=== PATIENT | male | born 1960 | race Hispanic/Latino ===

== ENCOUNTER 2017-10-14 18:48 | Inpatient (IN) | payer BC ==
[2017-10-14] MEDS ORDERED: NACL 0.9% 1000 ML 1,000 ML ONE (19:18)
[2017-10-14] MEDS ORDERED: NACL 0.9% 500 ML 500 ML IV ONE (19:32)
[2017-10-14 20:17] LABS: Basophils % (Auto) 0.4 % (0.0-1.8); Eosinophils # (Auto) 0.3 K/mm3 (0.0-0.4); Eosinophils % (Auto) 3.9 % (0.0-4.3); Hematocrit 23.8 % (35.5-45.6); Hemoglobin 8.1 gm/dl (11.8-15.2); Lymphocytes # (Auto) 1.9 K/mm3 (1.2-5.4); Lymphocytes % (Auto) 27.2 % (13.4-35.0); Mean Corpuscular HGB Conc 34 % (32-34); Mean Corpuscular Hemoglobin 31 pg (28-32); Mean Corpuscular Volume 90 fl (84-94); Monocytes # (Auto) 0.7 K/mm3 (0.0-0.8); Monocytes % (Auto) 9.4 % (0.0-7.3); Platelet Count 437 K/mm3 (140-440); Red Blood Count 2.63 M/mm3 (3.65-5.03); Red Cell Distribution Width 15.8 % (13.2-15.2)
[2017-10-14 20:31] LABS: INR 1.09 (0.87-1.13)
[2017-10-14 20:35] LABS: Alanine Aminotransferase 9 units/L (7-56); Albumin 2.6 g/dL (3.9-5); BUN/Creatinine Ratio 10; Blood Urea Nitrogen 43 mg/dL (9-20); Calcium 7.2 mg/dL (8.4-10.2); Hemolysis Index 6
[2017-10-14 20:42] LABS: Amorphous Crystals,Urine Few; Bacteria,Urine 2+ /HPF (Negative); Bilirubin,Urine NEG (Negative); Blood,Urine SM (Negative); Color,Urine Yellow (Yellow); Mucus,Urine FEW /HPF; Nitrite,Urine NEG (Negative); Protein,Urine <15 mg/dL mg/dL (Negative); Urobilinogen,Urine < 2.0 mg/dL (<2.0)
[2017-10-14 20:58] LABS: Chol/HDL Ratio 4.65 %
[2017-10-14] MEDS ORDERED: BABY ASPIRIN PO ONE (21:20)
--- NOTE | 2017-10-14 21:53 | Emergency Department Report ---
<Herminio GARRETT - Last Filed: 10/14/17 21:56> ED General Adult HPI - General Chief complaint: Weakness Stated complaint: HYPOTENSION Time Seen by Provider: 10/14/17 19:27 Source: patient, family, EMS Mode of arrival: Stretcher Limitations: Physical Limitation - History of Present Illness Initial comments: Patient has been experiencing hypotension for one day. He did not take his blood pressure medications today because of his low blood pressure. He and his were concerned that his pressure may be related to one of the three surgeries that he had last month. He denies that rest or exertion makes his symptoms better or worse and has not tried to take anything to improve his symptoms. Treatments Prior to Arrival: none - Related Data Home Medications Medication Instructions Recorded Confirmed Last Taken ALPRAZolam [Xanax TAB] 0.25 mg PO PRN PRN 08/31/17 09/02/17 08/30/17 Aspirin [Aspirin TAB] 325 mg PO QDAY 08/31/17 08/31/17 09/02/17 06:30 AtorvaSTATin [Lipitor] 40 mg PO QHS 08/31/17 09/02/17 09/01/17 Cilostazol [Pletal] 50 mg PO BID 08/31/17 08/31/17 09/02/17 06:30 Gabapentin [Neurontin] 100 mg PO DAILY 08/31/17 08/31/17 09/02/17 06:30 Gabapentin [Neurontin] 300 mg PO DAILY 08/31/17 09/02/17 09/01/17 Lisinopril [Zestril] 20 mg PO DAILY 08/31/17 09/02/17 09/01/17 Metformin HCl [Glucophage] 500 mg PO BID 08/31/17 09/02/17 08/31/17 Metoprolol Tartrate 25 mg PO DAILY 08/31/17 09/02/17 09/01/17 20:00 Multivit-Min/Folic/Vit K/Lycop 1 each PO DAILY 08/31/17 08/31/17 09/02/17 06:30 [Eql One Daily Mens 50 Plus Adv] Previous Rx's Medication Instructions Recorded Last Taken Type HYDROcodone/APAP 10-325 [[place] 1 each PO Q6HR PRN #60 tablet 09/25/17 Unknown Rx 10/325] Allergies Allergy/AdvReac Type Severity Reaction Status Date / Time No Known Allergies Allergy Unverified 10/14/17 19:17 ED Review of Systems ROS: Stated complaint: HYPOTENSION Other details as noted in HPI Comment: All other systems reviewed and negative Constitutional: denies: chills, fever Eyes: denies: eye pain, eye discharge, vision change ENT: denies: ear pain, throat pain Respiratory: denies: cough, shortness of breath, wheezing Cardiovascular: edema. denies: chest pain, palpitations Endocrine: no symptoms reported Gastrointestinal: denies: abdominal pain, nausea, diarrhea Genitourinary: denies: urgency, dysuria Musculoskeletal: denies: back pain, joint swelling, arthralgia Skin: denies: rash, lesions Neurological: denies: headache, weakness, paresthesias Psychiatric: denies: anxiety, depression Hematological/Lymphatic: denies: easy bleeding, easy bruising ED Past Medical Hx - Past Medical History Hx Hypertension: Yes (recent hypotension, EF 50-55%) Hx Congestive Heart Failure: No Hx Diabetes: Yes (x 2 yrs) Hx Renal Disease: Yes ([facility]) Hx Arthritis: Yes (feet, legs) Hx Asthma: No Hx COPD: No - Social History Smoking Status: Former Smoker Substance Use Type: None - Medications Home Medications: Home Medications Medication Instructions Recorded Confirmed Last Taken Type ALPRAZolam [Xanax TAB] 0.25 mg PO PRN PRN 08/31/17 09/02/17 08/30/17 History Aspirin [Aspirin TAB] 325 mg PO QDAY 08/31/17 08/31/17 09/02/17 06:30 History AtorvaSTATin [Lipitor] 40 mg PO QHS 08/31/17 09/02/17 09/01/17 History Cilostazol [Pletal] 50 mg PO BID 08/31/17 08/31/17 09/02/17 06:30 History Gabapentin [Neurontin] 100 mg PO DAILY 08/31/17 08/31/17 09/02/17 06:30 History Gabapentin [Neurontin] 300 mg PO DAILY 08/31/17 09/02/17 09/01/17 History Lisinopril [Zestril] 20 mg PO DAILY 08/31/17 09/02/17 09/01/17 History Metformin HCl [Glucophage] 500 mg PO BID 08/31/17 09/02/17 08/31/17 History Metoprolol Tartrate 25 mg PO DAILY 08/31/17 09/02/17 09/01/17 20:00 History Multivit-Min/Folic/Vit K/Lycop 1 each PO DAILY 08/31/17 08/31/17 09/02/17 06:30 History [Eql One Daily Mens 50 Plus Adv] HYDROcodone/APAP 10-325 [[place] 1 each PO Q6HR PRN #60 tablet 09/25/17 Unknown Rx 10/325] ED Physical Exam - General Limitations: Physical Limitation General appearance: alert, in no apparent distress, obese - Head Head exam: Present: atraumatic, normocephalic - Eye Eye exam: Present: normal appearance - ENT ENT exam: Present: mucous membranes moist - Neck Neck exam: Present: normal inspection - Respiratory Respiratory exam: Present: normal lung sounds bilaterally. Absent: respiratory distress - Cardiovascular Cardiovascular Exam: Present: regular rate, normal rhythm. Absent: systolic murmur, diastolic murmur, rubs, gallop - GI/Abdominal GI/Abdominal exam: Present: soft, normal bowel sounds - Rectal Rectal exam: Present: deferred - Extremities Exam Extremities exam: Present: normal inspection, full ROM, pedal edema, joint swelling - Back Exam Back exam: Present: normal inspection - Neurological Exam Neurological exam: Present: alert, oriented X3, CN II-XII intact, reflexes normal - Psychiatric Psychiatric exam: Present: normal affect, normal mood - Skin Skin exam: Present: warm, dry, intact, normal color. Absent: rash ED Course Vital Signs 10/14/17 10/14/17 10/14/17 18:53 19:00 19:13 Temperature 99.4 F Pulse Rate 102 H Respiratory 18 Rate Blood Pressure 71/40 72/38 71/36 O2 Sat by Pulse 97 Oximetry 10/14/17 10/14/17 10/14/17 19:22 19:30 19:45 Temperature Pulse Rate 99 H 95 H 93 H Respiratory 17 11 L 13 Rate Blood Pressure 72/38 84/39 74/41 O2 Sat by Pulse 92 95 93 Oximetry 10/14/17 10/14/17 10/14/17 20:00 20:05 20:06 Temperature Pulse Rate 88 93 H Respiratory 11 L 20 Rate Blood Pressure 74/41 O2 Sat by Pulse 92 94 Oximetry 10/14/17 10/14/1710/14/17 20:15 20:30 20:45 Temperature Pulse Rate 91 H 90 89 Respiratory 13 12 12 Rate Blood Pressure 79/45 85/48 81/42 O2 Sat by Pulse 95 93 95 Oximetry 10/14/17 10/14/17 10/14/17 21:00 21:16 21:30 Temperature Pulse Rate 92 H 94 H 89 Respiratory 11 L 12 12 Rate Blood Pressure 70/38 78/36 68/39 O2 Sat by Pulse 94 94 89 Oximetry 10/14/17 10/14/17 10/14/17 21:46 22:00 22:32 Temperature Pulse Rate 93 H 97 H Respiratory 14 14 Rate Blood Pressure 70/40 82/46 98/41 O2 Sat by Pulse 93 92 94 Oximetry 10/14/17 10/14/17 10/14/17 22:45 23:00 23:15 Temperature Pulse Rate 95 H 93 H 92 H Respiratory 12 12 16 Rate Blood Pressure 84/41 83/47 79/43 O2 Sat by Pulse 92 92 93 Oximetry 10/14/17 10/14/17 23:30 23:46 Temperature Pulse Rate 87 85 Respiratory 11 L 11 L Rate Blood Pressure 80/38 108/53 O2 Sat by Pulse 92 92 Oximetry ED Medical Decision Making - Lab Data Result diagrams: 10/14/17 19:47 10/14/17 19:47 Critical care attestation.: If time is entered above; I have spent that time in minutes in the direct care of this critically ill patient, excluding procedure time. ED Disposition Condition: Stable <SEROTOFFPAKO - Last Filed: 10/15/17 01:26> - Central Line Placement Left IJ Consent Obtained: verbal consent, written consent, emergent situation Time Out Performed: Yes Patient Placed on Monitor/Pulse Ox: Yes MD Prep: mask, gown, gloves Central Line Prep: Povidone-Iodine 1%, Chlorhexidine scrub Local Anesthesia Used: Lidocaine 2%, with Epi Amount of Anesthesia Used (mls): 10 Ultrasound Used for Placement: Yes Central Line Lumen Inserted: single, triple Bloods Obtained for Lab: Yes Central Line Position: good blood return, all ports aspirated, flus, sutured in place with 2-0 Dressing Applied: Tegaderm Post Procedure X-Ray: tip of catheter in good p Patient Tolerated Procedure: well Complications: none ED Medical Decision Making - Lab Data Result diagrams: 10/14/17 19:47 10/14/17 19:47
[2017-10-14] MEDS: LEVOPHED DRIP 4 MG/NS 250 ML 4 MG/250 ML BAG IV SCH (22:03)
--- NOTE | 2017-10-14 23:01 | Cat Scan Report ---
FINAL REPORT EXAM: CT ABDOMEN PELVIS WO CON HISTORY: Hypotension/post op TECHNIQUE: CT abdomen and pelvis without contrast PRIORS: None. FINDINGS: Streaky atelectasis seen in both lower lobes No focal abnormality identified within the liver parenchyma. The spleen demonstrates normal size and attenuation. No pancreatic abnormalities seen. Kidneys demonstrate no evidence of hydronephrosis or nephrolithiasis. No ureteral calculus identified. The adrenal glands are unremarkable. There are aortoiliac vascular stents present. Patency cannot be assessed due to lack intravenous contrast No pathologically enlarged lymph nodes are identified. There is midline abdominal surgical wound. The air are air collections present within the subcutaneous soft tissues along the course of the wound along with streaky increased density in the adjacent subcutaneous soft tissues along the course of the rectus muscles no definitive intra-abdominal extension or abscess observed. There is some radiodense material seen along the course of the previous incision at the rectus sheath possibly operative the mesh or packing material. No evidence of small bowel dilatation. no pericolonic inflammatory changes are observed. Left inguinal region there is a 2.7 centimeter low-density focus probable seroma this was present previously and is unchanged. Urinary bladder is unremarkable. Compression fracture of L4 is unchanged IMPRESSION: There is residual subcutaneous air and increased density on the course of the surgical wound which could reflect infection. No focal drainable abscess collection identified. Abdominal aortic aneurysm with aortoiliac vascular stents unchanged on noncontrast exam Otherwise no acute change identified
[2017-10-14] MEDS ORDERED: NACL 0.9% 1000 ML 1,000 ML IV SCH (23:45)
[2017-10-14] MEDS ORDERED: ZOSYN/NS 3.375GM/50ML 3.375 GM/50 ML BAG IV ONE (23:52)
--- NOTE | 2017-10-15 00:28 | History and Physical Report ---
History of Present Illness Date of examination: 10/14/17 Date of admission: 10/14/17 Chief complaint: Hypotension History of present illness: Patient is a 57-year-old gentleman with past medical history as mentioned below recently status post aneurysm repair with aorto-iliac bypass and also with acute kidney injury during his last admission but with a creatinine of 0.9 at discharge. He was discharged to subacute rehabilitation on 09/25/2017 and then discharged to home day before yesterday. He was brought in by his because of low blood pressure. The states that he has not been feeling good since he got home and today his blood pressure was very low so she was concerned and so she brought him to the emergency room. No reports of fevers chills no headache nausea vomiting continue numbness or weakness except for generalized fatigue and weakness. The patient still has some drainage from his abdominal incision through the small. He was seen by general surgery on Thursday but then he had the anibal and stitches removed. He denies any diarrhea or constipation and no significant abdominal pain. Past History Past Medical History: arthritis, diabetes, hypertension, renal failure Past Surgical History: Other (Aortobifemoral bypass 09/02/17, Closure of fascial dehiscence 09/07/17) Social history: no significant social history Family history: no significant family history Medications and Allergies Allergies Allergy/AdvReac Type Severity Reaction Status Date / Time No Known Allergies Allergy Unverified 10/14/17 19:17 Home Medications Medication Instructions Recorded Confirmed Last Taken Type ALPRAZolam [Xanax TAB] 0.25 mg PO PRN PRN 08/31/17 09/02/17 08/30/17 History Aspirin [Aspirin TAB] 325 mg PO QDAY 08/31/17 08/31/17 09/02/17 06:30 History AtorvaSTATin [Lipitor] 40 mg PO QHS 08/31/17 09/02/17 09/01/17 History Cilostazol [Pletal] 50 mg PO BID 08/31/17 08/31/17 09/02/17 06:30 History Gabapentin [Neurontin] 100 mg PO DAILY 08/31/17 08/31/17 09/02/17 06:30 History Gabapentin [Neurontin] 300 mg PO DAILY 08/31/17 09/02/17 09/01/17 History Lisinopril [Zestril] 20 mg PO DAILY 08/31/17 09/02/17 09/01/17 History Metformin HCl [Glucophage] 500 mg PO BID 08/31/17 09/02/17 08/31/17 History Metoprolol Tartrate 25 mg PO DAILY 08/31/17 09/02/17 09/01/17 20:00 History Multivit-Min/Folic/Vit K/Lycop 1 each PO DAILY 08/31/17 08/31/17 09/02/17 06:30 History [Eql One Daily Mens 50 Plus Adv] HYDROcodone/APAP 10-325 [[place] 1 each PO Q6HR PRN #60 tablet 09/25/17 Unknown Rx 10325] Active Meds: Active Medications Norepinephrine (Levophed Drip 4 Mg/Ns 250 Ml) 4 mg in 250 mls @ 7.5 mls/hr IV TITR DRU; 2 MCG/MIN PRN Reason: Protocol Last Titration: 10/14/17 23:36 Dose: 4 mcg/min, 15 mls/hr Sodium Chloride (Nacl 0.9% 1000 Ml) 1,000 mls @ 150 mls/hr IV DIRECT DRU Piperacillin Sod/Tazobactam Sod (Zosyn/Ns 3.375gm/50ml) 3.375 gm in 50 mls @ 100 mls/hr IV ONCE.ED ONE Stop: 10/16/17 00:21 Review of Systems All systems: negative (as mentioned in HPI) Exam - Physical Exam Narrative exam: General: the patient is awake alert oriented to time place and person. no evidence of acute distress HEENT: Head is atraumatic normocephalic,. Pupils equal round reactive to light and accommodation, extraocular movements intact. Oral mucosa moist. Oropharynx clear. No pharyngeal erythema or tonsillar exudate. Neck: Supple no JVD no thyromegaly or lymphadenopathy. Heart: Regular rate and rhythm no murmurs or gallops. S1 and S2 normal. PMI not displaced. Lungs: Clear to auscultation bilaterally. No rales rhonchi wheezing. Nonlabored breathing. Normal chest wall expansion. Abdomen: Soft, nondistended, and mildly tender to palpation over all quadrants. Abdominal binder in place. Normoactive bowel sounds. No hepatosplenomegaly. No abdominal masses or bruit appreciated. Anterior abdominal wall incision with minimal erythema and the areas of one day since small 2-3 mm circular openings with purulent drainage Extremities: No cyanosis/clubbing/ edema. Musculoskeletal: Normal range of movement all joints. No obvious deformity or tenderness to palpation. Normal muscle tone. Back: Normal alignment. No step-off. No midline or paraspinal tenderness. No CVA tenderness. Neurological: Grossly intact and nonfocal. No cerebellar signs. Cranial nerves II-12 grossly intact. Strength 5 out of 5 all 4 extremities. Sensations grossly intact. Skin: Warm and dry no rashes or bruises except, anterior abdominal wall incision changes as mentioned above Psychiatric: Normal mood. Appropriate affect and good insight and judgment. Vascular system: No lymphadenopathy. Distal pulses 2+ bilaterally. - Constitutional Vitals: Temp Pulse Resp BP Pulse Ox 99.4 F 85 11 L 108/53 92 10/14/17 19:13 10/14/17 23:46 10/14/17 23:46 10/14/17 23:46 10/14/17 23:46 Results - Labs CBC & Chem 7: 10/14/17 19:47 10/14/17 19:47 Labs: Laboratory Last Values WBC 7.0 K/mm3 (4.5-11.0) 10/14/17 19:47 RBC 2.63 M/mm3 (3.65-5.03) L 10/14/17 19:47 Hgb 8.1 gm/dl (11.8-15.2) L 10/14/17 19:47 Hct 23.8 % (35.5-45.6) L 10/14/17 19:47 MCV 90 fl (84-94) 10/14/17 19:47 MCH 31 pg (28-32) 10/14/17 19:47 MCHC 34 % (32-34) 10/14/17 19:47 RDW 15.8 % (13.2-15.2) H 10/14/17 19:47 Plt Count 437 K/mm3 (140-440) 10/14/17 19:47 Lymph % (Auto) 27.2 % (13.4-35.0) 10/14/17 19:47 [place] % (Auto) 9.4 % (0.0-7.3) H 10/14/17 19:47 Eos % (Auto) 3.9 % (0.0-4.3) 10/14/17 19:47 Baso % (Auto) 0.4 % (0.0-1.8) 10/14/17 19:47 Lymph # 1.9 K/mm3 (1.2-5.4) 10/14/17 19:47 [place] # 0.7 K/mm3 (0.0-0.8) 10/14/17 19:47 Eos # 0.3 K/mm3 (0.0-0.4) 10/14/17 19:47 Baso # 0.0 K/mm3 (0.0-0.1) 10/14/17 19:47 Seg Neutrophils % 59.1 % (40.0-70.0) 10/14/17 19:47 Seg Neutrophils # 4.2 K/mm3 (1.8-7.7) 10/14/17 19:47 PT 14.7 Sec. (12.2-14.9) 10/14/17 19:47 INR 1.09 (0.87-1.13) 10/14/17 19:47 D-Dimer 3277.01 ng/mlDDU (0-234) H 10/14/17 19:47 Sodium 127 mmol/L (137-145) L 10/14/17 19:47 Potassium 4.0 mmol/L (3.6-5.0) 10/14/17 19:47 Chloride 88.6 mmol/L (98-107) L 10/14/17 19:47 Carbon Dioxide 21 mmol/L (22-30) L 10/14/17 19:47 Anion Gap 21 mmol/L 10/14/17 19:47 BUN 43 mg/dL (9-20) H 10/14/17 19:47 Creatinine 4.2 mg/dL (0.8-1.5) H 10/14/17 19:47 Estimated GFR 15 ml/min 10/14/17 19:47 BUN/Creatinine Ratio 10 % 10/14/17 19:47 Glucose 106 mg/dL (75-100) H 10/14/17 19:47 POC Glucose 116 (70-105) H 10/14/17 20:19 Calcium 7.2 mg/dL (8.4-10.2) L 10/14/17 19:47 Total Bilirubin < 0.20 mg/dL (0.1-1.2) 10/14/17 19:47 AST 12 units/L (5-40) 10/14/17 19:47 ALT 9 units/L (7-56) 10/14/17 19:47 Alkaline Phosphatase 135 units/L (35-129) H 10/14/17 19:47 Total Creatine Kinase 83 units/L (55-170) 10/14/17 19:47 Troponin T 0.108 ng/mL (0.00-0.029) H* 10/14/17 19:47 Total Protein 6.4 g/dL (6.3-8.2) 10/14/17 19:47 Albumin 2.6 g/dL (3.9-5) L 10/14/17 19:47 Albumin/Globulin Ratio 0.7 % 10/14/17 19:47 Triglycerides 186 mg/dL (2-149) H 10/14/17 19:47 Cholesterol 121 mg/dL (50-199) 10/14/17 19:47 LDL Cholesterol Direct 58 mg/dL (50-130) 10/14/17 19:47 HDL Cholesterol 26 mg/dL (40-59) L 10/14/17 19:47 Cholesterol/HDL Ratio 4.65 % 10/14/17 19:47 Urine Color Yellow (Yellow) 10/14/17 20:30 Urine Turbidity Slightly-cloudy (Clear) 10/14/17 20:30 Urine pH 5.0 (5.0-7.0) 10/14/17 20:30 Ur Specific [place] 1.014 (1.003-1.030) 10/14/17 20:30 Urine Protein <15 mg/dl mg/dL (Negative) 10/14/17 20:30 Urine Glucose (UA) Neg mg/dL (Negative) 10/14/17 20:30 Urine Ketones Neg mg/dL (Negative) 10/14/17 20:30 Urine Blood Sm (Negative) 10/14/17 20:30 Urine Nitrite Neg (Negative) 10/14/17 20:30 Urine Bilirubin Neg (Negative) 10/14/17 20:30 Urine Urobilinogen < 2.0 mg/dL (<2.0) 10/14/17 20:30 Ur Leukocyte Esterase Tr (Negative) 10/14/17 20:30 Urine WBC (Auto) 7.0 /HPF (0.0-6.0) H 10/14/17 20:30 Urine RBC (Auto) 5.0 /HPF (0.0-6.0) 10/14/17 20:30 U Epithel Cells (Auto) < 1.0 /HPF (0-13.0) 10/14/17 20:30 Urine Bacteria (Auto) 2+ /HPF (Negative) 10/14/17 20:30 Amorphous Crystals Few 10/14/17 20:30 Urine Mucus Few /HPF 10/14/17 20:30 - Imaging and Cardiology Imaging and Cardiology: CT abdomen and pelvis without contrast showing residual subcutaneous air and increased density on the course of the surgical wound which could reflect infection. No focal drainable abscess collection identified. Abdominal aortic aneurysm with aortoiliac vascular stents unchanged noncontrast exam Assessment and Plan Assessment and plan: Assessment and plan - * Hypotension - possibly sepsis versus hypovolemia related * Acute kidney injury - likely multifactorial related to sepsis versus hypovolemia versus ATN. * Diabetes mellitus type 2 * Acute posterior lacuner infract - Patient was seen by neurology during his last admission on 09/25/2007 date. As per the recent MRI of the brain scan and there was strong evidence only of minimal cortical infarct in the occipital lobes which probably was determined to be acute coronary infarct. Patient was determined to have visible areas of ischemic CVA suspecting single episode of emboli. * AAA Status post aortobifemoral bypass surgery on 09/02/17 * Sepsis likely from abdominal wound dehiscence and abdominal wound infection * Shock likely septic versus Hypovolemic Shock, aggressive IV fluid rehydration and pressors if needed or indicated to maintain a map greater than 65. We will admit to ICU monitor vital signs closely * IDDM (insulin dependent diabetes mellitus) * HTN (hypertension) * PAD (peripheral artery disease) * HLD (hyperlipidemia) * Hyponatremia. * Abdominal wound dehiscence with evisceration - s/p abdominal wound closure . Had emergency surgery 09/09/17 : exploratory lap, mesh placement complex wound closure and retention sutures. The retention sutures removed this Thursday. * Anemia - likely postop. Patient status post blood transfusion during his last admission. H&H slightly lower than his discharge hemoglobin and hematocrit. We will monitor H&H closely and transfuse if needed or indicated for hemoglobin less than or equal to 7. Plan: - We'll admit to ICU - Aggressive IV fluid rehydration and monitor serum sodium and vital signs closely - Vascular surgery and Gen. surgery and nephrology consulted for further evaluation and management. We'll follow the recommendations - Patient has been pancultured and started him on empiric antibiotics vancomycin and Zosyn, follow culture results modify antibiotic treatment based on culture and sensitivity data - cont statin, no asp/plavix due to recent h/o blood transfusion - s/p OR on 09/07/17 for abdominal wall wound dehiscence and repair - s/p emergency surgery 09/09/17 for evisceration - continue strict Is and Os, - continue VTE/GI prophylaxis - Cont SSI coverage Total critical care time spent 55 minutes Advance Directives: Yes VTE prophylaxis?: Chemical, Mechanical Plan of care discussed with patient/family: Yes
[2017-10-15] MEDS ORDERED: XYLOCAINE 2%/ EPI 1:200,000 INFILTRATI ONE (00:46)
[2017-10-15] MEDS ORDERED: DULCOLAX PR PRN (00:48)
[2017-10-15] MEDS ORDERED: NACL 0.9% 250ML 250 ML IV ONE (00:48)
[2017-10-15] MEDS ORDERED: MILK OF MAGNESIA PO PRN (00:48)
[2017-10-15] MEDS ORDERED: VANCOMYCIN VIAL IV ONE (00:48)
[2017-10-15] MEDS ORDERED: TYLENOL PO PRN (00:48)
[2017-10-15] MEDS ORDERED: ZOFRAN IV PRN (00:48)
[2017-10-15] MEDS ORDERED: D50W (25GM) Syringe IV PRN (00:48)
[2017-10-15] MEDS ORDERED: AMBIEN PO PRN (00:48)
[2017-10-15] MEDS ORDERED: MORPHINE IV PRN (00:48)
[2017-10-15] MEDS ORDERED: VANCOMYCIN PHARMACY TO DOSE IV SCH (01:00)
[2017-10-15] MEDS ORDERED: XANAX PO PRN (01:09)
[2017-10-15] MEDS ORDERED: VANCOMYCIN 2,000 MG in NACL 0.9% 500 ML 500 ML IV ONE (01:30)
--- NOTE | 2017-10-15 01:49 | XRay Report ---
FINAL REPORT PROCEDURE: XR CHEST 1V AP TECHNIQUE: Chest radiograph anteroposterior view. CPT 16011 HISTORY: CENTRAL LINE PLACEMENT COMPARISON: No prior studies are available for comparison. FINDINGS: Heart: Normal. Mediastinum/Vessels: Normal. Lungs/Pleural space: There is bilateral perihilar pulmonary edema. There is suboptimal inspiration. There are no effusions or pneumothoraces.. Bony thorax: No acute osseous abnormality. Life support devices: There is a left-sided central venous catheter. The tip is in the left internal jugular vein.. IMPRESSION: The heart size is normal.. There is bilateral perihilar pulmonary edema. There is suboptimal inspiration. There are no effusions or pneumothoraces.. There is a left-sided central venous catheter. The tip is in the left internal jugular vein..
[2017-10-15] MEDS: LEVOPHED DRIP 4 MG/NS 250 ML 4 MG/250 ML BAG IV SCH ×2 (02:04→22:45)
[2017-10-15 03:31] LABS: Basophils % (Auto) 0.4 % (0.0-1.8); Eosinophils # (Auto) 0.3 K/mm3 (0.0-0.4); Eosinophils % (Auto) 3.9 % (0.0-4.3); Hematocrit 25.8 % (35.5-45.6); Hemoglobin 8.6 gm/dl (11.8-15.2); Lymphocytes % (Auto) 28.7 % (13.4-35.0); Mean Corpuscular HGB Conc 33 % (32-34); Mean Corpuscular Hemoglobin 30 pg (28-32); Mean Corpuscular Volume 89 fl (84-94); Monocytes # (Auto) 0.6 K/mm3 (0.0-0.8); Monocytes % (Auto) 9.3 % (0.0-7.3); Platelet Count 483 K/mm3 (140-440)
[2017-10-15 03:50] LABS: Albumin 2.7 g/dL (3.9-5); Calcium 7.9 mg/dL (8.4-10.2)
[2017-10-15] MEDS: DUONEB *Not for PRN Use IH SCH ×5 (04:31→21:28)
[2017-10-15] MEDS ORDERED: ZOSYN/NS 4.5GM/100ML 4.5 GM/100 ML VIAL IV SCH (06:00)
[2017-10-15] MEDS ORDERED: ZOSYN/NS 2.25 GM/50ML 2.25 GM/50 ML BAG IV SCH (08:00)
[2017-10-15] MEDS: NOVOLOG SUB-Q SCH ×4 (09:21→23:08)
--- NOTE | 2017-10-15 09:50 | Consultation ---
History of Present Illness - Reason for Consult Consult date: 10/15/17 - History of Present Illness Mr. Belcher is a 57yo gentleman s/p recent aorta bifemoral bypass that was complicated by dehiscence and repair with mesh who presented to the ED with hypotension. reported that she routinely checks patient's blood pressure. Yesterday, she reports that his BP was low which was confirmed by home health nurse. She was advised to give patient fluids. reports that BP improved only briefly and then declined again which prompted ED visit. There is no reported history of fever, chills, nausea, vomiting and diarrhea. At present, patient has no complaints. Labs at admission notable for SCr 4.2mg/dL prompting nephrology consultation. Past History Past Medical History: arthritis, diabetes, hypertension, renal failure Past Surgical History: Other (Aortobifemoral bypass 09/02/17, Closure of fascial dehiscence 09/07/17) Social history: no significant social history Family history: no significant family history Medications and Allergies Allergies Allergy/AdvReac Type Severity Reaction Status Date / Time No Known Allergies Allergy Unverified 10/14/17 19:17 Home Medications Medication Instructions Recorded Confirmed Last Taken Type ALPRAZolam [Xanax TAB] 0.25 mg PO PRN PRN 08/31/17 10/15/17 08/30/17 History Aspirin [Aspirin TAB] 325 mg PO DAILY 08/31/17 10/15/17 10/14/17 History AtorvaSTATin [Lipitor] 40 mg PO DAILY 08/31/17 10/15/17 10/14/17 History Cilostazol [Pletal] 50 mg PO BID 08/31/17 10/15/17 10/14/17 History Gabapentin [Neurontin] 100 mg PO DAILY 08/31/17 10/15/17 10/14/17 History Gabapentin [Neurontin] 300 mg PO DAILY 08/31/17 10/15/17 10/14/17 History Metformin HCl [Glucophage] 500 mg PO BID 08/31/17 10/15/17 10/14/17 History Multivit-Min/Folic/Vit K/Lycop 1 each PO DAILY 08/31/17 10/15/17 10/14/17 History [Eql One Daily Mens 50 Plus Adv] HYDROcodone/APAP 10-325 [[place] 1 each PO Q6HR PRN #60 tablet 09/25/17 10/15/17 10/14/17 Rx 10/325] Active Meds: Active Medications Acetaminophen (Tylenol) 650 mg PO Q4H PRN PRN Reason: Pain MILD(1-3)/Fever >100.5/ROBLES Albuterol/Ipratropium (Duoneb *Not For Prn Use*) 1 ampul IH Q6HRT COUNT INCLUDES THE [facility] Last Admin: 10/15/17 04:31 Dose: 1 ampul Alprazolam (Xanax) 0.25 mg PO DAILY PRN PRN Reason: Anxiety Atorvastatin Calcium (Lipitor) 40 mg PO QHS DRU Bisacodyl (Dulcolax) 10 mg [place] QDAY PRN PRN Reason: Constipation unrelieved by MOM Dextrose (D50w (25gm) Syringe) 50 ml IV PRN PRN PRN Reason: Hypoglycemia Docusate Sodium (Colace) 100 mg PO BID COUNT INCLUDES THE [facility] Gabapentin (Neurontin) 300 mg PO DAILY COUNT INCLUDES THE [facility] Norepinephrine (Levophed Drip 4 Mg/Ns 250 Ml) 4 mg in 250 mls @ 7.5 mls/hr IV TITR DRU; 2 MCG/MIN PRN Reason: Protocol Last Titration: 10/15/17 08:30 Dose: 8 mcg/min, 30 mls/hr Sodium Chloride (Nacl 0.9% 1000 Ml) 1,000 mls @ 150 mls/hr IV DIRECT DRU Piperacillin Sod/Tazobactam Sod (Zosyn/Ns 4.5gm/100ml) 4.5 gm in 100 mls @ 200 mls/hr IV Q8H COUNT INCLUDES THE [facility] Insulin Aspart (Novolog) 0 units SUB-Q ACHS DRU PRN Reason: Protocol Last Admin: 10/15/17 09:21 Dose: 3 units Magnesium Hydroxide (Milk Of Magnesia) 30 ml PO Q4H PRN PRN Reason: Constipation Morphine Sulfate (Morphine) 2 mg IV Q4H PRN PRN Reason: Pain, Moderate (4-6) Multivitamins/Minerals (Theragran-M Tab) 1 each PO QDAY DRU Ondansetron HCl (Zofran) 4 mg IV Q8H PRN PRN Reason: N/V unrelieved by Reglan Oxycodone/Acetaminophen (Percocet 5/325) 1 tab PO Q6H PRN PRN Reason: Pain, Moderate (4-6) Pantoprazole Sodium (Protonix) 40 mg PO QDAY DRU Senna (Senokot) 8.6 mg PO Q12HR DRU Vancomycin HCl (Vancomycin Pharmacy To Dose) 1 each IV PKCONSULT DRU PRN Reason: Protocol Zolpidem Tartrate (Ambien) 5 mg PO QHS PRN PRN Reason: Insomnia Review of Systems All systems: negative Exam - Vital Signs Vital signs: Vital Signs BP 71/40 10/14/17 18:53 - General Appearance General appearance: well-developed, well-nourished EENT: ATNC Respiratory: Clear to Ascultation Heart: regular, S1S2 Gastrointestinal: Present: normoactive bowel sounds Integumentary: no rash, warm and dry Neurologic: no focal deficit Musculoskeletal: Present: other (no edema) Psychiatric: cooperative Results - Lab Results 10/16/17 04:01 10/16/17 04:01 Most recent lab results Calcium 7.9 mg/dL (8.4-10.2) L 10/15/17 03:12 Assessment and Plan Impression: * Acute kidney injury secondary to prerenal azotemia due to hypotension vs ATN * Hypotension secondary to ?sepsis * s/p Aorta bifemoral bypass that was complicated by dehiscence and repair with mesh * Hyponatremia - improved Plan: * No acute indication for renal replacement therapy as renal function is improving * Continue IVF for hydration * Pressors prn MAP>65 - currently on Levophed * Abx per ID * Avoid potential nephrotoxins * Dose medications for renal function
[2017-10-15] MEDS ORDERED: VIT K PO SCH (10:00)
[2017-10-15] MEDS ORDERED: LYCOP PO SCH (10:00)
[2017-10-15] MEDS ORDERED: MULTIVIT MIN PO SCH (10:00)
[2017-10-15] MEDS ORDERED: FOLIC PO SCH (10:00)
[2017-10-15] MEDS: ZOSYN/NS 4.5GM/100ML 4.5 GM/100 ML VIAL IV SCH ×2 (10:36→18:15)
--- NOTE | 2017-10-15 11:12 | Consultation ---
History of Present Illness Consult date: 10/15/17 Requesting physician: MICHAEL VELASQUEZ History of present illness: 57 years old male with history of DM, HTN, CKD and status post aneurysm repair with aorto-iliac bypass, well known to me, recently discharged ( after undergoing Aortobifemoral bypass 09/02/17, complicated with wound dehiscence / eviceration s/p Closure of fascial dehiscence with a mesh 09/07/17) to subacute rehabilitation on 09/25/2017 and then discharged to home on 10/12. He had acute kidney injury during his last admission but with a creatinine of 0.9 at discharge. He was discharged to subacute rehabilitation on 09/25/2017 and then discharged to home day before yesterday. He was brought in by his because of low blood pressure. The states that he has not been feeling good since he got home and today his blood pressure was very low so she was concerned and so she brought him to the emergency room. No reports of fevers chills no headache nausea vomiting continue numbness or weakness except for generalized fatigue and weakness. The patient still has some drainage from his abdominal incision through the small. The patient still has some drainage from his abdominal incision. He was seen by general surgery Dr Perales on Thursday but then he had the anibal and stitches removed and serous fluid was reported draining. he was given bactrim DS which he has been taking. He denies any diarrhea or constipation and no significant abdominal pain. He denies any diarrhea or constipation and no significant abdominal pain. He has been coughing yellowish sputum last week. In the emergency room, initial temperature was 99.4, heart rate 102, respiration 18, blood pressure 71/36. Initial white count 7. Hemoglobin 8.1. Platelets 437. Creatinine 4.2. Lactic acid 0.7. Urinalysis is negative. I have been consulted for septic shock. Patient was seen and examined. Vitals, labs, medications, chart were reviewed, in ED, with his at the bedside. He is hypotensive requiring fluids and vasopressor suppport. Past History Past Medical History: arthritis, diabetes, hypertension, renal failure Past Surgical History: Other (Aortobifemoral bypass 09/02/17, Closure of fascial dehiscence 09/07/17) Social history: no significant social history Family history: no significant family history Medications and Allergies Allergies Allergy/AdvReac Type Severity Reaction Status Date / Time No Known Allergies Allergy Unverified 10/14/17 19:17 Home Medications Medication Instructions Recorded Confirmed Last Taken Type ALPRAZolam [Xanax TAB] 0.25 mg PO PRN PRN 08/31/17 10/15/17 08/30/17 History Aspirin [Aspirin TAB] 325 mg PO DAILY 08/31/17 10/15/17 10/14/17 History AtorvaSTATin [Lipitor] 40 mg PO DAILY 08/31/17 10/15/17 10/14/17 History Cilostazol [Pletal] 50 mg PO BID 08/31/17 10/15/17 10/14/17 History Gabapentin [Neurontin] 100 mg PO DAILY 08/31/17 10/15/17 10/14/17 History Gabapentin [Neurontin] 300 mg PO DAILY 08/31/17 10/15/17 10/14/17 History Metformin HCl [Glucophage] 500 mg PO BID 08/31/17 10/15/17 10/14/17 History Multivit-Min/Folic/Vit K/Lycop 1 each PO DAILY 08/31/17 10/15/17 10/14/17 History [Eql One Daily Mens 50 Plus Adv] HYDROcodone/APAP 10-325 [[place] 1 each PO Q6HR PRN #60 tablet 09/25/17 10/15/17 10/14/17 Rx 10/325] Active Meds: Active Medications Acetaminophen (Tylenol) 650 mg PO Q4H PRN PRN Reason: Pain MILD(1-3)/Fever >100.5/ROBLES Albuterol/Ipratropium (Duoneb *Not For Prn Use*) 1 ampul IH Q6HRT [facility] Last Admin: 10/15/17 10:31 Dose: 1 ampul Alprazolam (Xanax) 0.25 mg PO DAILY PRN PRN Reason: Anxiety Atorvastatin Calcium (Lipitor) 40 mg PO QHS DRU Bisacodyl (Dulcolax) 10 mg [place] QDAY PRN PRN Reason: Constipation unrelieved by MOM Dextrose (D50w (25gm) Syringe) 50 ml IV PRN PRN PRN Reason: Hypoglycemia Docusate Sodium (Colace) 100 mg PO BID DRU Gabapentin (Neurontin) 300 mg PO DAILY DRU Norepinephrine (Levophed Drip 4 Mg/Ns 250 Ml) 4 mg in 250 mls @ 7.5 mls/hr IV TITR DRU; 2 MCG/MIN PRN Reason: Protocol Last Titration: 10/15/17 08:30 Dose: 8 mcg/min, 30 mls/hr Sodium Chloride (Nacl 0.9% 1000 Ml) 1,000 mls @ 150 mls/hr IV DIRECT DRU Piperacillin Sod/Tazobactam Sod (Zosyn/Ns 4.5gm/100ml) 4.5 gm in 100 mls @ 200 mls/hr IV Q8H [facility] Last Admin: 10/15/17 10:36 Dose: 200 mls/hr Insulin Aspart (Novolog) 0 units SUB-Q ACHS DRU PRN Reason: Protocol Last Admin: 10/15/17 09:21 Dose: 3 units Magnesium Hydroxide (Milk Of Magnesia) 30 ml PO Q4H PRN PRN Reason: Constipation Morphine Sulfate (Morphine) 2 mg IV Q4H PRN PRN Reason: Pain, Moderate (4-6) Multivitamins/Minerals (Theragran-M Tab) 1 each PO QDAY [facility] Ondansetron HCl (Zofran) 4 mg IV Q8H PRN PRN Reason: N/V unrelieved by Reglan Oxycodone/Acetaminophen (Percocet 5/325) 1 tab PO Q6H PRN PRN Reason: Pain, Moderate (4-6) Pantoprazole Sodium (Protonix) 40 mg PO QDAY [facility] Senna (Senokot) 8.6 mg PO Q12HR [facility] Vancomycin HCl (Vancomycin Pharmacy To Dose) 1 each IV PKCONSULT [facility] PRN Reason: Protocol Zolpidem Tartrate (Ambien) 5 mg PO QHS PRN PRN Reason: Insomnia Physical Examination Vital signs: Vital Signs BP 71/40 10/14/17 18:53 Results - Laboratory Findings CBC and BMP: 10/22/17 06:05 10/23/17 04:45 PT/INR, D-dimer PT 14.7 Sec. (12.2-14.9) 10/14/17 19:47 INR 1.09 (0.87-1.13) 10/14/17 19:47 D-Dimer 3277.01 ng/mlDDU (0-234) H 10/14/17 19:47 Abnormal lab findings: Abnormal Labs 10/14/17 10/14/17 10/14/17 19:47 19:47 19:47 RBC 2.63 L Hgb 8.1 L Hct 23.8 L RDW 15.8 H Plt Count [place] % (Auto) 9.4 H D-Dimer Sodium 127 L Chloride 88.6 L Carbon Dioxide 21 L BUN 43 H Creatinine 4.2 H Glucose 106 H POC Glucose Calcium 7.2 L Alkaline Phosphatase 135 H Troponin T 0.108 H* Albumin 2.6 L Triglycerides 186 H HDL Cholesterol 26 L Urine WBC (Auto) 10/14/17 10/14/17 10/14/17 19:47 20:19 20:30 RBC Hgb Hct RDW Plt Count [place] % (Auto) D-Dimer 3277.01 H Sodium Chloride Carbon Dioxide BUN Creatinine Glucose POC Glucose 116 H Calcium Alkaline Phosphatase Troponin T Albumin Triglycerides HDL Cholesterol Urine WBC (Auto) 7.0 H 10/15/17 10/15/17 10/15/17 03:12 03:12 08:42 RBC 2.90 L Hgb 8.6 L Hct 25.8 L RDW 16.0 H Plt Count 483 H [place] % (Auto) 9.3 H D-Dimer Sodium 133 L Chloride 94.5 L Carbon Dioxide 21 L BUN 41 H Creatinine 3.3 H Glucose 112 H POC Glucose 152 H Calcium 7.9 L Alkaline Phosphatase 140 H Troponin T Albumin 2.7 L Triglycerides HDL Cholesterol Urine WBC (Auto) Assessment and Plan Sepsis IVVD RUPERT VTE (DVT) PVD (Status post aortobifemoral bypass surgery on 09/02/17) Diabetes type II controlled with insulin Hyperlipidemia Anemia Abdominal Wound Infection -admit ICU -follow up cultures - continue volume resuscitation with isotonic fluids - wean off levophed for MAP > 65mmHg - supplemental oxygen to keep sats > 90% - mobility protocol for pressure ulcer prophylaxis - azotemia per nephrology otherwise - continue anti-infectives and de-escalate per ID recs - continue IV heparin for DVT Monitor hemodynamic closely - flu & pneumovax per protocol.. ED Critical Care Note - Critical Care Note Total Time (mins): 65 Critical care time in (mins) excluding proc time.: 65 Critical care attestation.: If time is entered above; I have spent that time in minutes in the direct care of this critically ill patient, excluding procedure time.
[2017-10-15] MEDS: PROTONIX PO SCH (11:30)
[2017-10-15] MEDS: NEURONTIN PO SCH (11:30)
[2017-10-15] MEDS: COLACE PO SCH ×2 (11:30→23:09)
[2017-10-15] MEDS: SENOKOT PO SCH ×2 (13:03→22:46)
[2017-10-15] MEDS: THERAGRAN-M Tab PO SCH (13:21)
--- NOTE | 2017-10-15 14:39 | Progress Note ---
History Interval history: No new issues overnight. Hospitalist Physical - Constitutional Vitals: Temp Pulse Resp BP Pulse Ox 98.5 F 118 H 18 105/55 94 10/15/17 07:10 10/15/17 07:10 10/15/17 07:10 10/15/17 07:10 10/15/17 07:10 General appearance: Present: no acute distress, well-nourished - EENT Eyes: Present: PERRL, EOM intact ENT: hearing intact, clear oral mucosa, dentition normal - Neck Neck: Present: supple, normal ROM - Respiratory Respiratory effort: normal Respiratory: bilateral: CTA - Cardiovascular Rhythm: regular Heart Sounds: Present: S1 & S2. Absent: gallop, rub - Extremities Extremities: no ischemia, No edema, Full ROM - Abdominal General gastrointestinal: soft, non-tender, non-distended, normal bowel sounds - Integumentary Integumentary: Present: clear, warm, dry - Neurologic Neurologic: CNII-XII intact, moves all extremities Results - Labs CBC & Chem 7: 10/15/17 03:12 10/15/17 03:12 Labs: Laboratory Last Values WBC 6.8 K/mm3 (4.5-11.0) 10/15/17 03:12 RBC 2.90 M/mm3 (3.65-5.03) L 10/15/17 03:12 Hgb 8.6 gm/dl (11.8-15.2) L 10/15/17 03:12 Hct 25.8 % (35.5-45.6) L 10/15/17 03:12 MCV 89 fl (84-94) 10/15/17 03:12 MCH 30 pg (28-32) 10/15/17 03:12 MCHC 33 % (32-34) 10/15/17 03:12 RDW 16.0 % (13.2-15.2) H 10/15/17 03:12 Plt Count 483 K/mm3 (140-440) H 10/15/17 03:12 Lymph % (Auto) 28.7 % (13.4-35.0) 10/15/17 03:12 [place] % (Auto) 9.3 % (0.0-7.3) H 10/15/17 03:12 Eos % (Auto) 3.9 % (0.0-4.3) 10/15/17 03:12 Baso % (Auto) 0.4 % (0.0-1.8) 10/15/17 03:12 Lymph # 2.0 K/mm3 (1.2-5.4) 10/15/17 03:12 [place] # 0.6 K/mm3 (0.0-0.8) 10/15/17 03:12 Eos # 0.3 K/mm3 (0.0-0.4) 10/15/17 03:12 Baso # 0.0 K/mm3 (0.0-0.1) 10/15/17 03:12 Seg Neutrophils % 57.7 % (40.0-70.0) 10/15/17 03:12 Seg Neutrophils # 3.9 K/mm3 (1.8-7.7) 10/15/17 03:12 PT 14.7 Sec. (12.2-14.9) 10/14/17 19:47 INR 1.09 (0.87-1.13) 10/14/17 19:47 D-Dimer 3277.01 ng/mlDDU (0-234) H 10/14/17 19:47 Sodium 133 mmol/L (137-145) L 10/15/17 03:12 Potassium 3.6 mmol/L (3.6-5.0) 10/15/17 03:12 Chloride 94.5 mmol/L (98-107) L 10/15/17 03:12 Carbon Dioxide 21 mmol/L (22-30) L 10/15/17 03:12 Anion Gap 21 mmol/L 10/15/17 03:12 BUN 41 mg/dL (9-20) H 10/15/17 03:12 Creatinine 3.3 mg/dL (0.8-1.5) H 10/15/17 03:12 Estimated GFR 19 ml/min 10/15/17 03:12 BUN/Creatinine Ratio 12 % 10/15/17 03:12 Glucose 112 mg/dL (75-100) H 10/15/17 03:12 POC Glucose 182 (70-105) H 10/15/17 13:16 Lactic Acid 0.70 mmol/L (0.7-2.0) 10/15/17 03:12 Calcium 7.9 mg/dL (8.4-10.2) L 10/15/17 03:12 Total Bilirubin 0.20 mg/dL (0.1-1.2) 10/15/17 03:12 AST 14 units/L (5-40) 10/15/17 03:12 ALT 11 units/L (7-56) 10/15/17 03:12 Alkaline Phosphatase 140 units/L (35-129) H 10/15/17 03:12 Total Creatine Kinase 83 units/L (55-170) 10/14/17 19:47 Troponin T 0.108 ng/mL (0.00-0.029) H* 10/14/17 19:47 Total Protein 7.2 g/dL (6.3-8.2) 10/15/17 03:12 Albumin 2.7 g/dL (3.9-5) L 10/15/17 03:12 Albumin/Globulin Ratio 0.6 % 10/15/17 03:12 Triglycerides 186 mg/dL (2-149) H 10/14/17 19:47 Cholesterol 121 mg/dL (50-199) 10/14/17 19:47 LDL Cholesterol Direct 58 mg/dL (50-130) 10/14/17 19:47 HDL Cholesterol 26 mg/dL (40-59) L 10/14/17 19:47 Cholesterol/HDL Ratio 4.65 % 10/14/17 19:47 Urine Color Yellow (Yellow) 10/14/17 20:30 Urine Turbidity Slightly-cloudy (Clear) 10/14/17 20:30 Urine pH 5.0 (5.0-7.0) 10/14/17 20:30 Ur Specific [place] 1.014 (1.003-1.030) 10/14/17 20:30 Urine Protein <15 mg/dl mg/dL (Negative) 10/14/17 20:30 Urine Glucose (UA) Neg mg/dL (Negative) 10/14/17 20:30 Urine Ketones Neg mg/dL (Negative) 10/14/17 20:30 Urine Blood Sm (Negative) 10/14/17 20:30 Urine Nitrite Neg (Negative) 10/14/17 20:30 Urine Bilirubin Neg (Negative) 10/14/17 20:30 Urine Urobilinogen < 2.0 mg/dL (<2.0) 10/14/17 20:30 Ur Leukocyte Esterase Tr (Negative) 10/14/17 20:30 Urine WBC (Auto) 7.0 /HPF (0.0-6.0) H 10/14/17 20:30 Urine RBC (Auto) 5.0 /HPF (0.0-6.0) 10/14/17 20:30 U Epithel Cells (Auto) < 1.0 /HPF (0-13.0) 10/14/17 20:30 Urine Bacteria (Auto) 2+ /HPF (Negative) 10/14/17 20:30 Amorphous Crystals Few 10/14/17 20:30 Urine Mucus Few /HPF 10/14/17 20:30 Blood Type A POSITIVE 10/15/17 03:13 Antibody Screen Negative 10/15/17 03:13
--- NOTE | 2017-10-15 14:40 | Event Note ---
Date: 10/15/17 This is a follow-up from an admission earlier this morning. Patient remains on pressors w/ Levophed. We will continue the plan as outlined in H&P. ID and cardiology consultations initiated.
--- NOTE | 2017-10-15 15:36 | Consultation ---
History of Present Illness - Reason for Consult Consult date: 10/15/17 sepsis Requesting physician: CARY ZHANG - History of Present Illness 57 years old male with history of DM, HTN, CKD and status post aneurysm repair with aorto-iliac bypass, well known to me, recently discharged ( after undergoing Aortobifemoral bypass 09/02/17, complicated with wound dehiscence / eviceration s/p Closure of fascial dehiscence with a mesh 09/07/17) to subacute rehabilitation on 09/25/2017 and then discharged to home on 10/12. Patient was readmitted on 10/14 due to low blood pressure. The states that he has not been feeling good since he got home and t his blood pressure was very low. No reports of fevers chills no headache nausea vomiting continue numbness or weakness except for generalized fatigue and weakness. The patient still has some drainage from his abdominal incision. He was seen by general surgery Dr Perales on Thursday but then he had the anibal and stitches removed and serous fluid was reported draining. he was given bactrim DS which he has been taking. He denies any diarrhea or constipation and no significant abdominal pain. Of note, he ahs been coughing yellowish sputum last week. In the emergency room, initial temperature was 99.4, heart rate 102, respiration 18, blood pressure 71/36. Initial white count 7. Hemoglobin 8.1. Platelets 437. Creatinine 4.2. Lactic acid 0.7. Urinalysis is negative. 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 1 of 4 09/13 neg 09/21 neg 10/14 ngtd Urine cultures: 09/04 ngtd Respiratory cultures: 09/02 neg 09/08 normal resp josias Wound cultures: Current Antimicrobials: zosyn 10/15 vanco 10/15 Previous Antimicrobials: vanco 09/04 zosyn 09/04 dapto 09/13 fluconazole 09/07 cefepime 09/13 flagyl 09/13 Past History Past Medical History: arthritis, diabetes, hypertension, renal failure Past Surgical History: Other (Aortobifemoral bypass 09/02/17, Closure of fascial dehiscence 09/07/17) Social history: no significant social history Family history: no significant family history Medications and Allergies Allergies Allergy/AdvReac Type Severity Reaction Status Date / Time No Known Allergies Allergy Unverified 10/14/17 19:17 Home Medications Medication Instructions Recorded Confirmed Last Taken Type ALPRAZolam [Xanax TAB] 0.25 mg PO PRN PRN 08/31/17 09/02/17 08/30/17 History Aspirin [Aspirin TAB] 325 mg PO QDAY 08/31/17 08/31/17 09/02/17 06:30 History AtorvaSTATin [Lipitor] 40 mg PO QHS 08/31/17 09/02/17 09/01/17 History Cilostazol [Pletal] 50 mg PO BID 08/31/17 08/31/17 09/02/17 06:30 History Gabapentin [Neurontin] 100 mg PO DAILY 08/31/17 08/31/17 09/02/17 06:30 History Gabapentin [Neurontin] 300 mg PO DAILY 08/31/17 09/02/17 09/01/17 History Lisinopril [Zestril] 20 mg PO DAILY 08/31/17 09/02/17 09/01/17 History Metformin HCl [Glucophage] 500 mg PO BID 08/31/17 09/02/17 08/31/17 History Metoprolol Tartrate 25 mg PO DAILY 08/31/17 09/02/17 09/01/17 20:00 History Multivit-Min/Folic/Vit K/Lycop 1 each PO DAILY 08/31/17 08/31/17 09/02/17 06:30 History [Eql One Daily Mens 50 Plus Adv] HYDROcodone/APAP 10-325 [[place] 1 each PO Q6HR PRN #60 tablet 09/25/17 Unknown Rx 10/325] Active Meds: Active Medications Acetaminophen (Tylenol) 650 mg PO Q4H PRN PRN Reason: Pain MILD(1-3)/Fever >100.5/ROBLES Albuterol/Ipratropium (Duoneb *Not For Prn Use*) 1 ampul IH Q6HRT [facility] Last Admin: 10/15/17 15:16 Dose: 1 ampul Alprazolam (Xanax) 0.25 mg PO DAILY PRN PRN Reason: Anxiety Atorvastatin Calcium (Lipitor) 40 mg PO QHS DRU Bisacodyl (Dulcolax) 10 mg [place] QDAY PRN PRN Reason: Constipation unrelieved by MOM Dextrose (D50w (25gm) Syringe) 50 ml IV PRN PRN PRN Reason: Hypoglycemia Docusate Sodium (Colace) 100 mg PO BID [facility] Last Admin: 10/15/17 11:30 Dose: 100 mg Enoxaparin Sodium (Lovenox) 30 mg SUB-Q QDAY [facility] Gabapentin (Neurontin) 300 mg PO DAILY [facility] Last Admin: 10/15/17 11:30 Dose: 300 mg Norepinephrine (Levophed Drip 4 Mg/Ns 250 Ml) 4 mg in 250 mls @ 7.5 mls/hr IV TITR DRU; 2 MCG/MIN PRN Reason: Protocol Last Titration: 10/15/17 11:15 Dose: 3.2 mcg/min, 12 mls/hr Sodium Chloride (Nacl 0.9% 1000 Ml) 1,000 mls @ 150 mls/hr IV DIRECT DRU Piperacillin Sod/Tazobactam Sod (Zosyn/Ns 4.5gm/100ml) 4.5 gm in 100 mls @ 200 mls/hr IV Q8H [facility] Last Admin: 10/15/17 10:36 Dose: 200 mls/hr Insulin Aspart (Novolog) 0 units SUB-Q ACHS [facility] PRN Reason: Protocol Last Admin: 10/15/17 13:53 Dose: 3 units Magnesium Hydroxide (Milk Of Magnesia) 30 ml PO Q4H PRN PRN Reason: Constipation Morphine Sulfate (Morphine) 2 mg IV Q4H PRN PRN Reason: Pain, Moderate (4-6) Multivitamins/Minerals (Theragran-M Tab) 1 each PO QDAY [facility] Last Admin: 10/15/17 13:21 Dose: 1 each Ondansetron HCl (Zofran) 4 mg IV Q8H PRN PRN Reason: N/V unrelieved by Reglan Oxycodone/Acetaminophen (Percocet 5/325) 1 tab PO Q6H PRN PRN Reason: Pain, Moderate (4-6) Pantoprazole Sodium (Protonix) 40 mg PO QDAY [facility] Last Admin: 10/15/17 11:30 Dose: 40 mg Senna (Senokot) 8.6 mg PO Q12HR [facility] Last Admin: 10/15/17 13:03 Dose: 8.6 mg Vancomycin HCl (Vancomycin Pharmacy To Dose) 1 each IV PKCONSULT DRU PRN Reason: Protocol Zolpidem Tartrate (Ambien) 5 mg PO QHS PRN PRN Reason: Insomnia Review of Systems All systems: negative (as per HPI rest neg) Physical Examination - Physical Exam Narrative exam: General appearance: Alert in NAD, conversant Eyes: anicteric sclerae, moist conjunctivae; no lid-lag; PERRLA HENT: Atraumatic; oropharynx clear Neck: Trachea midline; supple, no thyromegaly or lymphadenopathy Lungs: scattered rhonchi CV: RRR, no murmurs Abdomen: Soft, umbilical wound with mild erythema and serous drainage Extremities: + peripheral edema, no extremity lymphadenopathy Skin: Normal temperature, turgor and texture; no rash, ulcers or subcutaneous nodules Psych: Appropriate affect, alert and oriented to person, place and time. Neuro: alert and oriented x 3. Moving all extermities Lines: No CVL / PICC - Constitutional Vitals: Vital Signs Temp Pulse Resp BP Pulse Ox 98.5 F 118 H 18 105/55 94 10/15/17 07:10 10/15/17 07:10 10/15/17 07:10 10/15/17 07:10 10/15/17 07:10 Temperature -Last 24 Hours Temperature 98.5 F Temperature 98.0 F Temperature 99.4 F Results - Labs CBC & Chem 7: 10/15/17 03:12 10/15/17 03:12 Labs: Abnormal lab results 10/14/17 10/14/17 10/14/17 Range/Units 19:47 19:47 19:47 RBC 2.63 L (3.65-5.03) M/mm3 Hgb 8.1 L (11.8-15.2) gm/dl Hct 23.8 L (35.5-45.6) % RDW 15.8 H (13.2-15.2) % Plt Count (140-440) K/mm3 [place] % (Auto) 9.4 H (0.0-7.3) % D-Dimer (0-234) ng/mlDDU Sodium 127 L (137-145) mmol/L Chloride 88.6 L (98-107) mmol/L Carbon Dioxide 21 L (22-30) mmol/L BUN 43 H (9-20) mg/dL Creatinine 4.2 H (0.8-1.5) mg/dL Glucose 106 H (75-100) mg/dL POC Glucose (70-105) Calcium 7.2 L (8.4-10.2) mg/dL Alkaline Phosphatase 135 H (35-129) units/L Troponin T 0.108 H* (0.00-0.029) ng/mL Albumin 2.6 L (3.9-5) g/dL Triglycerides 186 H (2-149) mg/dL HDL Cholesterol 26 L (40-59) mg/dL Urine WBC (Auto) (0.0-6.0) /HPF 10/14/17 10/14/17 10/14/17 Range/Units 19:47 20:19 20:30 RBC (3.65-5.03) M/mm3 Hgb (11.8-15.2) gm/dl Hct (35.5-45.6) % RDW (13.2-15.2) % Plt Count (140-440) K/mm3 [place] % (Auto) (0.0-7.3) % D-Dimer 3277.01 H (0-234) ng/mlDDU Sodium (137-145) mmol/L Chloride (98-107) mmol/L Carbon Dioxide (22-30) mmol/L BUN (9-20) mg/dL Creatinine (0.8-1.5) mg/dL Glucose (75-100) mg/dL POC Glucose 116 H (70-105) Calcium (8.4-10.2) mg/dL Alkaline Phosphatase (35-129) units/L Troponin T (0.00-0.029) ng/mL Albumin (3.9-5) g/dL Triglycerides (2-149) mg/dL HDL Cholesterol (40-59) mg/dL Urine WBC (Auto) 7.0 H (0.0-6.0) /HPF 10/15/17 10/15/17 10/15/17 Range/Units 03:12 03:12 08:42 RBC 2.90 L (3.65-5.03) M/mm3 Hgb 8.6 L (11.8-15.2) gm/dl Hct 25.8 L (35.5-45.6) % RDW 16.0 H (13.2-15.2) % Plt Count 483 H (140-440) K/mm3 [place] % (Auto) 9.3 H (0.0-7.3) % D-Dimer (0-234) ng/mlDDU Sodium 133 L (137-145) mmol/L Chloride 94.5 L (98-107) mmol/L Carbon Dioxide 21 L (22-30) mmol/L BUN 41 H (9-20) mg/dL Creatinine 3.3 H (0.8-1.5) mg/dL Glucose 112 H (75-100) mg/dL POC Glucose 152 H (70-105) Calcium 7.9 L (8.4-10.2) mg/dL Alkaline Phosphatase 140 H (35-129) units/L Troponin T (0.00-0.029) ng/mL Albumin 2.7 L (3.9-5) g/dL Triglycerides (2-149) mg/dL HDL Cholesterol (40-59) mg/dL Urine WBC (Auto) (0.0-6.0) /HPF 12//17 Range/Units 13:16 RBC (3.65-5.03) M/mm3 Hgb (11.8-15.2) gm/dl Hct (35.5-45.6) % RDW (13.2-15.2) % Plt Count (140-440) K/mm3 [place] % (Auto) (0.0-7.3) % D-Dimer (0-234) ng/mlDDU Sodium (137-145) mmol/L Chloride (98-107) mmol/L Carbon Dioxide (22-30) mmol/L BUN (9-20) mg/dL Creatinine (0.8-1.5) mg/dL Glucose (75-100) mg/dL POC Glucose 182 H (70-105) Calcium (8.4-10.2) mg/dL Alkaline Phosphatase (35-129) units/L Troponin T (0.00-0.029) ng/mL Albumin (3.9-5) g/dL Triglycerides (2-149) mg/dL HDL Cholesterol (40-59) mg/dL Urine WBC (Auto) (0.0-6.0) /HPF Assessment and Plan Assessment: 1) SIRS: Present on admission, manifested by tachycardia, hypotension. Etiology unclear ? superficial wound infection ? pneumonia 2) Superficial surgical wound infection in a previous repair evisceration with a mesh in place -CT showed subcutaneous air and increased density at surgical wound, No abscess seen 3) History of Severe peripheral vascular disease with bilateral leg claudication / AAA -S/P AAA repair, he was found to have a 6 cm infra renal abdominal aortic aneurysm tension into a right 3-4 cm common iliac artery aneurysm, left common and external iliac arteries chronic successfully repaired using aorto bifurcated femoral graft on 09/02/17. -repeat CT showed bibasilar infiltrates? and aortic iliac stent with stranding - S/P OR washout and closure of wound 09/08 - S/P OR wound closure 09/10 Plan: -obtain surg wound cultures -continue zosyn and vanco for now -check CRP -patient developed diarrhea on zosyn -follow-up blood cultures I will be off until Oct 21, but available over the phone, please call me for questions. Thank you Dr Zhang for your consultation, will follow up with you. Dorcas Bland MD Infectious Diseases Specialist [facility], [facility] ([facility]) M [phone] O [phone]
[2017-10-15] MEDS ORDERED: LOVENOX SUB-Q SCH (16:00)
--- NOTE | 2017-10-15 16:05 | Consultation ---
History of Present Illness Consult date: 10/15/17 Requesting physician: MARIA VICTORIA GRAJEDA Consult reason: elevated troponin History of present illness: The pt is a 57-year-old male with a past medical history significant for HTN, HLP, DM, CKD, morbid obesity, PVD status post open aortobifemoral bypass , complicated with post-operative respiratory failure requiring mechanical ventilation and wound dehiscence / evisceration s/p closure of fascial dehiscence 09/07/17. Pt was discharged from [facility] to subacute rehabilitation on 09/25/2017 and then discharged to home on 10/12. He is followed in our office by Dr. Henry. He was brought in by his because of low blood pressure. Pt denies any chest pain, palpitations, n/v, diaphoresis, dizziness or syncope. He was reportedly seen by general surgery on Thursday where he had abdominal anibal and stitches removed and umbilical area seroma was drained. Following arrival to ED, BP 71/41, HR 92, T 99.4, H/H 8.1/23.8, NA 127, K+ 4.0, BUN/CR 43/4.2, troponin 0.108, DDimer 3277. Abdomen/pelvis CT showed residual subcutaneous air an dincreased density on the course of the surgical wound which could reflect infection, no focal drainable abscess collection identified. CXR with bilateral perihilar pulmonary edema. Echo done 09/02/2017 showed EF 50-55%, impaired relaxation, technically limited d/t poor acoustic windows and pt's inability to lay in left lateral decub position. Lexiscan MPI stress test done 08/26/2017 showed small area of ischemia in the apical myocardial wall, EF 64%. Past History Past Medical History: arthritis, diabetes, hypertension, renal failure, other ( PVD) Past Surgical History: Other (Aortobifemoral bypass 09/02/17, Closure of fascial dehiscence 09/07/17) Social history: no significant social history, lives with family Family history: no significant family history Medications and Allergies Allergies Allergy/AdvReac Type Severity Reaction Status Date / Time No Known Allergies Allergy Unverified 10/14/17 19:17 Home Medications Medication Instructions Recorded Confirmed Last Taken Type ALPRAZolam [Xanax TAB] 0.25 mg PO PRN PRN 08/31/17 09/02/17 08/30/17 History Aspirin [Aspirin TAB] 325 mg PO QDAY 08/31/17 08/31/17 09/02/17 06:30 History AtorvaSTATin [Lipitor] 40 mg PO QHS 08/31/17 09/02/17 09/01/17 History Cilostazol [Pletal] 50 mg PO BID 08/31/17 08/31/17 09/02/17 06:30 History Gabapentin [Neurontin] 100 mg PO DAILY 08/31/17 08/31/17 09/02/17 06:30 History Gabapentin [Neurontin] 300 mg PO DAILY 08/31/17 09/02/17 09/01/17 History Lisinopril [Zestril] 20 mg PO DAILY 08/31/17 09/02/17 09/01/17 History Metformin HCl [Glucophage] 500 mg PO BID 08/31/17 09/02/17 08/31/17 History Metoprolol Tartrate 25 mg PO DAILY 08/31/17 09/02/17 09/01/17 20:00 History Multivit-Min/Folic/Vit K/Lycop 1 each PO DAILY 08/31/17 08/31/17 09/02/17 06:30 History [Eql One Daily Mens 50 Plus Adv] HYDROcodone/APAP 10-325 [[place] 1 each PO Q6HR PRN #60 tablet 09/25/17 Unknown Rx 10/325] Active Meds: Active Medications Acetaminophen (Tylenol) 650 mg PO Q4H PRN PRN Reason: Pain MILD(1-3)/Fever >100.5/ROBLES Albuterol/Ipratropium (Duoneb *Not For Prn Use*) 1 ampul IH Q6HRT [facility] Last Admin: 10/15/17 15:16 Dose: 1 ampul Alprazolam (Xanax) 0.25 mg PO DAILY PRN PRN Reason: Anxiety Atorvastatin Calcium (Lipitor) 40 mg PO QHS [facility] Bisacodyl (Dulcolax) 10 mg [place] QDAY PRN PRN Reason: Constipation unrelieved by MOM Dextrose (D50w (25gm) Syringe) 50 ml IV PRN PRN PRN Reason: Hypoglycemia Docusate Sodium (Colace) 100 mg PO BID [facility] Last Admin: 10/15/17 11:30 Dose: 100 mg Enoxaparin Sodium (Lovenox) 30 mg SUB-Q QDAY [facility] Gabapentin (Neurontin) 300 mg PO DAILY [facility] Last Admin: 10/15/17 11:30 Dose: 300 mg Norepinephrine (Levophed Drip 4 Mg/Ns 250 Ml) 4 mg in 250 mls @ 7.5 mls/hr IV TITR DRU; 2 MCG/MIN PRN Reason: Protocol Last Titration: 10/15/17 11:15 Dose: 3.2 mcg/min, 12 mls/hr Sodium Chloride (Nacl 0.9% 1000 Ml) 1,000 mls @ 150 mls/hr IV DIRECT DRU Piperacillin Sod/Tazobactam Sod (Zosyn/Ns 4.5gm/100ml) 4.5 gm in 100 mls @ 200 mls/hr IV Q8H [facility] Last Admin: 10/15/17 10:36 Dose: 200 mls/hr Insulin Aspart (Novolog) 0 units SUB-Q ACHS [facility] PRN Reason: Protocol Last Admin: 10/15/17 13:53 Dose: 3 units Magnesium Hydroxide (Milk Of Magnesia) 30 ml PO Q4H PRN PRN Reason: Constipation Morphine Sulfate (Morphine) 2 mg IV Q4H PRN PRN Reason: Pain, Moderate (4-6) Multivitamins/Minerals (Theragran-M Tab) 1 each PO QDAY [facility] Last Admin: 10/15/17 13:21 Dose: 1 each Ondansetron HCl (Zofran) 4 mg IV Q8H PRN PRN Reason: N/V unrelieved by Reglan Oxycodone/Acetaminophen (Percocet 5/325) 1 tab PO Q6H PRN PRN Reason: Pain, Moderate (4-6) Pantoprazole Sodium (Protonix) 40 mg PO QDAY [facility] Last Admin: 10/15/17 11:30 Dose: 40 mg Senna (Senokot) 8.6 mg PO Q12HR [facility] Last Admin: 10/15/17 13:03 Dose: 8.6 mg Vancomycin HCl (Vancomycin Pharmacy To Dose) 1 each IV PKCONSULT [facility] PRN Reason: Protocol Zolpidem Tartrate (Ambien) 5 mg PO QHS PRN PRN Reason: Insomnia Review of Systems Constitutional: weight loss, no weight gain, no fever, no chills, no sweats Ears, nose, mouth and throat: no ear pain, no nose pain, no sinus pressure, no sinus pain Cardiovascular: no chest pain, no orthopnea, no palpitations, no rapid/ irregular heart beat, no edema, no syncope, no lightheadedness, no shortness of breath Respiratory: no cough, no shortness of breath, no dyspnea on exertion, no congestion, no wheezing, no pain on inspiration Gastrointestinal: no abdominal pain, no nausea, no vomiting, no diarrhea, no constipation, no change in bowel habits Genitourinary Male: no dysuria, no hematuria, no flank pain, no discharge, no urinary frequency, no urinary hesitancy Musculoskeletal: no neck stiffness, no neck pain Integumentary: wounds (abdominal surgical wounds), no rash, no redness, no sores Neurological: no head injury Psychiatric: no anxiety Endocrine: no cold intolerance, no heat intolerance Hematologic/Lymphatic: no easy bruising, no easy bleeding Allergic/Immunologic: no urticaria Physical Examination Vital Signs BP 71/40 10/14/17 18:53 General appearance: other (lethargic) HEENT: Positive: PERRL Neck: Positive: neck supple Cardiac: Positive: Reg Rate and Rhythm, S1/S2, Systolic Murmur Lungs: Positive: Decreased Breath Sounds Neuro: Positive: Cranial Nerve 2-12 Intact Abdomen: Positive: Soft, Other (surgical sites) Skin: Negative: Rash Musculoskeletal: No Pain, Normal Range of Motion Extremities: Absent: edema Results 10/15/17 03:12 10/15/17 03:12 Cardiac Enzymes 10/14/17 10/15/17 Range/Units 19:47 03:12 AST 12 14 (5-40) units/L Coagulation 10/14/17 Range/Units 19:47 PT 14.7 (12.2-14.9) Sec. INR 1.09 (0.87-1.13) Lipids 10/14/17 Range/Units 19:47 Triglycerides 186 H (2-149) mg/dL Cholesterol 121 (50-199) mg/dL HDL Cholesterol 26 L (40-59) mg/dL Cholesterol/HDL Ratio 4.65 % CBC 10/14/17 10/15/17 Range/Units 19:47 03:12 WBC 7.0 6.8 (4.5-11.0) K/mm3 RBC 2.63 L 2.90 L (3.65-5.03) M/mm3 Hgb 8.1 L 8.6 L (11.8-15.2) gm/dl Hct 23.8 L 25.8 L (35.5-45.6) % Plt Count 437 483 H (140-440) K/mm3 Lymph # 1.9 2.0 (1.2-5.4) K/mm3 Daniels # 0.7 0.6 (0.0-0.8) K/mm3 Eos # 0.3 0.3 (0.0-0.4) K/mm3 Baso # 0.0 0.0 (0.0-0.1) K/mm3 Comprehensive Metabolic Panel 10/14/17 10/15/17 Range/Units 19:47 03:12 Sodium 127 L 133 L (137-145) mmol/L Potassium 4.0 3.6 (3.6-5.0) mmol/L Chloride 88.6 L 94.5 L (98-107) mmol/L Carbon Dioxide 21 L 21 L (22-30) mmol/L BUN 43 H 41 H (9-20) mg/dL Creatinine 4.2 H 3.3 H (0.8-1.5) mg/dL Glucose 106 H 112 H (75-100) mg/dL Calcium 7.2 L 7.9 L (8.4-10.2) mg/dL AST 12 14 (5-40) units/L ALT 9 11 (7-56) units/L Alkaline Phosphatase 135 H 140 H (35-129) units/L Total Protein 6.4 7.2 (6.3-8.2) g/dL Albumin 2.6 L 2.7 L (3.9-5) g/dL - Imaging and Cardiology Echo: report reviewed (09/02/2017 showed EF 50-55%, impaired relaxation, technically limited d/t poor acoustic windows and pt's inability to lay in left lateral decub position. ) EKG: report reviewed, image reviewed EKG interpretations - Telemetry EKG Rhythm: Sinus Rhythm - EKG Sinus rhythms and dysrhythmias: sinus rhythm Assessment and Plan Assessment: Hypotension / ? septic shock - requiring vasopressors Elevated troponin - ECG with NAF; pt denies chest pain; currently nonspecific in setting of ARF Acute renal failure PVD status post open aortobifemoral bypass 09/02/17, complicated with wound dehiscence / evisceration s/p closure of fascial dehiscence 09/07/17 Elevated DDimer DM HLP Anemia Hyponatremia Morbid obesity Plan: Cont to trend Ana Maria. Cont supportive management. Wean pressors as tolerated. Cont ASA and statin. Recommend further evaluation of elevated DDimer with VQ scan and B/L LE duplex to r/o VTE. Assessment and plan reviewed with pt and pt's family at bedside. The pt has been seen in conjunction with Dr. Borges who agrees with the assessment and plan of care.
--- NOTE | 2017-10-15 16:26 | Consultation ---
History of Present Illness - Reason for Consult Consult date: 10/15/17 hypotension Requesting physician: Herminio GARRETT - History of Present Illness 57-year-old gentleman came in with hypotension to systolic of 70. She had a prolonged hospitalization after aorta bifemoral bypass that was complicated by dehiscence and repair with mesh. He went to rehabilitation center and was discharge on October 12. He was recently seen by general surgeon and anibal and drain were removed. He is umbilical area seroma was drained in the office by general surgeon. Past History Past Medical History: arthritis, diabetes, hypertension, renal failure Past Surgical History: Other (Aortobifemoral bypass 09/02/17, Closure of fascial dehiscence 09/07/17) Social history: no significant social history Family history: no significant family history Medications and Allergies Allergies Allergy/AdvReac Type Severity Reaction Status Date / Time No Known Allergies Allergy Unverified 10/14/17 19:17 Home Medications Medication Instructions Recorded Confirmed Last Taken Type ALPRAZolam [Xanax TAB] 0.25 mg PO PRN PRN 08/31/17 09/02/17 08/30/17 History Aspirin [Aspirin TAB] 325 mg PO QDAY 08/31/17 08/31/17 09/02/17 06:30 History AtorvaSTATin [Lipitor] 40 mg PO QHS 08/31/17 09/02/17 09/01/17 History Cilostazol [Pletal] 50 mg PO BID 08/31/17 08/31/17 09/02/17 06:30 History Gabapentin [Neurontin] 100 mg PO DAILY 08/31/17 08/31/17 09/02/17 06:30 History Gabapentin [Neurontin] 300 mg PO DAILY 08/31/17 09/02/17 09/01/17 History Lisinopril [Zestril] 20 mg PO DAILY 08/31/17 09/02/17 09/01/17 History Metformin HCl [Glucophage] 500 mg PO BID 08/31/17 09/02/17 08/31/17 History Metoprolol Tartrate 25 mg PO DAILY 08/31/17 09/02/17 09/01/17 20:00 History Multivit-Min/Folic/Vit K/Lycop 1 each PO DAILY 08/31/17 08/31/17 09/02/17 06:30 History [Eql One Daily Mens 50 Plus Adv] HYDROcodone/APAP 10-325 [[place] 1 each PO Q6HR PRN #60 tablet 09/25/17 Unknown Rx 10] Active Meds: Active Medications Acetaminophen (Tylenol) 650 mg PO Q4H PRN PRN Reason: Pain MILD(1-3)/Fever >100.5/ROBLES Albuterol/Ipratropium (Duoneb *Not For Prn Use*) 1 ampul IH Q6HRT [facility] Last Admin: 10/15/17 15:16 Dose: 1 ampul Alprazolam (Xanax) 0.25 mg PO DAILY PRN PRN Reason: Anxiety Atorvastatin Calcium (Lipitor) 40 mg PO QHS DRU Bisacodyl (Dulcolax) 10 mg CO QDAY PRN PRN Reason: Constipation unrelieved by MOM Dextrose (D50w (25gm) Syringe) 50 ml IV PRN PRN PRN Reason: Hypoglycemia Docusate Sodium (Colace) 100 mg PO BID [facility] Last Admin: 10/15/17 11:30 Dose: 100 mg Enoxaparin Sodium (Lovenox) 30 mg SUB-Q QDAY DRU Gabapentin (Neurontin) 300 mg PO DAILY [facility] Last Admin: 10/15/17 11:30 Dose: 300 mg Norepinephrine (Levophed Drip 4 Mg/Ns 250 Ml) 4 mg in 250 mls @ 7.5 mls/hr IV TITR DRU; 2 MCG/MIN PRN Reason: Protocol Last Titration: 10/15/17 11:15 Dose: 3.2 mcg/min, 12 mls/hr Sodium Chloride (Nacl 0.9% 1000 Ml) 1,000 mls @ 150 mls/hr IV DIRECT DRU Piperacillin Sod/Tazobactam Sod (Zosyn/Ns 4.5gm/100ml) 4.5 gm in 100 mls @ 200 mls/hr IV Q8H [facility] Last Admin: 10/15/17 10:36 Dose: 200 mls/hr Insulin Aspart (Novolog) 0 units SUB-Q ACHS DRU PRN Reason: Protocol Last Admin: 10/15/17 13:53 Dose: 3 units Magnesium Hydroxide (Milk Of Magnesia) 30 ml PO Q4H PRN PRN Reason: Constipation Morphine Sulfate (Morphine) 2 mg IV Q4H PRN PRN Reason: Pain, Moderate (4-6) Multivitamins/Minerals (Theragran-M Tab) 1 each PO QDAY [facility] Last Admin: 10/15/17 13:21 Dose: 1 each Ondansetron HCl (Zofran) 4 mg IV Q8H PRN PRN Reason: N/V unrelieved by Reglan Oxycodone/Acetaminophen (Percocet 5/325) 1 tab PO Q6H PRN PRN Reason: Pain, Moderate (4-6) Pantoprazole Sodium (Protonix) 40 mg PO QDAY [facility] Last Admin: 10/15/17 11:30 Dose: 40 mg Senna (Senokot) 8.6 mg PO Q12HR [facility] Last Admin: 10/15/17 13:03 Dose: 8.6 mg Vancomycin HCl (Vancomycin Pharmacy To Dose) 1 each IV PKCONSULT [facility] PRN Reason: Protocol Zolpidem Tartrate (Ambien) 5 mg PO QHS PRN PRN Reason: Insomnia Exam - Constitutional Vitals: Temp Pulse Resp BP Pulse Ox 98.5 F 118 H 18 105/55 94 10/15/17 11:11 10/15/17 07:10 10/15/17 07:10 10/15/17 07:10 10/15/17 07:10 General appearance: Present: no acute distress - Respiratory Respiratory: bilateral: CTA - Cardiovascular Heart Sounds: Present: S1 & S2 Results - Labs CBC & Chem 7: 10/15/17 03:12 10/15/17 03:12 Labs: Abnormal lab results 10/14/17 10/14/17 10/14/17 Range/Units 19:47 19:47 19:47 RBC 2.63 L (3.65-5.03) M/mm3 Hgb 8.1 L (11.8-15.2) gm/dl Hct 23.8 L (35.5-45.6) % RDW 15.8 H (13.2-15.2) % Plt Count (140-440) K/mm3 [place] % (Auto) 9.4 H (0.0-7.3) % D-Dimer (0-234) ng/mlDDU Sodium 127 L (137-145) mmol/L Chloride 88.6 L (98-107) mmol/L Carbon Dioxide 21 L (22-30) mmol/L BUN 43 H (9-20) mg/dL Creatinine 4.2 H (0.8-1.5) mg/dL Glucose 106 H (75-100) mg/dL POC Glucose (70-105) Calcium 7.2 L (8.4-10.2) mg/dL Alkaline Phosphatase 135 H (35-129) units/L Troponin T 0.108 H* (0.00-0.029) ng/mL Albumin 2.6 L (3.9-5) g/dL Triglycerides 186 H (2-149) mg/dL HDL Cholesterol 26 L (40-59) mg/dL Urine WBC (Auto) (0.0-6.0) /HPF 10/14/17 10/14/17 10/14/17 Range/Units 19:47 20:19 20:30 RBC (3.65-5.03) M/mm3 Hgb (11.8-15.2) gm/dl Hct (35.5-45.6) % RDW (13.2-15.2) % Plt Count (140-440) K/mm3 [place] % (Auto) (0.0-7.3) % D-Dimer 3277.01 H (0-234) ng/mlDDU Sodium (137-145) mmol/L Chloride (98-107) mmol/L Carbon Dioxide (22-30) mmol/L BUN (9-20) mg/dL Creatinine (0.8-1.5) mg/dL Glucose (75-100) mg/dL POC Glucose 116 H (70-105) Calcium (8.4-10.2) mg/dL Alkaline Phosphatase (35-129) units/L Troponin T (0.00-0.029) ng/mL Albumin (3.9-5) g/dL Triglycerides (2-149) mg/dL HDL Cholesterol (40-59) mg/dL Urine WBC (Auto) 7.0 H (0.0-6.0) /HPF 10/15/17 10/15/17 10/15/17 Range/Units 03:12 03:12 08:42 RBC 2.90 L (3.65-5.03) M/mm3 Hgb 8.6 L (11.8-15.2) gm/dl Hct 25.8 L (35.5-45.6) % RDW 16.0 H (13.2-15.2) % Plt Count 483 H (140-440) K/mm3 [place] % (Auto) 9.3 H (0.0-7.3) % D-Dimer (0-234) ng/mlDDU Sodium 133 L (137-145) mmol/L Chloride 94.5 L (98-107) mmol/L Carbon Dioxide 21 L (22-30) mmol/L BUN 41 H (9-20) mg/dL Creatinine 3.3 H (0.8-1.5) mg/dL Glucose 112 H (75-100) mg/dL POC Glucose 152 H (70-105) Calcium 7.9 L (8.4-10.2) mg/dL Alkaline Phosphatase 140 H (35-129) units/L Troponin T (0.00-0.029) ng/mL Albumin 2.7 L (3.9-5) g/dL Triglycerides (2-149) mg/dL HDL Cholesterol (40-59) mg/dL Urine WBC (Auto) (0.0-6.0) /HPF 10/15/17 Range/Units 13:16 RBC (3.65-5.03) M/mm3 Hgb (11.8-15.2) gm/dl Hct (35.5-45.6) % RDW (13.2-15.2) % Plt Count (140-440) K/mm3 [place] % (Auto) (0.0-7.3) % D-Dimer (0-234) ng/mlDDU Sodium (137-145) mmol/L Chloride (98-107) mmol/L Carbon Dioxide (22-30) mmol/L BUN (9-20) mg/dL Creatinine (0.8-1.5) mg/dL Glucose (75-100) mg/dL POC Glucose 182 H (70-105) Calcium (8.4-10.2) mg/dL Alkaline Phosphatase (35-129) units/L Troponin T (0.00-0.029) ng/mL Albumin (3.9-5) g/dL Triglycerides (2-149) mg/dL HDL Cholesterol (40-59) mg/dL Urine WBC (Auto) (0.0-6.0) /HPF Assessment and Plan Status post aortobifemoral bypass on 09/02/2017 CT scan was done of abdomen and pelvis without contrast that did not reveal any intra-abdominal collections, expected postsurgical changes, air which is due to packing in the umbilicus area. Patient has no vascular surgical changes that require intervention. Hypertension workup and management as per ICU team, he should probably need fluid resuscitation. ID consult, wound care consult, Gen. surgery consult.
--- NOTE | 2017-10-15 16:50 | Consultation ---
History of Present Illness Consult date: 10/15/17 Chief complaint: Hypotension - History of present illness History of present illness: The patient is a 57-year-old male who has a history of multiple recent abdominal operations. This includes an open aortobifemoral bypass by Dr. Vasquez on 09/02/2017. The patient had a protracted hospital course which included ventilator-dependent respiratory failure, persistent fevers, poor nutritional status. The patient was taken back to the operating room by vascular surgery on 09/07/2017 for dehiscence of his abdominal wound and then subsequently on for evisceration of abdominal wound. On the last operation, the patient had an exploratory laparotomy, separation of components, repair of incisional hernia with mesh, and placement of retention sutures. The patient was discharged to rehabilitation at that time. The patient was seen in the office by me on Thursday10/09/2017 at which time the remaining midline anibal were removed as well as his DORETHA drain. A small opening of his midline incision at the umbilicus was noted, and a seroma drained. There was no evidence of infection. He also did have superficial wound secondary to his retention sutures which received wound care. The patient presents to the emergency room secondary to hypotension. According to his who is at the bedside, his blood pressure was checked yesterday and his systolic blood pressure was in the 60s. The patient had no complaints. He denies fever, chills, chest pain, shortness of breath, nausea, vomiting, abdominal pain. He has not had any lightheadedness or dizziness. He's been tolerating a regular diet without difficulty. No constipation or diarrhea. Although he is still unable to ambulate secondary to his bilateral foot drop, he has been out of bed to wheelchair daily. Over the last 24 hours however the patient has had trouble urinating. She states that his wound has been receiving wound care by the home health nurse. There has been little serous drainage from the opening at the umbilicus. No purulent drainage from the wound. Past History Past Medical History: arthritis, diabetes, hypertension, renal failure, other ( PVD) Past Surgical History: Other (Aortobifemoral bypass 09/02/17, Closure of fascial dehiscence 09/07/17, 09/10/17 - exlap, seperation of components, repair incisional hernia with mesh, placement retention sutures) Social history: no significant social history, lives with family Family history: no significant family history Medications and Allergies Allergies Allergy/AdvReac Type Severity Reaction Status Date / Time No Known Allergies Allergy Unverified 10/14/17 19:17 Home Medications Medication Instructions Recorded Confirmed Last Taken Type ALPRAZolam [Xanax TAB] 0.25 mg PO PRN PRN 08/31/17 09/02/17 08/30/17 History Aspirin [Aspirin TAB] 325 mg PO QDAY 08/31/17 08/31/17 09/02/17 06:30 History AtorvaSTATin [Lipitor] 40 mg PO QHS 08/31/17 09/02/17 09/01/17 History Cilostazol [Pletal] 50 mg PO BID 08/31/17 08/31/17 09/02/17 06:30 History Gabapentin [Neurontin] 100 mg PO DAILY 08/31/17 08/31/17 09/02/17 06:30 History Gabapentin [Neurontin] 300 mg PO DAILY 08/31/17 09/02/17 09/01/17 History Lisinopril [Zestril] 20 mg PO DAILY 08/31/17 09/02/17 09/01/17 History Metformin HCl [Glucophage] 500 mg PO BID 08/31/17 09/02/17 08/31/17 History Metoprolol Tartrate 25 mg PO DAILY 08/31/17 09/02/17 09/01/17 20:00 History Multivit-Min/Folic/Vit K/Lycop 1 each PO DAILY 08/31/17 08/31/17 09/02/17 06:30 History [Eql One Daily Mens 50 Plus Adv] HYDROcodone/APAP 10-325 [[place] 1 each PO Q6HR PRN #60 tablet 09/25/17 Unknown Rx 10/325] Active Meds: Active Medications Acetaminophen (Tylenol) 650 mg PO Q4H PRN PRN Reason: Pain MILD(1-3)/Fever >100.5/ROBLES Albuterol/Ipratropium (Duoneb *Not For Prn Use*) 1 ampul IH Q6HRT DRU Last Admin: 10/15/17 15:16 Dose: 1 ampul Alprazolam (Xanax) 0.25 mg PO DAILY PRN PRN Reason: Anxiety Aspirin (Aspirin) 325 mg PO QDAY [facility] Atorvastatin Calcium (Lipitor) 40 mg PO QHS DRU Bisacodyl (Dulcolax) 10 mg OR QDAY PRN PRN Reason: Constipation unrelieved by MOM Dextrose (D50w (25gm) Syringe) 50 ml IV PRN PRN PRN Reason: Hypoglycemia Docusate Sodium (Colace) 100 mg PO BID [facility] Last Admin: 10/15/17 11:30 Dose: 100 mg Enoxaparin Sodium (Lovenox) 30 mg SUB-Q QDAY [facility] Gabapentin (Neurontin) 300 mg PO DAILY [facility] Last Admin: 10/15/17 11:30 Dose: 300 mg Norepinephrine (Levophed Drip 4 Mg/Ns 250 Ml) 4 mg in 250 mls @ 7.5 mls/hr IV TITR DRU; 2 MCG/MIN PRN Reason: Protocol Last Titration: 10/15/17 11:15 Dose: 3.2 mcg/min, 12 mls/hr Sodium Chloride (Nacl 0.9% 1000 Ml) 1,000 mls @ 150 mls/hr IV DIRECT DRU Piperacillin Sod/Tazobactam Sod (Zosyn/Ns 4.5gm/100ml) 4.5 gm in 100 mls @ 200 mls/hr IV Q8H [facility] Last Admin: 10/15/17 10:36 Dose: 200 mls/hr Insulin Aspart (Novolog) 0 units SUB-Q ACHS [facility] PRN Reason: Protocol Last Admin: 10/15/17 13:53 Dose: 3 units Magnesium Hydroxide (Milk Of Magnesia) 30 ml PO Q4H PRN PRN Reason: Constipation Morphine Sulfate (Morphine) 2 mg IV Q4H PRN PRN Reason: Pain, Moderate (4-6) Multivitamins/Minerals (Theragran-M Tab) 1 each PO QDAY [facility] Last Admin: 10/15/17 13:21 Dose: 1 each Ondansetron HCl (Zofran) 4 mg IV Q8H PRN PRN Reason: N/V unrelieved by Reglan Oxycodone/Acetaminophen (Percocet 5/325) 1 tab PO Q6H PRN PRN Reason: Pain, Moderate (4-6) Pantoprazole Sodium (Protonix) 40 mg PO QDAY [facility] Last Admin: 10/15/17 11:30 Dose: 40 mg Senna (Senokot) 8.6 mg PO Q12HR [facility] Last Admin: 10/15/17 13:03 Dose: 8.6 mg Vancomycin HCl (Vancomycin Pharmacy To Dose) 1 each IV PKCONSULT DRU PRN Reason: Protocol Zolpidem Tartrate (Ambien) 5 mg PO QHS PRN PRN Reason: Insomnia Review of Systems All systems: negative (see HPI) Exam Vital Signs BP 71/40 10/14/17 18:53 Narrative exam: General: Patient is awake, alert, oriented 3. He is in no apparent distress ENT: EOMI. There is a left sided TLC in place CV: S1, S2 present. No murmurs, rubs, gallops. Tachycardic Respiratory: Clear to auscultation bilaterally. No wheezes, rales, rhonchi Abdomen: Soft, nontender, nondistended. There is a midline incision with a 2 cm opening at the umbilicus. There is minimal serous drainage from the site. There is no surrounding erythema or cellulitis. There is an eschar and some slough of the skin at the umbilicus. There are superficial wounds related to previous retention sutures which are clean, dry, healing well. There is a small less than 1 cm wound at the previous left-sided drain site which is clean and dry, healing well. The right sided groin incision has healed well. The left-sided groin incision has a small opening which is dry, with some slough at the wound base. Extremities: No clubbing, cyanosis, edema. Extremities are warm. Bilateral foot drop. Results - Labs 10/15/17 03:12 10/15/17 03:12 Abnormal lab results 10/14/17 10/14/17 10/14/17 Range/Units 19:47 19:47 19:47 RBC 2.63 L (3.65-5.03) M/mm3 Hgb 8.1 L (11.8-15.2) gm/dl Hct 23.8 L (35.5-45.6) % RDW 15.8 H (13.2-15.2) % Plt Count (140-440) K/mm3 [place] % (Auto) 9.4 H (0.0-7.3) % D-Dimer (0-234) ng/mlDDU Sodium 127 L (137-145) mmol/L Chloride 88.6 L (98-107) mmol/L Carbon Dioxide 21 L (22-30) mmol/L BUN 43 H (9-20) mg/dL Creatinine 4.2 H (0.8-1.5) mg/dL Glucose 106 H (75-100) mg/dL POC Glucose (70-105) Calcium 7.2 L (8.4-10.2) mg/dL Alkaline Phosphatase 135 H (35-129) units/L Troponin T 0.108 H* (0.00-0.029) ng/mL Albumin 2.6 L (3.9-5) g/dL Triglycerides 186 H (2-149) mg/dL HDL Cholesterol 26 L (40-59) mg/dL Urine WBC (Auto) (0.0-6.0) /HPF 10/14/17 10/14/17 10/14/17 Range/Units 19:47 20:19 20:30 RBC (3.65-5.03) M/mm3 Hgb (11.8-15.2) gm/dl Hct (35.5-45.6) % RDW (13.2-15.2) % Plt Count (140-440) K/mm3 [place] % (Auto) (0.0-7.3) % D-Dimer 3277.01 H (0-234) ng/mlDDU Sodium (137-145) mmol/L Chloride (98-107) mmol/L Carbon Dioxide (22-30) mmol/L BUN (9-20) mg/dL Creatinine (0.8-1.5) mg/dL Glucose (75-100) mg/dL POC Glucose 116 H (70-105) Calcium (8.4-10.2) mg/dL Alkaline Phosphatase (35-129) units/L Troponin T (0.00-0.029) ng/mL Albumin (3.9-5) g/dL Triglycerides (2-149) mg/dL HDL Cholesterol (40-59) mg/dL Urine WBC (Auto) 7.0 H (0.0-6.0) /HPF 10/15/17 10/15/17 10/15/17 Range/Units 03:12 03:12 08:42 RBC 2.90 L (3.65-5.03) M/mm3 Hgb 8.6 L (11.8-15.2) gm/dl Hct 25.8 L (35.5-45.6) % RDW 16.0 H (13.2-15.2) % Plt Count 483 H (140-440) K/mm3 [place] % (Auto) 9.3 H (0.0-7.3) % D-Dimer (0-234) ng/mlDDU Sodium 133 L (137-145) mmol/L Chloride 94.5 L (98-107) mmol/L Carbon Dioxide 21 L (22-30) mmol/L BUN 41 H (9-20) mg/dL Creatinine 3.3 H (0.8-1.5) mg/dL Glucose 112 H (75-100) mg/dL POC Glucose 152 H (70-105) Calcium 7.9 L (8.4-10.2) mg/dL Alkaline Phosphatase 140 H (35-129) units/L Troponin T (0.00-0.029) ng/mL Albumin 2.7 L (3.9-5) g/dL Triglycerides (2-149) mg/dL HDL Cholesterol (40-59) mg/dL Urine WBC (Auto) (0.0-6.0) /HPF 10/15/ Range/Units 13:16 RBC (3.65-5.03) M/mm3 Hgb (11.8-15.2) gm/dl Hct (35.5-45.6) % RDW (13.2-15.2) % Plt Count (140-440) K/mm3 [place] % (Auto) (0.0-7.3) % D-Dimer (0-234) ng/mlDDU Sodium (137-145) mmol/L Chloride (98-107) mmol/L Carbon Dioxide (22-30) mmol/L BUN (9-20) mg/dL Creatinine (0.8-1.5) mg/dL Glucose (75-100) mg/dL POC Glucose 182 H (70-105) Calcium (8.4-10.2) mg/dL Alkaline Phosphatase (35-129) units/L Troponin T (0.00-0.029) ng/mL Albumin (3.9-5) g/dL Triglycerides (2-149) mg/dL HDL Cholesterol (40-59) mg/dL Urine WBC (Auto) (0.0-6.0) /HPF Diabetes panel 10/14/17 10/14/17 10/15/17 Range/Units 19:47 19:47 03:12 Sodium 127 L 133 L (137-145) mmol/L Potassium 4.0 3.6 (3.6-5.0) mmol/L Chloride 88.6 L 94.5 L (98-107) mmol/L Carbon Dioxide 21 L 21 L (22-30) mmol/L BUN 43 H 41 H (9-20) mg/dL Creatinine 4.2 H 3.3 H (0.8-1.5) mg/dL Glucose 106 H 112 H (75-100) mg/dL Calcium 7.2 L 7.9 L (8.4-10.2) mg/dL AST 12 14 (5-40) units/L ALT 9 11 (7-56) units/L Alkaline Phosphatase 135 H 140 H (35-129) units/L Total Protein 6.4 7.2 (6.3-8.2) g/dL Albumin 2.6 L 2.7 L (3.9-5) g/dL Triglycerides 186 H (2-149) mg/dL HDL Cholesterol 26 L (40-59) mg/dL Calcium panel 10/14/17 10/15/17 Range/Units 19:47 03:12 Calcium 7.2 L 7.9 L (8.4-10.2) mg/dL Albumin 2.6 L 2.7 L (3.9-5) g/dL Pituitary panel 10/14/17 10/15/17 Range/Units 19:47 03:12 Sodium 127 L 133 L (137-145) mmol/L Potassium 4.0 3.6 (3.6-5.0) mmol/L Chloride 88.6 L 94.5 L (98-107) mmol/L Carbon Dioxide 21 L 21 L (22-30) mmol/L BUN 43 H 41 H (9-20) mg/dL Creatinine 4.2 H 3.3 H (0.8-1.5) mg/dL Glucose 106 H 112 H (75-100) mg/dL Calcium 7.2 L 7.9 L (8.4-10.2) mg/dL Adrenal panel 10/14/17 10/15/17 Range/Units 19:47 03:12 Sodium 127 L 133 L (137-145) mmol/L Potassium 4.0 3.6 (3.6-5.0) mmol/L Chloride 88.6 L 94.5 L (98-107) mmol/L Carbon Dioxide 21 L 21 L (22-30) mmol/L BUN 43 H 41 H (9-20) mg/dL Creatinine 4.2 H 3.3 H (0.8-1.5) mg/dL Glucose 106 H 112 H (75-100) mg/dL Calcium 7.2 L 7.9 L (8.4-10.2) mg/dL Total Bilirubin < 0.20 0.20 (0.1-1.2) mg/dL AST 12 14 (5-40) units/L ALT 9 11 (7-56) units/L Alkaline Phosphatase 135 H 140 H (35-129) units/L Total Protein 6.4 7.2 (6.3-8.2) g/dL Albumin 2.6 L 2.7 L (3.9-5) g/dL - Imaging CT scan - abdomen: report reviewed, image reviewed CT scan - pelvis: report reviewed, image reviewed Assessment and Plan 57-year-old male with 1. Abdominal wound, related to prior abdominal surgery 2. Hypotension, etiology unknown. 3. Acute kidney injury 4. Urinary retention 5. Elevated d-dimer 6. Elevated troponin Plan: 1. neuro: status is improved, pt AAOx3. continue gabapentin 2. CV: hypotension, tachycardia. On pressors - levophed @12mcg. Monitor BP, wean pressors. Will give 1L NS bolus now. Cards c/s pending. Seen by vascular surgery. 3. Resp: on 2L NC, wean O2. elevated D dimer - ?PE. recommend w/u with VQ scan as pt cannot have CTA secondary to RUPERT. Also obtain B/L LE duplex to r/o VTE since the patient has been immobile. Pulm/Crit care c/s pending 4. Abd: continue abdominal binder, wound care consult. On diet per 1'. If pressor requirements increase, would keep patient NPO. continue IVF - NS@125cc/ hr. 5. Endo: blood glucose monitoring, ISS 6. ID: WBC normal without shift, afebrile. ?SIRS, unknown source. On broad spectrum abx per ID. Bl cx, urine cx pending. I DO NOT feel that the abdominal wound is a source of infection. 7. Musculoskeletal: Lovenox for DVT ppx. IF VTE shown on VQ scan or LE duplex, ok to start systemic heparin from general surgery standpoint 8. nephro: monitor [employer]ice. nephro c/s pending 9. FEN: check lytes daily, continue diet as long as pressor requirements don't increase. I have discussed the plan with the patient and his family at bedside. I have discussed the plan with Dr. Zhang. Thank you for this consultation.
[2017-10-15] MEDS ORDERED: NACL 0.9% 1000 ML 1,000 ML IV ONE ×2 (17:07→17:33)
[2017-10-15 17:54] LABS: Creatine Kinase MB 3.2 ng/mL (0.0-4.0)
[2017-10-15] MEDS: LOVENOX SUB-Q SCH (18:14)
--- NOTE | 2017-10-15 21:06 | Nuclear Medicine Report ---
FINAL REPORT PROCEDURE: NM LUNG SCAN PERF/VENT TECHNIQUE: 5.0 mCi Tc-99m MAA was injected IV for pulmonary perfusion imaging in multiple projections. 15 MCi [id number] was inhaled for pulmonary ventilation imaging in multiple projections. Injection site: RIGHT antecubital fossa. CPT 30192 REGULATORY GUIDELINES: The patient was released based upon guidelines established in [place] State Regulations for Protection Against Radiation, Chapter 1003-57-34-35, Release of Individuals Containing Radioactive Drugs or Implants. HISTORY: elevated D-dimer COMPARISON: CHEST X-RAY 10/15/2017 FINDINGS: Perfusion: No defects . Ventilation: No defects . IMPRESSION: Normal Examination
[2017-10-15] MEDS: LACTINEX PO SCH (22:46)
[2017-10-16] MEDS ORDERED: VANCOMYCIN 1,500 MG in NACL 0.9% 500 ML 500 ML IV SCH (02:00)
[2017-10-16] MEDS: ZOSYN/NS 4.5GM/100ML 4.5 GM/100 ML VIAL IV SCH ×2 (02:16→10:21)
[2017-10-16] MEDS: DUONEB *Not for PRN Use IH SCH ×4 (02:23→20:34)
[2017-10-16 04:30] LABS: Basophils % (Auto) 0.4 % (0.0-1.8); Eosinophils # (Auto) 0.3 K/mm3 (0.0-0.4); Eosinophils % (Auto) 3.7 % (0.0-4.3); Hematocrit 26.2 % (35.5-45.6); Hemoglobin 8.9 gm/dl (11.8-15.2); Lymphocytes # (Auto) 1.5 K/mm3 (1.2-5.4); Lymphocytes % (Auto) 21.8 % (13.4-35.0); Mean Corpuscular HGB Conc 34 % (32-34); Mean Corpuscular Hemoglobin 30 pg (28-32); Mean Corpuscular Volume 90 fl (84-94); Monocytes # (Auto) 0.7 K/mm3 (0.0-0.8); Monocytes % (Auto) 10.4 % (0.0-7.3); Platelet Count 524 K/mm3 (140-440); Red Blood Count 2.93 M/mm3 (3.65-5.03); Red Cell Distribution Width 16.1 % (13.2-15.2)
[2017-10-16 04:56] LABS: Albumin 2.7 g/dL (3.9-5); Calcium 8.2 mg/dL (8.4-10.2); Magnesium 1.7 mg/dL (1.7-2.3)
--- NOTE | 2017-10-16 09:11 | Progress Note ---
Assessment and Plan Impression: * Acute kidney injury secondary to prerenal azotemia due to hypotension vs ATN * Hypotension secondary to ?sepsis * s/p Aorta bifemoral bypass that was complicated by dehiscence and repair with mesh * Hyponatremia - improved Plan: * RUPERT resolving (SCr 0.9mg/dL on 09/25) - renal function near baseline * Continue IVF for hydration * Pressors prn MAP>65 - currently on Levophed * Abx per ID * Avoid potential nephrotoxins * Dose medications for renal function Subjective Date of service: 10/16/17 Interval history: Patient has no complaints today. Objective - Vital Signs Vital signs: Vital Signs - 12hr 10/15/17 10/15/17 10/15/17 21:15 21:16 21:30 Pulse Rate 93 H 95 H Pulse Rate [ 94 H Anterior Bilateral Throughout] Respiratory 16 17 Rate Respiratory 18 Rate [Anterior Bilateral Throughout] Blood Pressure 129/110 136/70 O2 Sat by Pulse 100 Oximetry 10/15/17 10/15/17 10/15/17 21:46 22:00 22:16 Pulse Rate 96 H 102 H 103 H Pulse Rate [ Anterior Bilateral Throughout] Respiratory 16 17 15 Rate Respiratory Rate [Anterior Bilateral Throughout] Blood Pressure 136/70 121/66 121/66 O2 Sat by Pulse 91 Oximetry 10/15/17 10/15/17 10/15/17 22:30 22:46 23:00 Pulse Rate 103 H 103 H 99 H Pulse Rate [ Anterior Bilateral Throughout] Respiratory 15 15 15 Rate Respiratory Rate [Anterior Bilateral Throughout] Blood Pressure 121/66 121/66 125/67 O2 Sat by Pulse Oximetry 10/15/17 10/15/17 10/15/17 23:16 23:30 23:46 Pulse Rate 100 H 100 H 98 H Pulse Rate [ Anterior Bilateral Throughout] Respiratory 15 15 14 Rate Respiratory Rate [Anterior Bilateral Throughout] Blood Pressure 125/67 121/66 121/66 O2 Sat by Pulse Oximetry 10/16/17 10/16/17 10/16/17 00:00 00:16 00:30 Pulse Rate 96 H 94 H 92 H Pulse Rate [ Anterior Bilateral Throughout] Respiratory 14 15 14 Rate Respiratory Rate [Anterior Bilateral Throughout] Blood Pressure 128/74 128/74 128/74 O2 Sat by Pulse Oximetry 10/16/17 10/16/17 10/16/17 00:46 01:00 01:15 Pulse Rate 90 91 H 96 H Pulse Rate [ Anterior Bilateral Throughout] Respiratory 15 16 17 Rate Respiratory Rate [Anterior Bilateral Throughout] Blood Pressure 128/74 128/74 134/80 O2 Sat by Pulse Oximetry 10/16/17 10/16/17 10/16/17 01:30 01:46 02:00 Pulse Rate 88 86 84 Pulse Rate [ Anterior Bilateral Throughout] Respiratory 14 15 11 L Rate Respiratory Rate [Anterior Bilateral Throughout] Blood Pressure 129/69 138/68 138/68 O2 Sat by Pulse Oximetry 10/16/17 10/16/17 10/16/17 02:16 02:30 02:46 Pulse Rate 79 96 H 98 H Pulse Rate [ 82 Anterior Bilateral Throughout] Respiratory 13 16 14 Rate Respiratory 22 Rate [Anterior Bilateral Throughout] Blood Pressure 144/70 138/71 135/64 O2 Sat by Pulse Oximetry 10/16/17 10/16/17 10/16/17 03:00 03:16 03:30 Pulse Rate 105 H 97 H 96 H Pulse Rate [ Anterior Bilateral Throughout] Respiratory 18 15 16 Rate Respiratory Rate [Anterior Bilateral Throughout] Blood Pressure 152/73 152/73 123/67 O2 Sat by Pulse Oximetry 10/16/17 10/16/17 10/16/17 03:46 04:00 04:16 Pulse Rate 98 H 97 H 96 H Pulse Rate [ Anterior Bilateral Throughout] Respiratory 16 14 15 Rate Respiratory Rate [Anterior Bilateral Throughout] Blood Pressure 135/64 129/66 129/66 O2 Sat by Pulse Oximetry 10/16/17 10/16/17 10/16/17 04:30 04:46 05:00 Pulse Rate 81 93 H 89 Pulse Rate [ Anterior Bilateral Throughout] Respiratory 12 13 10 L Rate Respiratory Rate [Anterior Bilateral Throughout] Blood Pressure 135/72 141/67 142/78 O2 Sat by Pulse Oximetry 10/16/17 10/16/17 10/16/17 05:16 05:30 05:46 Pulse Rate 97 H 88 88 Pulse Rate [ Anterior Bilateral Throughout] Respiratory 16 12 15 Rate Respiratory Rate [Anterior Bilateral Throughout] Blood Pressure 142/78 145/77 157/73 O2 Sat by Pulse Oximetry 10/16/17 10/16/17 10/16/17 06:00 06:16 06:30 Pulse Rate 92 H 89 89 Pulse Rate [ Anterior Bilateral Throughout] Respiratory 16 17 16 Rate Respiratory Rate [Anterior Bilateral Throughout] Blood Pressure 150/81 150/81 157/73 O2 Sat by Pulse Oximetry 10/16/17 10/16/17 06:46 07:30 Pulse Rate 88 Pulse Rate [ Anterior Bilateral Throughout] Respiratory 18 18 Rate Respiratory Rate [Anterior Bilateral Throughout] Blood Pressure 155/83 O2 Sat by Pulse 95 Oximetry - General Appearance General appearance: well-developed, well-nourished EENT: ATNC, PERRL, mucous membranes moist Respiratory: Present: Clear to Ascultation Cardiology: regular, S1S2 Gastrointestinal: normoactive bowel sounds Integumentary: no rash Neurologic: no focal deficit Musculoskeletal: other (no edema) Psychiatric: cooperative - Lab 10/16/17 16:29 10/16/17 04:01 Most recent lab results Calcium 8.2 mg/dL (8.4-10.2) L 10/16/17 04:01 Phosphorus 2.50 mg/dL (2.5-4.5) 10/16/17 04:01 Magnesium 1.70 mg/dL (1.7-2.3) 10/16/17 04:01
[2017-10-16] MEDS ORDERED: K-DUR PO ONE (09:40)
[2017-10-16] MEDS: NOVOLOG SUB-Q SCH ×3 (09:43→17:11)
[2017-10-16] MEDS: LEVOPHED DRIP 4 MG/NS 250 ML 4 MG/250 ML BAG IV SCH (10:21)
--- NOTE | 2017-10-16 11:58 | Progress Note ---
Assessment and Plan Assessment: Hypotension / ? septic shock - requiring vasopressors Elevated troponin - ECG with NAF; pt denies chest pain; currently nonspecific in setting of ARF Acute renal failure - renal indices improving PVD status post open aortobifemoral bypass 09/02/17, complicated with wound dehiscence / evisceration s/p closure of fascial dehiscence 09/07/17 Elevated DDimer - V/Q with low probability for PE, BLE duplex pending. DM HLP Anemia Hyponatremia Morbid obesity Plan: Cont supportive management. Wean pressors as tolerated. Cont ASA and statin. Assessment and plan reviewed with pt and pt's family at bedside. The pt has been seen in conjunction with Dr. Borges who agrees with the assessment and plan of care. Subjective Date of service: 10/16/17 Principal diagnosis: hypotension Interval history: Pt resting comfortably in bed, more alert today. remains on levophed gtt. no current cardiac complaints. Objective Last Vital Signs Temp 98.2 F 10/15/17 16:09 Pulse 89 10/16/17 10:30 Resp 14 10/16/17 10:30 BP 153/76 10/16/17 10:30 Pulse Ox 97 10/16/17 10:30 - Physical Examination General: No Apparent Distress HEENT: Positive: PERRL Neck: Positive: neck supple Cardiac: Positive: Reg Rate and Rhythm, S1/S2 Lungs: Positive: Decreased Breath Sounds Neuro: Positive: Cranial Nerve 2-12 Intact Abdomen: Positive: Soft, Other (surgical sites) Skin: Negative: Rash Musculoskeletal: No Pain, Normal Range of Motion Extremities: Absent: edema - Labs and Meds Cardiac Enzymes 10/15/17 10/16/17 Range/Units 16:57 04:01 AST 13 (5-40) units/L CK-MB (CK-2) 3.2 3.0 (0.0-4.0) ng/mL CBC 10/16/17 Range/Units 04:01 WBC 7.0 (4.5-11.0) K/mm3 RBC 2.93 L (3.65-5.03) M/mm3 Hgb 8.9 L (11.8-15.2) gm/dl Hct 26.2 L (35.5-45.6) % Plt Count 524 H (140-440) K/mm3 Lymph # 1.5 (1.2-5.4) K/mm3 [place] # 0.7 (0.0-0.8) K/mm3 Eos # 0.3 (0.0-0.4) K/mm3 Baso # 0.0 (0.0-0.1) K/mm3 Comprehensive Metabolic Panel 10/16/17 Range/Units 04:01 Sodium 140 D (137-145) mmol/L Potassium 3.5 L (3.6-5.0) mmol/L Chloride 100.2 (98-107) mmol/L Carbon Dioxide 23 (22-30) mmol/L BUN 20 (9-20) mg/dL Creatinine 1.3 D (0.8-1.5) mg/dL Glucose 159 H (75-100) mg/dL Calcium 8.2 L (8.4-10.2) mg/dL AST 13 (5-40) units/L ALT 8 (7-56) units/L Alkaline Phosphatase 124 (35-129) units/L Total Protein 7.6 (6.3-8.2) g/dL Albumin 2.7 L (3.9-5) g/dL - Imaging and Cardiology EKG: report reviewed, image reviewed Echo: report reviewed (09/02/2017 showed EF 50-55%, impaired relaxation, technically limited d/t poor acoustic windows and pt's inability to lay in left lateral decub position. ) - EKG Sinus rhythms and dysrhythmias: sinus rhythm
[2017-10-16] MEDS: ASPIRIN PO SCH (12:20)
[2017-10-16] MEDS: PROTONIX PO SCH (12:20)
[2017-10-16] MEDS: LACTINEX PO SCH (12:20)
[2017-10-16] MEDS: THERAGRAN-M Tab PO SCH (12:20)
[2017-10-16] MEDS: NEURONTIN PO SCH (12:20)
[2017-10-16] MEDS: VANCOMYCIN/NS 1 GM/250 ML 1 GM/250 ML BAG IV SCH (12:21)
[2017-10-16] MEDS: COLACE PO SCH (12:24)
[2017-10-16] MEDS: LOVENOX SUB-Q SCH (12:24)
[2017-10-16] MEDS: SENOKOT PO SCH (12:24)
--- NOTE | 2017-10-16 12:27 | Progress Note ---
Assessment and Plan 57-year-old male with 1. Abdominal wound, related to prior abdominal surgery 2. Hypotension, etiology unknown. Hypovolemia vs sepsis 3. Acute kidney injury 4. Elevated d-dimer 5. Elevated troponin 6. B/L LE DVT 7. protein calorie malnutrition, hypoalbunimemia Plan: 1. neuro: pt AAOx3. continue gabapentin 2. CV: hypotension, tachycardia -improved. OFF pressors. Monitor BP. B/L LE DVT on venous duplex - defer to vascular surgery regarding anticoagulation. 3. Resp: OFF O2. VQ scan negative for PE 4. Abd: continue abdominal binder, wound care consult. On carb controlled diet, c/w IVF. add supplements TID. 5. Endo: blood glucose monitoring, ISS 6. ID: WBC normal without shift, afebrile. ?SIRS, unknown source. On broad spectrum abx per ID. Bl cx, urine cx pending. I DO NOT feel that the abdominal wound is a source of infection. superficial wound cx - staph aureus 7. Musculoskeletal: Lovenox for DVT ppx. 8. nephro: INSPECTOR PROCESS improved. nephro on board 9. : coughlin catheter - recommend dc when pt is able to be OOB 10. FEN: check lytes daily, replace K, Core Winder consult Thank you for this consultation. Subjective Date of service: 10/16/17 Narrative: Pt seen and examined. No overnight events. Levophed discontinued this hour. Pt is tolerating a reg diet, no n/v, f/c, cp, sob, abd pain. Objective Vital Signs - 12hr 10/16/17 10/16/17 10/16/17 00:30 00:46 01:00 Pulse Rate 92 H 90 91 H Pulse Rate [ Anterior Bilateral Throughout] Respiratory 14 15 16 Rate Respiratory Rate [Anterior Bilateral Throughout] Blood Pressure 128/74 128/74 128/74 O2 Sat by Pulse Oximetry 10/16/17 10/16/17 10/16/17 01:15 01:30 01:46 Pulse Rate 96 H 88 86 Pulse Rate [ Anterior Bilateral Throughout] Respiratory 17 14 15 Rate Respiratory Rate [Anterior Bilateral Throughout] Blood Pressure 134/80 129/69 138/68 O2 Sat by Pulse Oximetry 10/16/17 10/16/17 10/16/17 02:00 02:16 02:30 Pulse Rate 84 79 96 H Pulse Rate [ 82 Anterior Bilateral Throughout] Respiratory 11 L 13 16 Rate Respiratory 22 Rate [Anterior Bilateral Throughout] Blood Pressure 138/68 144/70 138/71 O2 Sat by Pulse Oximetry 10/16/17 10/16/17 10/16/17 02:46 03:00 03:16 Pulse Rate 98 H 105 H 97 H Pulse Rate [ Anterior Bilateral Throughout] Respiratory 14 18 15 Rate Respiratory Rate [Anterior Bilateral Throughout] Blood Pressure 135/64 152/73 152/73 O2 Sat by Pulse Oximetry 10/16/17 10/16/17 10/16/17 03:30 03:46 04:00 Pulse Rate 96 H 98 H 97 H Pulse Rate [ Anterior Bilateral Throughout] Respiratory 16 16 14 Rate Respiratory Rate [Anterior Bilateral Throughout] Blood Pressure 123/67 135/64 129/66 O2 Sat by Pulse Oximetry 10/16/17 10/16/17 10/16/17 04:16 04:30 04:46 Pulse Rate 96 H 81 93 H Pulse Rate [ Anterior Bilateral Throughout] Respiratory 15 12 13 Rate Respiratory Rate [Anterior Bilateral Throughout] Blood Pressure 129/66 135/72 141/67 O2 Sat by Pulse Oximetry 10/16/17 10/16/17 10/16/17 05:00 05:16 05:30 Pulse Rate 89 97 H 88 Pulse Rate [ Anterior Bilateral Throughout] Respiratory 10 L 16 12 Rate Respiratory Rate [Anterior Bilateral Throughout] Blood Pressure 142/78 142/78 145/77 O2 Sat by Pulse Oximetry 10/16/17 10/16/17 10/16/17 05:46 06:00 06:16 Pulse Rate 88 92 H 89 Pulse Rate [ Anterior Bilateral Throughout] Respiratory 15 16 17 Rate Respiratory Rate [Anterior Bilateral Throughout] Blood Pressure 157/73 150/81 150/81 O2 Sat by Pulse Oximetry 10/16/17 10/16/17 10/16/17 06:30 06:46 07:00 Pulse Rate 89 88 85 Pulse Rate [ Anterior Bilateral Throughout] Respiratory 16 18 17 Rate Respiratory Rate [Anterior Bilateral Throughout] Blood Pressure 157/73 155/83 144/81 O2 Sat by Pulse Oximetry 10/16/17 10/16/17 10/16/17 07:16 07:30 07:46 Pulse Rate 87 84 84 Pulse Rate [ Anterior Bilateral Throughout] Respiratory 16 14 15 Rate Respiratory Rate [Anterior Bilateral Throughout] Blood Pressure 144/81 150/79 148/76 O2 Sat by Pulse 95 Oximetry 10/16/17 10/16/17 10/16/17 08:00 08:16 08:30 Pulse Rate 82 82 84 Pulse Rate [ Anterior Bilateral Throughout] Respiratory 14 14 16 Rate Respiratory Rate [Anterior Bilateral Throughout] Blood Pressure 151/81 151/81 149/82 O2 Sat by Pulse Oximetry 10/16/17 10/16/17 10/16/17 08:46 09:00 09:16 Pulse Rate 85 78 88 Pulse Rate [ Anterior Bilateral Throughout] Respiratory 14 14 13 Rate Respiratory Rate [Anterior Bilateral Throughout] Blood Pressure 153/80 159/74 159/74 O2 Sat by Pulse Oximetry 10/16/17 10/16/17 10/16/17 09:30 09:45 10:00 Pulse Rate 94 H 92 H 80 Pulse Rate [ Anterior Bilateral Throughout] Respiratory 10 L 16 15 Rate Respiratory Rate [Anterior Bilateral Throughout] Blood Pressure 154/85 153/87 153/73 O2 Sat by Pulse 95 96 Oximetry 10/16/17 10/16/17 10:15 10:30 Pulse Rate 91 H 89 Pulse Rate [ Anterior Bilateral Throughout] Respiratory 15 14 Rate Respiratory Rate [Anterior Bilateral Throughout] Blood Pressure 153/76 153/76 O2 Sat by Pulse 97 97 Oximetry - General physical appearance Narrative Exam: Gen: AAOx3. NAD CV: S1, S2+ Resp: No audible wheezes Abd: soft, ND, NT. All dressings and packing removed. small opening in midline incision near the umbilicus with superficial slough and eschar at wound base, this was debrided sharply with scissors until pink healthy tissue encountered. NO drainage from wound. The left groin wound and wound at prior DORETHA site L abdomen are healing well, no drainage. Wound at prior retention suture sites are healing well. One piece of dermagran applied to umbilical wound and one piece applied to lower right abdominal wound. One piece of mesalt placed on prior DORETHA drain site. Ext: no c/c/e : coughlin catheter with clear yellow urine - Labs 10/16/17 04:01 10/16/17 04:01 Diabetes panel 10/16/17 Range/Units 04:01 Sodium 140 D (137-145) mmol/L Potassium 3.5 L (3.6-5.0) mmol/L Chloride 100.2 (98-107) mmol/L Carbon Dioxide 23 (22-30) mmol/L BUN 20 (9-20) mg/dL Creatinine 1.3 D (0.8-1.5) mg/dL Glucose 159 H (75-100) mg/dL Calcium 8.2 L (8.4-10.2) mg/dL AST 13 (5-40) units/L ALT 8 (7-56) units/L Alkaline Phosphatase 124 (35-129) units/L Total Protein 7.6 (6.3-8.2) g/dL Albumin 2.7 L (3.9-5) g/dL Calcium panel 10/16/17 Range/Units 04:01 Calcium 8.2 L (8.4-10.2) mg/dL Phosphorus 2.50 (2.5-4.5) mg/dL Albumin 2.7 L (3.9-5) g/dL Pituitary panel 10/16/17 Range/Units 04:01 Sodium 140 D (137-145) mmol/L Potassium 3.5 L (3.6-5.0) mmol/L Chloride 100.2 (98-107) mmol/L Carbon Dioxide 23 (22-30) mmol/L BUN 20 (9-20) mg/dL Creatinine 1.3 D (0.8-1.5) mg/dL Glucose 159 H (75-100) mg/dL Calcium 8.2 L (8.4-10.2) mg/dL Adrenal panel 10/16/17 Range/Units 04:01 Sodium 140 D (137-145) mmol/L Potassium 3.5 L (3.6-5.0) mmol/L Chloride 100.2 (98-107) mmol/L Carbon Dioxide 23 (22-30) mmol/L BUN 20 (9-20) mg/dL Creatinine 1.3 D (0.8-1.5) mg/dL Glucose 159 H (75-100) mg/dL Calcium 8.2 L (8.4-10.2) mg/dL Total Bilirubin 0.30 (0.1-1.2) mg/dL AST 13 (5-40) units/L ALT 8 (7-56) units/L Alkaline Phosphatase 124 (35-129) units/L Total Protein 7.6 (6.3-8.2) g/dL Albumin 2.7 L (3.9-5) g/dL
--- NOTE | 2017-10-16 12:53 | Progress Note ---
Assessment and Plan Sepsis Syndrome IVVD RUPERT VTE (DVT) PVD (Status post aortobifemoral bypass surgery on 09/02/17) Diabetes type II controlled with insulin Hyperlipidemia Anemia Abdominal Wound Infection - continue volume resuscitation with isotonic fluids - wean off levophed for MAP > 65mmHg - supplemental oxygen to keep sats > 90% - mobility protocol for pressure ulcer prophylaxis - azotemia per nephrology otherwise - continue anti-infectives and de-escalate per ID recs - continue GI & prophylaxis - continue IV heparin for DVT - transition to coumadin if Ok with surgery - flu & pneumovax per protocol...transfer out of ICU later if remains off levophed ....re-evaluate in am & prn ...37' Subjective Date of service: 10/16/17 Principal diagnosis: Sepsis Syndrome with hypotension; RUPERT; IVVD; Diabetes II Interval history: Patient is seen today for: Sepsis Syndrome with hypotension; RUPERT; IVVD; Diabetes II; NSTEMI Seen and examined at bedside; 24 hour events reviewed; nursing and respiratory care staff consulted; resting in bed; feels better; remains on Levophed drip but about to titrate to off; denies N/V/F/C; no chest pains or increased SOB Objective Vital Signs - 12hr 10/16/17 10/16/17 10/16/17 01:00 01:15 01:30 Pulse Rate 91 H 96 H 88 Pulse Rate [ Anterior Bilateral Throughout] Respiratory 16 17 14 Rate Respiratory Rate [Anterior Bilateral Throughout] Blood Pressure 128/74 134/80 129/69 O2 Sat by Pulse Oximetry 10/16/17 10/16/17 10/16/17 01:46 02:00 02:16 Pulse Rate 86 84 79 Pulse Rate [ Anterior Bilateral Throughout] Respiratory 15 11 L 13 Rate Respiratory Rate [Anterior Bilateral Throughout] Blood Pressure 138/68 138/68 144/70 O2 Sat by Pulse Oximetry 10/16/17 10/16/17 10/16/17 02:30 02:46 03:00 Pulse Rate 96 H 98 H 105 H Pulse Rate [ 82 Anterior Bilateral Throughout] Respiratory 16 14 18 Rate Respiratory 22 Rate [Anterior Bilateral Throughout] Blood Pressure 138/71 135/64 152/73 O2 Sat by Pulse Oximetry 10/16/17 10/16/17 10/16/17 03:16 03:30 03:46 Pulse Rate 97 H 96 H 98 H Pulse Rate [ Anterior Bilateral Throughout] Respiratory 15 16 16 Rate Respiratory Rate [Anterior Bilateral Throughout] Blood Pressure 152/73 123/67 135/64 O2 Sat by Pulse Oximetry 10/16/17 10/16/17 10/16/17 04:00 04:16 04:30 Pulse Rate 97 H 96 H 81 Pulse Rate [ Anterior Bilateral Throughout] Respiratory 14 15 12 Rate Respiratory Rate [Anterior Bilateral Throughout] Blood Pressure 129/66 129/66 135/72 O2 Sat by Pulse Oximetry 10/16/17 10/16/17 10/16/17 04:46 05:00 05:16 Pulse Rate 93 H 89 97 H Pulse Rate [ Anterior Bilateral Throughout] Respiratory 13 10 L 16 Rate Respiratory Rate [Anterior Bilateral Throughout] Blood Pressure 141/67 142/78 142/78 O2 Sat by Pulse Oximetry 10/16/17 10/16/17 10/16/17 05:30 05:46 06:00 Pulse Rate 88 88 92 H Pulse Rate [ Anterior Bilateral Throughout] Respiratory 12 15 16 Rate Respiratory Rate [Anterior Bilateral Throughout] Blood Pressure 145/77 157/73 150/81 O2 Sat by Pulse Oximetry 10/16/17 10/16/17 10/16/17 06:16 06:30 06:46 Pulse Rate 89 89 88 Pulse Rate [ Anterior Bilateral Throughout] Respiratory 17 16 18 Rate Respiratory Rate [Anterior Bilateral Throughout] Blood Pressure 150/81 157/73 155/83 O2 Sat by Pulse Oximetry 10/16/17 10/16/17 10/16/17 07:00 07:16 07:30 Pulse Rate 85 87 84 Pulse Rate [ Anterior Bilateral Throughout] Respiratory 17 16 14 Rate Respiratory Rate [Anterior Bilateral Throughout] Blood Pressure 144/81 144/81 150/79 O2 Sat by Pulse 95 Oximetry 10/16/17 10/16/17 10/16/17 07:46 08:00 08:16 Pulse Rate 84 82 82 Pulse Rate [ Anterior Bilateral Throughout] Respiratory 15 14 14 Rate Respiratory Rate [Anterior Bilateral Throughout] Blood Pressure 148/76 151/81 151/81 O2 Sat by Pulse Oximetry 10/16/17 10/16/17 10/16/17 08:30 08:46 09:00 Pulse Rate 84 85 78 Pulse Rate [ Anterior Bilateral Throughout] Respiratory 16 14 14 Rate Respiratory Rate [Anterior Bilateral Throughout] Blood Pressure 149/82 153/80 159/74 O2 Sat by Pulse Oximetry 10/16/17 10/16/17 10/16/17 09:16 09:30 09:45 Pulse Rate 88 94 H 92 H Pulse Rate [ Anterior Bilateral Throughout] Respiratory 13 10 L 16 Rate Respiratory Rate [Anterior Bilateral Throughout] Blood Pressure 159/74 154/85 153/87 O2 Sat by Pulse 95 Oximetry 10/16/17 10/16/17 10/16/17 10:00 10:15 10:30 Pulse Rate 80 91 H 89 Pulse Rate [ Anterior Bilateral Throughout] Respiratory 15 15 14 Rate Respiratory Rate [Anterior Bilateral Throughout] Blood Pressure 153/73 153/76 153/76 O2 Sat by Pulse 96 97 97 Oximetry 10/16/17 10/16/17 10/16/17 11:53 12:00 12:10 Pulse Rate 84 92 H 93 H Pulse Rate [ Anterior Bilateral Throughout] Respiratory 20 12 15 Rate Respiratory Rate [Anterior Bilateral Throughout] Blood Pressure 140/80 O2 Sat by Pulse 97 95 96 Oximetry 10/16/17 10/16/17 10/16/17 12:20 12:30 12:40 Pulse Rate 92 H 99 H 95 H Pulse Rate [ Anterior Bilateral Throughout] Respiratory 16 17 12 Rate Respiratory Rate [Anterior Bilateral Throughout] Blood Pressure 147/83 147/83 149/86 O2 Sat by Pulse 97 98 96 Oximetry Constitutional: no acute distress, alert Eyes: non-icteric ENT: oropharynx moist Neck: supple, no lymphadenopathy, no JVD, other (No thyromegaly) Effort: mildly labored Ascultation: Bilateral: rhonchi (bases) Percussion: Bilateral: not dull Cardiovascular: regular rate and rhythm, other (No rubs/murmurs) Gastrointestinal: normoactive bowel sounds, soft, non-tender, non-distended, other (No HSM) Integumentary: normal Extremities: no cyanosis, no edema, pink and warm, no ischemia or petechiae, other (weak pedal pulses) Neurologic: normal mental status, non-focal exam, pupils equal and round, motor strength normal and Psychiatric: mood appropriate, affect normal CBC and BMP: 10/16/17 16:29 10/16/17 04:01 ABG, PT/INR, D-dimer: PT/INR, D-dimer PT 14.7 Sec. (12.2-14.9) 10/14/17 19:47 INR 1.09 (0.87-1.13) 10/14/17 19:47 D-Dimer 3277.01 ng/mlDDU (0-234) H 10/14/17 19:47 Abnormal lab findings: Abnormal Labs 10/14/17 10/14/17 10/14/17 19:47 19:47 19:47 RBC 2.63 L Hgb 8.1 L Hct 23.8 L RDW 15.8 H Plt Count [place] % (Auto) 9.4 H D-Dimer Sodium 127 L Potassium Chloride 88.6 L Carbon Dioxide 21 L BUN 43 H Creatinine 4.2 H Glucose 106 H POC Glucose Calcium 7.2 L Alkaline Phosphatase 135 H CK-MB (CK-2) Rel Index Troponin T 0.108 H* C-Reactive Protein Albumin 2.6 L Triglycerides 186 H HDL Cholesterol 26 L Urine WBC (Auto) 10/14/17 10/14/17 10/14/17 19:47 20:19 20:30 RBC Hgb Hct RDW Plt Count [place] % (Auto) D-Dimer 3277.01 H Sodium Potassium Chloride Carbon Dioxide BUN Creatinine Glucose POC Glucose 116 H Calcium Alkaline Phosphatase CK-MB (CK-2) Rel Index Troponin T C-Reactive Protein Albumin Triglycerides HDL Cholesterol Urine WBC (Auto) 7.0 H 10/15/17 10/15/17 10/15/17 03:12 03:12 08:42 RBC 2.90 L Hgb 8.6 L Hct 25.8 L RDW 16.0 H Plt Count 483 H [place] % (Auto) 9.3 H D-Dimer Sodium 133 L Potassium Chloride 94.5 L Carbon Dioxide 21 L BUN 41 H Creatinine 3.3 H Glucose 112 H POC Glucose 152 H Calcium 7.9 L Alkaline Phosphatase 140 H CK-MB (CK-2) Rel Index Troponin T C-Reactive Protein Albumin 2.7 L Triglycerides HDL Cholesterol Urine WBC (Auto) 10/15/17 10/15/17 10/15/17 13:16 16:57 16:57 RBC Hgb Hct RDW Plt Count [place] % (Auto) D-Dimer Sodium Potassium Chloride Carbon Dioxide BUN Creatinine Glucose POC Glucose 182 H Calcium Alkaline Phosphatase CK-MB (CK-2) Rel Index Troponin T 0.067 H D C-Reactive Protein 11.10 H Albumin Triglycerides HDL Cholesterol Urine WBC (Auto) 10/15/17 10/15/17 10/16/17 17:41 23:00 04:01 RBC 2.93 L Hgb 8.9 L Hct 26.2 L RDW 16.1 H Plt Count 524 H [place] % (Auto) 10.4 H D-Dimer Sodium Potassium Chloride Carbon Dioxide BUN Creatinine Glucose POC Glucose 159 H 136 H Calcium Alkaline Phosphatase CK-MB (CK-2) Rel Index Troponin T C-Reactive Protein Albumin Triglycerides HDL Cholesterol Urine WBC (Auto) 10/16/17 10/16/17 10/16/17 04:01 09:16 12:40 RBC Hgb Hct RDW Plt Count [place] % (Auto) D-Dimer Sodium Potassium 3.5 L Chloride Carbon Dioxide BUN Creatinine Glucose 159 H POC Glucose 165 H 142 H Calcium 8.2 L Alkaline Phosphatase CK-MB (CK-2) Rel Index 4.4 H Troponin T 0.083 H D C-Reactive Protein Albumin 2.7 L Triglycerides HDL Cholesterol Urine WBC (Auto) Chest x-ray: image reviewed (hpoventilation; left IJ CVL; basilar atelectasis) Allied health notes reviewed: nursing
[2017-10-16] MEDS ORDERED: NACL 0.9% 500 ML 500 ML ONE (13:39)
--- NOTE | 2017-10-16 13:49 | Progress Note ---
Assessment and Plan Assessment and plan: Hypovolemic shock. SIRS. Etiology appears to be secondary to volume depletion. No keiko evidence of sepsis. ID following. Follow-up culture results. Wean pressors to maintain MAP greater than 65. VQ scan negative for PE. Acute kidney injury secondary to prerenal azotemia due to hypotension vs ATN. Creatinine is much improved back to baseline. PVD status post open aortobifemoral bypass 09/02/17, complicated with wound dehiscence / evisceration s/p closure of fascial dehiscence 09/07/17 with mesh Elevated DDimer - V/Q with low probability for PE, BLE duplex pending. Diabetes mellitus type 2. Continue Accu-Cheks and sliding scale insulin. Hyperlipidemia. Anemia. Elevated troponin. Etiology likely secondary to renal insufficiency. Cardiology following. History Interval history: Patient much improved. Hospitalist Physical - Constitutional Vitals: Temp Pulse Resp BP Pulse Ox 98.2 F 95 H 12 149/86 96 10/15/17 16:09 10/16/17 12:40 10/16/17 12:40 10/16/17 12:40 10/16/17 12:40 General appearance: Present: other (lethargic) - EENT Eyes: Present: PERRL, EOM intact ENT: hearing intact, clear oral mucosa, dentition normal - Neck Neck: Present: supple, normal ROM - Respiratory Respiratory effort: normal Respiratory: bilateral: CTA - Cardiovascular Rhythm: regular Heart Sounds: Present: S1 & S2. Absent: gallop, rub - Extremities Extremities: no ischemia, No edema, Full ROM - Abdominal General gastrointestinal: soft, non-tender, non-distended, normal bowel sounds - Integumentary Integumentary: Present: clear, warm, dry - Neurologic Neurologic: CNII-XII intact, moves all extremities Results - Labs CBC & Chem 7: 10/16/17 04:01 10/16/17 04:01 Labs: Laboratory Last Values WBC 7.0 K/mm3 (4.5-11.0) 10/16/17 04:01 RBC 2.93 M/mm3 (3.65-5.03) L 10/16/17 04:01 Hgb 8.9 gm/dl (11.8-15.2) L 10/16/17 04:01 Hct 26.2 % (35.5-45.6) L 10/16/17 04:01 MCV 90 fl (84-94) 10/16/17 04:01 MCH 30 pg (28-32) 10/16/17 04:01 MCHC 34 % (32-34) 10/16/17 04:01 RDW 16.1 % (13.2-15.2) H 10/16/17 04:01 Plt Count 524 K/mm3 (140-440) H 10/16/17 04:01 Lymph % (Auto) 21.8 % (13.4-35.0) 10/16/17 04:01 [place] % (Auto) 10.4 % (0.0-7.3) H 10/16/17 04:01 Eos % (Auto) 3.7 % (0.0-4.3) 10/16/17 04:01 Baso % (Auto) 0.4 % (0.0-1.8) 10/16/17 04:01 Lymph # 1.5 K/mm3 (1.2-5.4) 10/16/17 04:01 [place] # 0.7 K/mm3 (0.0-0.8) 10/16/17 04:01 Eos # 0.3 K/mm3 (0.0-0.4) 10/16/17 04:01 Baso # 0.0 K/mm3 (0.0-0.1) 10/16/17 04:01 Seg Neutrophils % 63.7 % (40.0-70.0) 10/16/17 04:01 Seg Neutrophils # 4.4 K/mm3 (1.8-7.7) 10/16/17 04:01 PT 14.7 Sec. (12.2-14.9) 10/14/17 19:47 INR 1.09 (0.87-1.13) 10/14/17 19:47 D-Dimer 3277.01 ng/mlDDU (0-234) H 10/14/17 19:47 Sodium 140 mmol/L (137-145) D 10/16/17 04:01 Potassium 3.5 mmol/L (3.6-5.0) L 10/16/17 04:01 Chloride 100.2 mmol/L (98-107) 10/16/17 04:01 Carbon Dioxide 23 mmol/L (22-30) 10/16/17 04:01 Anion Gap 20 mmol/L 10/16/17 04:01 BUN 20 mg/dL (9-20) 10/16/17 04:01 Creatinine 1.3 mg/dL (0.8-1.5) D 10/16/17 04:01 Estimated GFR 57 ml/min 10/16/17 04:01 BUN/Creatinine Ratio 15 % 10/16/17 04:01 Glucose 159 mg/dL (75-100) H 10/16/17 04:01 POC Glucose 142 (70-105) H 10/16/17 12:40 Lactic Acid 0.70 mmol/L (0.7-2.0) 10/15/17 03:12 Calcium 8.2 mg/dL (8.4-10.2) L 10/16/17 04:01 Phosphorus 2.50 mg/dL (2.5-4.5) 10/16/17 04:01 Magnesium 1.70 mg/dL (1.7-2.3) 10/16/17 04:01 Total Bilirubin 0.30 mg/dL (0.1-1.2) 10/16/17 04:01 AST 13 units/L (5-40) 10/16/17 04:01 ALT 8 units/L (7-56) 10/16/17 04:01 Alkaline Phosphatase 124 units/L (35-129) 10/16/17 04:01 Total Creatine Kinase 68 units/L (55-170) 10/16/17 04:01 CK-MB (CK-2) 3.0 ng/mL (0.0-4.0) 10/16/17 04:01 CK-MB (CK-2) Rel Index 4.4 (0-4) H 10/16/17 04:01 Troponin T 0.083 ng/mL (0.00-0.029) H D 10/16/17 04:01 C-Reactive Protein 11.10 mg/dL (0.00-1.30) H 10/15/17 16:57 Total Protein 7.6 g/dL (6.3-8.2) 10/16/17 04:01 Albumin 2.7 g/dL (3.9-5) L 10/16/17 04:01 Albumin/Globulin Ratio 0.6 % 10/16/17 04:01 Triglycerides 186 mg/dL (2-149) H 10/14/17 19:47 Cholesterol 121 mg/dL (50-199) 10/14/17 19:47 LDL Cholesterol Direct 58 mg/dL (50-130) 10/14/17 19:47 HDL Cholesterol 26 mg/dL (40-59) L 10/14/17 19:47 Cholesterol/HDL Ratio 4.65 % 10/14/17 19:47 Urine Color Yellow (Yellow) 10/14/17 20:30 Urine Turbidity Slightly-cloudy (Clear) 10/14/17 20:30 Urine pH 5.0 (5.0-7.0) 10/14/17 20:30 Ur Specific [place] 1.014 (1.003-1.030) 10/14/17 20:30 Urine Protein <15 mg/dl mg/dL (Negative) 10/14/17 20:30 Urine Glucose (UA) Neg mg/dL (Negative) 10/14/17 20:30 Urine Ketones Neg mg/dL (Negative) 10/14/17 20:30 Urine Blood Sm (Negative) 10/14/17 20:30 Urine Nitrite Neg (Negative) 10/14/17 20:30 Urine Bilirubin Neg (Negative) 10/14/17 20:30 Urine Urobilinogen < 2.0 mg/dL (<2.0) 10/14/17 20:30 Ur Leukocyte Esterase Tr (Negative) 10/14/17 20:30 Urine WBC (Auto) 7.0 /HPF (0.0-6.0) H 10/14/17 20:30 Urine RBC (Auto) 5.0 /HPF (0.0-6.0) 10/14/17 20:30 U Epithel Cells (Auto) < 1.0 /HPF (0-13.0) 10/14/17 20:30 Urine Bacteria (Auto) 2+ /HPF (Negative) 10/14/17 20:30 Amorphous Crystals Few 10/14/17 20:30 Urine Mucus Few /HPF 10/14/17 20:30 Blood Type A POSITIVE 10/15/17 03:13 Antibody Screen Negative 10/15/17 03:13
[2017-10-16] MEDS: NACL 0.9% 1000 ML 1,000 ML IV SCH (14:06)
[2017-10-16] MEDS: HEPARIN/ 0.45% NACL-25,000 UNIT/500 ML 25,000 UNIT/500 ML BAG IV SCH (15:52)
--- NOTE | 2017-10-16 16:37 | Progress Note ---
Assessment and Plan The patients hemodynamics have improved significantly with iv fluids, have encouraged him to increase po intake. Weaned off of pressors, no evidence of sepsis. Superficial wound infection, continue local wound care. The aortobifemoral graft and mesh are not infected. He has bilateral peroneal DVTs and given his relative immobility he will be started on iv anticoagulation and converted to Eliquis prior to discharge. The patient is clinically ok for transfer to the floor. Subjective Date of service: 10/16/17 Principal diagnosis: hypotension Interval history: Patient appears significantly improved today. Patient has been weaned off pressors. No new complaints today. Objective - Constitutional Vitals: Vital Signs - 12hr 10/16/17 10/16/17 10/16/17 04:46 05:00 05:16 Temperature Pulse Rate 93 H 89 97 H Respiratory 13 10 L 16 Rate Blood Pressure 141/67 142/78 142/78 O2 Sat by Pulse Oximetry 10/16/17 10/16/17 10/16/17 05:30 05:46 06:00 Temperature Pulse Rate 88 88 92 H Respiratory 12 15 16 Rate Blood Pressure 145/77 157/73 150/81 O2 Sat by Pulse Oximetry 10/16/17 10/16/17 10/16/17 06:16 06:30 06:46 Temperature Pulse Rate 89 89 88 Respiratory 17 16 18 Rate Blood Pressure 150/81 157/73 155/83 O2 Sat by Pulse Oximetry 10/16/17 10/16/17 10/16/17 07:00 07:16 07:30 Temperature Pulse Rate 85 87 84 Respiratory 17 16 14 Rate Blood Pressure 144/81 144/81 150/79 O2 Sat by Pulse 95 Oximetry 10/16/17 10/16/17 10/16/17 07:46 08:00 08:16 Temperature Pulse Rate 84 82 82 Respiratory 15 14 14 Rate Blood Pressure 148/76 151/81 151/81 O2 Sat by Pulse Oximetry 10/16/17 10/16/17 10/16/17 08:30 08:46 09:00 Temperature Pulse Rate 84 85 78 Respiratory 16 14 14 Rate Blood Pressure 149/82 153/80 159/74 O2 Sat by Pulse Oximetry 10/16/17 10/16/17 10/16/17 09:16 09:30 09:45 Temperature Pulse Rate 88 94 H 92 H Respiratory 13 10 L 16 Rate Blood Pressure 159/74 154/85 153/87 O2 Sat by Pulse 95 Oximetry 10/16/17 10/16/17 10/16/17 10:00 10:15 10:30 Temperature Pulse Rate 80 91 H 89 Respiratory 15 15 14 Rate Blood Pressure 153/73 153/76 153/76 O2 Sat by Pulse 96 97 97 Oximetry 10/16/17 10/16/17 10/16/17 10:45 11:53 12:00 Temperature 98.4 F 98.1 F Pulse Rate 84 92 H Respiratory 20 12 Rate Blood Pressure O2 Sat by Pulse 97 95 Oximetry 10/16/17 10/16/17 10/16/17 12:10 12:20 12:30 Temperature Pulse Rate 93 H 92 H 99 H Respiratory 15 16 17 Rate Blood Pressure 140/80 147/83 147/83 O2 Sat by Pulse 96 97 98 Oximetry 10/16/17 10/16/17 10/16/17 12:40 12:50 13:00 Temperature Pulse Rate 95 H 98 H 99 H Respiratory 12 13 14 Rate Blood Pressure 149/86 125/71 125/80 O2 Sat by Pulse 96 95 95 Oximetry 10/16/17 10/16/17 10/16/17 13:10 13:20 13:30 Temperature Pulse Rate 97 H 99 H 97 H Respiratory 13 12 13 Rate Blood Pressure 127/75 112/70 101/65 O2 Sat by Pulse 95 95 97 Oximetry 10/16/17 10/16/17 10/16/17 13:40 13:50 14:00 Temperature Pulse Rate 98 H 92 H 94 H Respiratory 11 L 13 12 Rate Blood Pressure 101/65 98/43 111/76 O2 Sat by Pulse 95 98 88 Oximetry 10/16/17 10/16/17 10/16/17 14:10 14:20 14:30 Temperature Pulse Rate 91 H 97 H 98 H Respiratory 13 15 16 Rate Blood Pressure 111/76 122/63 117/67 O2 Sat by Pulse 98 97 95 Oximetry 10/16/17 10/16/17 10/16/17 14:40 14:50 15:00 Temperature Pulse Rate 97 H 98 H 93 H Respiratory 15 14 13 Rate Blood Pressure 117/67 109/64 103/67 O2 Sat by Pulse 96 95 92 Oximetry 10/16/17 10/16/17 10/16/17 15:10 15:20 15:30 Temperature Pulse Rate 91 H 93 H 91 H Respiratory 12 12 14 Rate Blood Pressure 103/67 113/65 123/66 O2 Sat by Pulse 92 96 94 Oximetry 10/16/17 10/16/17 10/16/17 15:40 15:50 16:00 Temperature Pulse Rate 87 89 96 H Respiratory 12 14 15 Rate Blood Pressure 123/66 132/68 132/68 O2 Sat by Pulse 96 94 95 Oximetry General appearance: Present: no acute distress - Neck Neck: supple - Respiratory Respiratory effort: normal Respiratory: bilateral: CTA - Breasts Breasts: deferred - Cardiovascular Rhythm: regular Extremities: no ischemia, normal temperature, normal color Extremity abnormal: edema (bilateral lower extremities), other (bilateral foot drop) - Gastrointestinal General gastrointestinal: Present: soft, non-tender, non-distended, other ( serous drainage from umbilical wound) Rectal Exam: deferred - Genitourinary Male genitourinary: deferred - Labs CBC & Chem 7: 10/16/17 04:01 10/16/17 04:01 Labs: Abnormal lab results 10/15/17 10/15/17 10/15/17 Range/Units 16:57 16:57 17:41 RBC (3.65-5.03) M/mm3 Hgb (11.8-15.2) gm/dl Hct (35.5-45.6) % RDW (13.2-15.2) % Plt Count (140-440) K/mm3 [place] % (Auto) (0.0-7.3) % Potassium (3.6-5.0) mmol/L Glucose (75-100) mg/dL POC Glucose 159 H (70-105) Calcium (8.4-10.2) mg/dL CK-MB (CK-2) Rel Index (0-4) Troponin T 0.067 H D (0.00-0.029) ng/mL C-Reactive Protein 11.10 H (0.00-1.30) mg/dL Albumin (3.9-5) g/dL 10/15/17 10/16/17 10/16/17 Range/Units 23:00 04:01 04:01 RBC 2.93 L (3.65-5.03) M/mm3 Hgb 8.9 L (11.8-15.2) gm/dl Hct 26.2 L (35.5-45.6) % RDW 16.1 H (13.2-15.2) % Plt Count 524 H (140-440) K/mm3 [place] % (Auto) 10.4 H (0.0-7.3) % Potassium 3.5 L (3.6-5.0) mmol/L Glucose 159 H (75-100) mg/dL POC Glucose 136 H (70-105) Calcium 8.2 L (8.4-10.2) mg/dL CK-MB (CK-2) Rel Index 4.4 H (0-4) Troponin T 0.083 H D (0.00-0.029) ng/mL C-Reactive Protein (0.00-1.30) mg/dL Albumin 2.7 L (3.9-5) g/dL 10/16/17 10/16/17 10/16/17 Range/Units 09:16 12:40 16:05 RBC (3.65-5.03) M/mm3 Hgb (11.8-15.2) gm/dl Hct (35.5-45.6) % RDW (13.2-15.2) % Plt Count (140-440) K/mm3 [place] % (Auto) (0.0-7.3) % Potassium (3.6-5.0) mmol/L Glucose (75-100) mg/dL POC Glucose 165 H 142 H 164 H (70-105) Calcium (8.4-10.2) mg/dL CK-MB (CK-2) Rel Index (0-4) Troponin T (0.00-0.029) ng/mL C-Reactive Protein (0.00-1.30) mg/dL Albumin (3.9-5) g/dL
[2017-10-16 16:58] LABS: Hematocrit 26.2 % (35.5-45.6); Hemoglobin 8.9 gm/dl (11.8-15.2)
[2017-10-16 17:00] LABS: INR 1.11 (0.87-1.13)
[2017-10-16 17:01] LABS: Partial Thromboplastin Time 35.9 Sec. (24.2-36.6)
[2017-10-17] MEDS: NACL 0.9% 1000 ML 1,000 ML IV SCH ×2 (00:13→11:51)
[2017-10-17] MEDS ORDERED: HEPARIN 10,000 UNITS/10 ML IV ONE (00:45)
[2017-10-17] MEDS: ZOSYN/NS 4.5GM/100ML 4.5 GM/100 ML VIAL IV SCH ×5 (01:21→16:45)
[2017-10-17] MEDS: LACTINEX PO SCH ×2 (01:22→11:13)
[2017-10-17] MEDS: COLACE PO SCH ×2 (01:23→11:13)
[2017-10-17] MEDS: NOVOLOG SUB-Q SCH ×4 (01:23→16:30)
[2017-10-17] MEDS: SENOKOT PO SCH ×2 (01:48→11:14)
[2017-10-17] MEDS: VANCOMYCIN/NS 1 GM/250 ML 1 GM/250 ML BAG IV SCH ×2 (03:06→14:59)
[2017-10-17] MEDS: DUONEB *Not for PRN Use IH SCH ×2 (08:07→14:01)
[2017-10-17] MEDS ORDERED: VANCOMYCIN/NS 1 GM/250 ML 1 GM/250 ML BAG IV SCH (10:00)
[2017-10-17] MEDS: HEPARIN/ 0.45% NACL-25,000 UNIT/500 ML 25,000 UNIT/500 ML BAG IV SCH ×2 (10:02→11:49)
--- NOTE | 2017-10-17 10:57 | Progress Note ---
Assessment and Plan Status post aortobifemoral bypass on 09/02/2017 CT scan was done of abdomen and pelvis without contrast that did not reveal any intra-abdominal collections, expected postsurgical changes, air which is due to packing in the umbilicus area. Patient has no signs of infection. He responded well to IV fluid resuscitation and now downgraded to the floor. His duplex was positive for peroneal veins DVTs bilaterally. We started on a heparin drip and we will transition to PO anticoagulation upon discharge. Gen. surgery input appreciated. Abdominal wound management with packing and left groin wound as per general surgery and wound care. Patient will need physical therapy. Discussed with family and encouraged to continue monitoring. All fluid intake and if urine output drops to increase water intake. Subjective Date of service: 10/17/17 Principal diagnosis: hypotension Interval history: Patient responded well to IV fluids. He was downgraded from ICU. Looking better, doing well. His mental status is great. She is not ambulating. Objective - Exam Narrative Exam: Abdominal wound with packing. Left groin wound has no discharge, looks clean. Patient is in no distress. Blood pressure normal. Creatinine normalized with IV fluids. - Constitutional Vitals: Vital Signs - 12hr 10/17/17 10/17/17 08:07 08:46 Temperature 98.4 F Pulse Rate 75 Respiratory 18 Rate Blood Pressure 127/78 [Left] O2 Sat by Pulse 96 95 Oximetry - Labs CBC & Chem 7: 10/16/17 16:29 10/16/17 04:01 Labs: Abnormal lab results 10/16/17 10/16/17 10/16/17 Range/Units 12:40 16:05 16:29 Hgb 8.9 L (11.8-15.2) gm/dl Hct 26.2 L (35.5-45.6) % Plt Count 493 H (140-440) K/mm3 Heparin Anti-Xa Level (0.3-0.7) U.I./ml POC Glucose 142 H 164 H (70-105) 10/16/17 10/16/17 10/17/17 Range/Units 22:31 22:37 07:26 Hgb (11.8-15.2) gm/dl Hct (35.5-45.6) % Plt Count (140-440) K/mm3 Heparin Anti-Xa Level < 0.10 L 0.14 L (0.3-0.7) U.I./ml POC Glucose 188 H (70-105)
--- NOTE | 2017-10-17 11:07 | Progress Note ---
Assessment and Plan Assessment and plan: Hypovolemic shock. Resolved. SIRS. Etiology appears to be secondary to volume depletion. No keiko evidence of sepsis. ID following. Follow-up culture results. Blood cultures thus far negative. VQ scan negative for PE. Acute kidney injury secondary to prerenal azotemia due to hypotension vs ATN. Creatinine is much improved back to baseline. PVD status post open aortobifemoral bypass 09/02/17, complicated with wound dehiscence / evisceration s/p closure of fascial dehiscence 09/07/17 with mesh ? Paraparesis. Neurology evaluation. Bilateral peroneal DVTs. Patient currently on IV heparin drip. We will start Coumadin daily. Diabetes mellitus type 2. Continue Accu-Cheks and sliding scale insulin. Hyperlipidemia. Anemia. Elevated troponin. Etiology likely secondary to renal insufficiency. Cardiology following. History Interval history: Patient much improved. Patient complains of inability to walk and bilateral lower extremity weakness. Hospitalist Physical - Constitutional Vitals: Temp Pulse Resp BP Pulse Ox 98.4 F 75 18 127/78 95 10/17/17 08:46 10/17/17 08:46 10/17/17 08:46 10/17/17 08:46 10/17/17 08:46 General appearance: Present: no acute distress - EENT Eyes: Present: PERRL, EOM intact ENT: hearing intact, clear oral mucosa, dentition normal - Neck Neck: Present: supple, normal ROM - Respiratory Respiratory effort: normal Respiratory: bilateral: CTA - Cardiovascular Rhythm: regular Heart Sounds: Present: S1 & S2. Absent: gallop, rub - Extremities Extremities: no ischemia, No edema, Full ROM - Abdominal General gastrointestinal: soft, non-tender, non-distended, normal bowel sounds - Integumentary Integumentary: Present: clear, warm, dry - Neurologic Neurologic: CNII-XII intact, moves all extremities Results - Labs CBC & Chem 7: 10/16/17 16:29 10/16/17 04:01 Labs: Laboratory Last Values WBC 7.0 K/mm3 (4.5-11.0) 10/16/17 04:01 RBC 2.93 M/mm3 (3.65-5.03) L 10/16/17 04:01 Hgb 8.9 gm/dl (11.8-15.2) L 10/16/17 16: Hct 26.2 % (35.5-45.6) L 10/16/17 16: MCV 90 fl (84-94) 10/16/17 04:01 MCH 30 pg (28-32) 10/16/17 04:01 MCHC 34 % (32-34) 10/16/17 04:01 RDW 16.1 % (13.2-15.2) H 10/16/17 04:01 Plt Count 493 K/mm3 (140-440) H 10/16/17 16:29 Lymph % (Auto) 21.8 % (13.4-35.0) 10/16/17 04:01 [place] % (Auto) 10.4 % (0.0-7.3) H 10/16/17 04:01 Eos % (Auto) 3.7 % (0.0-4.3) 10/16/17 04:01 Baso % (Auto) 0.4 % (0.0-1.8) 10/16/17 04:01 Lymph # 1.5 K/mm3 (1.2-5.4) 10/16/17 04:01 [place] # 0.7 K/mm3 (0.0-0.8) 10/16/17 04:01 Eos # 0.3 K/mm3 (0.0-0.4) 10/16/17 04:01 Baso # 0.0 K/mm3 (0.0-0.1) 10/16/17 04:01 Seg Neutrophils % 63.7 % (40.0-70.0) 10/16/17 04:01 Seg Neutrophils # 4.4 K/mm3 (1.8-7.7) 10/16/17 04:01 PT 14.9 Sec. (12.2-14.9) 10/16/17 16: INR 1.11 (0.87-1.13) 10/16/17 16: APTT 35.9 Sec. (24.2-36.6) 10/16/17 16:29 D-Dimer 3277.01 ng/mlDDU (0-234) H 10/14/17 19:47 Heparin Anti-Xa Level 0.14 U.I./ml (0.3-0.7) L 10/17/17 07:26 Sodium 140 mmol/L (137-145) D 10/16/17 04:01 Potassium 3.5 mmol/L (3.6-5.0) L 10/16/17 04:01 Chloride 100.2 mmol/L (98-107) 10/16/17 04:01 Carbon Dioxide 23 mmol/L (22-30) 10/16/17 04:01 Anion Gap 20 mmol/L 10/16/17 04:01 BUN 20 mg/dL (9-20) 10/16/17 04:01 Creatinine 1.3 mg/dL (0.8-1.5) D 10/16/17 04:01 Estimated GFR 57 ml/min 10/16/17 04:01 BUN/Creatinine Ratio 15 % 10/16/17 04:01 Glucose 159 mg/dL (75-100) H 10/16/17 04:01 POC Glucose 103 (70-105) 10/17/17 06:39 Lactic Acid 0.70 mmol/L (0.7-2.0) 10/15/17 03:12 Calcium 8.2 mg/dL (8.4-10.2) L 10/16/17 04:01 Phosphorus 2.50 mg/dL (2.5-4.5) 10/16/17 04:01 Magnesium 1.70 mg/dL (1.7-2.3) 10/16/17 04:01 Total Bilirubin 0.30 mg/dL (0.1-1.2) 10/16/17 04:01 AST 13 units/L (5-40) 10/16/17 04:01 ALT 8 units/L (7-56) 10/16/17 04:01 Alkaline Phosphatase 124 units/L (35-129) 10/16/17 04:01 Total Creatine Kinase 68 units/L (55-170) 10/16/17 04:01 CK-MB (CK-2) 3.0 ng/mL (0.0-4.0) 10/16/17 04:01 CK-MB (CK-2) Rel Index 4.4 (0-4) H 10/16/17 04:01 Troponin T 0.083 ng/mL (0.00-0.029) H D 10/16/17 04:01 C-Reactive Protein 11.10 mg/dL (0.00-1.30) H 10/15/17 16:57 Total Protein 7.6 g/dL (6.3-8.2) 10/16/17 04:01 Albumin 2.7 g/dL (3.9-5) L 10/16/17 04:01 Albumin/Globulin Ratio 0.6 % 10/16/17 04:01 Triglycerides 186 mg/dL (2-149) H 10/14/17 19:47 Cholesterol 121 mg/dL (50-199) 10/14/17 19:47 LDL Cholesterol Direct 58 mg/dL (50-130) 10/14/17 19:47 HDL Cholesterol 26 mg/dL (40-59) L 10/14/17 19:47 Cholesterol/HDL Ratio 4.65 % 10/14/17 19:47 Urine Color Yellow (Yellow) 10/14/17 20:30 Urine Turbidity Slightly-cloudy (Clear) 10/14/17 20:30 Urine pH 5.0 (5.0-7.0) 10/14/17 20:30 Ur Specific [place] 1.014 (1.003-1.030) 10/14/17 20:30 Urine Protein <15 mg/dl mg/dL (Negative) 10/14/17 20:30 Urine Glucose (UA) Neg mg/dL (Negative) 10/14/17 20:30 Urine Ketones Neg mg/dL (Negative) 10/14/17 20:30 Urine Blood Sm (Negative) 10/14/17 20:30 Urine Nitrite Neg (Negative) 10/14/17 20:30 Urine Bilirubin Neg (Negative) 10/14/17 20:30 Urine Urobilinogen < 2.0 mg/dL (<2.0) 10/14/17 20:30 Ur Leukocyte Esterase Tr (Negative) 10/14/17 20:30 Urine WBC (Auto) 7.0 /HPF (0.0-6.0) H 10/14/17 20:30 Urine RBC (Auto) 5.0 /HPF (0.0-6.0) 10/14/17 20:30 U Epithel Cells (Auto) < 1.0 /HPF (0-13.0) 10/14/17 20:30 Urine Bacteria (Auto) 2+ /HPF (Negative) 10/14/17 20:30 Amorphous Crystals Few 10/14/17 20:30 Urine Mucus Few /HPF 10/14/17 20:30 Blood Type A POSITIVE 10/15/17 03:13 Antibody Screen Negative 10/15/17 03:13
[2017-10-17] MEDS: NEURONTIN PO SCH (11:14)
[2017-10-17] MEDS: ASPIRIN PO SCH (11:14)
[2017-10-17] MEDS: THERAGRAN-M Tab PO SCH (11:14)
[2017-10-17] MEDS: PROTONIX PO SCH (11:14)
--- NOTE | 2017-10-17 12:06 | Progress Note ---
Assessment and Plan Impression: * Acute kidney injury secondary to prerenal azotemia due to hypotension vs ATN * Hypotension secondary to ?sepsis * s/p Aorta bifemoral bypass that was complicated by dehiscence and repair with mesh * Hyponatremia - improved * hypokalemia Plan: * RUPERT resolving (SCr 0.9mg/dL on 09/25) - renal function is near baseline, cr i 1.3 * Continue IVF for hydration * Abx per ID * Avoid potential nephrotoxins * Dose medications for renal function * will see prn Subjective Date of service: 10/17/17 Principal diagnosis: hypotension Interval history: resting well in bed today Objective - Exam Narrative Exam: General appearance: well-developed, well-nourished EENT: ATNC, PERRL, mucous membranes moist Respiratory: Present: Clear to Ascultation Cardiology: regular, S1S2 Gastrointestinal: normoactive bowel sounds Integumentary: no rash Neurologic: no focal deficit Musculoskeletal: other (no edema) Psychiatric: cooperative - Vital Signs Vital signs: Vital Signs - 12hr 10/17/17 10/17/17 08:07 08:46 Temperature 98.4 F Pulse Rate 75 Respiratory 18 Rate Blood Pressure 127/78 [Left] O2 Sat by Pulse 96 95 Oximetry - Lab 10/16/17 16:29 10/16/17 04:01 Most recent lab results Calcium 8.2 mg/dL (8.4-10.2) L 10/16/17 04:01 Phosphorus 2.50 mg/dL (2.5-4.5) 10/16/17 04:01 Magnesium 1.70 mg/dL (1.7-2.3) 10/16/17 04:01
--- NOTE | 2017-10-17 16:12 | Progress Note ---
Assessment and Plan Hypotension / ? septic shock - requiring vasopressors Elevated troponin - ECG with NAF; pt denies chest pain; currently nonspecific in setting of ARF Acute renal failure - renal indices improving PVD status post open aortobifemoral bypass 09/02/17, complicated with wound dehiscence / evisceration s/p closure of fascial dehiscence 09/07/17 Elevated DDimer - V/Q with low probability for PE, BLE duplex pending. DM HLP Anemia Hyponatremia Patient is much improved at this time. He continues to progress well. His now transferred to the medical floor. Continue monitoring and follow closely. Subjective Date of service: 10/17/17 Principal diagnosis: hypotension Interval history: Patient feels much better today. No chest pain difficulty in breathing or palpitations. Objective Vital Signs Temp Pulse Resp BP BP Pulse Ox 10/17/17 15:56 98.7 F 89 18 144/73 92 10/17/17 08:46 98.4 F 75 18 127/78 95 10/17/17 08:42 98.4 F 82 18 127/78 94 10/17/17 08:07 96 10/16/17 21:22 99.0 F 94 H 20 143/85 96 10/16/17 20:37 94 10/16/17 18:26 99.3 F 94 H 20 127/71 94 10/16/17 17:20 98 H 12 129/73 96 10/16/17 17:10 95 H 13 145/89 95 10/16/17 17:02 97 H 14 145/89 95 10/16/17 17:00 93 H 14 158/136 96 10/16/17 16:59 97 H 12 158/136 95 10/16/17 16:50 92 H 13 158/136 96 10/16/17 16:40 93 H 12 116/67 96 10/16/17 16:30 95 H 13 116/67 95 10/16/17 16:20 83 13 121/69 89 - Physical Examination General: No Apparent Distress HEENT: Positive: PERRL Neck: Positive: neck supple Cardiac: Positive: Regular Rate Lungs: Positive: clear to auscultation Neuro: Positive: Cranial Nerve 2-12 Intact Abdomen: Positive: Soft, Other (surgical sites) Skin: Negative: Rash Musculoskeletal: No Pain, Normal Range of Motion Extremities: Absent: edema - Labs and Meds Coagulation 10/16/17 Range/Units 16:29 PT 14.9 (12.2-14.9) Sec. INR 1.11 (0.87-1.13) APTT 35.9 (24.2-36.6) Sec. CBC 10/16/17 Range/Units 16:29 Hgb 8.9 L (11.8-15.2) gm/dl Hct 26.2 L (35.5-45.6) % Plt Count 493 H (140-440) K/mm3 - Imaging and Cardiology EKG: report reviewed, image reviewed Echo: report reviewed (09/02/2017 showed EF 50-55%, impaired relaxation, technically limited d/t poor acoustic windows and pt's inability to lay in left lateral decub position. ) - EKG Sinus rhythms and dysrhythmias: sinus rhythm
--- NOTE | 2017-10-17 16:27 | Progress Note ---
Assessment and Plan 57-year-old male with 1. Abdominal wound, related to prior abdominal surgery 2. Hypotension, etiology unknown. Hypovolemia vs sepsis 3. Acute kidney injury 4. Elevated d-dimer 5. Elevated troponin 6. B/L LE DVT 7. protein calorie malnutrition, hypoalbunimemia Plan: 1. Continue daily wound care per nursing. Instructions were placed in the orders. 2. Continue IV fluids 3. Continue current diet with nutritional supplements 3 times a day 4. Anticoagulation per vascular surgery 5. PT consult 6. Follow up final wound cultures. I do not feel that the abdominal wound as a source of infection. 7. Antibiotics per infectious disease Subjective Date of service: 10/17/17 Narrative: Patient seen and examined at bedside. He has no acute complaints. No overnight events. He states that he is tolerating regular diet but admittedly is not eating as much as he should. No fevers, chills, chest pain, shortness of breath, nausea, vomiting, abdominal pain. He was downgraded from the ICU. His Burgess catheter and TLC removed. Objective Vital Signs - 12hr 10/17/17 10/17/17 10/17/17 08:07 08:42 08:46 Temperature 98.4 F 98.4 F Pulse Rate 82 75 Respiratory 18 18 Rate Blood Pressure 127/78 Blood Pressure 127/78 [Left] O2 Sat by Pulse 96 94 95 Oximetry 10/17/17 15:56 Temperature 98.7 F Pulse Rate 89 Respiratory 18 Rate Blood Pressure Blood Pressure 144/73 [Left] O2 Sat by Pulse 92 Oximetry - General physical appearance Narrative Exam: General: Awake, alert, oriented 3. No apparent distress Abd: soft, ND, NT. All dressings removed. small opening in midline incision near the umbilicus with superficial slough debrided gently with gauze sponge. Minimal serous drainage from wound. The left groin wound and wound at prior DORETHA site L abdomen are healing well, no drainage. Wound at prior retention suture sites are healing well, pink wound base. One piece of dermagran applied to umbilical wound bed and one piece applied to lower right abdominal wound bed. Covered with ABDs pads and secured with abdominal binder loosely. - Labs 10/16/17 16:29 10/16/17 04:01
[2017-10-17] MEDS: COUMADIN PO SCH (16:45)
[2017-10-17] MEDS ORDERED: PROVENTIL IH PRN (18:13)
--- NOTE | 2017-10-17 20:42 | Progress Note ---
Assessment and Plan Patient awake. weak. No acute respiratory distress.Resting on room air. O2 saturation 92%. - Patient Problems (1) Acute respiratory failure Current Visit: No Status: Acute Plan to address problem: Improved. Albuterol aerosol treatments PRN for shortness of breath. (2) Hypotension Current Visit: No Status: Acute Plan to address problem: Improved. Patient is on Levophed. (3) Sepsis Current Visit: No Status: Acute Plan to address problem: Patient is on zosyn. (4) RUPERT (acute kidney injury) Current Visit: No Status: Acute Plan to address problem: Management as per nephrology. (5) Abdominal aortic aneurysm without rupture Current Visit: No Status: Acute Plan to address problem: Management as per vascular surgery. (6) Status post aortobifemoral bypass surgery Current Visit: No Status: Acute Plan to address problem: Follow with vascular surgery. (7) IDDM (insulin dependent diabetes mellitus) Current Visit: No Status: Acute Plan to address problem: Management as per primary care. Subjective Date of service: 10/17/17 Principal diagnosis: Sepsis Syndrome with hypotension; RUPERT; IVVD; Diabetes II Interval history: Patient awake. weak. No acute respiratory distress.Resting on room air. O2 saturation 92%. Objective Vital Signs - 12hr 10/17/17 10/17/17 10/17/17 08:42 08:46 10:00 Temperature 98.4 F 98.4 F Pulse Rate 82 75 Respiratory 18 18 20 Rate Blood Pressure 127/78 Blood Pressure 127/78 [Left] O2 Sat by Pulse 94 95 Oximetry 10/17/17 15:56 Temperature 98.7 F Pulse Rate 89 Respiratory 18 Rate Blood Pressure Blood Pressure 144/73 [Left] O2 Sat by Pulse 92 Oximetry Constitutional: no acute distress, alert Eyes: non-icteric ENT: oropharynx moist Neck: supple, no lymphadenopathy, no JVD, other (No thyromegaly) Effort: mildly labored Ascultation: Bilateral: rhonchi (bases) Percussion: Bilateral: not dull Cardiovascular: regular rate and rhythm, other (No rubs/murmurs) Gastrointestinal: normoactive bowel sounds, soft, non-tender, non-distended, other (No HSM) Integumentary: normal Extremities: no cyanosis, no edema, pink and warm, no ischemia or petechiae, other (weak pedal pulses) Neurologic: normal mental status, non-focal exam, pupils equal and round, motor strength normal and Psychiatric: mood appropriate, affect normal CBC and BMP: 10/16/17 16:29 10/16/17 04:01 ABG, PT/INR, D-dimer: PT/INR, D-dimer PT 14.9 Sec. (12.2-14.9) 10/16/17 16:29 INR 1.11 (0.87-1.13) 10/16/17 16:29 D-Dimer 3277.01 ng/mlDDU (0-234) H 10/14/17 19:47 Abnormal lab findings: Abnormal Labs 10/14/17 10/14/17 10/14/17 19:47 19:47 19:47 RBC 2.63 L Hgb 8.1 L Hct 23.8 L RDW 15.8 H Plt Count [place] % (Auto) 9.4 H D-Dimer Heparin Anti-Xa Level Sodium 127 L Potassium Chloride 88.6 L Carbon Dioxide 21 L BUN 43 H Creatinine 4.2 H Glucose 106 H POC Glucose Calcium 7.2 L Alkaline Phosphatase 135 H CK-MB (CK-2) Rel Index Troponin T 0.108 H* C-Reactive Protein Albumin 2.6 L Triglycerides 186 H HDL Cholesterol 26 L Urine WBC (Auto) 10/14/17 10/14/17 10/14/17 19:47 20:19 20:30 RBC Hgb Hct RDW Plt Count [place] % (Auto) D-Dimer 3277.01 H Heparin Anti-Xa Level Sodium Potassium Chloride Carbon Dioxide BUN Creatinine Glucose POC Glucose 116 H Calcium Alkaline Phosphatase CK-MB (CK-2) Rel Index Troponin T C-Reactive Protein Albumin Triglycerides HDL Cholesterol Urine WBC (Auto) 7.0 H 10/15/17 10/15/17 10/15/17 03:12 03:12 08:42 RBC 2.90 L Hgb 8.6 L Hct 25.8 L RDW 16.0 H Plt Count 483 H [place] % (Auto) 9.3 H D-Dimer Heparin Anti-Xa Level Sodium 133 L Potassium Chloride 94.5 L Carbon Dioxide 21 L BUN 41 H Creatinine 3.3 H Glucose 112 H POC Glucose 152 H Calcium 7.9 L Alkaline Phosphatase 140 H CK-MB (CK-2) Rel Index Troponin T C-Reactive Protein Albumin 2.7 L Triglycerides HDL Cholesterol Urine WBC (Auto) 10/15/17 10/15/17 10/15/17 13:16 16:57 16:57 RBC Hgb Hct RDW Plt Count [place] % (Auto) D-Dimer Heparin Anti-Xa Level Sodium Potassium Chloride Carbon Dioxide BUN Creatinine Glucose POC Glucose 182 H Calcium Alkaline Phosphatase CK-MB (CK-2) Rel Index Troponin T 0.067 H D C-Reactive Protein 11.10 H Albumin Triglycerides HDL Cholesterol Urine WBC (Auto) 10/15/17 10/15/17 10/16/17 17:41 23:00 04:01 RBC 2.93 L Hgb 8.9 L Hct 26.2 L RDW 16.1 H Plt Count 524 H [place] % (Auto) 10.4 H D-Dimer Heparin Anti-Xa Level Sodium Potassium Chloride Carbon Dioxide BUN Creatinine Glucose POC Glucose 159 H 136 H Calcium Alkaline Phosphatase CK-MB (CK-2) Rel Index Troponin T C-Reactive Protein Albumin Triglycerides HDL Cholesterol Urine WBC (Auto) 10/16/17 10/16/17 10/16/17 04:01 09:16 12:40 RBC Hgb Hct RDW Plt Count [place] % (Auto) D-Dimer Heparin Anti-Xa Level Sodium Potassium 3.5 L Chloride Carbon Dioxide BUN Creatinine Glucose 159 H POC Glucose 165 H 142 H Calcium 8.2 L Alkaline Phosphatase CK-MB (CK-2) Rel Index 4.4 H Troponin T 0.083 H D C-Reactive Protein Albumin 2.7 L Triglycerides HDL Cholesterol Urine WBC (Auto) 10/16/17 10/16/17 10/16/17 16:05 16:29 22:31 RBC Hgb 8.9 L Hct 26.2 L RDW Plt Count 493 H [place] % (Auto) D-Dimer Heparin Anti-Xa Level Sodium Potassium Chloride Carbon Dioxide BUN Creatinine Glucose POC Glucose 164 H 188 H Calcium Alkaline Phosphatase CK-MB (CK-2) Rel Index Troponin T C-Reactive Protein Albumin Triglycerides HDL Cholesterol Urine WBC (Auto) 10/16/17 10/17/17 10/17/17 22:37 07:26 15:12 RBC Hgb Hct RDW Plt Count [place] % (Auto) D-Dimer Heparin Anti-Xa Level < 0.10 L 0.14 L < 0.10 L Sodium Potassium Chloride Carbon Dioxide BUN Creatinine Glucose POC Glucose Calcium Alkaline Phosphatase CK-MB (CK-2) Rel Index Troponin T C-Reactive Protein Albumin Triglycerides HDL Cholesterol Urine WBC (Auto) Chest x-ray: report reviewed (Bilateral perihilar edema.), image reviewed Allied health notes reviewed: nursing
[2017-10-18] MEDS: ZOSYN/NS 4.5GM/100ML 4.5 GM/100 ML VIAL IV SCH ×4 (00:26→23:06)
[2017-10-18] MEDS: COLACE PO SCH ×3 (00:27→22:29)
[2017-10-18] MEDS: LACTINEX PO SCH ×3 (00:27→22:30)
[2017-10-18] MEDS: SENOKOT PO SCH ×4 (00:28→22:40)
[2017-10-18] MEDS: NOVOLOG SUB-Q SCH ×5 (00:28→22:43)
[2017-10-18] MEDS: NACL 0.9% 1000 ML 1,000 ML IV SCH ×3 (00:44→17:16)
[2017-10-18] MEDS: VANCOMYCIN/NS 1 GM/250 ML 1 GM/250 ML BAG IV SCH ×2 (04:20→14:36)
[2017-10-18] MEDS: PERCOCET 5/325 PO PRN ×2 (04:28→13:09)
[2017-10-18] MEDS: HEPARIN/ 0.45% NACL-25,000 UNIT/500 ML 25,000 UNIT/500 ML BAG IV SCH (04:31)
[2017-10-18 07:09] LABS: Hematocrit 27.8 % (35.5-45.6); Hemoglobin 9.2 gm/dl (11.8-15.2)
[2017-10-18 07:20] LABS: INR 1.12 (0.87-1.13)
[2017-10-18 07:23] LABS: BUN/Creatinine Ratio 11; Blood Urea Nitrogen 8 mg/dL (9-20); Calcium 8.3 mg/dL (8.4-10.2); Hemolysis Index 8
[2017-10-18 07:29] LABS: Heparin anti-factor XA < 0.10 U.I./ml (0.3-0.7)
--- NOTE | 2017-10-18 07:35 | Progress Note ---
Assessment and Plan 57-year-old male with 1. Abdominal wound, related to prior abdominal surgery 2. Hypotension, likely related to hypovolemia - resolved 3. Acute kidney injury 4. Elevated d-dimer 5. Elevated troponin 6. B/L LE DVT 7. protein calorie malnutrition, hypoalbunimemia Plan: 1. Continue daily wound care - nursing instructed to change dressing tomorrow 10/19/17. Instructions were placed in the orders. 2. Continue IV fluids per nephro 3. Continue current diet with nutritional supplements 3 times a day 4. Anticoagulation per vascular surgery 5. PT consult 6. Follow up final wound cultures. I do not feel that the abdominal wound as a source of infection. 7. Antibiotics per infectious disease Subjective Date of service: 10/18/17 Narrative: Physical exam at that site. He has no complaints. No overnight events. No fevers, chills. Objective Vital Signs - 12hr 10/17/17 10/18/17 10/18/17 22:00 00:00 00:01 Temperature 98.3 F 98.3 F Pulse Rate 83 Pulse Rate [ 84 Left Radial] Respiratory 22 22 Rate Blood Pressure 144/80 146/82 O2 Sat by Pulse 94 93 Oximetry 10/18/17 04:28 Temperature Pulse Rate Pulse Rate [ Left Radial] Respiratory 18 Rate Blood Pressure O2 Sat by Pulse Oximetry - General physical appearance Narrative Exam: General: Awake, alert, oriented 3. No apparent distress Abd: soft, ND, NT. All dressings removed. small opening in midline incision near the umbilicus with healthy appearing wound base. Minimal serous drainage from wound. The left groin wound and wound at prior DORETHA site L abdomen are healing well, no drainage. Wound at prior retention suture sites are healing well, pink wound base. One piece of dermagran applied to umbilical wound bed and one piece applied to lower right abdominal wound bed. Covered with ABDs pads and secured with abdominal binder loosely. - Labs 10/18/17 05:44 10/18/17 05:44 Diabetes panel 10/18/17 Range/Units 05:44 Sodium 138 (137-145) mmol/L Potassium 3.6 (3.6-5.0) mmol/L Chloride 101.7 (98-107) mmol/L Carbon Dioxide 22 (22-30) mmol/L BUN 8 L (9-20) mg/dL Creatinine 0.7 L (0.8-1.5) mg/dL Glucose 111 H (75-100) mg/dL Calcium 8.3 L (8.4-10.2) mg/dL Calcium panel 10/18/17 Range/Units 05:44 Calcium 8.3 L (8.4-10.2) mg/dL Pituitary panel 10/18/17 Range/Units 05:44 Sodium 138 (137-145) mmol/L Potassium 3.6 (3.6-5.0) mmol/L Chloride 101.7 (98-107) mmol/L Carbon Dioxide 22 (22-30) mmol/L BUN 8 L (9-20) mg/dL Creatinine 0.7 L (0.8-1.5) mg/dL Glucose 111 H (75-100) mg/dL Calcium 8.3 L (8.4-10.2) mg/dL Adrenal panel 10/18/17 Range/Units 05:44 Sodium 138 (137-145) mmol/L Potassium 3.6 (3.6-5.0) mmol/L Chloride 101.7 (98-107) mmol/L Carbon Dioxide 22 (22-30) mmol/L BUN 8 L (9-20) mg/dL Creatinine 0.7 L (0.8-1.5) mg/dL Glucose 111 H (75-100) mg/dL Calcium 8.3 L (8.4-10.2) mg/dL
[2017-10-18] MEDS ORDERED: HEPARIN 10,000 UNITS/10 ML IV NR (09:16)
--- NOTE | 2017-10-18 09:23 | Progress Note ---
Assessment and Plan Assessment and plan: Hypovolemic shock. Resolved. SIRS. Etiology appears to be secondary to volume depletion. No keiko evidence of sepsis. ID following. Follow-up culture results. Blood cultures thus far negative. VQ scan negative for PE. Acute kidney injury secondary to prerenal azotemia due to hypotension vs ATN. Creatinine is much improved back to baseline. PVD status post open aortobifemoral bypass 09/02/17, complicated with wound dehiscence / evisceration s/p closure of fascial dehiscence 09/07/17 with mesh ? Paraparesis. Neurology evaluation. Bilateral peroneal DVTs. Patient currently on IV heparin drip. We will start Coumadin daily. Diabetes mellitus type 2. Continue Accu-Cheks and sliding scale insulin. Hyperlipidemia. Anemia. Elevated troponin. Etiology likely secondary to renal insufficiency. Cardiology following. History Interval history: Patient much improved. Patient complains of inability to walk and bilateral lower extremity weakness. Hospitalist Physical - Constitutional Vitals: Temp Pulse Resp BP Pulse Ox 97.5 F L 87 18 148/91 96 10/18/17 08:08 10/18/17 08:08 10/18/17 08:08 10/18/17 08:08 10/18/17 08:08 General appearance: Present: no acute distress - EENT Eyes: Present: PERRL, EOM intact ENT: hearing intact, clear oral mucosa, dentition normal - Neck Neck: Present: supple, normal ROM - Respiratory Respiratory effort: normal Respiratory: bilateral: CTA - Cardiovascular Rhythm: regular Heart Sounds: Present: S1 & S2. Absent: gallop, rub - Extremities Extremities: no ischemia, No edema, Full ROM - Abdominal General gastrointestinal: soft, non-tender, non-distended, normal bowel sounds - Integumentary Integumentary: Present: clear, warm, dry - Neurologic Neurologic: CNII-XII intact, moves all extremities Results - Labs CBC & Chem 7: 10/18/17 05:44 10/18/17 05:44 Labs: Laboratory Last Values WBC 7.0 K/mm3 (4.5-11.0) 10/16/17 04:01 RBC 2.93 M/mm3 (3.65-5.03) L 10/16/17 04:01 Hgb 9.2 gm/dl (11.8-15.2) L 10/18/17 05:44 Hct 27.8 % (35.5-45.6) L 10/18/17 05:44 MCV 90 fl (84-94) 10/16/17 04:01 MCH 30 pg (28-32) 10/16/17 04:01 MCHC 34 % (32-34) 10/16/17 04:01 RDW 16.1 % (13.2-15.2) H 10/16/17 04:01 Plt Count 492 K/mm3 (140-440) H 10/18/17 05:44 Lymph % (Auto) 21.8 % (13.4-35.0) 10/16/17 04:01 Coles % (Auto) 10.4 % (0.0-7.3) H 10/16/17 04:01 Eos % (Auto) 3.7 % (0.0-4.3) 10/16/17 04:01 Baso % (Auto) 0.4 % (0.0-1.8) 10/16/17 04:01 Lymph # 1.5 K/mm3 (1.2-5.4) 10/16/17 04:01 Coles # 0.7 K/mm3 (0.0-0.8) 10/16/17 04:01 Eos # 0.3 K/mm3 (0.0-0.4) 10/16/17 04:01 Baso # 0.0 K/mm3 (0.0-0.1) 10/16/17 04:01 Seg Neutrophils % 63.7 % (40.0-70.0) 10/16/17 04:01 Seg Neutrophils # 4.4 K/mm3 (1.8-7.7) 10/16/17 04:01 PT 15.0 Sec. (12.2-14.9) H 10/18/17 05:44 INR 1.12 (0.87-1.13) 10/18/17 05:44 APTT 35.9 Sec. (24.2-36.6) 10/16/17 16:29 D-Dimer 3277.01 ng/mlDDU (0-234) H 10/14/17 19:47 Heparin Anti-Xa Level < 0.10 U.I./ml (0.3-0.7) L 10/18/17 05:44 Sodium 138 mmol/L (137-145) 10/18/17 05:44 Potassium 3.6 mmol/L (3.6-5.0) 10/18/17 05:44 Chloride 101.7 mmol/L (98-107) 10/18/17 05:44 Carbon Dioxide 22 mmol/L (22-30) 10/18/17 05:44 Anion Gap 18 mmol/L 10/18/17 05:44 BUN 8 mg/dL (9-20) L 10/18/17 05:44 Creatinine 0.7 mg/dL (0.8-1.5) L 10/18/17 05:44 Estimated GFR > 60 ml/min 10/18/17 05:44 BUN/Creatinine Ratio 11 % 10/18/17 05:44 Glucose 111 mg/dL (75-100) H 10/18/17 05:44 POC Glucose 100 (70-105) 10/18/17 06:59 Lactic Acid 0.70 mmol/L (0.7-2.0) 10/15/17 03:12 Calcium 8.3 mg/dL (8.4-10.2) L 10/18/17 05:44 Phosphorus 2.50 mg/dL (2.5-4.5) 10/16/17 04:01 Magnesium 1.70 mg/dL (1.7-2.3) 10/16/17 04:01 Total Bilirubin 0.30 mg/dL (0.1-1.2) 10/16/17 04:01 AST 13 units/L (5-40) 10/16/17 04:01 ALT 8 units/L (7-56) 10/16/17 04:01 Alkaline Phosphatase 124 units/L (35-129) 10/16/17 04:01 Total Creatine Kinase 68 units/L (55-170) 10/16/17 04:01 CK-MB (CK-2) 3.0 ng/mL (0.0-4.0) 10/16/17 04:01 CK-MB (CK-2) Rel Index 4.4 (0-4) H 10/16/17 04:01 Troponin T 0.083 ng/mL (0.00-0.029) H D 10/16/17 04:01 C-Reactive Protein 11.10 mg/dL (0.00-1.30) H 10/15/17 16:57 Total Protein 7.6 g/dL (6.3-8.2) 10/16/17 04:01 Albumin 2.7 g/dL (3.9-5) L 10/16/17 04:01 Albumin/Globulin Ratio 0.6 % 10/16/17 04:01 Triglycerides 186 mg/dL (2-149) H 10/14/17 19:47 Cholesterol 121 mg/dL (50-199) 10/14/17 19:47 LDL Cholesterol Direct 58 mg/dL (50-130) 10/14/17 19:47 HDL Cholesterol 26 mg/dL (40-59) L 10/14/17 19:47 Cholesterol/HDL Ratio 4.65 % 10/14/17 19:47 Urine Color Yellow (Yellow) 10/14/17 20:30 Urine Turbidity Slightly-cloudy (Clear) 10/14/17 20:30 Urine pH 5.0 (5.0-7.0) 10/14/17 20:30 Ur Specific [place] 1.014 (1.003-1.030) 10/14/17 20:30 Urine Protein <15 mg/dl mg/dL (Negative) 10/14/17 20:30 Urine Glucose (UA) Neg mg/dL (Negative) 10/14/17 20:30 Urine Ketones Neg mg/dL (Negative) 10/14/17 20:30 Urine Blood Sm (Negative) 10/14/17 20:30 Urine Nitrite Neg (Negative) 10/14/17 20:30 Urine Bilirubin Neg (Negative) 10/14/17 20:30 Urine Urobilinogen < 2.0 mg/dL (<2.0) 10/14/17 20:30 Ur Leukocyte Esterase Tr (Negative) 10/14/17 20:30 Urine WBC (Auto) 7.0 /HPF (0.0-6.0) H 10/14/17 20:30 Urine RBC (Auto) 5.0 /HPF (0.0-6.0) 10/14/17 20:30 U Epithel Cells (Auto) < 1.0 /HPF (0-13.0) 10/14/17 20:30 Urine Bacteria (Auto) 2+ /HPF (Negative) 10/14/17 20:30 Amorphous Crystals Few 10/14/17 20:30 Urine Mucus Few /HPF 10/14/17 20:30 Vancomycin Trough 13.4 ug/mL (5.0-20.0) 10/17/17 15:12 Blood Type A POSITIVE 10/15/17 03:13 Antibody Screen Negative 10/15/17 03:13
[2017-10-18] MEDS: NEURONTIN PO SCH (10:15)
[2017-10-18] MEDS: PROTONIX PO SCH (10:15)
[2017-10-18] MEDS: THERAGRAN-M Tab PO SCH (10:15)
[2017-10-18] MEDS: ASPIRIN PO SCH (10:16)
--- NOTE | 2017-10-18 11:53 | Progress Note ---
Assessment and Plan Status post aortobifemoral bypass on 09/02/2017 CT scan was done of abdomen and pelvis without contrast that did not reveal any intra-abdominal collections, expected postsurgical changes, air which is due to packing in the umbilicus area. His duplex was positive for peroneal veins DVTs bilaterally. We started on a heparin drip and we will transition to PO anticoagulation upon discharge. Gen. surgery input appreciated. Abdominal wound management with packing and left groin wound as per general surgery and wound care. Wound Cx - staph aureus. Antibiotics per ID. Patient will need physical therapy. Subjective Principal diagnosis: Sepsis Syndrome with hypotension; RUPERT; IVVD; Diabetes II Interval history: Looking better, doing well. His mental status is great. She is not ambulating. Awaiting neurology consult for foot drop. per family it was pre- existant Objective - Exam Narrative Exam: Abdominal wound with packing. Left groin wound has no discharge, looks clean. Patient is in no distress. Blood pressure normal. Creatinine normal. Wound culture Gr stain with Staph aureus. Antibiotics per ID. - Constitutional Vitals: Vital Signs - 12hr 10/18/17 10/18/17 10/18/17 00:00 00:01 02:00 Temperature 98.3 F 98.3 F Pulse Rate 83 Pulse Rate [ 84 Left Radial] Respiratory 22 22 18 Rate Blood Pressure 144/80 146/82 O2 Sat by Pulse 93 95 Oximetry 10/18/17 10/18/17 04:28 08:08 Temperature 97.5 F L Pulse Rate 87 Pulse Rate [ Left Radial] Respiratory 18 18 Rate Blood Pressure 148/91 O2 Sat by Pulse 96 Oximetry - Labs CBC & Chem 7: 10/18/17 05:44 10/18/17 05:44 Labs: Abnormal lab results 10/17/17 10/17/17 10/17/17 Range/Units 15:12 22:56 22:58 Hgb (11.8-15.2) gm/dl Hct (35.5-45.6) % Plt Count (140-440) K/mm3 PT (12.2-14.9) Sec. Heparin Anti-Xa Level < 0.10 L 0.15 L (0.3-0.7) U.I./ml BUN (9-20) mg/dL Creatinine (0.8-1.5) mg/dL Glucose (75-100) mg/dL POC Glucose 107 H (70-105) Calcium (8.4-10.2) mg/dL 10/18/17 10/18/17 10/18/17 Range/Units 05:44 05:44 05:44 Hgb 9.2 L (11.8-15.2) gm/dl Hct 27.8 L (35.5-45.6) % Plt Count 492 H (140-440) K/mm3 PT 15.0 H (12.2-14.9) Sec. Heparin Anti-Xa Level < 0.10 L (0.3-0.7) U.I./ml BUN 8 L (9-20) mg/dL Creatinine 0.7 L (0.8-1.5) mg/dL Glucose 111 H (75-100) mg/dL POC Glucose (70-105) Calcium 8.3 L (8.4-10.2) mg/dL
--- NOTE | 2017-10-18 14:30 | Progress Note ---
Assessment and Plan Hypotension / ? septic shock - requiring vasopressors Elevated troponin - ECG with NAF; pt denies chest pain; currently nonspecific in setting of ARF Acute renal failure - renal indices improving PVD status post open aortobifemoral bypass 09/02/17, complicated with wound dehiscence / evisceration s/p closure of fascial dehiscence 09/07/17 Elevated DDimer - V/Q with low probability for PE, BLE duplex pending. DM HLP Anemia Hyponatremia CT scan was done of abdomen and pelvis without contrast that did not reveal any intra-abdominal collections, expected postsurgical changes, air which is due to packing in the umbilicus area. His duplex was positive for peroneal veins DVTs bilaterally. Patient is much improved at this time. He continues to progress well. Continue monitoring and follow closely. - Patient Problems (1) RUPERT (acute kidney injury) Current Visit: No Status: Acute (2) Abdominal aortic aneurysm without rupture Current Visit: No Status: Acute (3) Hypotension Current Visit: No Status: Acute (4) PAD (peripheral artery disease) Current Visit: No Status: Acute Subjective Principal diagnosis: Sepsis Syndrome with hypotension; RUPERT; IVVD; Diabetes II Interval history: Patient feels much better today. No chest pain difficulty in breathing or palpitations. Objective Vital Signs Temp Pulse Pulse Resp BP BP Pulse Ox 10/18/17 13:09 16 10/18/17 08:08 97.5 F L 87 18 148/91 96 10/18/17 04:28 18 10/18/17 02:00 18 95 10/18/17 00:01 98.3 F 83 22 146/82 93 10/18/17 00:00 98.3 F 84 22 144/80 10/17/17 22:00 94 10/17/17 15:56 98.7 F 89 18 144/73 92 - Physical Examination General: No Apparent Distress HEENT: Positive: PERRL Neck: Positive: neck supple Cardiac: Positive: Reg Rate and Rhythm Lungs: Positive: clear to auscultation Neuro: Positive: Cranial Nerve 2-12 Intact Abdomen: Positive: Soft, Other (surgical sites) Skin: Negative: Rash Musculoskeletal: No Pain, Normal Range of Motion Extremities: Absent: edema - Labs and Meds Coagulation 10/18/17 Range/Units 05:44 PT 15.0 H (12.2-14.9) Sec. INR 1.12 (0.87-1.13) CBC 10/18/17 Range/Units 05:44 Hgb 9.2 L (11.8-15.2) gm/dl Hct 27.8 L (35.5-45.6) % Plt Count 492 H (140-440) K/mm3 Comprehensive Metabolic Panel 10/18/17 Range/Units 05:44 Sodium 138 (137-145) mmol/L Potassium 3.6 (3.6-5.0) mmol/L Chloride 101.7 (98-107) mmol/L Carbon Dioxide 22 (22-30) mmol/L BUN 8 L (9-20) mg/dL Creatinine 0.7 L (0.8-1.5) mg/dL Glucose 111 H (75-100) mg/dL Calcium 8.3 L (8.4-10.2) mg/dL - Imaging and Cardiology EKG: report reviewed, image reviewed Echo: report reviewed (09/02/2017 showed EF 50-55%, impaired relaxation, technically limited d/t poor acoustic windows and pt's inability to lay in left lateral decub position. ) - EKG Sinus rhythms and dysrhythmias: sinus rhythm - Allied health notes Allied health notes reviewed: nursing
[2017-10-18] MEDS: COUMADIN PO SCH (18:56)
--- NOTE | 2017-10-18 21:35 | Progress Note ---
Assessment and Plan Patient awake. weak. No acute respiratory distress.Resting on room air. O2 saturation 94%. - Patient Problems (1) Acute respiratory failure Current Visit: No Status: Acute Plan to address problem: Improved. Albuterol aerosol treatments PRN for shortness of breath. (2) Hypotension Current Visit: No Status: Acute Plan to address problem: Improved. (3) Sepsis Current Visit: No Status: Acute Plan to address problem: Patient is on zosyn and vancomycin (4) RUPERT (acute kidney injury) Current Visit: No Status: Acute Plan to address problem: Management as per nephrology. (5) Abdominal aortic aneurysm without rupture Current Visit: No Status: Acute Plan to address problem: Management as per vascular surgery. (6) Status post aortobifemoral bypass surgery Current Visit: No Status: Acute Plan to address problem: Follow with vascular surgery. (7) IDDM (insulin dependent diabetes mellitus) Current Visit: No Status: Acute Plan to address problem: Management as per primary care. Subjective Date of service: 10/18/17 Principal diagnosis: Sepsis Syndrome with hypotension; RUPERT; IVVD; Diabetes II Interval history: Patient awake. weak. No acute respiratory distress.Resting on room air. O2 saturation 94%. Objective Vital Signs - 12hr 10/18/17 10/18/17 10/18/17 10:00 13:09 14:56 Temperature Pulse Rate Respiratory 18 16 Rate Blood Pressure O2 Sat by Pulse 95 Oximetry 10/18/17 15:44 Temperature 97.9 F Pulse Rate 87 Respiratory 18 Rate Blood Pressure 137/73 O2 Sat by Pulse 94 Oximetry Constitutional: no acute distress, alert Eyes: non-icteric ENT: oropharynx moist Neck: supple, no lymphadenopathy, no JVD, other (No thyromegaly) Effort: mildly labored Ascultation: Bilateral: rhonchi (bases) Percussion: Bilateral: not dull Cardiovascular: regular rate and rhythm, other (No rubs/murmurs) Gastrointestinal: normoactive bowel sounds, soft, non-tender, non-distended, other (No HSM) Integumentary: normal Extremities: no cyanosis, no edema, pink and warm, no ischemia or petechiae, other (weak pedal pulses) Neurologic: normal mental status, non-focal exam, pupils equal and round, motor strength normal and Psychiatric: mood appropriate, affect normal CBC and BMP: 10/18/17 05:44 10/19/17 07:14 ABG, PT/INR, D-dimer: PT/INR, D-dimer PT 15.0 Sec. (12.2-14.9) H 10/18/17 05:44 INR 1.12 (0.87-1.13) 10/18/17 05:44 D-Dimer 3277.01 ng/mlDDU (0-234) H 10/14/17 19:47 Abnormal lab findings: Abnormal Labs 10/14/17 10/14/17 10/14/17 19:47 19:47 19:47 RBC 2.63 L Hgb 8.1 L Hct 23.8 L RDW 15.8 H Plt Count [place] % (Auto) 9.4 H PT D-Dimer Heparin Anti-Xa Level Sodium 127 L Potassium Chloride 88.6 L Carbon Dioxide 21 L BUN 43 H Creatinine 4.2 H Glucose 106 H POC Glucose Calcium 7.2 L Alkaline Phosphatase 135 H CK-MB (CK-2) Rel Index Troponin T 0.108 H* C-Reactive Protein Albumin 2.6 L Triglycerides 186 H HDL Cholesterol 26 L Urine WBC (Auto) 10/14/17 10/14/17 10/14/17 19:47 20:19 20:30 RBC Hgb Hct RDW Plt Count [place] % (Auto) PT D-Dimer 3277.01 H Heparin Anti-Xa Level Sodium Potassium Chloride Carbon Dioxide BUN Creatinine Glucose POC Glucose 116 H Calcium Alkaline Phosphatase CK-MB (CK-2) Rel Index Troponin T C-Reactive Protein Albumin Triglycerides HDL Cholesterol Urine WBC (Auto) 7.0 H 10/15/17 10/15/17 10/15/17 03:12 03:12 08:42 RBC 2.90 L Hgb 8.6 L Hct 25.8 L RDW 16.0 H Plt Count 483 H [place] % (Auto) 9.3 H PT D-Dimer Heparin Anti-Xa Level Sodium 133 L Potassium Chloride 94.5 L Carbon Dioxide 21 L BUN 41 H Creatinine 3.3 H Glucose 112 H POC Glucose 152 H Calcium 7.9 L Alkaline Phosphatase 140 H CK-MB (CK-2) Rel Index Troponin T C-Reactive Protein Albumin 2.7 L Triglycerides HDL Cholesterol Urine WBC (Auto) 10/15/17 10/15/17 10/15/17 13:16 16:57 16:57 RBC Hgb Hct RDW Plt Count [place] % (Auto) PT D-Dimer Heparin Anti-Xa Level Sodium Potassium Chloride Carbon Dioxide BUN Creatinine Glucose POC Glucose 182 H Calcium Alkaline Phosphatase CK-MB (CK-2) Rel Index Troponin T 0.067 H D C-Reactive Protein 11.10 H Albumin Triglycerides HDL Cholesterol Urine WBC (Auto) 10/15/17 10/15/17 10/16/17 17:41 23:00 04:01 RBC 2.93 L Hgb 8.9 L Hct 26.2 L RDW 16.1 H Plt Count 524 H [place] % (Auto) 10.4 H PT D-Dimer Heparin Anti-Xa Level Sodium Potassium Chloride Carbon Dioxide BUN Creatinine Glucose POC Glucose 159 H 136 H Calcium Alkaline Phosphatase CK-MB (CK-2) Rel Index Troponin T C-Reactive Protein Albumin Triglycerides HDL Cholesterol Urine WBC (Auto) 10/16/17 10/16/17 10/16/17 04:01 09:16 12:40 RBC Hgb Hct RDW Plt Count [place] % (Auto) PT D-Dimer Heparin Anti-Xa Level Sodium Potassium 3.5 L Chloride Carbon Dioxide BUN Creatinine Glucose 159 H POC Glucose 165 H 142 H Calcium 8.2 L Alkaline Phosphatase CK-MB (CK-2) Rel Index 4.4 H Troponin T 0.083 H D C-Reactive Protein Albumin 2.7 L Triglycerides HDL Cholesterol Urine WBC (Auto) 10/16/17 10/16/17 10/16/17 16:05 16:29 22:31 RBC Hgb 8.9 L Hct 26.2 L RDW Plt Count 493 H [place] % (Auto) PT D-Dimer Heparin Anti-Xa Level Sodium Potassium Chloride Carbon Dioxide BUN Creatinine Glucose POC Glucose 164 H 188 H Calcium Alkaline Phosphatase CK-MB (CK-2) Rel Index Troponin T C-Reactive Protein Albumin Triglycerides HDL Cholesterol Urine WBC (Auto) 10/16/17 10/17/17 10/17/17 22:37 07:26 15:12 RBC Hgb Hct RDW Plt Count [place] % (Auto) PT D-Dimer Heparin Anti-Xa Level < 0.10 L 0.14 L < 0.10 L Sodium Potassium Chloride Carbon Dioxide BUN Creatinine Glucose POC Glucose Calcium Alkaline Phosphatase CK-MB (CK-2) Rel Index Troponin T C-Reactive Protein Albumin Triglycerides HDL Cholesterol Urine WBC (Auto) 10/17/17 10/17/17 10/18/17 22:56 22:58 05:44 RBC Hgb 9.2 L Hct 27.8 L RDW Plt Count 492 H [place] % (Auto) PT D-Dimer Heparin Anti-Xa Level 0.15 L Sodium Potassium Chloride Carbon Dioxide BUN Creatinine Glucose POC Glucose 107 H Calcium Alkaline Phosphatase CK-MB (CK-2) Rel Index Troponin T C-Reactive Protein Albumin Triglycerides HDL Cholesterol Urine WBC (Auto) 10/18/17 10/18/17 10/18/17 05:44 05:44 11:52 RBC Hgb Hct RDW Plt Count [place] % (Auto) PT 15.0 H D-Dimer Heparin Anti-Xa Level < 0.10 L Sodium Potassium Chloride Carbon Dioxide BUN 8 L Creatinine 0.7 L Glucose 111 H POC Glucose 124 H Calcium 8.3 L Alkaline Phosphatase CK-MB (CK-2) Rel Index Troponin T C-Reactive Protein Albumin Triglycerides HDL Cholesterol Urine WBC (Auto) 10/18/17 10/18/17 15:53 16:35 RBC Hgb Hct RDW Plt Count [place] % (Auto) PT D-Dimer Heparin Anti-Xa Level 0.15 L Sodium Potassium Chloride Carbon Dioxide BUN Creatinine Glucose POC Glucose 134 H Calcium Alkaline Phosphatase CK-MB (CK-2) Rel Index Troponin T C-Reactive Protein Albumin Triglycerides HDL Cholesterol Urine WBC (Auto) Allied health notes reviewed: nursing
[2017-10-19] MEDS: PERCOCET 5/325 PO PRN ×2 (02:45→21:58)
[2017-10-19] MEDS: HEPARIN/ 0.45% NACL-25,000 UNIT/500 ML 25,000 UNIT/500 ML BAG IV SCH ×3 (02:49→22:07)
[2017-10-19] MEDS: VANCOMYCIN/NS 1 GM/250 ML 1 GM/250 ML BAG IV SCH ×2 (02:51→15:30)
[2017-10-19] MEDS: NACL 0.9% 1000 ML 1,000 ML IV SCH ×3 (02:58→17:58)
[2017-10-19] MEDS: NOVOLOG SUB-Q SCH ×4 (07:30→23:39)
[2017-10-19 07:55] LABS: BUN/Creatinine Ratio 10; Blood Urea Nitrogen 7 mg/dL (9-20); Calcium 8.1 mg/dL (8.4-10.2); Hemolysis Index 22
[2017-10-19 07:57] LABS: INR 1.14 (0.87-1.13)
[2017-10-19] MEDS: ZOSYN/NS 4.5GM/100ML 4.5 GM/100 ML VIAL IV SCH ×2 (08:00→16:30)
[2017-10-19] MEDS: THERAGRAN-M Tab PO SCH (09:19)
[2017-10-19] MEDS: NEURONTIN PO SCH (09:19)
[2017-10-19] MEDS: SENOKOT PO SCH ×2 (09:19→21:59)
[2017-10-19] MEDS: COLACE PO SCH ×2 (09:19→21:59)
[2017-10-19] MEDS: PROTONIX PO SCH (09:19)
[2017-10-19] MEDS: LACTINEX PO SCH ×2 (09:19→21:59)
[2017-10-19] MEDS: ASPIRIN PO SCH (09:19)
--- NOTE | 2017-10-19 09:59 | Progress Note ---
Assessment and Plan Assessment and plan: Hypovolemic shock. Resolved. SIRS. Etiology appears to be secondary to volume depletion. No keiko evidence of sepsis. ID following. Follow-up culture results. Blood cultures thus far negative. VQ scan negative for PE. Acute kidney injury secondary to prerenal azotemia due to hypotension vs ATN. Creatinine 0,7 today, back to baseline. 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 Neurology evaluation. Bilateral peroneal DVTs. On heparin drip. Coumadin. Diabetes mellitus type 2. Continue Accu-Cheks and sliding scale insulin. Hyperlipidemia. Anemia. Elevated troponin. Etiology likely secondary to renal insufficiency. Cardiology following. History Interval history: Feels better, No abdominal pain currently no fever Hospitalist Physical - Physical exam Narrative exam: GEN APPEARANCE : Not in acute distress, lying in bed, HEENT: Normocephalic, Atraumatic NECK : supple, no JVD LUNGS: Clear to auscultation bilaterally, no rales, no wheeze HEART: S1 and S2 regular, no murmurs, rubs or gallop ABD: Soft, non tender, abdomina binder over abdomen EXT: No edema, no clubbing, no cyanosis, no cyanosis NEURO: Awake,alert, oriented x 3, no focal signs - Constitutional Vitals: Temp Pulse Resp BP Pulse Ox 98.2 F 80 20 140/85 95 10/19/17 07:15 10/19/17 07:15 10/19/17 07:15 10/19/17 07:15 10/19/17 09:11 Results - Labs CBC & Chem 7: 10/20/17 03:25 10/20/17 03:25 Labs: Laboratory Last Values WBC 7.0 K/mm3 (4.5-11.0) 10/16/17 04:01 RBC 2.93 M/mm3 (3.65-5.03) L 10/16/17 04:01 Hgb 9.2 gm/dl (11.8-15.2) L 10/18/17 05:44 Hct 27.8 % (35.5-45.6) L 10/18/17 05:44 MCV 90 fl (84-94) 10/16/17 04:01 MCH 30 pg (28-32) 10/16/17 04:01 MCHC 34 % (32-34) 10/16/17 04:01 RDW 16.1 % (13.2-15.2) H 10/16/17 04:01 Plt Count 492 K/mm3 (140-440) H 10/18/17 05:44 Lymph % (Auto) 21.8 % (13.4-35.0) 10/16/17 04:01 [place] % (Auto) 10.4 % (0.0-7.3) H 10/16/17 04:01 Eos % (Auto) 3.7 % (0.0-4.3) 10/16/17 04:01 Baso % (Auto) 0.4 % (0.0-1.8) 10/16/17 04:01 Lymph # 1.5 K/mm3 (1.2-5.4) 10/16/17 04:01 [place] # 0.7 K/mm3 (0.0-0.8) 10/16/17 04:01 Eos # 0.3 K/mm3 (0.0-0.4) 10/16/17 04:01 Baso # 0.0 K/mm3 (0.0-0.1) 10/16/17 04:01 Seg Neutrophils % 63.7 % (40.0-70.0) 10/16/17 04:01 Seg Neutrophils # 4.4 K/mm3 (1.8-7.7) 10/16/17 04:01 PT 15.2 Sec. (12.2-14.9) H 10/19/17 07:14 INR 1.14 (0.87-1.13) H 10/19/17 07:14 APTT 35.9 Sec. (24.2-36.6) 10/16/17 16:29 D-Dimer 3277.01 ng/mlDDU (0-234) H 10/14/17 19:47 Heparin Anti-Xa Level 0.29 U.I./ml (0.3-0.7) L 10/19/17 01:09 Sodium 145 mmol/L (137-145) D 10/19/17 07:14 Potassium 3.9 mmol/L (3.6-5.0) 10/19/17 07:14 Chloride 105.6 mmol/L (98-107) 10/19/17 07:14 Carbon Dioxide 23 mmol/L (22-30) 10/19/17 07:14 Anion Gap 20 mmol/L 10/19/17 07:14 BUN 7 mg/dL (9-20) L 10/19/17 07:14 Creatinine 0.7 mg/dL (0.8-1.5) L 10/19/17 07:14 Estimated GFR > 60 ml/min 10/19/17 07:14 BUN/Creatinine Ratio 10 % 10/19/17 07:14 Glucose 111 mg/dL (75-100) H 10/19/17 07:14 POC Glucose 109 (70-105) H 10/19/17 05:33 Lactic Acid 0.70 mmol/L (0.7-2.0) 10/15/17 03:12 Calcium 8.1 mg/dL (8.4-10.2) L 10/19/17 07:14 Phosphorus 2.50 mg/dL (2.5-4.5) 10/16/17 04:01 Magnesium 1.70 mg/dL (1.7-2.3) 10/16/17 04:01 Total Bilirubin 0.30 mg/dL (0.1-1.2) 10/16/17 04:01 AST 13 units/L (5-40) 10/16/17 04:01 ALT 8 units/L (7-56) 10/16/17 04:01 Alkaline Phosphatase 124 units/L (35-129) 10/16/17 04:01 Total Creatine Kinase 68 units/L (55-170) 10/16/17 04:01 CK-MB (CK-2) 3.0 ng/mL (0.0-4.0) 10/16/17 04:01 CK-MB (CK-2) Rel Index 4.4 (0-4) H 10/16/17 04:01 Troponin T 0.083 ng/mL (0.00-0.029) H D 10/16/17 04:01 C-Reactive Protein 11.10 mg/dL (0.00-1.30) H 10/15/17 16:57 Total Protein 7.6 g/dL (6.3-8.2) 10/16/17 04:01 Albumin 2.7 g/dL (3.9-5) L 10/16/17 04:01 Albumin/Globulin Ratio 0.6 % 10/16/17 04:01 Triglycerides 186 mg/dL (2-149) H 10/14/17 19:47 Cholesterol 121 mg/dL (50-199) 10/14/17 19:47 LDL Cholesterol Direct 58 mg/dL (50-130) 10/14/17 19:47 HDL Cholesterol 26 mg/dL (40-59) L 10/14/17 19:47 Cholesterol/HDL Ratio 4.65 % 10/14/17 19:47 Urine Color Yellow (Yellow) 10/14/17 20:30 Urine Turbidity Slightly-cloudy (Clear) 10/14/17 20:30 Urine pH 5.0 (5.0-7.0) 10/14/17 20:30 Ur Specific [place] 1.014 (1.003-1.030) 10/14/17 20:30 Urine Protein <15 mg/dl mg/dL (Negative) 10/14/17 20:30 Urine Glucose (UA) Neg mg/dL (Negative) 10/14/17 20:30 Urine Ketones Neg mg/dL (Negative) 10/14/17 20:30 Urine Blood Sm (Negative) 10/14/17 20:30 Urine Nitrite Neg (Negative) 10/14/17 20:30 Urine Bilirubin Neg (Negative) 10/14/17 20:30 Urine Urobilinogen < 2.0 mg/dL (<2.0) 10/14/17 20:30 Ur Leukocyte Esterase Tr (Negative) 10/14/17 20:30 Urine WBC (Auto) 7.0 /HPF (0.0-6.0) H 10/14/17 20:30 Urine RBC (Auto) 5.0 /HPF (0.0-6.0) 10/14/17 20:30 U Epithel Cells (Auto) < 1.0 /HPF (0-13.0) 10/14/17 20:30 Urine Bacteria (Auto) 2+ /HPF (Negative) 10/14/17 20:30 Amorphous Crystals Few 10/14/17 20:30 Urine Mucus Few /HPF 10/14/17 20:30 Vancomycin Trough 13.4 ug/mL (5.0-20.0) 10/17/17 15:12 Blood Type A POSITIVE 10/15/17 03:13 Antibody Screen Negative 10/15/17 03:13
--- NOTE | 2017-10-19 17:01 | Progress Note ---
Assessment and Plan Patient awake. weak. No acute respiratory distress.Resting on room air. O2 saturation 95%. - Patient Problems (1) Acute respiratory failure Current Visit: No Status: Acute Plan to address problem: Improved. Albuterol aerosol treatments PRN for shortness of breath. (2) Hypotension Current Visit: No Status: Acute Plan to address problem: Improved. (3) Sepsis Current Visit: No Status: Acute Plan to address problem: Patient is on zosyn and vancomycin (4) RUPERT (acute kidney injury) Current Visit: No Status: Acute Plan to address problem: Management as per nephrology. (5) Abdominal aortic aneurysm without rupture Current Visit: No Status: Acute Plan to address problem: Management as per vascular surgery. (6) Status post aortobifemoral bypass surgery Current Visit: No Status: Acute Plan to address problem: Follow with vascular surgery. (7) IDDM (insulin dependent diabetes mellitus) Current Visit: No Status: Acute Plan to address problem: Management as per primary care. Subjective Date of service: 10/19/17 Principal diagnosis: Sepsis Syndrome with hypotension; RUPERT; IVVD; Diabetes II Interval history: Patient awake. weak. No acute respiratory distress.Resting on room air. O2 saturation 95%. Objective Vital Signs - 12hr 10/19/17 10/19/17 07:15 09:11 Temperature 98.2 F Pulse Rate 80 Respiratory 20 Rate Blood Pressure 140/85 O2 Sat by Pulse 94 95 Oximetry Constitutional: no acute distress, alert Eyes: non-icteric ENT: oropharynx moist Neck: supple, no lymphadenopathy, no JVD, other (No thyromegaly) Effort: mildly labored Ascultation: Bilateral: rhonchi (bases) Percussion: Bilateral: not dull Cardiovascular: regular rate and rhythm, other (No rubs/murmurs) Gastrointestinal: normoactive bowel sounds, soft, non-tender, non-distended, other (No HSM) Integumentary: normal Extremities: no cyanosis, no edema, pink and warm, no ischemia or petechiae, other (weak pedal pulses) Neurologic: normal mental status, non-focal exam, pupils equal and round, motor strength normal and Psychiatric: mood appropriate, affect normal CBC and BMP: 10/18/17 05:44 10/19/17 07:14 ABG, PT/INR, D-dimer: PT/INR, D-dimer PT 15.2 Sec. (12.2-14.9) H 10/19/17 07:14 INR 1.14 (0.87-1.13) H 10/19/17 07:14 D-Dimer 3277.01 ng/mlDDU (0-234) H 10/14/17 19:47 Abnormal lab findings: Abnormal Labs 10/14/17 10/14/17 10/14/17 19:47 19:47 19:47 RBC 2.63 L Hgb 8.1 L Hct 23.8 L RDW 15.8 H Plt Count [place] % (Auto) 9.4 H PT INR D-Dimer Heparin Anti-Xa Level Sodium 127 L Potassium Chloride 88.6 L Carbon Dioxide 21 L BUN 43 H Creatinine 4.2 H Glucose 106 H POC Glucose Calcium 7.2 L Alkaline Phosphatase 135 H CK-MB (CK-2) Rel Index Troponin T 0.108 H* C-Reactive Protein Albumin 2.6 L Triglycerides 186 H HDL Cholesterol 26 L Urine WBC (Auto) 10/14/17 10/14/17 10/14/17 19:47 20:19 20:30 RBC Hgb Hct RDW Plt Count [place] % (Auto) PT INR D-Dimer 3277.01 H Heparin Anti-Xa Level Sodium Potassium Chloride Carbon Dioxide BUN Creatinine Glucose POC Glucose 116 H Calcium Alkaline Phosphatase CK-MB (CK-2) Rel Index Troponin T C-Reactive Protein Albumin Triglycerides HDL Cholesterol Urine WBC (Auto) 7.0 H 10/15/17 10/15/17 10/15/17 03:12 03:12 08:42 RBC 2.90 L Hgb 8.6 L Hct 25.8 L RDW 16.0 H Plt Count 483 H [place] % (Auto) 9.3 H PT INR D-Dimer Heparin Anti-Xa Level Sodium 133 L Potassium Chloride 94.5 L Carbon Dioxide 21 L BUN 41 H Creatinine 3.3 H Glucose 112 H POC Glucose 152 H Calcium 7.9 L Alkaline Phosphatase 140 H CK-MB (CK-2) Rel Index Troponin T C-Reactive Protein Albumin 2.7 L Triglycerides HDL Cholesterol Urine WBC (Auto) 10/15/17 10/15/17 10/15/17 13:16 16:57 16:57 RBC Hgb Hct RDW Plt Count [place] % (Auto) PT INR D-Dimer Heparin Anti-Xa Level Sodium Potassium Chloride Carbon Dioxide BUN Creatinine Glucose POC Glucose 182 H Calcium Alkaline Phosphatase CK-MB (CK-2) Rel Index Troponin T 0.067 H D C-Reactive Protein 11.10 H Albumin Triglycerides HDL Cholesterol Urine WBC (Auto) 10/15/17 10/15/17 10/16/17 17:41 23:00 04:01 RBC 2.93 L Hgb 8.9 L Hct 26.2 L RDW 16.1 H Plt Count 524 H [place] % (Auto) 10.4 H PT INR D-Dimer Heparin Anti-Xa Level Sodium Potassium Chloride Carbon Dioxide BUN Creatinine Glucose POC Glucose 159 H 136 H Calcium Alkaline Phosphatase CK-MB (CK-2) Rel Index Troponin T C-Reactive Protein Albumin Triglycerides HDL Cholesterol Urine WBC (Auto) 10/16/17 10/16/17 10/16/17 04:01 09:16 12:40 RBC Hgb Hct RDW Plt Count [place] % (Auto) PT INR D-Dimer Heparin Anti-Xa Level Sodium Potassium 3.5 L Chloride Carbon Dioxide BUN Creatinine Glucose 159 H POC Glucose 165 H 142 H Calcium 8.2 L Alkaline Phosphatase CK-MB (CK-2) Rel Index 4.4 H Troponin T 0.083 H D C-Reactive Protein Albumin 2.7 L Triglycerides HDL Cholesterol Urine WBC (Auto) 10/16/17 10/16/17 10/16/17 16:05 16:29 22:31 RBC Hgb 8.9 L Hct 26.2 L RDW Plt Count 493 H [place] % (Auto) PT INR D-Dimer Heparin Anti-Xa Level Sodium Potassium Chloride Carbon Dioxide BUN Creatinine Glucose POC Glucose 164 H 188 H Calcium Alkaline Phosphatase CK-MB (CK-2) Rel Index Troponin T C-Reactive Protein Albumin Triglycerides HDL Cholesterol Urine WBC (Auto) 10/16/17 10/17/17 10/17/17 22:37 07:26 15:12 RBC Hgb Hct RDW Plt Count [place] % (Auto) PT INR D-Dimer Heparin Anti-Xa Level < 0.10 L 0.14 L < 0.10 L Sodium Potassium Chloride Carbon Dioxide BUN Creatinine Glucose POC Glucose Calcium Alkaline Phosphatase CK-MB (CK-2) Rel Index Troponin T C-Reactive Protein Albumin Triglycerides HDL Cholesterol Urine WBC (Auto) 10/17/17 10/17/17 10/18/17 22:56 22:58 05:44 RBC Hgb 9.2 L Hct 27.8 L RDW Plt Count 492 H [place] % (Auto) PT INR D-Dimer Heparin Anti-Xa Level 0.15 L Sodium Potassium Chloride Carbon Dioxide BUN Creatinine Glucose POC Glucose 107 H Calcium Alkaline Phosphatase CK-MB (CK-2) Rel Index Troponin T C-Reactive Protein Albumin Triglycerides HDL Cholesterol Urine WBC (Auto) 10/18/17 10/18/17 10/18/17 05:44 05:44 11:52 RBC Hgb Hct RDW Plt Count [place] % (Auto) PT 15.0 H INR D-Dimer Heparin Anti-Xa Level < 0.10 L Sodium Potassium Chloride Carbon Dioxide BUN 8 L Creatinine 0.7 L Glucose 111 H POC Glucose 124 H Calcium 8.3 L Alkaline Phosphatase CK-MB (CK-2) Rel Index Troponin T C-Reactive Protein Albumin Triglycerides HDL Cholesterol Urine WBC (Auto) 10/18/17 10/18/17 10/18/17 15:53 16:35 22:06 RBC Hgb Hct RDW Plt Count [place] % (Auto) PT INR D-Dimer Heparin Anti-Xa Level 0.15 L Sodium Potassium Chloride Carbon Dioxide BUN Creatinine Glucose POC Glucose 134 H 114 H Calcium Alkaline Phosphatase CK-MB (CK-2) Rel Index Troponin T C-Reactive Protein Albumin Triglycerides HDL Cholesterol Urine WBC (Auto) 10/19/17 10/19/17 10/19/17 01:09 05:33 07:14 RBC Hgb Hct RDW Plt Count [place] % (Auto) PT INR D-Dimer Heparin Anti-Xa Level 0.29 L Sodium Potassium Chloride Carbon Dioxide BUN 7 L Creatinine 0.7 L Glucose 111 H POC Glucose 109 H Calcium 8.1 L Alkaline Phosphatase CK-MB (CK-2) Rel Index Troponin T C-Reactive Protein Albumin Triglycerides HDL Cholesterol Urine WBC (Auto) 10/19/17 10/19/17 10/19/17 07:14 10:49 11:35 RBC Hgb Hct RDW Plt Count [place] % (Auto) PT 15.2 H INR 1.14 H D-Dimer Heparin Anti-Xa Level 0.28 L Sodium Potassium Chloride Carbon Dioxide BUN Creatinine Glucose POC Glucose 121 H Calcium Alkaline Phosphatase CK-MB (CK-2) Rel Index Troponin T C-Reactive Protein Albumin Triglycerides HDL Cholesterol Urine WBC (Auto) 10/19/17 16:18 RBC Hgb Hct RDW Plt Count [place] % (Auto) PT INR D-Dimer Heparin Anti-Xa Level Sodium Potassium Chloride Carbon Dioxide BUN Creatinine Glucose POC Glucose 107 H Calcium Alkaline Phosphatase CK-MB (CK-2) Rel Index Troponin T C-Reactive Protein Albumin Triglycerides HDL Cholesterol Urine WBC (Auto) Allied health notes reviewed: nursing
[2017-10-19] MEDS: COUMADIN PO SCH (17:50)
[2017-10-20] MEDS: ZOSYN/NS 4.5GM/100ML 4.5 GM/100 ML VIAL IV SCH ×2 (00:13→10:53)
[2017-10-20] MEDS: VANCOMYCIN/NS 1 GM/250 ML 1 GM/250 ML BAG IV SCH (03:23)
[2017-10-20 04:37] LABS: Hematocrit 28.3 % (35.5-45.6); Hemoglobin 9.5 gm/dl (11.8-15.2)
[2017-10-20 04:48] LABS: INR 1.62 (0.87-1.13)
[2017-10-20 04:50] LABS: Heparin anti-factor XA 0.24 U.I./ml (0.3-0.7)
[2017-10-20 04:51] LABS: BUN/Creatinine Ratio 9; Blood Urea Nitrogen 6 mg/dL (9-20); Calcium 8.1 mg/dL (8.4-10.2); Hemolysis Index 22
[2017-10-20] MEDS: NOVOLOG SUB-Q SCH ×4 (08:39→22:00)
--- NOTE | 2017-10-20 10:06 | Progress Note ---
Assessment and Plan 57-year-old male with 1. Abdominal wound, related to prior abdominal surgery 2. Hypotension, likely related to hypovolemia - resolved 3. Acute kidney injury 4. Elevated d-dimer 5. Elevated troponin 6. B/L LE DVT 7. protein calorie malnutrition, hypoalbunimemia Plan: 1. Continue daily wound care, abdominal binder 2. dc IVF when ok with nephro 3. Continue current diet with nutritional supplements 3 times a day 4. Anticoagulation per vascular surgery 5. PT/exercises 6. wound cultures - pseudomonas, staph aureus. Transition to oral antibiotics per ID. Subjective Date of service: 10/20/17 Narrative: Patient seen and examined. No acute complaints. No overnight events. No fever /chills. No pain. Objective Vital Signs - 12hr 10/20/17 10/20/17 00:31 07:41 Temperature 98.2 F 98.2 F Pulse Rate 80 75 Respiratory 20 18 Rate Blood Pressure 144/76 158/89 O2 Sat by Pulse 92 95 Oximetry - General physical appearance Narrative Exam: General: Awake, alert, oriented 3. No apparent distress Abd: soft, ND, NT. All dressings removed. small opening in midline incision near the umbilicus with healthy wound base. Minimal serous drainage from wound. The left groin wound and wound at prior DORETHA site L abdomen are healing well, no drainage. Wound at prior retention suture sites are healing well, pink wound base. One piece of dermagran applied to umbilical wound bed and one piece applied to lower right abdominal wound bed. Covered with ABDs pads and secured with abdominal binder loosely. - Labs 10/20/17 03:25 10/20/17 03:25 Diabetes panel 10/20/17 Range/Units 03:25 Sodium 141 (137-145) mmol/L Potassium 3.8 (3.6-5.0) mmol/L Chloride 104.5 (98-107) mmol/L Carbon Dioxide 25 (22-30) mmol/L BUN 6 L (9-20) mg/dL Creatinine 0.7 L (0.8-1.5) mg/dL Glucose 101 H (75-100) mg/dL Calcium 8.1 L (8.4-10.2) mg/dL Calcium panel 10/20/17 Range/Units 03:25 Calcium 8.1 L (8.4-10.2) mg/dL Pituitary panel 10/20/17 Range/Units 03:25 Sodium 141 (137-145) mmol/L Potassium 3.8 (3.6-5.0) mmol/L Chloride 104.5 (98-107) mmol/L Carbon Dioxide 25 (22-30) mmol/L BUN 6 L (9-20) mg/dL Creatinine 0.7 L (0.8-1.5) mg/dL Glucose 101 H (75-100) mg/dL Calcium 8.1 L (8.4-10.2) mg/dL Adrenal panel 10/20/17 Range/Units 03:25 Sodium 141 (137-145) mmol/L Potassium 3.8 (3.6-5.0) mmol/L Chloride 104.5 (98-107) mmol/L Carbon Dioxide 25 (22-30) mmol/L BUN 6 L (9-20) mg/dL Creatinine 0.7 L (0.8-1.5) mg/dL Glucose 101 H (75-100) mg/dL Calcium 8.1 L (8.4-10.2) mg/dL
[2017-10-20] MEDS: COLACE PO SCH ×2 (10:12→22:21)
[2017-10-20] MEDS: PROTONIX PO SCH (10:12)
[2017-10-20] MEDS: SENOKOT PO SCH ×2 (10:12→22:21)
[2017-10-20] MEDS: NEURONTIN PO SCH (10:12)
[2017-10-20] MEDS: ASPIRIN PO SCH (10:12)
[2017-10-20] MEDS: LACTINEX PO SCH ×2 (10:12→22:19)
[2017-10-20] MEDS: THERAGRAN-M Tab PO SCH (10:12)
[2017-10-20] MEDS: HEPARIN/ 0.45% NACL-25,000 UNIT/500 ML 25,000 UNIT/500 ML BAG IV SCH ×2 (10:29→23:31)
--- NOTE | 2017-10-20 11:54 | Progress Note ---
Assessment and Plan Assessment: Hypotension requiring vasopressors/?sepsis-->resolved Elevated troponin - ECG with NAF; pt denies chest pain; nonspecific in setting of ARF Bilateral peroneal DVTs-->on heparin gtt/coumadin Acute renal failure - renal indices improving PVD status post open aortobifemoral bypass 09/02/17, complicated with wound dehiscence / evisceration s/p closure of fascial dehiscence 09/07/17 DM HLP Anemia Plan: Pre-operative stress test done in the office 08/26/17 showed mild apical ischemia. As patient is asymptomatic at this time, recommend continuing medical management and close outpatient follow up. The patient has been seen in conjunction with Dr. Ruffin who agrees with the assessment and plan of care. Subjective Date of service: 10/20/17 Principal diagnosis: Sepsis Syndrome with hypotension; RUPERT; IVVD; Diabetes II Interval history: The patient is resting in bed. Denies chest pain or shortness of breath. Objective Last Vital Signs Temp 98.2 F 10/20/17 07:41 Pulse 75 10/20/17 07:41 Resp 18 10/20/17 07:41 BP 158/89 10/20/17 07:41 Pulse Ox 95 10/20/17 07:41 - Physical Examination General: No Apparent Distress HEENT: Positive: PERRL Neck: Positive: neck supple, trachea midline Cardiac: Positive: Reg Rate and Rhythm, S1/S2 Lungs: Positive: clear to auscultation Neuro: Positive: Cranial Nerve 2-12 Intact Abdomen: Positive: Soft, Other (surgical sites) Skin: Negative: Rash Musculoskeletal: No Pain, Normal Range of Motion Extremities: Absent: edema - Labs and Meds Coagulation 10/20/17 Range/Units 03:25 PT 20.2 H (12.2-14.9) Sec. INR 1.62 H (0.87-1.13) CBC 10/20/17 Range/Units 03:25 Hgb 9.5 L (11.8-15.2) gm/dl Hct 28.3 L (35.5-45.6) % Plt Count 504 H (140-440) K/mm3 Comprehensive Metabolic Panel 10/20/17 Range/Units 03:25 Sodium 141 (137-145) mmol/L Potassium 3.8 (3.6-5.0) mmol/L Chloride 104.5 (98-107) mmol/L Carbon Dioxide 25 (22-30) mmol/L BUN 6 L (9-20) mg/dL Creatinine 0.7 L (0.8-1.5) mg/dL Glucose 101 H (75-100) mg/dL Calcium 8.1 L (8.4-10.2) mg/dL - Imaging and Cardiology EKG: report reviewed, image reviewed Echo: report reviewed (09/02/2017 showed EF 50-55%, impaired relaxation, technically limited d/t poor acoustic windows and pt's inability to lay in left lateral decub position. ) - EKG Sinus rhythms and dysrhythmias: sinus rhythm - Allied health notes Allied health notes reviewed: nursing
--- NOTE | 2017-10-20 12:57 | XRay Report ---
ROUTINE CHEST, TWO VIEWS: HISTORY: Followup on perihilar infiltrates or edema. Bilateral infiltrates or central pulmonary edema has resolved since 10/15/17. The lungs are clear. Heart and mediastinal structures are normal. The right hemidiaphragm is mildly elevated. Left venous catheter has been removed. IMPRESSION: Unremarkable chest x-ray. Bilateral infiltrates or pulmonary edema has resolved.
--- NOTE | 2017-10-20 14:13 | Progress Note ---
Assessment and Plan Assessment: 1) Sepsis: better. Etiology unclear ? superficial wound infection. CRP=11 2) Superficial surgical wound infection in a previous repair evisceration with a mesh in place -CT showed subcutaneous air and increased density at surgical wound, No abscess seen -Wound cx + MSSA and Pseudomonas 3) History of Severe peripheral vascular disease with bilateral leg claudication / AAA -S/P AAA repair, he was found to have a 6 cm infra renal abdominal aortic aneurysm tension into a right 3-4 cm common iliac artery aneurysm, left common and external iliac arteries chronic successfully repaired using aorto bifurcated femoral graft on 09/02/17. -repeat CT showed bibasilar infiltrates? and aortic iliac stent with stranding - S/P OR washout and closure of wound 09/08 - S/P OR wound closure 09/10 Plan: -stop zosyn and vanco for now -start ceftin 500 mg po q12h and levaquin 750 mg po q day total 10 days from until 10/24/[address] Wren for your consultation, will follow up with you. Dorcas Bland MD Infectious Diseases Specialist [facility] ([facility]) M [phone] O [phone] Subjective Date of service: 10/20/17 Principal diagnosis: Sepsis Syndrome with hypotension; RUPERT; IVVD; Diabetes II Interval history: Feels better, no fever Micro: Blood cultures: 09/04 neg 09/10 CORPORATE ACCOUNTANT 1 of 4 09/13 neg 09/21 neg 10/14 neg Urine cultures: 09/04 ngtd Respiratory cultures: 09/02 neg 09/08 normal resp josias Wound cultures: 10/15 MSSA and Pseudomonas Current Antimicrobials: zosyn 10/15 vanco 10/15 Previous Antimicrobials: vanco 09/04 zosyn 09/04 dapto 09/13 fluconazole 09/07 cefepime 09/13 flagyl 09/13 Objective - Exam Narrative Exam: General appearance: Alert in NAD, conversant Eyes: anicteric sclerae, moist conjunctivae; no lid-lag; PERRLA HENT: Atraumatic; oropharynx clear Neck: Trachea midline; supple, no thyromegaly or lymphadenopathy Lungs: scattered rhonchi CV: RRR, no murmurs Abdomen: Soft, umbilical wound with no erythema and serous drainage Extremities: + peripheral edema, no extremity lymphadenopathy Skin: Normal temperature, turgor and texture; no rash, ulcers or subcutaneous nodules Psych: Appropriate affect, alert and oriented to person, place and time. Neuro: alert and oriented x 3. Moving all extermities Lines: No CVL / PICC - Constitutional Vitals: Vital Signs Temp Pulse Resp BP Pulse Ox 98.2 F 75 18 158/89 95 10/20/17 07:41 10/20/17 07:41 10/20/17 07:41 10/20/17 07:41 10/20/17 07:41 Temperature -Last 24 Hours Temperature 98.2 F Temperature 98.2 F - Labs CBC & Chem 7: 10/20/17 03:25 10/20/17 03:25 Labs: Abnormal lab results 10/19/17 10/19/17 10/19/17 Range/Units 16:18 17:41 20:11 Hgb (11.8-15.2) gm/dl Hct (35.5-45.6) % Plt Count (140-440) K/mm3 PT (12.2-14.9) Sec. INR (0.87-1.13) Heparin Anti-Xa Level 1.43 H 0.26 L (0.3-0.7) U.I./ml BUN (9-20) mg/dL Creatinine (0.8-1.5) mg/dL Glucose (75-100) mg/dL POC Glucose 107 H (70-105) Calcium (8.4-10.2) mg/dL 10/20/17 10/20/17 10/20/17 Range/Units 03:25 03:25 03:25 Hgb 9.5 L (11.8-15.2) gm/dl Hct 28.3 L (35.5-45.6) % Plt Count 504 H (140-440) K/mm3 PT 20.2 H (12.2-14.9) Sec. INR 1.62 H (0.87-1.13) Heparin Anti-Xa Level 0.24 L (0.3-0.7) U.I./ml BUN 6 L (9-20) mg/dL Creatinine 0.7 L (0.8-1.5) mg/dL Glucose 101 H (75-100) mg/dL POC Glucose (70-105) Calcium 8.1 L (8.4-10.2) mg/dL 10/20/17 10/20/17 Range/Units 08:41 13:21 Hgb (11.8-15.2) gm/dl Hct (35.5-45.6) % Plt Count (140-440) K/mm3 PT (12.2-14.9) Sec. INR (0.87-1.13) Heparin Anti-Xa Level (0.3-0.7) U.I./ml BUN (9-20) mg/dL Creatinine (0.8-1.5) mg/dL Glucose (75-100) mg/dL POC Glucose 111 H 113 H (70-105) Calcium (8.4-10.2) mg/dL
--- NOTE | 2017-10-20 16:11 | Progress Note ---
Assessment and Plan Assessment and plan: Hypovolemic shock. Resolved. Etiology appears to be secondary to volume depletion. No keiko evidence of sepsis. ID following. Follow-up culture results. Blood cultures thus far negative. VQ scan negative for PE. Possible sepsis. Blood cultures negative. Acute kidney injury secondary to prerenal azotemia due to hypotension vs ATN. Creatinine 0,7 today, back to baseline. PVD status post open aortobifemoral bypass 09/02/17, complicated with wound dehiscence / evisceration s/p closure of fascial dehiscence 09/07/17 with mesh. Superficial wound infection. Culture growing MSSA and Pseudomonas. Bilateral peroneal DVTs. On heparin drip. Coumadin. INR 1.62 today Diabetes mellitus type 2. Continue Accu-Cheks and sliding scale insulin. Hyperlipidemia. Anemia. Elevated troponin. Etiology likely secondary to renal insufficiency. Cardiology following. History Interval history: Feels better, No abdominal pain currently no fever Hospitalist Physical - Physical exam Narrative exam: GEN APPEARANCE : Not in acute distress, lying in bed, HEENT: Normocephalic, Atraumatic NECK : supple, no JVD LUNGS: Clear to auscultation bilaterally, no rales, no wheeze HEART: S1 and S2 regular, no murmurs, rubs or gallop ABD: Soft, non tender, abdominal binder over abdomen, bowel sounds normal EXT: No edema, no clubbing, no cyanosis, no cyanosis NEURO: Awake,alert, oriented x 3, no focal signs - Constitutional Vitals: Temp Pulse Resp BP Pulse Ox 98.2 F 75 18 158/89 95 10/20/17 07:41 10/20/17 07:41 10/20/17 07:41 10/20/17 07:41 10/20/17 07:41 General appearance: Present: no acute distress Results - Labs CBC & Chem 7: 10/20/17 03:25 10/20/17 03:25 Labs: Laboratory Last Values WBC 7.0 K/mm3 (4.5-11.0) 10/16/17 04:01 RBC 2.93 M/mm3 (3.65-5.03) L 10/16/17 04:01 Hgb 9.5 gm/dl (11.8-15.2) L 10/20/17 03:25 Hct 28.3 % (35.5-45.6) L 10/20/17 03:25 MCV 90 fl (84-94) 10/16/17 04:01 MCH 30 pg (28-32) 10/16/17 04:01 MCHC 34 % (32-34) 10/16/17 04:01 RDW 16.1 % (13.2-15.2) H 10/16/17 04:01 Plt Count 504 K/mm3 (140-440) H 10/20/17 03:25 Lymph % (Auto) 21.8 % (13.4-35.0) 10/16/17 04:01 [place] % (Auto) 10.4 % (0.0-7.3) H 10/16/17 04:01 Eos % (Auto) 3.7 % (0.0-4.3) 10/16/17 04:01 Baso % (Auto) 0.4 % (0.0-1.8) 10/16/17 04:01 Lymph # 1.5 K/mm3 (1.2-5.4) 10/16/17 04:01 [place] # 0.7 K/mm3 (0.0-0.8) 10/16/17 04:01 Eos # 0.3 K/mm3 (0.0-0.4) 10/16/17 04:01 Baso # 0.0 K/mm3 (0.0-0.1) 10/16/17 04:01 Seg Neutrophils % 63.7 % (40.0-70.0) 10/16/17 04:01 Seg Neutrophils # 4.4 K/mm3 (1.8-7.7) 10/16/17 04:01 PT 20.2 Sec. (12.2-14.9) H 10/20/17 03:25 INR 1.62 (0.87-1.13) H 10/20/17 03:25 APTT 35.9 Sec. (24.2-36.6) 10/16/17 16:29 D-Dimer 3277.01 ng/mlDDU (0-234) H 10/14/17 19:47 Heparin Anti-Xa Level 0.24 U.I./ml (0.3-0.7) L 10/20/17 03:25 Sodium 141 mmol/L (137-145) 10/20/17 03:25 Potassium 3.8 mmol/L (3.6-5.0) 10/20/17 03:25 Chloride 104.5 mmol/L (98-107) 10/20/17 03:25 Carbon Dioxide 25 mmol/L (22-30) 10/20/17 03:25 Anion Gap 15 mmol/L 10/20/17 03:25 BUN 6 mg/dL (9-20) L 10/20/17 03:25 Creatinine 0.7 mg/dL (0.8-1.5) L 10/20/17 03:25 Estimated GFR > 60 ml/min 10/20/17 03:25 BUN/Creatinine Ratio 9 % 10/20/17 03:25 Glucose 101 mg/dL (75-100) H 10/20/17 03:25 POC Glucose 113 (70-105) H 10/20/17 13:21 Lactic Acid 0.70 mmol/L (0.7-2.0) 10/15/17 03:12 Calcium 8.1 mg/dL (8.4-10.2) L 10/20/17 03:25 Phosphorus 2.50 mg/dL (2.5-4.5) 10/16/17 04:01 Magnesium 1.70 mg/dL (1.7-2.3) 10/16/17 04:01 Total Bilirubin 0.30 mg/dL (0.1-1.2) 10/16/17 04:01 AST 13 units/L (5-40) 10/16/17 04:01 ALT 8 units/L (7-56) 10/16/17 04:01 Alkaline Phosphatase 124 units/L (35-129) 10/16/17 04:01 Total Creatine Kinase 68 units/L (55-170) 10/16/17 04:01 CK-MB (CK-2) 3.0 ng/mL (0.0-4.0) 10/16/17 04:01 CK-MB (CK-2) Rel Index 4.4 (0-4) H 10/16/17 04:01 Troponin T 0.083 ng/mL (0.00-0.029) H D 10/16/17 04:01 C-Reactive Protein 11.10 mg/dL (0.00-1.30) H 10/15/17 16:57 Total Protein 7.6 g/dL (6.3-8.2) 10/16/17 04:01 Albumin 2.7 g/dL (3.9-5) L 10/16/17 04:01 Albumin/Globulin Ratio 0.6 % 10/16/17 04:01 Triglycerides 186 mg/dL (2-149) H 10/14/17 19:47 Cholesterol 121 mg/dL (50-199) 10/14/17 19:47 LDL Cholesterol Direct 58 mg/dL (50-130) 10/14/17 19:47 HDL Cholesterol 26 mg/dL (40-59) L 10/14/17 19:47 Cholesterol/HDL Ratio 4.65 % 10/14/17 19:47 Urine Color Yellow (Yellow) 10/14/17 20:30 Urine Turbidity Slightly-cloudy (Clear) 10/14/17 20:30 Urine pH 5.0 (5.0-7.0) 10/14/17 20:30 Ur Specific [place] 1.014 (1.003-1.030) 10/14/17 20:30 Urine Protein <15 mg/dl mg/dL (Negative) 10/14/17 20:30 Urine Glucose (UA) Neg mg/dL (Negative) 10/14/17 20:30 Urine Ketones Neg mg/dL (Negative) 10/14/17 20:30 Urine Blood Sm (Negative) 10/14/17 20:30 Urine Nitrite Neg (Negative) 10/14/17 20:30 Urine Bilirubin Neg (Negative) 10/14/17 20:30 Urine Urobilinogen < 2.0 mg/dL (<2.0) 10/14/17 20:30 Ur Leukocyte Esterase Tr (Negative) 10/14/17 20:30 Urine WBC (Auto) 7.0 /HPF (0.0-6.0) H 10/14/17 20:30 Urine RBC (Auto) 5.0 /HPF (0.0-6.0) 10/14/17 20:30 U Epithel Cells (Auto) < 1.0 /HPF (0-13.0) 10/14/17 20:30 Urine Bacteria (Auto) 2+ /HPF (Negative) 10/14/17 20:30 Amorphous Crystals Few 10/14/17 20:30 Urine Mucus Few /HPF 10/14/17 20:30 Vancomycin Trough 13.4 ug/mL (5.0-20.0) 10/17/17 15:12 Blood Type A POSITIVE 10/15/17 03:13 Antibody Screen Negative 10/15/17 03:13
[2017-10-20] MEDS: COUMADIN PO SCH (18:14)
[2017-10-20] MEDS: LEVAQUIN PO SCH (18:14)
--- NOTE | 2017-10-20 19:39 | Progress Note ---
Assessment and Plan Patient awake. weak. No acute respiratory distress.Resting on room air. O2 saturation 93%. - Patient Problems (1) Acute respiratory failure Current Visit: No Status: Acute Plan to address problem: Improved. Albuterol aerosol treatments PRN for shortness of breath. (2) Hypotension Current Visit: No Status: Acute Plan to address problem: Improved. (3) Sepsis Current Visit: No Status: Acute Plan to address problem: Patient is on zosyn and vancomycin (4) RUPERT (acute kidney injury) Current Visit: No Status: Acute Plan to address problem: Management as per nephrology. (5) Abdominal aortic aneurysm without rupture Current Visit: No Status: Acute Plan to address problem: Management as per vascular surgery. (6) Status post aortobifemoral bypass surgery Current Visit: No Status: Acute Plan to address problem: Follow with vascular surgery. (7) IDDM (insulin dependent diabetes mellitus) Current Visit: No Status: Acute Plan to address problem: Management as per primary care. Subjective Date of service: 10/20/17 Principal diagnosis: Sepsis Syndrome with hypotension; RUPERT; IVVD; Diabetes II Interval history: Patient awake. weak. No acute respiratory distress.Resting on room air. O2 saturation 93%. Objective Vital Signs - 12hr 10/20/17 10/20/17 10/20/17 07:41 16:24 16:25 Temperature 98.2 F 98.4 F Pulse Rate 75 73 74 Respiratory 18 20 Rate Blood Pressure 158/89 Blood Pressure 155/83 [Left] O2 Sat by Pulse 95 94 93 Oximetry Constitutional: no acute distress, alert Eyes: non-icteric ENT: oropharynx moist Neck: supple, no lymphadenopathy, no JVD, other (No thyromegaly) Effort: mildly labored Ascultation: Bilateral: rhonchi (bases) Percussion: Bilateral: not dull Cardiovascular: regular rate and rhythm, other (No rubs/murmurs) Gastrointestinal: normoactive bowel sounds, soft, non-tender, non-distended, other (No HSM) Integumentary: normal Extremities: no cyanosis, no edema, pink and warm, no ischemia or petechiae, other (weak pedal pulses) Neurologic: normal mental status, non-focal exam, pupils equal and round, motor strength normal and Psychiatric: mood appropriate, affect normal CBC and BMP: 10/20/17 03:25 10/20/17 03:25 ABG, PT/INR, D-dimer: PT/INR, D-dimer PT 20.2 Sec. (12.2-14.9) H 10/20/17 03:25 INR 1.62 (0.87-1.13) H 10/20/17 03:25 D-Dimer 3277.01 ng/mlDDU (0-234) H 10/14/17 19:47 Abnormal lab findings: Abnormal Labs 10/14/17 10/14/17 10/14/17 19:47 19:47 19:47 RBC 2.63 L Hgb 8.1 L Hct 23.8 L RDW 15.8 H Plt Count Kidder % (Auto) 9.4 H PT INR D-Dimer Heparin Anti-Xa Level Sodium 127 L Potassium Chloride 88.6 L Carbon Dioxide 21 L BUN 43 H Creatinine 4.2 H Glucose 106 H POC Glucose Calcium 7.2 L Alkaline Phosphatase 135 H CK-MB (CK-2) Rel Index Troponin T 0.108 H* C-Reactive Protein Albumin 2.6 L Triglycerides 186 H HDL Cholesterol 26 L Urine WBC (Auto) 10/14/17 10/14/17 10/14/17 19:47 20:19 20:30 RBC Hgb Hct RDW Plt Count Kidder % (Auto) PT INR D-Dimer 3277.01 H Heparin Anti-Xa Level Sodium Potassium Chloride Carbon Dioxide BUN Creatinine Glucose POC Glucose 116 H Calcium Alkaline Phosphatase CK-MB (CK-2) Rel Index Troponin T C-Reactive Protein Albumin Triglycerides HDL Cholesterol Urine WBC (Auto) 7.0 H 10/15/17 10/15/17 10/15/17 03:12 03:12 08:42 RBC 2.90 L Hgb 8.6 L Hct 25.8 L RDW 16.0 H Plt Count 483 H Kidder % (Auto) 9.3 H PT INR D-Dimer Heparin Anti-Xa Level Sodium 133 L Potassium Chloride 94.5 L Carbon Dioxide 21 L BUN 41 H Creatinine 3.3 H Glucose 112 H POC Glucose 152 H Calcium 7.9 L Alkaline Phosphatase 140 H CK-MB (CK-2) Rel Index Troponin T C-Reactive Protein Albumin 2.7 L Triglycerides HDL Cholesterol Urine WBC (Auto) 10/15/17 10/15/17 10/15/17 13:16 16:57 16:57 RBC Hgb Hct RDW Plt Count Kid[place] % (Auto) PT INR D-Dimer Heparin Anti-Xa Level Sodium Potassium Chloride Carbon Dioxide BUN Creatinine Glucose POC Glucose 182 H Calcium Alkaline Phosphatase CK-MB (CK-2) Rel Index Troponin T 0.067 H D C-Reactive Protein 11.10 H Albumin Triglycerides HDL Cholesterol Urine WBC (Auto) 10/15/17 10/15/17 10/16/17 17:41 23:00 04:01 RBC 2.93 L Hgb 8.9 L Hct 26.2 L RDW 16.1 H Plt Count 524 H Kidder % (Auto) 10.4 H PT INR D-Dimer Heparin Anti-Xa Level Sodium Potassium Chloride Carbon Dioxide BUN Creatinine Glucose POC Glucose 159 H 136 H Calcium Alkaline Phosphatase CK-MB (CK-2) Rel Index Troponin T C-Reactive Protein Albumin Triglycerides HDL Cholesterol Urine WBC (Auto) 10/16/17 10/16/17 10/16/17 04:01 09:16 12:40 RBC Hgb Hct RDW Plt Count [place] % (Auto) PT INR D-Dimer Heparin Anti-Xa Level Sodium Potassium 3.5 L Chloride Carbon Dioxide BUN Creatinine Glucose 159 H POC Glucose 165 H 142 H Calcium 8.2 L Alkaline Phosphatase CK-MB (CK-2) Rel Index 4.4 H Troponin T 0.083 H D C-Reactive Protein Albumin 2.7 L Triglycerides HDL Cholesterol Urine WBC (Auto) 10/16/17 10/16/17 10/16/17 16:05 16:29 22:31 RBC Hgb 8.9 L Hct 26.2 L RDW Plt Count 493 H Kidder % (Auto) PT INR D-Dimer Heparin Anti-Xa Level Sodium Potassium Chloride Carbon Dioxide BUN Creatinine Glucose POC Glucose 164 H 188 H Calcium Alkaline Phosphatase CK-MB (CK-2) Rel Index Troponin T C-Reactive Protein Albumin Triglycerides HDL Cholesterol Urine WBC (Auto) 10/16/17 10/17/17 10/17/17 22:37 07:26 15:12 RBC Hgb Hct RDW Plt Count Kid[place] % (Auto) PT INR D-Dimer Heparin Anti-Xa Level < 0.10 L 0.14 L < 0.10 L Sodium Potassium Chloride Carbon Dioxide BUN Creatinine Glucose POC Glucose Calcium Alkaline Phosphatase CK-MB (CK-2) Rel Index Troponin T C-Reactive Protein Albumin Triglycerides HDL Cholesterol Urine WBC (Auto) 10/17/17 10/17/17 10/18/17 22:56 22:58 05:44 RBC Hgb 9.2 L Hct 27.8 L RDW Plt Count 492 H Kidder % (Auto) PT INR D-Dimer Heparin Anti-Xa Level 0.15 L Sodium Potassium Chloride Carbon Dioxide BUN Creatinine Glucose POC Glucose 107 H Calcium Alkaline Phosphatase CK-MB (CK-2) Rel Index Troponin T C-Reactive Protein Albumin Triglycerides HDL Cholesterol Urine WBC (Auto) 10/18/17 10/18/17 10/18/17 05:44 05:44 11:52 RBC Hgb Hct RDW Plt Count Kidder % (Auto) PT 15.0 H INR D-Dimer Heparin Anti-Xa Level < 0.10 L Sodium Potassium Chloride Carbon Dioxide BUN 8 L Creatinine 0.7 L Glucose 111 H POC Glucose 124 H Calcium 8.3 L Alkaline Phosphatase CK-MB (CK-2) Rel Index Troponin T C-Reactive Protein Albumin Triglycerides HDL Cholesterol Urine WBC (Auto) 10/18/17 10/18/17 10/18/17 15:53 16:35 22:06 RBC Hgb Hct RDW Plt Count [place] % (Auto) PT INR D-Dimer Heparin Anti-Xa Level 0.15 L Sodium Potassium Chloride Carbon Dioxide BUN Creatinine Glucose POC Glucose 134 H 114 H Calcium Alkaline Phosphatase CK-MB (CK-2) Rel Index Troponin T C-Reactive Protein Albumin Triglycerides HDL Cholesterol Urine WBC (Auto) 10/19/17 10/19/17 10/19/17 01:09 05:33 07:14 RBC Hgb Hct RDW Plt Count [place] % (Auto) PT INR D-Dimer Heparin Anti-Xa Level 0.29 L Sodium Potassium Chloride Carbon Dioxide BUN 7 L Creatinine 0.7 L Glucose 111 H POC Glucose 109 H Calcium 8.1 L Alkaline Phosphatase CK-MB (CK-2) Rel Index Troponin T C-Reactive Protein Albumin Triglycerides HDL Cholesterol Urine WBC (Auto) 10/19/17 10/19/17 10/19/17 07:14 10:49 11:35 RBC Hgb Hct RDW Plt Count [place] % (Auto) PT 15.2 H INR 1.14 H D-Dimer Heparin Anti-Xa Level 0.28 L Sodium Potassium Chloride Carbon Dioxide BUN Creatinine Glucose POC Glucose 121 H Calcium Alkaline Phosphatase CK-MB (CK-2) Rel Index Troponin T C-Reactive Protein Albumin Triglycerides HDL Cholesterol Urine WBC (Auto) 10/19/17 10/19/17 10/19/17 16:18 17:41 20:11 RBC Hgb Hct RDW Plt Count [place] % (Auto) PT INR D-Dimer Heparin Anti-Xa Level 1.43 H 0.26 L Sodium Potassium Chloride Carbon Dioxide BUN Creatinine Glucose POC Glucose 107 H Calcium Alkaline Phosphatase CK-MB (CK-2) Rel Index Troponin T C-Reactive Protein Albumin Triglycerides HDL Cholesterol Urine WBC (Auto) 10/20/17 10/20/17 10/20/17 03:25 03:25 03:25 RBC Hgb 9.5 L Hct 28.3 L RDW Plt Count 504 H Kid[place] % (Auto) PT 20.2 H INR 1.62 H D-Dimer Heparin Anti-Xa Level 0.24 L Sodium Potassium Chloride Carbon Dioxide BUN 6 L Creatinine 0.7 L Glucose 101 H POC Glucose Calcium 8.1 L Alkaline Phosphatase CK-MB (CK-2) Rel Index Troponin T C-Reactive Protein Albumin Triglycerides HDL Cholesterol Urine WBC (Auto) 10/20/17 10/20/17 10/20/17 08:41 13:21 16:13 RBC Hgb Hct RDW Plt Count [place] % (Auto) PT INR D-Dimer Heparin Anti-Xa Level 0.25 L Sodium Potassium Chloride Carbon Dioxide BUN Creatinine Glucose POC Glucose 111 H 113 H Calcium Alkaline Phosphatase CK-MB (CK-2) Rel Index Troponin T C-Reactive Protein Albumin Triglycerides HDL Cholesterol Urine WBC (Auto) 10/20/17 17:52 RBC Hgb Hct RDW Plt Count [place] % (Auto) PT INR D-Dimer Heparin Anti-Xa Level Sodium Potassium Chloride Carbon Dioxide BUN Creatinine Glucose POC Glucose 149 H Calcium Alkaline Phosphatase CK-MB (CK-2) Rel Index Troponin T C-Reactive Protein Albumin Triglycerides HDL Cholesterol Urine WBC (Auto) Chest x-ray: report reviewed (Bilateral pulmonary edema and infiltrates resolved. Reported unremarkable chest.), image reviewed Allied health notes reviewed: nursing
[2017-10-20] MEDS: CEFTIN PO SCH (22:20)
[2017-10-20] MEDS: PERCOCET 5/325 PO PRN (22:45)
[2017-10-21] MEDS: PERCOCET 5/325 PO PRN ×2 (05:05→22:00)
[2017-10-21 06:37] LABS: INR 2.24 (0.87-1.13)
[2017-10-21 07:05] LABS: BUN/Creatinine Ratio 7; Blood Urea Nitrogen 5 mg/dL (9-20); Calcium 8.2 mg/dL (8.4-10.2); Hemolysis Index 4
[2017-10-21] MEDS ORDERED: K-DUR PO ONE (08:00)
[2017-10-21] MEDS: NOVOLOG SUB-Q SCH ×4 (08:48→22:29)
--- NOTE | 2017-10-21 09:53 | Progress Note ---
Assessment and Plan Assessment and plan: Hypovolemic shock. Resolved. Etiology appears to be secondary to volume depletion. No keiko evidence of sepsis. ID following. Follow-up culture results. Blood cultures thus far negative. VQ scan negative for PE. Possible sepsis. Blood cultures negative. Acute kidney injury secondary to prerenal azotemia due to hypotension vs ATN. Creatinine 0,7 today, back to baseline. PVD status post open aortobifemoral bypass 09/02/17, complicated with wound dehiscence / evisceration s/p closure of fascial dehiscence 09/07/17 with mesh. Superficial wound infection. Culture growing MSSA and Pseudomonas. Bilateral peroneal DVTs. On heparin drip. Coumadin. INR 1.62 today Diabetes mellitus type 2. Continue Accu-Cheks and sliding scale insulin. Bilateral foot drop. Will consult Dr. Linn Hyperlipidemia. Anemia. Elevated troponin. Etiology likely secondary to renal insufficiency. Cardiology following. History Interval history: Feels better, No abdominal pain currently no fever, Bilateral foot drop Hospitalist Physical - Physical exam Narrative exam: GEN APPEARANCE : Not in acute distress, lying in bed, HEENT: Normocephalic, Atraumatic NECK : supple, no JVD LUNGS: Clear to auscultation bilaterally, no rales, no wheeze HEART: S1 and S2 regular, no murmurs, rubs or gallop ABD: Soft, non tender, abdominal binder over abdomen, bowel sounds normal EXT: No edema, no clubbing, no cyanosis, no cyanosis NEURO: Awake,alert, oriented x 3, Bilateral foot drop - Constitutional Vitals: Temp Pulse Resp BP Pulse Ox 98.5 F 78 18 147/85 93 10/21/17 07:55 10/21/17 07:55 10/21/17 07:55 10/21/17 07:55 10/21/17 07:55 General appearance: Present: no acute distress Results - Labs CBC & Chem 7: 10/20/17 03:25 10/21/17 04:52 Labs: Laboratory Last Values WBC 7.0 K/mm3 (4.5-11.0) 10/16/17 04:01 RBC 2.93 M/mm3 (3.65-5.03) L 10/16/17 04:01 Hgb 9.5 gm/dl (11.8-15.2) L 10/20/17 03:25 Hct 28.3 % (35.5-45.6) L 10/20/17 03:25 MCV 90 fl (84-94) 10/16/17 04:01 MCH 30 pg (28-32) 10/16/17 04:01 MCHC 34 % (32-34) 10/16/17 04:01 RDW 16.1 % (13.2-15.2) H 10/16/17 04:01 Plt Count 504 K/mm3 (140-440) H 10/20/17 03:25 Lymph % (Auto) 21.8 % (13.4-35.0) 10/16/17 04:01 [place] % (Auto) 10.4 % (0.0-7.3) H 10/16/17 04:01 Eos % (Auto) 3.7 % (0.0-4.3) 10/16/17 04:01 Baso % (Auto) 0.4 % (0.0-1.8) 10/16/17 04:01 Lymph # 1.5 K/mm3 (1.2-5.4) 10/16/17 04:01 [place] # 0.7 K/mm3 (0.0-0.8) 10/16/17 04:01 Eos # 0.3 K/mm3 (0.0-0.4) 10/16/17 04:01 Baso # 0.0 K/mm3 (0.0-0.1) 10/16/17 04:01 Seg Neutrophils % 63.7 % (40.0-70.0) 10/16/17 04:01 Seg Neutrophils # 4.4 K/mm3 (1.8-7.7) 10/16/17 04:01 PT 26.1 Sec. (12.2-14.9) H 10/21/17 04:52 INR 2.24 (0.87-1.13) H 10/21/17 04:52 APTT 35.9 Sec. (24.2-36.6) 10/16/17 16:29 D-Dimer 3277.01 ng/mlDDU (0-234) H 10/14/17 19:47 Heparin Anti-Xa Level 0.39 U.I./ml (0.3-0.7) 10/21/17 00:33 Sodium 141 mmol/L (137-145) 10/21/17 04:52 Potassium 3.3 mmol/L (3.6-5.0) L 10/21/17 04:52 Chloride 102.1 mmol/L (98-107) 10/21/17 04:52 Carbon Dioxide 22 mmol/L (22-30) 10/21/17 04:52 Anion Gap 20 mmol/L 10/21/17 04:52 BUN 5 mg/dL (9-20) L 10/21/17 04:52 Creatinine 0.7 mg/dL (0.8-1.5) L 10/21/17 04:52 Estimated GFR > 60 ml/min 10/21/17 04:52 BUN/Creatinine Ratio 7 % 10/21/17 04:52 Glucose 102 mg/dL (75-100) H 10/21/17 04:52 POC Glucose 90 (70-105) 10/20/17 21:41 Lactic Acid 0.70 mmol/L (0.7-2.0) 10/15/17 03:12 Calcium 8.2 mg/dL (8.4-10.2) L 10/21/17 04:52 Phosphorus 2.50 mg/dL (2.5-4.5) 10/16/17 04:01 Magnesium 1.70 mg/dL (1.7-2.3) 10/16/17 04:01 Total Bilirubin 0.30 mg/dL (0.1-1.2) 10/16/17 04:01 AST 13 units/L (5-40) 10/16/17 04:01 ALT 8 units/L (7-56) 10/16/17 04:01 Alkaline Phosphatase 124 units/L (35-129) 10/16/17 04:01 Total Creatine Kinase 68 units/L (55-170) 10/16/17 04:01 CK-MB (CK-2) 3.0 ng/mL (0.0-4.0) 10/16/17 04:01 CK-MB (CK-2) Rel Index 4.4 (0-4) H 10/16/17 04:01 Troponin T 0.083 ng/mL (0.00-0.029) H D 10/16/17 04:01 C-Reactive Protein 11.10 mg/dL (0.00-1.30) H 10/15/17 16:57 Total Protein 7.6 g/dL (6.3-8.2) 10/16/17 04:01 Albumin 2.7 g/dL (3.9-5) L 10/16/17 04:01 Albumin/Globulin Ratio 0.6 % 10/16/17 04:01 Triglycerides 186 mg/dL (2-149) H 10/14/17 19:47 Cholesterol 121 mg/dL (50-199) 10/14/17 19:47 LDL Cholesterol Direct 58 mg/dL (50-130) 10/14/17 19:47 HDL Cholesterol 26 mg/dL (40-59) L 10/14/17 19:47 Cholesterol/HDL Ratio 4.65 % 10/14/17 19:47 Urine Color Yellow (Yellow) 10/14/17 20:30 Urine Turbidity Slightly-cloudy (Clear) 10/14/17 20:30 Urine pH 5.0 (5.0-7.0) 10/14/17 20:30 Ur Specific [place] 1.014 (1.003-1.030) 10/14/17 20:30 Urine Protein <15 mg/dl mg/dL (Negative) 10/14/17 20:30 Urine Glucose (UA) Neg mg/dL (Negative) 10/14/17 20:30 Urine Ketones Neg mg/dL (Negative) 10/14/17 20:30 Urine Blood Sm (Negative) 10/14/17 20:30 Urine Nitrite Neg (Negative) 10/14/17 20:30 Urine Bilirubin Neg (Negative) 10/14/17 20:30 Urine Urobilinogen < 2.0 mg/dL (<2.0) 10/14/17 20:30 Ur Leukocyte Esterase Tr (Negative) 10/14/17 20:30 Urine WBC (Auto) 7.0 /HPF (0.0-6.0) H 10/14/17 20:30 Urine RBC (Auto) 5.0 /HPF (0.0-6.0) 10/14/17 20:30 U Epithel Cells (Auto) < 1.0 /HPF (0-13.0) 10/14/17 20:30 Urine Bacteria (Auto) 2+ /HPF (Negative) 10/14/17 20:30 Amorphous Crystals Few 10/14/17 20:30 Urine Mucus Few /HPF 10/14/17 20:30 Vancomycin Trough 13.4 ug/mL (5.0-20.0) 10/17/17 15:12 Blood Type A POSITIVE 10/15/17 03:13 Antibody Screen Negative 10/15/17 03:13
[2017-10-21] MEDS: LEVAQUIN PO SCH (12:00)
[2017-10-21] MEDS: NEURONTIN PO SCH (12:00)
[2017-10-21] MEDS: ASPIRIN PO SCH (12:00)
[2017-10-21] MEDS: CEFTIN PO SCH ×2 (12:00→22:00)
[2017-10-21] MEDS: LACTINEX PO SCH ×2 (12:00→22:00)
[2017-10-21] MEDS: THERAGRAN-M Tab PO SCH (12:01)
[2017-10-21] MEDS: SENOKOT PO SCH ×2 (12:01→22:01)
[2017-10-21] MEDS: PROTONIX PO SCH (12:01)
[2017-10-21] MEDS: COLACE PO SCH ×2 (12:01→22:30)
--- NOTE | 2017-10-21 12:12 | Progress Note ---
Assessment and Plan 57-year-old male with 1. Abdominal wound, related to prior abdominal surgery 2. Hypotension, likely related to hypovolemia - resolved 3. Acute kidney injury 4. Elevated d-dimer 5. Elevated troponin 6. B/L LE DVT 7. protein calorie malnutrition, hypoalbunimemia Plan: 1. Continue daily wound care, abdominal binder 2. Continue current diet with nutritional supplements 3 times a day 3. Anticoagulation per vascular surgery 4. PT/exercises 5. wound cultures - pseudomonas, staph aureus. Transition to oral antibiotics per ID. 6. ok for dc from surgery standpoint when medically cleared Subjective Date of service: 10/21/17 Narrative: Pt seen and examined. No complaints. Working with PT. No f/c, cp, sob, abd pain , n/v. Objective Vital Signs - 12hr 10/21/17 10/21/17 10/21/17 00:18 06:05 07:55 Temperature 97.9 F 98.5 F Pulse Rate 78 Respiratory 18 18 18 Rate Blood Pressure 144/70 147/85 O2 Sat by Pulse 93 Oximetry 10/21/17 10/21/17 10:00 12:06 Temperature Pulse Rate Respiratory 18 Rate Blood Pressure O2 Sat by Pulse 95 Oximetry - General physical appearance Narrative Exam: General: Awake, alert, oriented 3. No apparent distress Abd: soft, ND, NT. All dressings removed. small opening in midline incision near the umbilicus with healthy wound base. Minimal serous drainage from wound. The left groin wound and wound at prior DORETHA site L abdomen are healing well, no drainage. Wound at prior retention suture sites are healing well, pink wound base. One piece of mesalt tape applied to umbilical wound bed and one piece applied to lower right abdominal wound bed. Covered with ABDs pads and secured with abdominal binder loosely. - Labs 10/20/17 03:25 10/21/17 04:52 Diabetes panel 10/21/17 Range/Units 04:52 Sodium 141 (137-145) mmol/L Potassium 3.3 L (3.6-5.0) mmol/L Chloride 102.1 (98-107) mmol/L Carbon Dioxide 22 (22-30) mmol/L BUN 5 L (9-20) mg/dL Creatinine 0.7 L (0.8-1.5) mg/dL Glucose 102 H (75-100) mg/dL Calcium 8.2 L (8.4-10.2) mg/dL Calcium panel 10/21/17 Range/Units 04:52 Calcium 8.2 L (8.4-10.2) mg/dL Pituitary panel 10/21/17 Range/Units 04:52 Sodium 141 (137-145) mmol/L Potassium 3.3 L (3.6-5.0) mmol/L Chloride 102.1 (98-107) mmol/L Carbon Dioxide 22 (22-30) mmol/L BUN 5 L (9-20) mg/dL Creatinine 0.7 L (0.8-1.5) mg/dL Glucose 102 H (75-100) mg/dL Calcium 8.2 L (8.4-10.2) mg/dL Adrenal panel 10/21/17 Range/Units 04:52 Sodium 141 (137-145) mmol/L Potassium 3.3 L (3.6-5.0) mmol/L Chloride 102.1 (98-107) mmol/L Carbon Dioxide 22 (22-30) mmol/L BUN 5 L (9-20) mg/dL Creatinine 0.7 L (0.8-1.5) mg/dL Glucose 102 H (75-100) mg/dL Calcium 8.2 L (8.4-10.2) mg/dL
--- NOTE | 2017-10-21 12:40 | Progress Note ---
Assessment and Plan Assessment: Hypotension requiring vasopressors/?sepsis-->resolved Elevated troponin - ECG with NAF; pt denies chest pain; nonspecific in setting of ARF Bilateral peroneal DVTs-->on heparin gtt/coumadin Acute renal failure - renal indices improving PVD status post open aortobifemoral bypass 09/02/17, complicated with wound dehiscence / evisceration s/p closure of fascial dehiscence 09/07/17 DM HLP Anemia Plan: Pre-operative stress test done in the office 08/26/17 showed mild apical ischemia. As patient is asymptomatic at this time, recommend continuing medical management and close outpatient follow up. Will see PRN. Follow up appointment with Dr. Henry in the [place] office on 11/26/17 at 9:45 am. The patient has been seen in conjunction with Dr. Ruffin who agrees with the assessment and plan of care. Subjective Date of service: 10/21/17 Principal diagnosis: Sepsis Syndrome with hypotension; RUPERT; IVVD; Diabetes II Interval history: The patient is resting in bed. No new complaints. Objective Last Vital Signs Temp 98.5 F 10/21/17 07:55 Pulse 78 10/21/17 07:55 Resp 18 10/21/17 12:06 BP 147/85 10/21/17 07:55 Pulse Ox 95 10/21/17 10:00 - Physical Examination General: No Apparent Distress HEENT: Positive: PERRL Neck: Positive: neck supple, trachea midline Cardiac: Positive: Reg Rate and Rhythm, S1/S2 Lungs: Positive: clear to auscultation Neuro: Positive: Cranial Nerve 2-12 Intact Abdomen: Positive: Soft, Other (surgical sites) Skin: Negative: Rash Musculoskeletal: No Pain, Normal Range of Motion Extremities: Absent: edema - Labs and Meds Coagulation 10/21/17 Range/Units 04:52 PT 26.1 H (12.2-14.9) Sec. INR 2.24 H (0.87-1.13) Comprehensive Metabolic Panel 10/21/17 Range/Units 04:52 Sodium 141 (137-145) mmol/L Potassium 3.3 L (3.6-5.0) mmol/L Chloride 102.1 (98-107) mmol/L Carbon Dioxide 22 (22-30) mmol/L BUN 5 L (9-20) mg/dL Creatinine 0.7 L (0.8-1.5) mg/dL Glucose 102 H (75-100) mg/dL Calcium 8.2 L (8.4-10.2) mg/dL - Imaging and Cardiology EKG: report reviewed, image reviewed Echo: report reviewed (09/02/2017 showed EF 50-55%, impaired relaxation, technically limited d/t poor acoustic windows and pt's inability to lay in left lateral decub position. ) - Telemetry EKG Rhythm: Sinus Rhythm - EKG Sinus rhythms and dysrhythmias: sinus rhythm - Allied health notes Allied health notes reviewed: nursing
--- NOTE | 2017-10-21 14:02 | Vascular Lab Report ---
LOWER EXTREMITY VENOUS DUPLEX: REASON FOR EXAM: DVT. Prolonged immobility.. COMMENTS ON THE RIGHT: There is an acute deep venous thrombus of the right peroneal vein. The remaining veins visualized are freely compressible without evidence of internal echogenicity. Spontaneous and phasic flow is present proximally. COMMENTS ON THE LEFT: There is an acute deep venous thrombus of the left peroneal vein. The remaining veins visualized are freely compressible without evidence of internal echogenicity. Spontaneous and phasic flow is present proximally. IMPRESSION: Bilateral lower extremity distal deep venous thrombus identified.
--- NOTE | 2017-10-21 14:20 | Progress Note ---
Assessment and Plan Sepsis Syndrome IVVD RUPERT VTE (DVT) PVD (Status post aortobifemoral bypass surgery on 09/02/17) Diabetes type II controlled with insulin Hyperlipidemia Anemia Abdominal Wound Infection - continue volume resuscitation with isotonic fluids - wean off levophed for MAP > 65mmHg - supplemental oxygen to keep sats > 90% - mobility protocol for pressure ulcer prophylaxis - azotemia per nephrology otherwise - continue anti-infectives and de-escalate per ID recs - continue GI & prophylaxis - continue IV heparin for DVT - transition to coumadin if Ok with surgery - flu & pneumovax per protocol...transfer out of ICU later if remains off levophed ....re-evaluate in am & prn ...35' Subjective Date of service: 10/21/17 Principal diagnosis: Sepsis Syndrome with hypotension; RUPERT; IVVD; Diabetes II Interval history: Patient is seen today for: Sepsis Syndrome with hypotension; RUPERT; IVVD; Diabetes II; NSTEMI Seen and examined at bedside; 24 hour events reviewed; nursing and respiratory care staff consulted; resting in bed; feels better; Objective Vital Signs - 12hr 10/21/17 10/21/17 10/21/17 06:05 07:55 10:00 Temperature 98.5 F Pulse Rate 78 Respiratory 18 18 Rate Blood Pressure 147/85 O2 Sat by Pulse 93 95 Oximetry 10/21/17 12:06 Temperature Pulse Rate Respiratory 18 Rate Blood Pressure O2 Sat by Pulse Oximetry Constitutional: no acute distress, alert Eyes: non-icteric ENT: oropharynx moist Neck: supple, no lymphadenopathy, no JVD, other (No thyromegaly) Effort: mildly labored Ascultation: Bilateral: rhonchi (bases) Percussion: Bilateral: not dull Cardiovascular: regular rate and rhythm, other (No rubs/murmurs) Gastrointestinal: normoactive bowel sounds, soft, non-tender, non-distended, other (No HSM) Integumentary: normal Extremities: no cyanosis, no edema, pink and warm, no ischemia or petechiae, other (weak pedal pulses) Neurologic: normal mental status, non-focal exam, pupils equal and round, motor strength normal and Psychiatric: mood appropriate, affect normal CBC and BMP: 10/20/17 03:25 10/21/17 04:52 ABG, PT/INR, D-dimer: PT/INR, D-dimer PT 26.1 Sec. (12.2-14.9) H 10/21/17 04:52 INR 2.24 (0.87-1.13) H 10/21/17 04:52 D-Dimer 3277.01 ng/mlDDU (0-234) H 10/14/17 19:47 Abnormal lab findings: Abnormal Labs 10/14/17 10/14/17 10/14/17 19:47 19:47 19:47 RBC 2.63 L Hgb 8.1 L Hct 23.8 L RDW 15.8 H Plt Count [place] % (Auto) 9.4 H PT INR D-Dimer Heparin Anti-Xa Level Sodium 127 L Potassium Chloride 88.6 L Carbon Dioxide 21 L BUN 43 H Creatinine 4.2 H Glucose 106 H POC Glucose Calcium 7.2 L Alkaline Phosphatase 135 H CK-MB (CK-2) Rel Index Troponin T 0.108 H* C-Reactive Protein Albumin 2.6 L Triglycerides 186 H HDL Cholesterol 26 L Urine WBC (Auto) 10/14/17 10/14/17 10/14/17 19:47 20:19 20:30 RBC Hgb Hct RDW Plt Count [place] % (Auto) PT INR D-Dimer 3277.01 H Heparin Anti-Xa Level Sodium Potassium Chloride Carbon Dioxide BUN Creatinine Glucose POC Glucose 116 H Calcium Alkaline Phosphatase CK-MB (CK-2) Rel Index Troponin T C-Reactive Protein Albumin Triglycerides HDL Cholesterol Urine WBC (Auto) 7.0 H 10/15/17 10/15/17 10/15/17 03:12 03:12 08:42 RBC 2.90 L Hgb 8.6 L Hct 25.8 L RDW 16.0 H Plt Count 483 H [place] % (Auto) 9.3 H PT INR D-Dimer Heparin Anti-Xa Level Sodium 133 L Potassium Chloride 94.5 L Carbon Dioxide 21 L BUN 41 H Creatinine 3.3 H Glucose 112 H POC Glucose 152 H Calcium 7.9 L Alkaline Phosphatase 140 H CK-MB (CK-2) Rel Index Troponin T C-Reactive Protein Albumin 2.7 L Triglycerides HDL Cholesterol Urine WBC (Auto) 10/15/17 10/15/17 10/15/17 13:16 16:57 16:57 RBC Hgb Hct RDW Plt Count [place] % (Auto) PT INR D-Dimer Heparin Anti-Xa Level Sodium Potassium Chloride Carbon Dioxide BUN Creatinine Glucose POC Glucose 182 H Calcium Alkaline Phosphatase CK-MB (CK-2) Rel Index Troponin T 0.067 H D C-Reactive Protein 11.10 H Albumin Triglycerides HDL Cholesterol Urine WBC (Auto) 10/15/17 10/15/17 10/16/17 17:41 23:00 04:01 RBC 2.93 L Hgb 8.9 L Hct 26.2 L RDW 16.1 H Plt Count 524 H [place] % (Auto) 10.4 H PT INR D-Dimer Heparin Anti-Xa Level Sodium Potassium Chloride Carbon Dioxide BUN Creatinine Glucose POC Glucose 159 H 136 H Calcium Alkaline Phosphatase CK-MB (CK-2) Rel Index Troponin T C-Reactive Protein Albumin Triglycerides HDL Cholesterol Urine WBC (Auto) 10/16/17 10/16/17 10/16/17 04:01 09:16 12:40 RBC Hgb Hct RDW Plt Count [place] % (Auto) PT INR D-Dimer Heparin Anti-Xa Level Sodium Potassium 3.5 L Chloride Carbon Dioxide BUN Creatinine Glucose 159 H POC Glucose 165 H 142 H Calcium 8.2 L Alkaline Phosphatase CK-MB (CK-2) Rel Index 4.4 H Troponin T 0.083 H D C-Reactive Protein Albumin 2.7 L Triglycerides HDL Cholesterol Urine WBC (Auto) 10/16/17 10/16/17 10/16/17 16:05 16:29 22:31 RBC Hgb 8.9 L Hct 26.2 L RDW Plt Count 493 H [place] % (Auto) PT INR D-Dimer Heparin Anti-Xa Level Sodium Potassium Chloride Carbon Dioxide BUN Creatinine Glucose POC Glucose 164 H 188 H Calcium Alkaline Phosphatase CK-MB (CK-2) Rel Index Troponin T C-Reactive Protein Albumin Triglycerides HDL Cholesterol Urine WBC (Auto) 10/16/17 10/17/17 10/17/17 22:37 07:26 15:12 RBC Hgb Hct RDW Plt Count [place] % (Auto) PT INR D-Dimer Heparin Anti-Xa Level < 0.10 L 0.14 L < 0.10 L Sodium Potassium Chloride Carbon Dioxide BUN Creatinine Glucose POC Glucose Calcium Alkaline Phosphatase CK-MB (CK-2) Rel Index Troponin T C-Reactive Protein Albumin Triglycerides HDL Cholesterol Urine WBC (Auto) 10/17/17 10/17/17 10/18/17 22:56 22:58 05:44 RBC Hgb 9.2 L Hct 27.8 L RDW Plt Count 492 H [place] % (Auto) PT INR D-Dimer Heparin Anti-Xa Level 0.15 L Sodium Potassium Chloride Carbon Dioxide BUN Creatinine Glucose POC Glucose 107 H Calcium Alkaline Phosphatase CK-MB (CK-2) Rel Index Troponin T C-Reactive Protein Albumin Triglycerides HDL Cholesterol Urine WBC (Auto) 10/18/17 10/18/17 10/18/17 05:44 05:44 11:52 RBC Hgb Hct RDW Plt Count [place] % (Auto) PT 15.0 H INR D-Dimer Heparin Anti-Xa Level < 0.10 L Sodium Potassium Chloride Carbon Dioxide BUN 8 L Creatinine 0.7 L Glucose 111 H POC Glucose 124 H Calcium 8.3 L Alkaline Phosphatase CK-MB (CK-2) Rel Index Troponin T C-Reactive Protein Albumin Triglycerides HDL Cholesterol Urine WBC (Auto) 10/18/17 10/18/17 10/18/17 15:53 16:35 22:06 RBC Hgb Hct RDW Plt Count [place] % (Auto) PT INR D-Dimer Heparin Anti-Xa Level 0.15 L Sodium Potassium Chloride Carbon Dioxide BUN Creatinine Glucose POC Glucose 134 H 114 H Calcium Alkaline Phosphatase CK-MB (CK-2) Rel Index Troponin T C-Reactive Protein Albumin Triglycerides HDL Cholesterol Urine WBC (Auto) 10/19/17 10/19/17 10/19/17 01:09 05:33 07:14 RBC Hgb Hct RDW Plt Count [place] % (Auto) PT INR D-Dimer Heparin Anti-Xa Level 0.29 L Sodium Potassium Chloride Carbon Dioxide BUN 7 L Creatinine 0.7 L Glucose 111 H POC Glucose 109 H Calcium 8.1 L Alkaline Phosphatase CK-MB (CK-2) Rel Index Troponin T C-Reactive Protein Albumin Triglycerides HDL Cholesterol Urine WBC (Auto) 10/19/17 10/19/17 10/19/17 07:14 10:49 11:35 RBC Hgb Hct RDW Plt Count [place] % (Auto) PT 15.2 H INR 1.14 H D-Dimer Heparin Anti-Xa Level 0.28 L Sodium Potassium Chloride Carbon Dioxide BUN Creatinine Glucose POC Glucose 121 H Calcium Alkaline Phosphatase CK-MB (CK-2) Rel Index Troponin T C-Reactive Protein Albumin Triglycerides HDL Cholesterol Urine WBC (Auto) 10/19/17 10/19/17 10/19/17 16:18 17:41 20:11 RBC Hgb Hct RDW Plt Count [place] % (Auto) PT INR D-Dimer Heparin Anti-Xa Level 1.43 H 0.26 L Sodium Potassium Chloride Carbon Dioxide BUN Creatinine Glucose POC Glucose 107 H Calcium Alkaline Phosphatase CK-MB (CK-2) Rel Index Troponin T C-Reactive Protein Albumin Triglycerides HDL Cholesterol Urine WBC (Auto) 10/20/17 10/20/17 10/20/17 03:25 03:25 03:25 RBC Hgb 9.5 L Hct 28.3 L RDW Plt Count 504 H [place] % (Auto) PT 20.2 H INR 1.62 H D-Dimer Heparin Anti-Xa Level 0.24 L Sodium Potassium Chloride Carbon Dioxide BUN 6 L Creatinine 0.7 L Glucose 101 H POC Glucose Calcium 8.1 L Alkaline Phosphatase CK-MB (CK-2) Rel Index Troponin T C-Reactive Protein Albumin Triglycerides HDL Cholesterol Urine WBC (Auto) 10/20/17 10/20/17 10/20/17 08:41 13:21 16:13 RBC Hgb Hct RDW Plt Count [place] % (Auto) PT INR D-Dimer Heparin Anti-Xa Level 0.25 L Sodium Potassium Chloride Carbon Dioxide BUN Creatinine Glucose POC Glucose 111 H 113 H Calcium Alkaline Phosphatase CK-MB (CK-2) Rel Index Troponin T C-Reactive Protein Albumin Triglycerides HDL Cholesterol Urine WBC (Auto) 10/20/17 10/21/17 10/21/17 17:52 04:52 04:52 RBC Hgb Hct RDW Plt Count [place] % (Auto) PT 26.1 H INR 2.24 H D-Dimer Heparin Anti-Xa Level Sodium Potassium 3.3 L Chloride Carbon Dioxide BUN 5 L Creatinine 0.7 L Glucose 102 H POC Glucose 149 H Calcium 8.2 L Alkaline Phosphatase CK-MB (CK-2) Rel Index Troponin T C-Reactive Protein Albumin Triglycerides HDL Cholesterol Urine WBC (Auto) 10/21/17 11:45 RBC Hgb Hct RDW Plt Count [place] % (Auto) PT INR D-Dimer Heparin Anti-Xa Level Sodium Potassium Chloride Carbon Dioxide BUN Creatinine Glucose POC Glucose 106 H Calcium Alkaline Phosphatase CK-MB (CK-2) Rel Index Troponin T C-Reactive Protein Albumin Triglycerides HDL Cholesterol Urine WBC (Auto) Allied health notes reviewed: nursing
--- NOTE | 2017-10-21 15:16 | Progress Note ---
Assessment and Plan Continued physical therapy and supportive care along with local wound care. Despite all the surgical incision is well-healed and his main determinant for return to work is going to be return of function of his legs. Both feet remained quite warm which is an improvement from preoperatively since he was revascularized Subjective Date of service: 10/21/17 Principal diagnosis: Sepsis Syndrome with hypotension; RUPERT; IVVD; Diabetes II Interval history: Feels better today with more clarity of thought and generally stronger. Walked to the door today without much leg pain. Still has weakness in the feet consistent with foot drop Objective - Exam Narrative Exam: The abdominal wall drainage is scanty and appears to be superficial. The small left groin skin separation is also quite superficial with no evidence of deeper infection that would involve graft. - Constitutional Vitals: Vital Signs - 12hr 10/21/17 10/21/17 10/21/17 06:05 07:55 10:00 Temperature 98.5 F Pulse Rate 78 Respiratory 18 18 Rate Blood Pressure 147/85 O2 Sat by Pulse 93 95 Oximetry 10/21/17 12:06 Temperature Pulse Rate Respiratory 18 Rate Blood Pressure O2 Sat by Pulse Oximetry - Labs CBC & Chem 7: 10/20/17 03:25 10/21/17 04:52 Labs: Abnormal lab results 10/20/17 10/20/17 10/21/17 Range/Units 16:13 17:52 04:52 PT (12.2-14.9) Sec. INR (0.87-1.13) Heparin Anti-Xa Level 0.25 L (0.3-0.7) U.I./ml Potassium 3.3 L (3.6-5.0) mmol/L BUN 5 L (9-20) mg/dL Creatinine 0.7 L (0.8-1.5) mg/dL Glucose 102 H (75-100) mg/dL POC Glucose 149 H (70-105) Calcium 8.2 L (8.4-10.2) mg/dL 10/21/17 10/21/17 Range/Units 04:52 11:45 PT 26.1 H (12.2-14.9) Sec. INR 2.24 H (0.87-1.13) Heparin Anti-Xa Level (0.3-0.7) U.I./ml Potassium (3.6-5.0) mmol/L BUN (9-20) mg/dL Creatinine (0.8-1.5) mg/dL Glucose (75-100) mg/dL POC Glucose 106 H (70-105) Calcium (8.4-10.2) mg/dL
[2017-10-21] MEDS: COUMADIN PO SCH (18:50)
[2017-10-22 07:17] LABS: Hematocrit 30.7 % (35.5-45.6)
[2017-10-22 07:34] LABS: BUN/Creatinine Ratio 10; Blood Urea Nitrogen 7 mg/dL (9-20); Calcium 8.7 mg/dL (8.4-10.2); Hemolysis Index 22
[2017-10-22] MEDS: NOVOLOG SUB-Q SCH ×4 (08:00→21:58)
[2017-10-22 08:45] LABS: INR 2.42 (0.87-1.13)
[2017-10-22] MEDS: ASPIRIN PO SCH (10:11)
[2017-10-22] MEDS: PROTONIX PO SCH (10:12)
[2017-10-22] MEDS: NEURONTIN PO SCH (10:12)
[2017-10-22] MEDS: LACTINEX PO SCH ×2 (10:12→21:51)
[2017-10-22] MEDS: SENOKOT PO SCH ×2 (10:12→21:51)
[2017-10-22] MEDS: CEFTIN PO SCH ×2 (10:12→21:51)
[2017-10-22] MEDS: LEVAQUIN PO SCH (10:12)
[2017-10-22] MEDS: COLACE PO SCH ×2 (10:12→21:51)
[2017-10-22] MEDS: THERAGRAN-M Tab PO SCH (10:12)
--- NOTE | 2017-10-22 11:29 | Progress Note ---
Assessment and Plan Assessment and plan: Hypovolemic shock. Resolved. Etiology appears to be secondary to volume depletion. ID following. Follow-up culture results. Blood cultures negative. V/Q scan negative for PE. Possible sepsis. Blood cultures negative. Acute kidney injury secondary to prerenal azotemia due to hypotension vs ATN. Creatinine back to baseline. PVD status post open aortobifemoral bypass 09/02/17, complicated with wound dehiscence / evisceration s/p closure of fascial dehiscence 09/07/17 with mesh. Superficial wound infection. Culture growing MSSA and Pseudomonas. Bilateral peroneal DVTs. Heparin drip discontinued On Coumadin. INR 2.42, therapeutic Diabetes mellitus type 2. Continue Accu-Cheks and sliding scale insulin. Bilateral foot drop.Neurologist, Dr. Linn to see today. Hyperlipidemia. Anemia. Elevated troponin. Etiology likely secondary to renal insufficiency. Conservative treatment. Cardiology following. Disposition. To dc to Rehab facility after evaluation by neurologist. History Interval history: Feels better, No abdominal pain currently no fever, Bilateral foot drop Hospitalist Physical - Physical exam Narrative exam: GEN APPEARANCE : Not in acute distress, lying in bed, HEENT: Normocephalic, Atraumatic NECK : supple, no JVD LUNGS: Clear to auscultation bilaterally, no rales, no wheeze HEART: S1 and S2 regular, no murmurs, rubs or gallop ABD: Soft, non tender, abdominal binder over abdomen, bowel sounds normal EXT: No edema, no clubbing, no cyanosis, no cyanosis NEURO: Awake,alert, oriented x 3, Bilateral foot drop - Constitutional Vitals: Temp Pulse Resp BP Pulse Ox 99.2 F 83 20 128/61 94 10/22/17 07:32 10/22/17 07:32 10/22/17 07:32 10/22/17 07:32 10/22/17 07:32 Results - Labs CBC & Chem 7: 10/22/17 06:05 10/22/17 06:05 Labs: Laboratory Last Values WBC 7.0 K/mm3 (4.5-11.0) 10/16/17 04:01 RBC 2.93 M/mm3 (3.65-5.03) L 10/16/17 04:01 Hgb 10.0 gm/dl (11.8-15.2) L 10/22/17 06:05 Hct 30.7 % (35.5-45.6) L 10/22/17 06:05 MCV 90 fl (84-94) 10/16/17 04:01 MCH 30 pg (28-32) 10/16/17 04:01 MCHC 34 % (32-34) 10/16/17 04:01 RDW 16.1 % (13.2-15.2) H 10/16/17 04:01 Plt Count 500 K/mm3 (140-440) H 10/22/17 06:05 Lymph % (Auto) 21.8 % (13.4-35.0) 10/16/17 04:01 Love % (Auto) 10.4 % (0.0-7.3) H 10/16/17 04:01 Eos % (Auto) 3.7 % (0.0-4.3) 10/16/17 04:01 Baso % (Auto) 0.4 % (0.0-1.8) 10/16/17 04:01 Lymph # 1.5 K/mm3 (1.2-5.4) 10/16/17 04:01 Love # 0.7 K/mm3 (0.0-0.8) 10/16/17 04:01 Eos # 0.3 K/mm3 (0.0-0.4) 10/16/17 04:01 Baso # 0.0 K/mm3 (0.0-0.1) 10/16/17 04:01 Seg Neutrophils % 63.7 % (40.0-70.0) 10/16/17 04:01 Seg Neutrophils # 4.4 K/mm3 (1.8-7.7) 10/16/17 04:01 PT 27.8 Sec. (12.2-14.9) H 10/22/17 07:57 INR 2.42 (0.87-1.13) H 10/22/17 07:57 APTT 35.9 Sec. (24.2-36.6) 10/16/17 16:29 D-Dimer 3277.01 ng/mlDDU (0-234) H 10/14/17 19:47 Heparin Anti-Xa Level < 0.10 U.I./ml (0.3-0.7) L 10/22/17 00:07 Sodium 142 mmol/L (137-145) 10/22/17 06:05 Potassium 3.6 mmol/L (3.6-5.0) 10/22/17 06:05 Chloride 101.1 mmol/L (98-107) 10/22/17 06:05 Carbon Dioxide 27 mmol/L (22-30) 10/22/17 06:05 Anion Gap 18 mmol/L 10/22/17 06:05 BUN 7 mg/dL (9-20) L 10/22/17 06:05 Creatinine 0.7 mg/dL (0.8-1.5) L 10/22/17 06:05 Estimated GFR > 60 ml/min 10/22/17 06:05 BUN/Creatinine Ratio 10 % 10/22/17 06:05 Glucose 108 mg/dL (75-100) H 10/22/17 06:05 POC Glucose 95 (70-105) 10/22/17 11:15 Lactic Acid 0.70 mmol/L (0.7-2.0) 10/15/17 03:12 Calcium 8.7 mg/dL (8.4-10.2) 10/22/17 06:05 Phosphorus 2.50 mg/dL (2.5-4.5) 10/16/17 04:01 Magnesium 1.70 mg/dL (1.7-2.3) 10/16/17 04:01 Total Bilirubin 0.30 mg/dL (0.1-1.2) 10/16/17 04:01 AST 13 units/L (5-40) 10/16/17 04:01 ALT 8 units/L (7-56) 10/16/17 04:01 Alkaline Phosphatase 124 units/L (35-129) 10/16/17 04:01 Total Creatine Kinase 68 units/L (55-170) 10/16/17 04:01 CK-MB (CK-2) 3.0 ng/mL (0.0-4.0) 10/16/17 04:01 CK-MB (CK-2) Rel Index 4.4 (0-4) H 10/16/17 04:01 Troponin T 0.083 ng/mL (0.00-0.029) H D 10/16/17 04:01 C-Reactive Protein 11.10 mg/dL (0.00-1.30) H 10/15/17 16:57 Total Protein 7.6 g/dL (6.3-8.2) 10/16/17 04:01 Albumin 2.7 g/dL (3.9-5) L 10/16/17 04:01 Albumin/Globulin Ratio 0.6 % 10/16/17 04:01 Triglycerides 186 mg/dL (2-149) H 10/14/17 19:47 Cholesterol 121 mg/dL (50-199) 10/14/17 19:47 LDL Cholesterol Direct 58 mg/dL (50-130) 10/14/17 19:47 HDL Cholesterol 26 mg/dL (40-59) L 10/14/17 19:47 Cholesterol/HDL Ratio 4.65 % 10/14/17 19:47 Urine Color Yellow (Yellow) 10/14/17 20:30 Urine Turbidity Slightly-cloudy (Clear) 10/14/17 20:30 Urine pH 5.0 (5.0-7.0) 10/14/17 20:30 Ur Specific [place] 1.014 (1.003-1.030) 10/14/17 20:30 Urine Protein <15 mg/dl mg/dL (Negative) 10/14/17 20:30 Urine Glucose (UA) Neg mg/dL (Negative) 10/14/17 20:30 Urine Ketones Neg mg/dL (Negative) 10/14/17 20:30 Urine Blood Sm (Negative) 10/14/17 20:30 Urine Nitrite Neg (Negative) 10/14/17 20:30 Urine Bilirubin Neg (Negative) 10/14/17 20:30 Urine Urobilinogen < 2.0 mg/dL (<2.0) 10/14/17 20:30 Ur Leukocyte Esterase Tr (Negative) 10/14/17 20:30 Urine WBC (Auto) 7.0 /HPF (0.0-6.0) H 10/14/17 20:30 Urine RBC (Auto) 5.0 /HPF (0.0-6.0) 10/14/17 20:30 U Epithel Cells (Auto) < 1.0 /HPF (0-13.0) 10/14/17 20:30 Urine Bacteria (Auto) 2+ /HPF (Negative) 10/14/17 20:30 Amorphous Crystals Few 10/14/17 20:30 Urine Mucus Few /HPF 10/14/17 20:30 Vancomycin Trough 13.4 ug/mL (5.0-20.0) 10/17/17 15:12 Blood Type A POSITIVE 10/15/17 03:13 Antibody Screen Negative 10/15/17 03:13
--- NOTE | 2017-10-22 13:15 | Consultation ---
History of Present Illness Consult date: 10/22/17 History of present illness: plan MRI of the spine to assess for spinal stenosis to degree the foot drop pre- exited the surgery... now has svere bilateral motor loss peroneal absent reflexes see no fascinations that would point to ALS.... PLAN MRI Past History Past Medical History: arthritis, diabetes, hypertension, renal failure Past Surgical History: Other (Aortobifemoral bypass 09/02/17, Closure of fascial dehiscence 09/07/17) Social history: no significant social history Family history: no significant family history Medications and Allergies Allergies Allergy/AdvReac Type Severity Reaction Status Date / Time No Known Allergies Allergy Unverified 10/14/17 19:17 Home Medications Medication Instructions Recorded Confirmed Last Taken Type ALPRAZolam [Xanax TAB] 0.25 mg PO PRN PRN 08/31/17 10/15/17 08/30/17 History Aspirin [Aspirin TAB] 325 mg PO DAILY 08/31/17 10/15/17 10/14/17 History AtorvaSTATin [Lipitor] 40 mg PO DAILY 08/31/17 10/15/17 10/14/17 History Cilostazol [Pletal] 50 mg PO BID 08/31/17 10/15/17 10/14/17 History Gabapentin [Neurontin] 100 mg PO DAILY 08/31/17 10/15/17 10/14/17 History Gabapentin [Neurontin] 300 mg PO DAILY 08/31/17 10/15/17 10/14/17 History Metformin HCl [Glucophage] 500 mg PO BID 08/31/17 10/15/17 10/14/17 History Multivit-Min/Folic/Vit K/Lycop 1 each PO DAILY 08/31/17 10/15/17 10/14/17 History [Eql One Daily Mens 50 Plus Adv] HYDROcodone/APAP 10-325 [Goff 1 each PO Q6HR PRN #60 tablet 09/25/17 10/15/17 10/14/17 Rx 10/325] Active Meds: Active Medications Acetaminophen (Tylenol) 650 mg PO Q4H PRN PRN Reason: Pain MILD(1-3)/Fever >100.5/ROBLES Last Admin: 10/18/17 22:40 Dose: 650 mg Albuterol (Proventil) 2.5 mg IH Q4H PRN PRN Reason: Shortness Of Breath Alprazolam (Xanax) 0.25 mg PO DAILY PRN PRN Reason: Anxiety Aspirin (Aspirin) 325 mg PO QDAY [facility] Last Admin: 10/22/17 10:11 Dose: 325 mg Atorvastatin Calcium (Lipitor) 40 mg PO QHS [facility] Last Admin: 10/21/17 22:01 Dose: 40 mg Bisacodyl (Dulcolax) 10 mg NC QDAY PRN PRN Reason: Constipation unrelieved by MOM Cefuroxime Axetil (Ceftin) 500 mg PO Q12HR [facility] Last Admin: 10/22/17 10:12 Dose: 500 mg Dextrose (D50w (25gm) Syringe) 50 ml IV PRN PRN PRN Reason: Hypoglycemia Docusate Sodium (Colace) 100 mg PO BID [facility] Last Admin: 10/22/17 10:12 Dose: 100 mg Gabapentin (Neurontin) 300 mg PO DAILY [facility] Last Admin: 10/22/17 10:12 Dose: 300 mg Sodium Chloride (Nacl 0.9% 1000 Ml) 1,000 mls @ 125 mls/hr IV DIRECT [facility] Last Admin: 10/19/17 17:58 Dose: 125 mls/hr Insulin Aspart (Novolog) 0 units SUB-Q ACHS [facility] PRN Reason: Protocol Last Admin: 10/22/17 12:55 Dose: Not Given Lactobacillus Acidophilus (Lactinex) 1 each PO BID [facility] Last Admin: 10/22/17 10:12 Dose: 1 each Levofloxacin (Levaquin) 750 mg PO Q24HR [facility] Last Admin: 10/22/17 10:12 Dose: 750 mg Magnesium Hydroxide (Milk Of Magnesia) 30 ml PO Q4H PRN PRN Reason: Constipation Multivitamins/Minerals (Theragran-M Tab) 1 each PO QDAY [facility] Last Admin: 10/22/17 10:12 Dose: 1 each Ondansetron HCl (Zofran) 4 mg IV Q8H PRN PRN Reason: N/V unrelieved by Reglan Oxycodone/Acetaminophen (Percocet 5/325) 1 tab PO Q6H PRN PRN Reason: Pain, Moderate (4-6) Last Admin: 10/21/17 22:00 Dose: 1 tab Pantoprazole Sodium (Protonix) 40 mg PO QDAY [facility] Last Admin: 10/22/17 10:12 Dose: 40 mg Senna (Senokot) 8.6 mg PO Q12HR [facility] Last Admin: 10/22/17 10:12 Dose: 8.6 mg Warfarin Sodium (Coumadin Pharmacy To Dose) 1 each PO PKCONSULT [facility] PRN Reason: Protocol Warfarin Sodium (Coumadin) 7.5 mg PO DAILY@1700 [facility] Last Admin: 10/21/17 18:50 Dose: 7.5 mg Zolpidem Tartrate (Ambien) 5 mg PO QHS PRN PRN Reason: Insomnia Physical Examination - Vital Signs Vital Signs: Vital Signs BP 71/40 10/14/17 18:53 Results - Laboratory Findings CBC and BMP: 10/22/17 06:05 10/22/17 06:05 Abnormal Lab Findings: Abnormal Labs 10/14/17 10/14/17 10/14/17 19:47 19:47 19:47 RBC 2.63 L Hgb 8.1 L Hct 23.8 L RDW 15.8 H Plt Count [place] % (Auto) 9.4 H PT INR D-Dimer Heparin Anti-Xa Level Sodium 127 L Potassium Chloride 88.6 L Carbon Dioxide 21 L BUN 43 H Creatinine 4.2 H Glucose 106 H POC Glucose Calcium 7.2 L Alkaline Phosphatase 135 H CK-MB (CK-2) Rel Index Troponin T 0.108 H* C-Reactive Protein Albumin 2.6 L Triglycerides 186 H HDL Cholesterol 26 L Urine WBC (Auto) 10/14/17 10/14/17 10/14/17 19:47 20:19 20:30 RBC Hgb Hct RDW Plt Count [place] % (Auto) PT INR D-Dimer 3277.01 H Heparin Anti-Xa Level Sodium Potassium Chloride Carbon Dioxide BUN Creatinine Glucose POC Glucose 116 H Calcium Alkaline Phosphatase CK-MB (CK-2) Rel Index Troponin T C-Reactive Protein Albumin Triglycerides HDL Cholesterol Urine WBC (Auto) 7.0 H 10/15/17 10/15/17 10/15/17 03:12 03:12 08:42 RBC 2.90 L Hgb 8.6 L Hct 25.8 L RDW 16.0 H Plt Count 483 H [place] % (Auto) 9.3 H PT INR D-Dimer Heparin Anti-Xa Level Sodium 133 L Potassium Chloride 94.5 L Carbon Dioxide 21 L BUN 41 H Creatinine 3.3 H Glucose 112 H POC Glucose 152 H Calcium 7.9 L Alkaline Phosphatase 140 H CK-MB (CK-2) Rel Index Troponin T C-Reactive Protein Albumin 2.7 L Triglycerides HDL Cholesterol Urine WBC (Auto) 10/15/17 10/15/17 10/15/17 13:16 16:57 16:57 RBC Hgb Hct RDW Plt Count [place] % (Auto) PT INR D-Dimer Heparin Anti-Xa Level Sodium Potassium Chloride Carbon Dioxide BUN Creatinine Glucose POC Glucose 182 H Calcium Alkaline Phosphatase CK-MB (CK-2) Rel Index Troponin T 0.067 H D C-Reactive Protein 11.10 H Albumin Triglycerides HDL Cholesterol Urine WBC (Auto) 10/15/17 10/15/17 10/16/17 17:41 23:00 04:01 RBC 2.93 L Hgb 8.9 L Hct 26.2 L RDW 16.1 H Plt Count 524 H [place] % (Auto) 10.4 H PT INR D-Dimer Heparin Anti-Xa Level Sodium Potassium Chloride Carbon Dioxide BUN Creatinine Glucose POC Glucose 159 H 136 H Calcium Alkaline Phosphatase CK-MB (CK-2) Rel Index Troponin T C-Reactive Protein Albumin Triglycerides HDL Cholesterol Urine WBC (Auto) 10/16/17 10/16/17 10/16/17 04:01 09:16 12:40 RBC Hgb Hct RDW Plt Count [place] % (Auto) PT INR D-Dimer Heparin Anti-Xa Level Sodium Potassium 3.5 L Chloride Carbon Dioxide BUN Creatinine Glucose 159 H POC Glucose 165 H 142 H Calcium 8.2 L Alkaline Phosphatase CK-MB (CK-2) Rel Index 4.4 H Troponin T 0.083 H D C-Reactive Protein Albumin 2.7 L Triglycerides HDL Cholesterol Urine WBC (Auto) 10/16/17 10/16/17 10/16/17 16:05 16:29 22:31 RBC Hgb 8.9 L Hct 26.2 L RDW Plt Count 493 H [place] % (Auto) PT INR D-Dimer Heparin Anti-Xa Level Sodium Potassium Chloride Carbon Dioxide BUN Creatinine Glucose POC Glucose 164 H 188 H Calcium Alkaline Phosphatase CK-MB (CK-2) Rel Index Troponin T C-Reactive Protein Albumin Triglycerides HDL Cholesterol Urine WBC (Auto) 10/16/17 10/17/17 10/17/17 22:37 07:26 15:12 RBC Hgb Hct RDW Plt Count [place] % (Auto) PT INR D-Dimer Heparin Anti-Xa Level < 0.10 L 0.14 L < 0.10 L Sodium Potassium Chloride Carbon Dioxide BUN Creatinine Glucose POC Glucose Calcium Alkaline Phosphatase CK-MB (CK-2) Rel Index Troponin T C-Reactive Protein Albumin Triglycerides HDL Cholesterol Urine WBC (Auto) 10/17/17 10/17/17 10/18/17 22:56 22:58 05:44 RBC Hgb 9.2 L Hct 27.8 L RDW Plt Count 492 H [place] % (Auto) PT INR D-Dimer Heparin Anti-Xa Level 0.15 L Sodium Potassium Chloride Carbon Dioxide BUN Creatinine Glucose POC Glucose 107 H Calcium Alkaline Phosphatase CK-MB (CK-2) Rel Index Troponin T C-Reactive Protein Albumin Triglycerides HDL Cholesterol Urine WBC (Auto) 10/18/17 10/18/17 10/18/17 05:44 05:44 11:52 RBC Hgb Hct RDW Plt Count [place] % (Auto) PT 15.0 H INR D-Dimer Heparin Anti-Xa Level < 0.10 L Sodium Potassium Chloride Carbon Dioxide BUN 8 L Creatinine 0.7 L Glucose 111 H POC Glucose 124 H Calcium 8.3 L Alkaline Phosphatase CK-MB (CK-2) Rel Index Troponin T C-Reactive Protein Albumin Triglycerides HDL Cholesterol Urine WBC (Auto) 10/18/17 10/18/17 10/18/17 15:53 16:35 22:06 RBC Hgb Hct RDW Plt Count [place] % (Auto) PT INR D-Dimer Heparin Anti-Xa Level 0.15 L Sodium Potassium Chloride Carbon Dioxide BUN Creatinine Glucose POC Glucose 134 H 114 H Calcium Alkaline Phosphatase CK-MB (CK-2) Rel Index Troponin T C-Reactive Protein Albumin Triglycerides HDL Cholesterol Urine WBC (Auto) 10/19/17 10/19/17 10/19/17 01:09 05:33 07:14 RBC Hgb Hct RDW Plt Count [place] % (Auto) PT INR D-Dimer Heparin Anti-Xa Level 0.29 L Sodium Potassium Chloride Carbon Dioxide BUN 7 L Creatinine 0.7 L Glucose 111 H POC Glucose 109 H Calcium 8.1 L Alkaline Phosphatase CK-MB (CK-2) Rel Index Troponin T C-Reactive Protein Albumin Triglycerides HDL Cholesterol Urine WBC (Auto) 10/19/17 10/19/17 10/19/17 07:14 10:49 11:35 RBC Hgb Hct RDW Plt Count [place] % (Auto) PT 15.2 H INR 1.14 H D-Dimer Heparin Anti-Xa Level 0.28 L Sodium Potassium Chloride Carbon Dioxide BUN Creatinine Glucose POC Glucose 121 H Calcium Alkaline Phosphatase CK-MB (CK-2) Rel Index Troponin T C-Reactive Protein Albumin Triglycerides HDL Cholesterol Urine WBC (Auto) 10/19/17 10/19/17 10/19/17 16:18 17:41 20:11 RBC Hgb Hct RDW Plt Count [place] % (Auto) PT INR D-Dimer Heparin Anti-Xa Level 1.43 H 0.26 L Sodium Potassium Chloride Carbon Dioxide BUN Creatinine Glucose POC Glucose 107 H Calcium Alkaline Phosphatase CK-MB (CK-2) Rel Index Troponin T C-Reactive Protein Albumin Triglycerides HDL Cholesterol Urine WBC (Auto) 10/20/17 10/20/17 10/20/17 03:25 03:25 03:25 RBC Hgb 9.5 L Hct 28.3 L RDW Plt Count 504 H [place] % (Auto) PT 20.2 H INR 1.62 H D-Dimer Heparin Anti-Xa Level 0.24 L Sodium Potassium Chloride Carbon Dioxide BUN 6 L Creatinine 0.7 L Glucose 101 H POC Glucose Calcium 8.1 L Alkaline Phosphatase CK-MB (CK-2) Rel Index Troponin T C-Reactive Protein Albumin Triglycerides HDL Cholesterol Urine WBC (Auto) 10/20/17 10/20/17 10/20/17 08:41 13:21 16:13 RBC Hgb Hct RDW Plt Count [place] % (Auto) PT INR D-Dimer Heparin Anti-Xa Level 0.25 L Sodium Potassium Chloride Carbon Dioxide BUN Creatinine Glucose POC Glucose 111 H 113 H Calcium Alkaline Phosphatase CK-MB (CK-2) Rel Index Troponin T C-Reactive Protein Albumin Triglycerides HDL Cholesterol Urine WBC (Auto) 10/20/17 10/21/17 10/21/17 17:52 04:52 04:52 RBC Hgb Hct RDW Plt Count [place] % (Auto) PT 26.1 H INR 2.24 H D-Dimer Heparin Anti-Xa Level Sodium Potassium 3.3 L Chloride Carbon Dioxide BUN 5 L Creatinine 0.7 L Glucose 102 H POC Glucose 149 H Calcium 8.2 L Alkaline Phosphatase CK-MB (CK-2) Rel Index Troponin T C-Reactive Protein Albumin Triglycerides HDL Cholesterol Urine WBC (Auto) 10/21/17 10/21/1710/22/18 11:45 21:11 00:07 RBC Hgb Hct RDW Plt Count [place] % (Auto) PT INR D-Dimer Heparin Anti-Xa Level < 0.10 L Sodium Potassium Chloride Carbon Dioxide BUN Creatinine Glucose POC Glucose 106 H 129 H Calcium Alkaline Phosphatase CK-MB (CK-2) Rel Index Troponin T C-Reactive Protein Albumin Triglycerides HDL Cholesterol Urine WBC (Auto) 10/22/17 10/22/17 10/22/17 06:05 06:05 07:57 RBC Hgb 10.0 L Hct 30.7 L RDW Plt Count 500 H [place] % (Auto) PT 27.8 H INR 2.42 H D-Dimer Heparin Anti-Xa Level Sodium Potassium Chloride Carbon Dioxide BUN 7 L Creatinine 0.7 L Glucose 108 H POC Glucose Calcium Alkaline Phosphatase CK-MB (CK-2) Rel Index Troponin T C-Reactive Protein Albumin Triglycerides HDL Cholesterol Urine WBC (Auto)
--- NOTE | 2017-10-22 13:43 | Progress Note ---
Assessment and Plan 57-year-old male with 1. Abdominal wound, related to prior abdominal surgery 2. Hypotension, likely related to hypovolemia - resolved 3. Acute kidney injury 4. Elevated d-dimer 5. Elevated troponin 6. B/L LE DVT 7. protein calorie malnutrition, hypoalbunimemia 8. Foot drop Plan: 1. Continue daily wound care, abdominal binder 2. Continue current diet with nutritional supplements 3 times a day 3. Anticoagulation per vascular surgery 4. PT/exercises 5. wound cultures - pseudomonas, staph aureus. Transition to oral antibiotics per ID. 6. MRI pending per neuro for b/l foot drop 7. ok for dc from surgery standpoint when medically cleared Subjective Date of service: 10/22/17 Narrative: Pt seen and examined. No acute complaints. States he is itchy from abdominal binder. Tolerating diet. No f/c, cp, sob, n/v, abd pain. Objective Vital Signs - 12hr 10/22/17 10/22/17 07:32 11:39 Temperature 99.2 F 98.5 F Pulse Rate 83 100 H Respiratory 20 20 Rate Blood Pressure 128/61 124/80 O2 Sat by Pulse 94 95 Oximetry - General physical appearance Narrative Exam: General: Awake, alert, oriented 3. No apparent distress Abd: soft, ND, NT. All dressings removed. small opening in midline incision near the umbilicus with slough at wound base. Minimal serous drainage from wound, improving. The left groin wound and wound at prior DORETHA site L abdomen are healing well, no drainage. Eschar over old DORETHA site removed and wound base is pink. Wound at prior retention suture sites are healing well, pink wound base. One piece of mesalt tape applied to umbilical wound bed and one piece applied to lower right abdominal wound bed. Covered with ABD pad and secured with abdominal binder loosely. - Labs 10/22/17 06:05 10/22/17 06:05 Diabetes panel 10/22/17 Range/Units 06:05 Sodium 142 (137-145) mmol/L Potassium 3.6 (3.6-5.0) mmol/L Chloride 101.1 (98-107) mmol/L Carbon Dioxide 27 (22-30) mmol/L BUN 7 L (9-20) mg/dL Creatinine 0.7 L (0.8-1.5) mg/dL Glucose 108 H (75-100) mg/dL Calcium 8.7 (8.4-10.2) mg/dL Calcium panel 10/22/17 Range/Units 06:05 Calcium 8.7 (8.4-10.2) mg/dL Pituitary panel 10/22/17 Range/Units 06:05 Sodium 142 (137-145) mmol/L Potassium 3.6 (3.6-5.0) mmol/L Chloride 101.1 (98-107) mmol/L Carbon Dioxide 27 (22-30) mmol/L BUN 7 L (9-20) mg/dL Creatinine 0.7 L (0.8-1.5) mg/dL Glucose 108 H (75-100) mg/dL Calcium 8.7 (8.4-10.2) mg/dL Adrenal panel 10/22/17 Range/Units 06:05 Sodium 142 (137-145) mmol/L Potassium 3.6 (3.6-5.0) mmol/L Chloride 101.1 (98-107) mmol/L Carbon Dioxide 27 (22-30) mmol/L BUN 7 L (9-20) mg/dL Creatinine 0.7 L (0.8-1.5) mg/dL Glucose 108 H (75-100) mg/dL Calcium 8.7 (8.4-10.2) mg/dL
--- NOTE | 2017-10-22 15:44 | Progress Note ---
Assessment and Plan Sepsis IVVD RUPERT VTE (DVT) PVD (Status post aortobifemoral bypass surgery on 09/02/17) Diabetes type II controlled with insulin Hyperlipidemia Anemia Abdominal Wound Infection - continue with antibiotics -for follow up CT scan abdomen, for - supplemental oxygen to keep sats > 90% - mobility protocol for pressure ulcer prophylaxis - azotemia per nephrology otherwise - continue anti-infectives and de-escalate per ID recs - continue GI & prophylaxis - continue IV heparin for DVT - transition to coumadin if Ok with surgery - flu & pneumovax per protocol -wound care nurse to evaluate intergluteal fold lesions ....re-evaluate in am & prn Subjective Date of service: 10/22/17 Principal diagnosis: Sepsis Syndrome with hypotension; RUPERT; IVVD; Diabetes II Objective - Exam Narrative Exam: General: Awake, alert, oriented 3. No apparent distress Abd: soft, ND, NT. All dressings removed. opening in midline incision near the umbilicus is healing well, slough at wound base, no drainage Intergluteal folds--erosions but no rash Vital Signs - 12hr 10/22/17 10/22/17 07:32 11:39 Temperature 99.2 F 98.5 F Pulse Rate 83 100 H Respiratory 20 20 Rate Blood Pressure 128/61 124/80 O2 Sat by Pulse 94 95 Oximetry Constitutional: no acute distress, alert Eyes: non-icteric ENT: oropharynx moist Neck: supple, no lymphadenopathy, no JVD, other (No thyromegaly) Effort: normal Ascultation: Bilateral: rhonchi (bases) Percussion: Bilateral: not dull Cardiovascular: regular rate and rhythm, other (No rubs/murmurs) Gastrointestinal: normoactive bowel sounds, soft, non-tender, non-distended, other (No HSM) Integumentary: normal Extremities: no cyanosis, no edema, pink and warm, no ischemia or petechiae, other (weak pedal pulses) Neurologic: normal mental status, non-focal exam, pupils equal and round, motor strength normal and Psychiatric: mood appropriate, affect normal CBC and BMP: 10/22/17 06:05 10/23/17 04:45 ABG, PT/INR, D-dimer: PT/INR, D-dimer PT 27.8 Sec. (12.2-14.9) H 10/22/17 07:57 INR 2.42 (0.87-1.13) H 10/22/17 07:57 D-Dimer 3277.01 ng/mlDDU (0-234) H 10/14/17 19:47 Abnormal lab findings: Abnormal Labs 10/14/17 10/14/17 10/14/17 19:47 19:47 19:47 RBC 2.63 L Hgb 8.1 L Hct 23.8 L RDW 15.8 H Plt Count [place] % (Auto) 9.4 H PT INR D-Dimer Heparin Anti-Xa Level Sodium 127 L Potassium Chloride 88.6 L Carbon Dioxide 21 L BUN 43 H Creatinine 4.2 H Glucose 106 H POC Glucose Calcium 7.2 L Alkaline Phosphatase 135 H CK-MB (CK-2) Rel Index Troponin T 0.108 H* C-Reactive Protein Albumin 2.6 L Triglycerides 186 H HDL Cholesterol 26 L Urine WBC (Auto) 10/14/17 10/14/17 10/14/17 19:47 20:19 20:30 RBC Hgb Hct RDW Plt Count [place] % (Auto) PT INR D-Dimer 3277.01 H Heparin Anti-Xa Level Sodium Potassium Chloride Carbon Dioxide BUN Creatinine Glucose POC Glucose 116 H Calcium Alkaline Phosphatase CK-MB (CK-2) Rel Index Troponin T C-Reactive Protein Albumin Triglycerides HDL Cholesterol Urine WBC (Auto) 7.0 H 10/15/17 10/15/17 10/15/17 03:12 03:12 08:42 RBC 2.90 L Hgb 8.6 L Hct 25.8 L RDW 16.0 H Plt Count 483 H [place] % (Auto) 9.3 H PT INR D-Dimer Heparin Anti-Xa Level Sodium 133 L Potassium Chloride 94.5 L Carbon Dioxide 21 L BUN 41 H Creatinine 3.3 H Glucose 112 H POC Glucose 152 H Calcium 7.9 L Alkaline Phosphatase 140 H CK-MB (CK-2) Rel Index Troponin T C-Reactive Protein Albumin 2.7 L Triglycerides HDL Cholesterol Urine WBC (Auto) 10/15/17 10/15/17 10/15/17 13:16 16:57 16:57 RBC Hgb Hct RDW Plt Count [place] % (Auto) PT INR D-Dimer Heparin Anti-Xa Level Sodium Potassium Chloride Carbon Dioxide BUN Creatinine Glucose POC Glucose 182 H Calcium Alkaline Phosphatase CK-MB (CK-2) Rel Index Troponin T 0.067 H D C-Reactive Protein 11.10 H Albumin Triglycerides HDL Cholesterol Urine WBC (Auto) 10/15/17 10/15/17 10/16/17 17:41 23:00 04:01 RBC 2.93 L Hgb 8.9 L Hct 26.2 L RDW 16.1 H Plt Count 524 H [place] % (Auto) 10.4 H PT INR D-Dimer Heparin Anti-Xa Level Sodium Potassium Chloride Carbon Dioxide BUN Creatinine Glucose POC Glucose 159 H 136 H Calcium Alkaline Phosphatase CK-MB (CK-2) Rel Index Troponin T C-Reactive Protein Albumin Triglycerides HDL Cholesterol Urine WBC (Auto) 10/16/17 10/16/17 10/16/17 04:01 09:16 12:40 RBC Hgb Hct RDW Plt Count [place] % (Auto) PT INR D-Dimer Heparin Anti-Xa Level Sodium Potassium 3.5 L Chloride Carbon Dioxide BUN Creatinine Glucose 159 H POC Glucose 165 H 142 H Calcium 8.2 L Alkaline Phosphatase CK-MB (CK-2) Rel Index 4.4 H Troponin T 0.083 H D C-Reactive Protein Albumin 2.7 L Triglycerides HDL Cholesterol Urine WBC (Auto) 10/16/17 10/16/17 10/16/17 16:05 16:29 22:31 RBC Hgb 8.9 L Hct 26.2 L RDW Plt Count 493 H [place] % (Auto) PT INR D-Dimer Heparin Anti-Xa Level Sodium Potassium Chloride Carbon Dioxide BUN Creatinine Glucose POC Glucose 164 H 188 H Calcium Alkaline Phosphatase CK-MB (CK-2) Rel Index Troponin T C-Reactive Protein Albumin Triglycerides HDL Cholesterol Urine WBC (Auto) 10/16/17 10/17/17 10/17/17 22:37 07:26 15:12 RBC Hgb Hct RDW Plt Count [place] % (Auto) PT INR D-Dimer Heparin Anti-Xa Level < 0.10 L 0.14 L < 0.10 L Sodium Potassium Chloride Carbon Dioxide BUN Creatinine Glucose POC Glucose Calcium Alkaline Phosphatase CK-MB (CK-2) Rel Index Troponin T C-Reactive Protein Albumin Triglycerides HDL Cholesterol Urine WBC (Auto) 10/17/17 10/17/17 10/18/17 22:56 22:58 05:44 RBC Hgb 9.2 L Hct 27.8 L RDW Plt Count 492 H [place] % (Auto) PT INR D-Dimer Heparin Anti-Xa Level 0.15 L Sodium Potassium Chloride Carbon Dioxide BUN Creatinine Glucose POC Glucose 107 H Calcium Alkaline Phosphatase CK-MB (CK-2) Rel Index Troponin T C-Reactive Protein Albumin Triglycerides HDL Cholesterol Urine WBC (Auto) 10/18/17 10/18/17 10/18/17 05:44 05:44 11:52 RBC Hgb Hct RDW Plt Count [place] % (Auto) PT 15.0 H INR D-Dimer Heparin Anti-Xa Level < 0.10 L Sodium Potassium Chloride Carbon Dioxide BUN 8 L Creatinine 0.7 L Glucose 111 H POC Glucose 124 H Calcium 8.3 L Alkaline Phosphatase CK-MB (CK-2) Rel Index Troponin T C-Reactive Protein Albumin Triglycerides HDL Cholesterol Urine WBC (Auto) 10/18/17 10/18/17 10/18/17 15:53 16:35 22:06 RBC Hgb Hct RDW Plt Count [place] % (Auto) PT INR D-Dimer Heparin Anti-Xa Level 0.15 L Sodium Potassium Chloride Carbon Dioxide BUN Creatinine Glucose POC Glucose 134 H 114 H Calcium Alkaline Phosphatase CK-MB (CK-2) Rel Index Troponin T C-Reactive Protein Albumin Triglycerides HDL Cholesterol Urine WBC (Auto) 10/19/17 10/19/17 10/19/17 01:09 05:33 07:14 RBC Hgb Hct RDW Plt Count [place] % (Auto) PT INR D-Dimer Heparin Anti-Xa Level 0.29 L Sodium Potassium Chloride Carbon Dioxide BUN 7 L Creatinine 0.7 L Glucose 111 H POC Glucose 109 H Calcium 8.1 L Alkaline Phosphatase CK-MB (CK-2) Rel Index Troponin T C-Reactive Protein Albumin Triglycerides HDL Cholesterol Urine WBC (Auto) 10/19/17 10/19/17 10/19/17 07:14 10:49 11:35 RBC Hgb Hct RDW Plt Count [place] % (Auto) PT 15.2 H INR 1.14 H D-Dimer Heparin Anti-Xa Level 0.28 L Sodium Potassium Chloride Carbon Dioxide BUN Creatinine Glucose POC Glucose 121 H Calcium Alkaline Phosphatase CK-MB (CK-2) Rel Index Troponin T C-Reactive Protein Albumin Triglycerides HDL Cholesterol Urine WBC (Auto) 10/19/17 10/19/17 10/19/17 16:18 17:41 20:11 RBC Hgb Hct RDW Plt Count [place] % (Auto) PT INR D-Dimer Heparin Anti-Xa Level 1.43 H 0.26 L Sodium Potassium Chloride Carbon Dioxide BUN Creatinine Glucose POC Glucose 107 H Calcium Alkaline Phosphatase CK-MB (CK-2) Rel Index Troponin T C-Reactive Protein Albumin Triglycerides HDL Cholesterol Urine WBC (Auto) 10/20/17 10/20/17 10/20/17 03:25 03:25 03:25 RBC Hgb 9.5 L Hct 28.3 L RDW Plt Count 504 H [place] % (Auto) PT 20.2 H INR 1.62 H D-Dimer Heparin Anti-Xa Level 0.24 L Sodium Potassium Chloride Carbon Dioxide BUN 6 L Creatinine 0.7 L Glucose 101 H POC Glucose Calcium 8.1 L Alkaline Phosphatase CK-MB (CK-2) Rel Index Troponin T C-Reactive Protein Albumin Triglycerides HDL Cholesterol Urine WBC (Auto) 10/20/17 10/20/17 10/20/17 08:41 13:21 16:13 RBC Hgb Hct RDW Plt Count [place] % (Auto) PT INR D-Dimer Heparin Anti-Xa Level 0.25 L Sodium Potassium Chloride Carbon Dioxide BUN Creatinine Glucose POC Glucose 111 H 113 H Calcium Alkaline Phosphatase CK-MB (CK-2) Rel Index Troponin T C-Reactive Protein Albumin Triglycerides HDL Cholesterol Urine WBC (Auto) 10/20/17 10/21/17 10/21/17 17:52 04:52 04:52 RBC Hgb Hct RDW Plt Count [place] % (Auto) PT 26.1 H INR 2.24 H D-Dimer Heparin Anti-Xa Level Sodium Potassium 3.3 L Chloride Carbon Dioxide BUN 5 L Creatinine 0.7 L Glucose 102 H POC Glucose 149 H Calcium 8.2 L Alkaline Phosphatase CK-MB (CK-2) Rel Index Troponin T C-Reactive Protein Albumin Triglycerides HDL Cholesterol Urine WBC (Auto) 10/21/17 10/21/17 10/22/17 11:45 21:11 00:07 RBC Hgb Hct RDW Plt Count [place] % (Auto) PT INR D-Dimer Heparin Anti-Xa Level < 0.10 L Sodium Potassium Chloride Carbon Dioxide BUN Creatinine Glucose POC Glucose 106 H 129 H Calcium Alkaline Phosphatase CK-MB (CK-2) Rel Index Troponin T C-Reactive Protein Albumin Triglycerides HDL Cholesterol Urine WBC (Auto) 10/22/17 10/22/17 10/22/17 06:05 06:05 07:57 RBC Hgb 10.0 L Hct 30.7 L RDW Plt Count 500 H [place] % (Auto) PT 27.8 H INR 2.42 H D-Dimer Heparin Anti-Xa Level Sodium Potassium Chloride Carbon Dioxide BUN 7 L Creatinine 0.7 L Glucose 108 H POC Glucose Calcium Alkaline Phosphatase CK-MB (CK-2) Rel Index Troponin T C-Reactive Protein Albumin Triglycerides HDL Cholesterol Urine WBC (Auto) Allied health notes reviewed: nursing
[2017-10-22] MEDS: COUMADIN PO SCH (17:33)
[2017-10-22] MEDS: PERCOCET 5/325 PO PRN (21:51)
[2017-10-23 05:43] LABS: INR 2.6 (0.87-1.13)
[2017-10-23 05:58] LABS: BUN/Creatinine Ratio 13; Blood Urea Nitrogen 9 mg/dL (9-20); Calcium 8.3 mg/dL (8.4-10.2); Hemolysis Index 7
[2017-10-23] MEDS: PERCOCET 5/325 PO PRN (07:02)
[2017-10-23] MEDS: NOVOLOG SUB-Q SCH ×4 (08:00→22:41)
--- NOTE | 2017-10-23 09:22 | Progress Note ---
Subjective Principal diagnosis: Sepsis Syndrome with hypotension; RUPERT; IVVD; Diabetes II Interval history: came to see the patient and he has been down for evaluation Met with renal function has stabilized Hypokalemia: please replace and follow check magnesium level Goal potassium around 4, potassium replacement has already been ordered Renal function normalized, CT scan of the kidneys unremarkable Please monitor electrolytes and replace accordingly will sign off the case please call if needed Objective - Vital Signs Vital signs: Vital Signs - 12hr 10/22/17 10/23/17 21:48 07:54 Temperature 98.5 F 98.4 F Pulse Rate 92 H 75 Respiratory 16 18 Rate Blood Pressure 130/87 138/79 O2 Sat by Pulse 94 94 Oximetry - Lab 10/22/17 06:05 10/23/17 04:45 Most recent lab results Calcium 8.3 mg/dL (8.4-10.2) L 10/23/17 04:45 Phosphorus 2.50 mg/dL (2.5-4.5) 10/16/17 04:01 Magnesium 1.70 mg/dL (1.7-2.3) 10/16/17 04:01
--- NOTE | 2017-10-23 11:43 | Magnetic Resonance Report ---
MRI scan of lumbar spine: History: Spinal stenosis. Technique: Multiplanar multisequence images were obtained without contrast injection. Findings: Conus medullaris terminates at T12-L1. Normal signal intensity. Normal pre-and paravertebral soft tissue. Normal height and signal intensity of vertebral bodies. Decrease in signal intensity and height of L3-L4 interspace with degenerative changes. L1-L2. Normal. L2-L3. Moderate to severe bilateral neural foramina narrowing and moderate central canal spinal stenosis secondary to degenerative diffuse disc bulge and degenerative facet joints with mild ligamentum flavum hypertrophy. L3-L4. Severe bilateral neural foramina narrowing and severe central canal spinal stenosis secondary to degenerative diffuse disc bulge and degenerative facet joint and ligamenta flava hypertrophy. L4-L5. Severe bilateral neural foramina narrowing and severe central canal spinal stenosis secondary to degenerative diffuse disc bulging degenerative facet joint and ligamenta flava hypertrophy. L5-S1. Moderate bilateral neural foramina narrowing and mild central spinal stenosis secondary to diffuse disc bulge. Degenerative facet joints. No distinct focal protrusion, extrusion or sequestration of disc. Impression: Multilevel bilateral neural foramina narrowing and central canal spinal stenosis as detailed above.
[2017-10-23] MEDS: NEURONTIN PO SCH (12:06)
[2017-10-23] MEDS: LACTINEX PO SCH ×2 (12:06→22:41)
[2017-10-23] MEDS: THERAGRAN-M Tab PO SCH (12:06)
[2017-10-23] MEDS: LEVAQUIN PO SCH (12:06)
[2017-10-23] MEDS: COLACE PO SCH ×2 (12:07→22:40)
[2017-10-23] MEDS: SENOKOT PO SCH ×2 (12:07→22:40)
[2017-10-23] MEDS: PROTONIX PO SCH (12:07)
[2017-10-23] MEDS: K-DUR PO SCH ×2 (12:07→14:00)
[2017-10-23] MEDS: ASPIRIN PO SCH (12:08)
[2017-10-23] MEDS: CEFTIN PO SCH ×2 (12:08→22:41)
--- NOTE | 2017-10-23 13:57 | Progress Note ---
Assessment and Plan 57-year-old male with 1. Abdominal wound, related to prior abdominal surgery 2. Hypotension, likely related to hypovolemia - resolved 3. Acute kidney injury 4. Elevated d-dimer 5. Elevated troponin 6. B/L LE DVT 7. protein calorie malnutrition, hypoalbunimemia 8. Foot drop Plan: 1. Continue daily wound care 2. Continue diet with nutritional supplements 3 times a day 3. Anticoagulation per vascular surgery 4. PT/exercises 5. wound cultures - pseudomonas, staph aureus. Transition to oral antibiotics per ID. 6. neuro recs 7. ok for dc from surgery standpoint to rehabilitation when medically cleared Subjective Date of service: 10/23/17 Narrative: Pt seen and examined. He has no acute complaints. He had his MRI of his lumbar spine done today. He's been tolerating a diet and had a bowel movement today. Objective Vital Signs - 12hr 10/23/17 07:54 Temperature 98.4 F Pulse Rate 75 Respiratory 18 Rate Blood Pressure 138/79 O2 Sat by Pulse 94 Oximetry - General physical appearance Narrative Exam: eneral: Awake, alert, oriented 3. No apparent distress Abd: soft, ND, NT. All dressings removed. opening in midline incision near the umbilicus is healing well, slough at wound base, no drainage The left groin wound and wound at prior DORETHA site L abdomen are healing well, no drainage. Eschar over old DORETHA site removed and wound almost completely healed. Wound at prior retention suture sites are healing well, pink wound base. One piece of mesalt tape applied to umbilical wound bed and one piece applied to lower right abdominal wound bed. Covered with ABD pad and secured with abdominal binder loosely. - Labs 10/22/17 06:05 10/23/17 04:45 Diabetes panel 10/23/17 Range/Units 04:45 Sodium 142 (137-145) mmol/L Potassium 3.3 L (3.6-5.0) mmol/L Chloride 100.4 (98-107) mmol/L Carbon Dioxide 26 (22-30) mmol/L BUN 9 (9-20) mg/dL Creatinine 0.7 L (0.8-1.5) mg/dL Glucose 114 H (75-100) mg/dL Calcium 8.3 L (8.4-10.2) mg/dL Calcium panel 10/23/17 Range/Units 04:45 Calcium 8.3 L (8.4-10.2) mg/dL Pituitary panel 10/23/17 Range/Units 04:45 Sodium 142 (137-145) mmol/L Potassium 3.3 L (3.6-5.0) mmol/L Chloride 100.4 (98-107) mmol/L Carbon Dioxide 26 (22-30) mmol/L BUN 9 (9-20) mg/dL Creatinine 0.7 L (0.8-1.5) mg/dL Glucose 114 H (75-100) mg/dL Calcium 8.3 L (8.4-10.2) mg/dL Adrenal panel 10/23/17 Range/Units 04:45 Sodium 142 (137-145) mmol/L Potassium 3.3 L (3.6-5.0) mmol/L Chloride 100.4 (98-107) mmol/L Carbon Dioxide 26 (22-30) mmol/L BUN 9 (9-20) mg/dL Creatinine 0.7 L (0.8-1.5) mg/dL Glucose 114 H (75-100) mg/dL Calcium 8.3 L (8.4-10.2) mg/dL
--- NOTE | 2017-10-23 16:13 | Progress Note ---
Assessment and Plan Assessment and plan: Hypovolemic shock. Resolved. Etiology appears to be secondary to volume depletion. ID following. Follow-up culture results. Blood cultures negative. V/Q scan negative for PE. Possible sepsis. Blood cultures negative. Acute kidney injury secondary to prerenal azotemia due to hypotension vs ATN. Creatinine back to baseline. PVD status post open aortobifemoral bypass 09/02/17, complicated with wound dehiscence / evisceration s/p closure of fascial dehiscence 09/07/17 with mesh. Superficial wound infection. Culture growing MSSA and Pseudomonas. Bilateral peroneal DVTs. Heparin drip discontinued. On Coumadin. INR 2.6, therapeutic Diabetes mellitus type 2. Continue Accu-Cheks and sliding scale insulin. Bilateral foot drop. He was evaluated by Neurologist. For MRI lumbar spine today. Hyperlipidemia. Anemia. Elevated Troponin. Etiology likely secondary to renal insufficiency. Conservative treatment. Cardiology following. Disposition. To dc to Rehab facility after arrangements made. History Interval history: Feels better, No abdominal pain currently no fever, Bilateral foot drop Hospitalist Physical - Physical exam Narrative exam: GEN APPEARANCE : Not in acute distress, lying in bed, HEENT: Normocephalic, Atraumatic NECK : supple, no JVD LUNGS: Clear to auscultation bilaterally, no rales, no wheeze HEART: S1 and S2 regular, no murmurs, rubs or gallop ABD: Soft, non tender, abdominal binder over abdomen, bowel sounds normal EXT: No edema, no clubbing, no cyanosis, no cyanosis NEURO: Awake,alert, oriented x 3, Bilateral foot drop - Constitutional Vitals: Temp Pulse Resp BP Pulse Ox 98.4 F 75 18 138/79 94 10/23/17 07:54 10/23/17 07:54 10/23/17 07:54 10/23/17 07:54 10/23/17 07:54 General appearance: Present: no acute distress Results - Labs CBC & Chem 7: 10/22/17 06:05 10/23/17 04:45 Labs: Laboratory Last Values WBC 7.0 K/mm3 (4.5-11.0) 10/16/17 04:01 RBC 2.93 M/mm3 (3.65-5.03) L 10/16/17 04:01 Hgb 10.0 gm/dl (11.8-15.2) L 10/22/17 06:05 Hct 30.7 % (35.5-45.6) L 10/22/17 06:05 MCV 90 fl (84-94) 10/16/17 04:01 MCH 30 pg (28-32) 10/16/17 04:01 MCHC 34 % (32-34) 10/16/17 04:01 RDW 16.1 % (13.2-15.2) H 10/16/17 04:01 Plt Count 500 K/mm3 (140-440) H 10/22/17 06:05 Lymph % (Auto) 21.8 % (13.4-35.0) 10/16/17 04:01 [place] % (Auto) 10.4 % (0.0-7.3) H 10/16/17 04:01 Eos % (Auto) 3.7 % (0.0-4.3) 10/16/17 04:01 Baso % (Auto) 0.4 % (0.0-1.8) 10/16/17 04:01 Lymph # 1.5 K/mm3 (1.2-5.4) 10/16/17 04:01 [place] # 0.7 K/mm3 (0.0-0.8) 10/16/17 04:01 Eos # 0.3 K/mm3 (0.0-0.4) 10/16/17 04:01 Baso # 0.0 K/mm3 (0.0-0.1) 10/16/17 04:01 Seg Neutrophils % 63.7 % (40.0-70.0) 10/16/17 04:01 Seg Neutrophils # 4.4 K/mm3 (1.8-7.7) 10/16/17 04:01 PT 29.4 Sec. (12.2-14.9) H 10/23/17 04:45 INR 2.60 (0.87-1.13) H 10/23/17 04:45 APTT 35.9 Sec. (24.2-36.6) 10/16/17 16:29 D-Dimer 3277.01 ng/mlDDU (0-234) H 10/14/17 19:47 Heparin Anti-Xa Level < 0.10 U.I./ml (0.3-0.7) L 10/22/17 00:07 Sodium 142 mmol/L (137-145) 10/23/17 04:45 Potassium 3.3 mmol/L (3.6-5.0) L 10/23/17 04:45 Chloride 100.4 mmol/L (98-107) 10/23/17 04:45 Carbon Dioxide 26 mmol/L (22-30) 10/23/17 04:45 Anion Gap 19 mmol/L 10/23/17 04:45 BUN 9 mg/dL (9-20) 10/23/17 04:45 Creatinine 0.7 mg/dL (0.8-1.5) L 10/23/17 04:45 Estimated GFR > 60 ml/min 10/23/17 04:45 BUN/Creatinine Ratio 13 % 10/23/17 04:45 Glucose 114 mg/dL (75-100) H 10/23/17 04:45 POC Glucose 83 (70-105) 10/23/17 12:26 Lactic Acid 0.70 mmol/L (0.7-2.0) 10/15/17 03:12 Calcium 8.3 mg/dL (8.4-10.2) L 10/23/17 04:45 Phosphorus 2.50 mg/dL (2.5-4.5) 10/16/17 04:01 Magnesium 1.70 mg/dL (1.7-2.3) 10/16/17 04:01 Total Bilirubin 0.30 mg/dL (0.1-1.2) 10/16/17 04:01 AST 13 units/L (5-40) 10/16/17 04:01 ALT 8 units/L (7-56) 10/16/17 04:01 Alkaline Phosphatase 124 units/L (35-129) 10/16/17 04:01 Total Creatine Kinase 68 units/L (55-170) 10/16/17 04:01 CK-MB (CK-2) 3.0 ng/mL (0.0-4.0) 10/16/17 04:01 CK-MB (CK-2) Rel Index 4.4 (0-4) H 10/16/17 04:01 Troponin T 0.083 ng/mL (0.00-0.029) H D 10/16/17 04:01 C-Reactive Protein 11.10 mg/dL (0.00-1.30) H 10/15/17 16:57 Total Protein 7.6 g/dL (6.3-8.2) 10/16/17 04:01 Albumin 2.7 g/dL (3.9-5) L 10/16/17 04:01 Albumin/Globulin Ratio 0.6 % 10/16/17 04:01 Triglycerides 186 mg/dL (2-149) H 10/14/17 19:47 Cholesterol 121 mg/dL (50-199) 10/14/17 19:47 LDL Cholesterol Direct 58 mg/dL (50-130) 10/14/17 19:47 HDL Cholesterol 26 mg/dL (40-59) L 10/14/17 19:47 Cholesterol/HDL Ratio 4.65 % 10/14/17 19:47 Urine Color Yellow (Yellow) 10/14/17 20:30 Urine Turbidity Slightly-cloudy (Clear) 10/14/17 20:30 Urine pH 5.0 (5.0-7.0) 10/14/17 20:30 Ur Specific [place] 1.014 (1.003-1.030) 10/14/17 20:30 Urine Protein <15 mg/dl mg/dL (Negative) 10/14/17 20:30 Urine Glucose (UA) Neg mg/dL (Negative) 10/14/17 20:30 Urine Ketones Neg mg/dL (Negative) 10/14/17 20:30 Urine Blood Sm (Negative) 10/14/17 20:30 Urine Nitrite Neg (Negative) 10/14/17 20:30 Urine Bilirubin Neg (Negative) 10/14/17 20:30 Urine Urobilinogen < 2.0 mg/dL (<2.0) 10/14/17 20:30 Ur Leukocyte Esterase Tr (Negative) 10/14/17 20:30 Urine WBC (Auto) 7.0 /HPF (0.0-6.0) H 10/14/17 20:30 Urine RBC (Auto) 5.0 /HPF (0.0-6.0) 10/14/17 20:30 U Epithel Cells (Auto) < 1.0 /HPF (0-13.0) 10/14/17 20:30 Urine Bacteria (Auto) 2+ /HPF (Negative) 10/14/17 20:30 Amorphous Crystals Few 10/14/17 20:30 Urine Mucus Few /HPF 10/14/17 20:30 Vancomycin Trough 13.4 ug/mL (5.0-20.0) 10/17/17 15:12 Blood Type A POSITIVE 10/15/17 03:13 Antibody Screen Negative 10/15/17 03:13
[2017-10-23] MEDS: COUMADIN PO SCH (17:16)
[2017-10-23] MEDS ORDERED: K-DUR PO STA (17:18)
--- NOTE | 2017-10-23 17:45 | Progress Note ---
Assessment and Plan Sepsis IVVD RUPERT VTE (DVT) PVD (Status post aortobifemoral bypass surgery on 09/02/17) Diabetes type II controlled with insulin Hyperlipidemia Anemia Abdominal Wound Infection - supplemental oxygen to keep sats > 90% - mobility protocol for pressure ulcer prophylaxis - azotemia per nephrology otherwise - continue anti-infectives and de-escalate per ID recs -continue to monitor hemodynamics closely - flu & pneumovax per protocol. Subjective Date of service: 10/23/17 Principal diagnosis: Sepsis Syndrome with hypotension; RUPERT; IVVD; Diabetes II Interval history: Seen and examined. Vitals, labs, medications, chart reviewed. Doing well. Denies any fevers or chills, no abdominal pain. No nausea or vomiting. Stable blood pressure. Objective - Exam Narrative Exam: GEN APPEARANCE : Not in acute distress, lying in bed, HEENT: Normocephalic, Atraumatic NECK : supple, no JVD LUNGS: Clear to auscultation bilaterally, no rales, no wheeze HEART: S1 and S2 regular, no murmurs, rubs or gallop ABD: Soft, non tender, abdominal binder over abdomen, bowel sounds normal EXT: No edema, no clubbing, no cyanosis, no cyanosis NEURO: Awake,alert, oriented x 3, Bilateral foot drop Vital Signs - 12hr 10/23/17 07:54 Temperature 98.4 F Pulse Rate 75 Respiratory 18 Rate Blood Pressure 138/79 O2 Sat by Pulse 94 Oximetry Constitutional: no acute distress, alert Eyes: non-icteric ENT: oropharynx moist Neck: supple, no lymphadenopathy, no JVD, other (No thyromegaly) Effort: normal Ascultation: Bilateral: rhonchi (bases) Percussion: Bilateral: not dull Cardiovascular: regular rate and rhythm, other (No rubs/murmurs) Gastrointestinal: normoactive bowel sounds, soft, non-tender, non-distended, other (No HSM) Integumentary: normal Extremities: no cyanosis, no edema, pink and warm, no ischemia or petechiae, other (weak pedal pulses) Neurologic: normal mental status, non-focal exam, pupils equal and round, motor strength normal and Psychiatric: mood appropriate, affect normal CBC and BMP: 10/24/17 15:06 10/24/17 05:24 ABG, PT/INR, D-dimer: PT/INR, D-dimer PT 29.4 Sec. (12.2-14.9) H 10/23/17 04:45 INR 2.60 (0.87-1.13) H 10/23/17 04:45 D-Dimer 3277.01 ng/mlDDU (0-234) H 10/14/17 19:47 Abnormal lab findings: Abnormal Labs 10/14/17 10/14/17 10/14/17 19:47 19:47 19:47 RBC 2.63 L Hgb 8.1 L Hct 23.8 L RDW 15.8 H Plt Count [place] % (Auto) 9.4 H PT INR D-Dimer Heparin Anti-Xa Level Sodium 127 L Potassium Chloride 88.6 L Carbon Dioxide 21 L BUN 43 H Creatinine 4.2 H Glucose 106 H POC Glucose Calcium 7.2 L Alkaline Phosphatase 135 H CK-MB (CK-2) Rel Index Troponin T 0.108 H* C-Reactive Protein Albumin 2.6 L Triglycerides 186 H HDL Cholesterol 26 L Urine WBC (Auto) 10/14/17 10/14/17 10/14/17 19:47 20:19 20:30 RBC Hgb Hct RDW Plt Count [place] % (Auto) PT INR D-Dimer 3277.01 H Heparin Anti-Xa Level Sodium Potassium Chloride Carbon Dioxide BUN Creatinine Glucose POC Glucose 116 H Calcium Alkaline Phosphatase CK-MB (CK-2) Rel Index Troponin T C-Reactive Protein Albumin Triglycerides HDL Cholesterol Urine WBC (Auto) 7.0 H 10/15/17 10/15/17 10/15/17 03:12 03:12 08:42 RBC 2.90 L Hgb 8.6 L Hct 25.8 L RDW 16.0 H Plt Count 483 H [place] % (Auto) 9.3 H PT INR D-Dimer Heparin Anti-Xa Level Sodium 133 L Potassium Chloride 94.5 L Carbon Dioxide 21 L BUN 41 H Creatinine 3.3 H Glucose 112 H POC Glucose 152 H Calcium 7.9 L Alkaline Phosphatase 140 H CK-MB (CK-2) Rel Index Troponin T C-Reactive Protein Albumin 2.7 L Triglycerides HDL Cholesterol Urine WBC (Auto) 10/15/17 10/15/17 10/15/17 13:16 16:57 16:57 RBC Hgb Hct RDW Plt Count [place] % (Auto) PT INR D-Dimer Heparin Anti-Xa Level Sodium Potassium Chloride Carbon Dioxide BUN Creatinine Glucose POC Glucose 182 H Calcium Alkaline Phosphatase CK-MB (CK-2) Rel Index Troponin T 0.067 H D C-Reactive Protein 11.10 H Albumin Triglycerides HDL Cholesterol Urine WBC (Auto) 10/15/17 10/15/17 10/16/17 17:41 23:00 04:01 RBC 2.93 L Hgb 8.9 L Hct 26.2 L RDW 16.1 H Plt Count 524 H [place] % (Auto) 10.4 H PT INR D-Dimer Heparin Anti-Xa Level Sodium Potassium Chloride Carbon Dioxide BUN Creatinine Glucose POC Glucose 159 H 136 H Calcium Alkaline Phosphatase CK-MB (CK-2) Rel Index Troponin T C-Reactive Protein Albumin Triglycerides HDL Cholesterol Urine WBC (Auto) 10/16/17 10/16/17 10/16/17 04:01 09:16 12:40 RBC Hgb Hct RDW Plt Count [place] % (Auto) PT INR D-Dimer Heparin Anti-Xa Level Sodium Potassium 3.5 L Chloride Carbon Dioxide BUN Creatinine Glucose 159 H POC Glucose 165 H 142 H Calcium 8.2 L Alkaline Phosphatase CK-MB (CK-2) Rel Index 4.4 H Troponin T 0.083 H D C-Reactive Protein Albumin 2.7 L Triglycerides HDL Cholesterol Urine WBC (Auto) 10/16/17 10/16/17 10/16/17 16:05 16:29 22:31 RBC Hgb 8.9 L Hct 26.2 L RDW Plt Count 493 H [place] % (Auto) PT INR D-Dimer Heparin Anti-Xa Level Sodium Potassium Chloride Carbon Dioxide BUN Creatinine Glucose POC Glucose 164 H 188 H Calcium Alkaline Phosphatase CK-MB (CK-2) Rel Index Troponin T C-Reactive Protein Albumin Triglycerides HDL Cholesterol Urine WBC (Auto) 10/16/17 10/17/17 10/17/17 22:37 07:26 15:12 RBC Hgb Hct RDW Plt Count [place] % (Auto) PT INR D-Dimer Heparin Anti-Xa Level < 0.10 L 0.14 L < 0.10 L Sodium Potassium Chloride Carbon Dioxide BUN Creatinine Glucose POC Glucose Calcium Alkaline Phosphatase CK-MB (CK-2) Rel Index Troponin T C-Reactive Protein Albumin Triglycerides HDL Cholesterol Urine WBC (Auto) 10/17/17 10/17/17 10/18/17 22:56 22:58 05:44 RBC Hgb 9.2 L Hct 27.8 L RDW Plt Count 492 H [place] % (Auto) PT INR D-Dimer Heparin Anti-Xa Level 0.15 L Sodium Potassium Chloride Carbon Dioxide BUN Creatinine Glucose POC Glucose 107 H Calcium Alkaline Phosphatase CK-MB (CK-2) Rel Index Troponin T C-Reactive Protein Albumin Triglycerides HDL Cholesterol Urine WBC (Auto) 10/18/17 10/18/17 10/18/17 05:44 05:44 11:52 RBC Hgb Hct RDW Plt Count [place] % (Auto) PT 15.0 H INR D-Dimer Heparin Anti-Xa Level < 0.10 L Sodium Potassium Chloride Carbon Dioxide BUN 8 L Creatinine 0.7 L Glucose 111 H POC Glucose 124 H Calcium 8.3 L Alkaline Phosphatase CK-MB (CK-2) Rel Index Troponin T C-Reactive Protein Albumin Triglycerides HDL Cholesterol Urine WBC (Auto) 10/18/17 10/18/17 10/18/17 15:53 16:35 22:06 RBC Hgb Hct RDW Plt Count [place] % (Auto) PT INR D-Dimer Heparin Anti-Xa Level 0.15 L Sodium Potassium Chloride Carbon Dioxide BUN Creatinine Glucose POC Glucose 134 H 114 H Calcium Alkaline Phosphatase CK-MB (CK-2) Rel Index Troponin T C-Reactive Protein Albumin Triglycerides HDL Cholesterol Urine WBC (Auto) 10/19/17 10/19/17 10/19/17 01:09 05:33 07:14 RBC Hgb Hct RDW Plt Count [place] % (Auto) PT INR D-Dimer Heparin Anti-Xa Level 0.29 L Sodium Potassium Chloride Carbon Dioxide BUN 7 L Creatinine 0.7 L Glucose 111 H POC Glucose 109 H Calcium 8.1 L Alkaline Phosphatase CK-MB (CK-2) Rel Index Troponin T C-Reactive Protein Albumin Triglycerides HDL Cholesterol Urine WBC (Auto) 10/19/17 10/19/17 10/19/17 07:14 10:49 11:35 RBC Hgb Hct RDW Plt Count [place] % (Auto) PT 15.2 H INR 1.14 H D-Dimer Heparin Anti-Xa Level 0.28 L Sodium Potassium Chloride Carbon Dioxide BUN Creatinine Glucose POC Glucose 121 H Calcium Alkaline Phosphatase CK-MB (CK-2) Rel Index Troponin T C-Reactive Protein Albumin Triglycerides HDL Cholesterol Urine WBC (Auto) 10/19/17 10/19/17 10/19/17 16:18 17:41 20:11 RBC Hgb Hct RDW Plt Count [place] % (Auto) PT INR D-Dimer Heparin Anti-Xa Level 1.43 H 0.26 L Sodium Potassium Chloride Carbon Dioxide BUN Creatinine Glucose POC Glucose 107 H Calcium Alkaline Phosphatase CK-MB (CK-2) Rel Index Troponin T C-Reactive Protein Albumin Triglycerides HDL Cholesterol Urine WBC (Auto) 10/20/17 10/20/17 10/20/17 03:25 03:25 03:25 RBC Hgb 9.5 L Hct 28.3 L RDW Plt Count 504 H [place] % (Auto) PT 20.2 H INR 1.62 H D-Dimer Heparin Anti-Xa Level 0.24 L Sodium Potassium Chloride Carbon Dioxide BUN 6 L Creatinine 0.7 L Glucose 101 H POC Glucose Calcium 8.1 L Alkaline Phosphatase CK-MB (CK-2) Rel Index Troponin T C-Reactive Protein Albumin Triglycerides HDL Cholesterol Urine WBC (Auto) 10/20/17 10/20/17 10/20/17 08:41 13:21 16:13 RBC Hgb Hct RDW Plt Count [place] % (Auto) PT INR D-Dimer Heparin Anti-Xa Level 0.25 L Sodium Potassium Chloride Carbon Dioxide BUN Creatinine Glucose POC Glucose 111 H 113 H Calcium Alkaline Phosphatase CK-MB (CK-2) Rel Index Troponin T C-Reactive Protein Albumin Triglycerides HDL Cholesterol Urine WBC (Auto) 10/20/17 10/21/17 10/21/17 17:52 04:52 04:52 RBC Hgb Hct RDW Plt Count [place] % (Auto) PT 26.1 H INR 2.24 H D-Dimer Heparin Anti-Xa Level Sodium Potassium 3.3 L Chloride Carbon Dioxide BUN 5 L Creatinine 0.7 L Glucose 102 H POC Glucose 149 H Calcium 8.2 L Alkaline Phosphatase CK-MB (CK-2) Rel Index Troponin T C-Reactive Protein Albumin Triglycerides HDL Cholesterol Urine WBC (Auto) 10/21/17 10/21/17 10/22/17 11:45 21:11 00:07 RBC Hgb Hct RDW Plt Count [place] % (Auto) PT INR D-Dimer Heparin Anti-Xa Level < 0.10 L Sodium Potassium Chloride Carbon Dioxide BUN Creatinine Glucose POC Glucose 106 H 129 H Calcium Alkaline Phosphatase CK-MB (CK-2) Rel Index Troponin T C-Reactive Protein Albumin Triglycerides HDL Cholesterol Urine WBC (Auto) 10/22/17 10/22/17 10/22/17 06:05 06:05 07:57 RBC Hgb 10.0 L Hct 30.7 L RDW Plt Count 500 H [place] % (Auto) PT 27.8 H INR 2.42 H D-Dimer Heparin Anti-Xa Level Sodium Potassium Chloride Carbon Dioxide BUN 7 L Creatinine 0.7 L Glucose 108 H POC Glucose Calcium Alkaline Phosphatase CK-MB (CK-2) Rel Index Troponin T C-Reactive Protein Albumin Triglycerides HDL Cholesterol Urine WBC (Auto) 10/22/17 10/23/17 10/23/17 21:52 04:45 04:45 RBC Hgb Hct RDW Plt Count [place] % (Auto) PT 29.4 H INR 2.60 H D-Dimer Heparin Anti-Xa Level Sodium Potassium 3.3 L Chloride Carbon Dioxide BUN Creatinine 0.7 L Glucose 114 H POC Glucose 153 H Calcium 8.3 L Alkaline Phosphatase CK-MB (CK-2) Rel Index Troponin T C-Reactive Protein Albumin Triglycerides HDL Cholesterol Urine WBC (Auto) 10/23/17 10/23/17 05:31 16:42 RBC Hgb Hct RDW Plt Count [place] % (Auto) PT INR D-Dimer Heparin Anti-Xa Level Sodium Potassium Chloride Carbon Dioxide BUN Creatinine Glucose POC Glucose 115 H 153 H Calcium Alkaline Phosphatase CK-MB (CK-2) Rel Index Troponin T C-Reactive Protein Albumin Triglycerides HDL Cholesterol Urine WBC (Auto) Allied health notes reviewed: nursing
[2017-10-24 06:24] LABS: Hemoglobin 10.3 gm/dl (11.8-15.2)
[2017-10-24 06:34] LABS: BUN/Creatinine Ratio 19; Blood Urea Nitrogen 13 mg/dL (9-20); Calcium 8.7 mg/dL (8.4-10.2); Hemolysis Index 1
[2017-10-24 06:39] LABS: INR 2.94 (0.87-1.13)
[2017-10-24] MEDS: NOVOLOG SUB-Q SCH ×4 (08:21→22:00)
--- NOTE | 2017-10-24 09:50 | Discharge Summary ---
Providers - Providers Date of Admission: 10/15/17 00:48 Date of discharge: 10/24/17 Attending physician: PAKO VIDAL 10/21/17 09:39 Consult to Physician [CONS] Routine Consulting Provider: GISELL SANZ Reason For Exam: Bilateral foot drop, had abdominal surg Place consult to:: [facility] Notified:: yes Phone number called:: [phone] If yes, spoke with:: Maddie Time called:: 13:30 10/14/17 21:48 Consult to Physician [CONS] Urgent Consulting Provider: CHU SANCHEZ Reason For Exam: Hypotension; Post-op Place consult to:: Dr. Sanchez Notified:: Answering Service Phone number called:: [phone] Was contact made?: Yes If yes, spoke with:: Dr. Sanchez Time called:: 21:33 Comment:: Dr. Ngo ( dr) spoke with Dr. Sanchez 10/15/17 Consult to Case Management [CONS] Routine Services Needed at Discharge: Home Health Services Notified:: yes 10/15/17 01:19 Consult to Physician [CONS] Routine Consulting Provider: ELLI CANCHOLA Reason For Exam: Sepsis / RUPERT Place consult to:: Dr. Canchola Notified:: her number Phone number called:: her number Was contact made?: Yes If yes, spoke with:: Dr. Canchola Time called:: 01:22 10/15/17 14:40 Consult to Physician [CONS] Routine Consulting Provider: RADHA NARVAEZ Reason For Exam: sepsis Place consult to:: dr. negrete Notified:: yes Was contact made?: Yes If yes, spoke with:: dr. negrete Time called:: 15:21 Comment:: renate 10/15/17 14:42 Consult to Physician [CONS] Routine Consulting Provider: ERWIN CONRAD Reason For Exam: RUPERT Place consult to:: office Notified:: yes If yes, spoke with:: [email or web address] Time called:: 16:20 Comment:: renate 10/15/17 14:43 Consult to Physician [CONS] Routine Consulting Provider: APOORVA HERNANDEZ Reason For Exam: abd wound Place consult to:: office Notified:: yes Was contact made?: Yes If yes, spoke with:: kalani Time called:: 15:50 Comment:: renate 10/15/17 17:04 Consult to Wound/ET Nurse [CONS] Routine Reason For Exam: abdominal/L groin wound, post op 10/16/17 09:39 Consult to Dietitian/Nutrition [CONS] Routine Physician Instructions: Reason For Exam: Reason for Consult: malnutrition, wound 10/17/17 11:05 Consult to Physician [CONS] Routine Consulting Provider: TYLER RIVERA Reason For Exam: Bilatral LE weakness Place consult to:: dr. rivera Notified:: add to list per instructions 10/17/17 13:12 Physical Therapy Evaluation and Treat [CONS] Routine Comment: Reason For Exam: b/l foot drop. needs boots Primary care physician: STENOGRAPHER SECRETARY Hospitalization Condition: Stable Disposition: DC-30 STILL A PATIENT Exam - Constitutional Vitals: Temp Pulse Resp BP Pulse Ox 98.4 F 92 H 19 113/69 95 10/24/17 06:49 10/24/17 06:49 10/24/17 06:49 10/24/17 06:49 10/24/17 06:49 Plan Activity: other Diet: low fat, low cholesterol, low salt, diabetic Additional Instructions: 1.Follow up with PCP in 1 week. 2.Follow up with Orthopedic Surgeon in 1 week. 3.Follow up with Dr. Sanz in 1 week. 4.Home health PT. 5.Follow up with Dr. Hernandez in 1 week. 6.Follow up with Orthopedic/Spine Surgeon in 1 week. 7.Follow up with Dr. Cunningham, vasc surgery in 1 week. 8.Check PT/INR on Thu10/28/17 to be followed by Vasc surgery. Follow up with: APOORVA HERNANDEZ DO [Staff Physician] - 7 Days PRIMARY CARE, [Primary Care Provider] - 3-5 Days Forms: Warfarin Discharge Instruction Prescriptions: oxyCODONE /ACETAMINOPHEN [Percocet 5/325] 1 tab PO Q6HR PRN #20 tablet PRN Reason: Pain Pantoprazole [Protonix TAB] 40 mg PO QDAY #30 tablet Warfarin [Coumadin] 5 mg PO QDAY #30 tablet
--- NOTE | 2017-10-24 11:22 | Consultation ---
History of Present Illness Consult date: 10/24/17 History of present illness: see the lumbar spine MRI there is severe canal stenosis ansd nerve comp[ression this is cause of foot drop spinal canal compression conservative management rec'ed Past History Past Medical History: arthritis, diabetes, hypertension, renal failure Past Surgical History: Other (Aortobifemoral bypass 09/02/17, Closure of fascial dehiscence 09/07/17) Social history: no significant social history Family history: no significant family history Medications and Allergies Allergies Allergy/AdvReac Type Severity Reaction Status Date / Time No Known Allergies Allergy Unverified 10/14/17 19:17 Home Medications Medication Instructions Recorded Confirmed Last Taken Type ALPRAZolam [Xanax TAB] 0.25 mg PO PRN PRN 08/31/17 10/15/17 08/30/17 History Aspirin [Aspirin TAB] 325 mg PO DAILY 08/31/17 10/15/17 10/14/17 History AtorvaSTATin [Lipitor] 40 mg PO DAILY 08/31/17 10/15/17 10/14/17 History Cilostazol [Pletal] 50 mg PO BID 08/31/17 10/15/17 10/14/17 History Gabapentin [Neurontin] 100 mg PO DAILY 08/31/17 10/15/17 10/14/17 History Gabapentin [Neurontin] 300 mg PO DAILY 08/31/17 10/15/17 10/14/17 History Metformin HCl [Glucophage] 500 mg PO BID 08/31/17 10/15/17 10/14/17 History Multivit-Min/Folic/Vit K/Lycop 1 each PO DAILY 08/31/17 10/15/17 10/14/17 History [Eql One Daily Mens 50 Plus Adv] HYDROcodone/APAP 10-325 [[place] 1 each PO Q6HR PRN #60 tablet 09/25/17 10/15/17 10/14/17 Rx 10/325] Active Meds: Active Medications Acetaminophen (Tylenol) 650 mg PO Q4H PRN PRN Reason: Pain MILD(1-3)/Fever >100.5/ROBLES Last Admin: 10/18/17 22:40 Dose: 650 mg Albuterol (Proventil) 2.5 mg IH Q4H PRN PRN Reason: Shortness Of Breath Alprazolam (Xanax) 0.25 mg PO DAILY PRN PRN Reason: Anxiety Aspirin (Aspirin) 325 mg PO QDAY [facility] Last Admin: 10/23/17 12:08 Dose: 325 mg Atorvastatin Calcium (Lipitor) 40 mg PO QHS [facility] Last Admin: 10/23/17 22:41 Dose: 40 mg Bisacodyl (Dulcolax) 10 mg VA QDAY PRN PRN Reason: Constipation unrelieved by MOM Cefuroxime Axetil (Ceftin) 500 mg PO Q12HR [facility] Last Admin: 10/23/17 22:41 Dose: 500 mg Dextrose (D50w (25gm) Syringe) 50 ml IV PRN PRN PRN Reason: Hypoglycemia Docusate Sodium (Colace) 100 mg PO BID [facility] Last Admin: 10/23/17 22:40 Dose: Not Given Gabapentin (Neurontin) 300 mg PO DAILY [facility] Last Admin: 10/23/17 12:06 Dose: 300 mg Sodium Chloride (Nacl 0.9% 1000 Ml) 1,000 mls @ 125 mls/hr IV DIRECT [facility] Last Admin: 10/19/17 17:58 Dose: 125 mls/hr Insulin Aspart (Novolog) 0 units SUB-Q ACHS [facility] PRN Reason: Protocol Last Admin: 10/24/17 08:21 Dose: Not Given Lactobacillus Acidophilus (Lactinex) 1 each PO BID [facility] Last Admin: 10/23/17 22:41 Dose: 1 each Levofloxacin (Levaquin) 750 mg PO Q24HR [facility] Last Admin: 10/23/17 12:06 Dose: 750 mg Magnesium Hydroxide (Milk Of Magnesia) 30 ml PO Q4H PRN PRN Reason: Constipation Multivitamins/Minerals (Theragran-M Tab) 1 each PO QDAY [facility] Last Admin: 10/23/17 12:06 Dose: 1 each Ondansetron HCl (Zofran) 4 mg IV Q8H PRN PRN Reason: N/V unrelieved by Reglan Oxycodone/Acetaminophen (Percocet 5/325) 1 tab PO Q6H PRN PRN Reason: Pain, Moderate (4-6) Last Admin: 10/23/17 07:02 Dose: 1 tab Pantoprazole Sodium (Protonix) 40 mg PO QDAY [facility] Last Admin: 10/23/17 12:07 Dose: 40 mg Senna (Senokot) 8.6 mg PO Q12HR [facility] Last Admin: 10/23/17 22:40 Dose: Not Given Warfarin Sodium (Coumadin Pharmacy To Dose) 1 each PO PKCONSULT [facility] PRN Reason: Protocol Warfarin Sodium (Coumadin) 6 mg PO DAILY@1700 [facility] Zolpidem Tartrate (Ambien) 5 mg PO QHS PRN PRN Reason: Insomnia Physical Examination - Vital Signs Vital Signs: Vital Signs BP 71/40 10/14/17 18:53 Results - Laboratory Findings CBC and BMP: 10/24/17 05:24 10/24/17 05:24 Abnormal Lab Findings: Abnormal Labs 10/14/17 10/14/17 10/14/17 19:47 19:47 19:47 RBC 2.63 L Hgb 8.1 L Hct 23.8 L RDW 15.8 H Plt Count [place] % (Auto) 9.4 H PT INR D-Dimer Heparin Anti-Xa Level Sodium 127 L Potassium Chloride 88.6 L Carbon Dioxide 21 L BUN 43 H Creatinine 4.2 H Glucose 106 H POC Glucose Calcium 7.2 L Alkaline Phosphatase 135 H CK-MB (CK-2) Rel Index Troponin T 0.108 H* C-Reactive Protein Albumin 2.6 L Triglycerides 186 H HDL Cholesterol 26 L Urine WBC (Auto) 10/14/17 10/14/17 10/14/17 19:47 20:19 20:30 RBC Hgb Hct RDW Plt Count [place] % (Auto) PT INR D-Dimer 3277.01 H Heparin Anti-Xa Level Sodium Potassium Chloride Carbon Dioxide BUN Creatinine Glucose POC Glucose 116 H Calcium Alkaline Phosphatase CK-MB (CK-2) Rel Index Troponin T C-Reactive Protein Albumin Triglycerides HDL Cholesterol Urine WBC (Auto) 7.0 H 10/15/17 10/15/17 10/15/17 03:12 03:12 08:42 RBC 2.90 L Hgb 8.6 L Hct 25.8 L RDW 16.0 H Plt Count 483 H [place] % (Auto) 9.3 H PT INR D-Dimer Heparin Anti-Xa Level Sodium 133 L Potassium Chloride 94.5 L Carbon Dioxide 21 L BUN 41 H Creatinine 3.3 H Glucose 112 H POC Glucose 152 H Calcium 7.9 L Alkaline Phosphatase 140 H CK-MB (CK-2) Rel Index Troponin T C-Reactive Protein Albumin 2.7 L Triglycerides HDL Cholesterol Urine WBC (Auto) 10/15/17 10/15/17 10/15/17 13:16 16:57 16:57 RBC Hgb Hct RDW Plt Count [place] % (Auto) PT INR D-Dimer Heparin Anti-Xa Level Sodium Potassium Chloride Carbon Dioxide BUN Creatinine Glucose POC Glucose 182 H Calcium Alkaline Phosphatase CK-MB (CK-2) Rel Index Troponin T 0.067 H D C-Reactive Protein 11.10 H Albumin Triglycerides HDL Cholesterol Urine WBC (Auto) 10/15/17 10/15/17 10/16/17 17:41 23:00 04:01 RBC 2.93 L Hgb 8.9 L Hct 26.2 L RDW 16.1 H Plt Count 524 H [place] % (Auto) 10.4 H PT INR D-Dimer Heparin Anti-Xa Level Sodium Potassium Chloride Carbon Dioxide BUN Creatinine Glucose POC Glucose 159 H 136 H Calcium Alkaline Phosphatase CK-MB (CK-2) Rel Index Troponin T C-Reactive Protein Albumin Triglycerides HDL Cholesterol Urine WBC (Auto) 10/16/17 10/16/17 10/16/17 04:01 09:16 12:40 RBC Hgb Hct RDW Plt Count [place] % (Auto) PT INR D-Dimer Heparin Anti-Xa Level Sodium Potassium 3.5 L Chloride Carbon Dioxide BUN Creatinine Glucose 159 H POC Glucose 165 H 142 H Calcium 8.2 L Alkaline Phosphatase CK-MB (CK-2) Rel Index 4.4 H Troponin T 0.083 H D C-Reactive Protein Albumin 2.7 L Triglycerides HDL Cholesterol Urine WBC (Auto) 10/16/17 10/16/17 10/16/17 16:05 16:29 22:31 RBC Hgb 8.9 L Hct 26.2 L RDW Plt Count 493 H [place] % (Auto) PT INR D-Dimer Heparin Anti-Xa Level Sodium Potassium Chloride Carbon Dioxide BUN Creatinine Glucose POC Glucose 164 H 188 H Calcium Alkaline Phosphatase CK-MB (CK-2) Rel Index Troponin T C-Reactive Protein Albumin Triglycerides HDL Cholesterol Urine WBC (Auto) 10/16/17 10/17/17 10/17/17 22:37 07:26 15:12 RBC Hgb Hct RDW Plt Count [place] % (Auto) PT INR D-Dimer Heparin Anti-Xa Level < 0.10 L 0.14 L < 0.10 L Sodium Potassium Chloride Carbon Dioxide BUN Creatinine Glucose POC Glucose Calcium Alkaline Phosphatase CK-MB (CK-2) Rel Index Troponin T C-Reactive Protein Albumin Triglycerides HDL Cholesterol Urine WBC (Auto) 10/17/17 10/17/17 10/18/17 22:56 22:58 05:44 RBC Hgb 9.2 L Hct 27.8 L RDW Plt Count 492 H [place] % (Auto) PT INR D-Dimer Heparin Anti-Xa Level 0.15 L Sodium Potassium Chloride Carbon Dioxide BUN Creatinine Glucose POC Glucose 107 H Calcium Alkaline Phosphatase CK-MB (CK-2) Rel Index Troponin T C-Reactive Protein Albumin Triglycerides HDL Cholesterol Urine WBC (Auto) 10/18/17 10/18/17 10/18/17 05:44 05:44 11:52 RBC Hgb Hct RDW Plt Count [place] % (Auto) PT 15.0 H INR D-Dimer Heparin Anti-Xa Level < 0.10 L Sodium Potassium Chloride Carbon Dioxide BUN 8 L Creatinine 0.7 L Glucose 111 H POC Glucose 124 H Calcium 8.3 L Alkaline Phosphatase CK-MB (CK-2) Rel Index Troponin T C-Reactive Protein Albumin Triglycerides HDL Cholesterol Urine WBC (Auto) 10/18/17 10/18/17 10/18/17 15:53 16:35 22:06 RBC Hgb Hct RDW Plt Count [place] % (Auto) PT INR D-Dimer Heparin Anti-Xa Level 0.15 L Sodium Potassium Chloride Carbon Dioxide BUN Creatinine Glucose POC Glucose 134 H 114 H Calcium Alkaline Phosphatase CK-MB (CK-2) Rel Index Troponin T C-Reactive Protein Albumin Triglycerides HDL Cholesterol Urine WBC (Auto) 10/19/17 10/19/17 10/19/17 01:09 05:33 07:14 RBC Hgb Hct RDW Plt Count [place] % (Auto) PT INR D-Dimer Heparin Anti-Xa Level 0.29 L Sodium Potassium Chloride Carbon Dioxide BUN 7 L Creatinine 0.7 L Glucose 111 H POC Glucose 109 H Calcium 8.1 L Alkaline Phosphatase CK-MB (CK-2) Rel Index Troponin T C-Reactive Protein Albumin Triglycerides HDL Cholesterol Urine WBC (Auto) 10/19/17 10/19/17 10/19/17 07:14 10:49 11:35 RBC Hgb Hct RDW Plt Count [place] % (Auto) PT 15.2 H INR 1.14 H D-Dimer Heparin Anti-Xa Level 0.28 L Sodium Potassium Chloride Carbon Dioxide BUN Creatinine Glucose POC Glucose 121 H Calcium Alkaline Phosphatase CK-MB (CK-2) Rel Index Troponin T C-Reactive Protein Albumin Triglycerides HDL Cholesterol Urine WBC (Auto) 10/19/17 10/19/17 10/19/17 16:18 17:41 20:11 RBC Hgb Hct RDW Plt Count [place] % (Auto) PT INR D-Dimer Heparin Anti-Xa Level 1.43 H 0.26 L Sodium Potassium Chloride Carbon Dioxide BUN Creatinine Glucose POC Glucose 107 H Calcium Alkaline Phosphatase CK-MB (CK-2) Rel Index Troponin T C-Reactive Protein Albumin Triglycerides HDL Cholesterol Urine WBC (Auto) 10/20/17 10/20/17 10/20/17 03:25 03:25 03:25 RBC Hgb 9.5 L Hct 28.3 L RDW Plt Count 504 H [place] % (Auto) PT 20.2 H INR 1.62 H D-Dimer Heparin Anti-Xa Level 0.24 L Sodium Potassium Chloride Carbon Dioxide BUN 6 L Creatinine 0.7 L Glucose 101 H POC Glucose Calcium 8.1 L Alkaline Phosphatase CK-MB (CK-2) Rel Index Troponin T C-Reactive Protein Albumin Triglycerides HDL Cholesterol Urine WBC (Auto) 10/20/17 10/20/17 10/20/17 08:41 13:21 16:13 RBC Hgb Hct RDW Plt Count [place] % (Auto) PT INR D-Dimer Heparin Anti-Xa Level 0.25 L Sodium Potassium Chloride Carbon Dioxide BUN Creatinine Glucose POC Glucose 111 H 113 H Calcium Alkaline Phosphatase CK-MB (CK-2) Rel Index Troponin T C-Reactive Protein Albumin Triglycerides HDL Cholesterol Urine WBC (Auto) 10/20/17 10/21/17 10/21/17 17:52 04:52 04:52 RBC Hgb Hct RDW Plt Count [place] % (Auto) PT 26.1 H INR 2.24 H D-Dimer Heparin Anti-Xa Level Sodium Potassium 3.3 L Chloride Carbon Dioxide BUN 5 L Creatinine 0.7 L Glucose 102 H POC Glucose 149 H Calcium 8.2 L Alkaline Phosphatase CK-MB (CK-2) Rel Index Troponin T C-Reactive Protein Albumin Triglycerides HDL Cholesterol Urine WBC (Auto) 10/21/17 10/21/17 10/22/17 11:45 21:11 00:07 RBC Hgb Hct RDW Plt Count [place] % (Auto) PT INR D-Dimer Heparin Anti-Xa Level < 0.10 L Sodium Potassium Chloride Carbon Dioxide BUN Creatinine Glucose POC Glucose 106 H 129 H Calcium Alkaline Phosphatase CK-MB (CK-2) Rel Index Troponin T C-Reactive Protein Albumin Triglycerides HDL Cholesterol Urine WBC (Auto) 10/22/17 10/22/17 10/22/17 06:05 06:05 07:57 RBC Hgb 10.0 L Hct 30.7 L RDW Plt Count 500 H [place] % (Auto) PT 27.8 H INR 2.42 H D-Dimer Heparin Anti-Xa Level Sodium Potassium Chloride Carbon Dioxide BUN 7 L Creatinine 0.7 L Glucose 108 H POC Glucose Calcium Alkaline Phosphatase CK-MB (CK-2) Rel Index Troponin T C-Reactive Protein Albumin Triglycerides HDL Cholesterol Urine WBC (Auto) 10/22/17 10/23/17 10/23/17 21:52 04:45 04:45 RBC Hgb Hct RDW Plt Count [place] % (Auto) PT 29.4 H INR 2.60 H D-Dimer Heparin Anti-Xa Level Sodium Potassium 3.3 L Chloride Carbon Dioxide BUN Creatinine 0.7 L Glucose 114 H POC Glucose 153 H Calcium 8.3 L Alkaline Phosphatase CK-MB (CK-2) Rel Index Troponin T C-Reactive Protein Albumin Triglycerides HDL Cholesterol Urine WBC (Auto) 10/23/17 10/23/17 10/23/17 05:31 16:42 21:58 RBC Hgb Hct RDW Plt Count [place] % (Auto) PT INR D-Dimer Heparin Anti-Xa Level Sodium Potassium Chloride Carbon Dioxide BUN Creatinine Glucose POC Glucose 115 H 153 H 124 H Calcium Alkaline Phosphatase CK-MB (CK-2) Rel Index Troponin T C-Reactive Protein Albumin Triglycerides HDL Cholesterol Urine WBC (Auto) 10/24/17 10/24/17 10/24/17 05:24 05:24 05:24 RBC Hgb 10.3 L Hct 30.0 L RDW Plt Count [place] % (Auto) PT 32.5 H INR 2.94 H D-Dimer Heparin Anti-Xa Level Sodium Potassium Chloride Carbon Dioxide BUN Creatinine 0.7 L Glucose 116 H POC Glucose Calcium Alkaline Phosphatase CK-MB (CK-2) Rel Index Troponin T C-Reactive Protein Albumin Triglycerides HDL Cholesterol Urine WBC (Auto) 10/24/17 06:15 RBC Hgb Hct RDW Plt Count [place] % (Auto) PT INR D-Dimer Heparin Anti-Xa Level Sodium Potassium Chloride Carbon Dioxide BUN Creatinine Glucose POC Glucose 109 H Calcium Alkaline Phosphatase CK-MB (CK-2) Rel Index Troponin T C-Reactive Protein Albumin Triglycerides HDL Cholesterol Urine WBC (Auto)
[2017-10-24] MEDS: CEFTIN PO SCH (12:06)
[2017-10-24] MEDS: ASPIRIN PO SCH (12:07)
[2017-10-24] MEDS: LEVAQUIN PO SCH (12:07)
[2017-10-24] MEDS: THERAGRAN-M Tab PO SCH (12:07)
[2017-10-24] MEDS: PROTONIX PO SCH (12:07)
[2017-10-24] MEDS: NEURONTIN PO SCH (12:07)
[2017-10-24] MEDS: SENOKOT PO SCH ×2 (12:08→22:00)
[2017-10-24] MEDS: COLACE PO SCH (12:08)
[2017-10-24] MEDS: LACTINEX PO SCH ×2 (12:08→22:02)
--- NOTE | 2017-10-24 12:17 | Progress Note ---
Assessment and Plan 57-year-old male with 1. Abdominal wound, related to prior abdominal surgery 2. Hypotension, likely related to hypovolemia - resolved 3. Acute kidney injury 4. Elevated d-dimer 5. Elevated troponin 6. B/L LE DVT 7. protein calorie malnutrition, hypoalbunimemia 8. Foot drop Plan: 1. Continue daily wound care 2. Continue diet with nutritional supplements 3 times a day 3. Anticoagulation per vascular surgery 4. PT/exercises 5. wound cultures - pseudomonas, staph aureus. Transition to oral antibiotics per ID. 6. neuro recs noted, MRI shows spinal canal stenosis 7. ok for dc from surgery standpoint when medically cleared. To follow up in surgery clinic in 1 week to assess wounds Subjective Date of service: 10/24/17 Narrative: Pt seen and examined. No complaints, no overnight events. Objective Vital Signs - 12hr 10/24/17 10/24/17 06:49 08:01 Temperature 98.4 F 98.3 F Pulse Rate 92 H 89 Respiratory 19 20 Rate Blood Pressure 129/81 Blood Pressure 113/69 [Left] O2 Sat by Pulse 95 93 Oximetry - General physical appearance Narrative Exam: General: Awake, alert, oriented 3. No apparent distress Abd: soft, ND, NT. All dressings removed. opening in midline incision near the umbilicus is healing well, slough at wound base, scant drainage The left groin wound and wound at prior DORETHA site L abdomen are healing well, no drainage. Eschar over old DORETHA site, wound almost completely healed. Wound at prior retention suture sites are healing well, pink wound base. One piece of mesalt tape applied to umbilical wound bed and one piece applied to lower right abdominal wound bed. Covered with ABD pad and secured with abdominal binder loosely. - Labs 10/24/17 05:24 10/24/17 05:24 Diabetes panel 10/24/17 Range/Units 05:24 Sodium 141 (137-145) mmol/L Potassium 4.0 D (3.6-5.0) mmol/L Chloride 100.9 (98-107) mmol/L Carbon Dioxide 26 (22-30) mmol/L BUN 13 (9-20) mg/dL Creatinine 0.7 L (0.8-1.5) mg/dL Glucose 116 H (75-100) mg/dL Calcium 8.7 (8.4-10.2) mg/dL Calcium panel 10/24/17 Range/Units 05:24 Calcium 8.7 (8.4-10.2) mg/dL Pituitary panel 10/24/17 Range/Units 05:24 Sodium 141 (137-145) mmol/L Potassium 4.0 D (3.6-5.0) mmol/L Chloride 100.9 (98-107) mmol/L Carbon Dioxide 26 (22-30) mmol/L BUN 13 (9-20) mg/dL Creatinine 0.7 L (0.8-1.5) mg/dL Glucose 116 H (75-100) mg/dL Calcium 8.7 (8.4-10.2) mg/dL Adrenal panel 10/24/17 Range/Units 05:24 Sodium 141 (137-145) mmol/L Potassium 4.0 D (3.6-5.0) mmol/L Chloride 100.9 (98-107) mmol/L Carbon Dioxide 26 (22-30) mmol/L BUN 13 (9-20) mg/dL Creatinine 0.7 L (0.8-1.5) mg/dL Glucose 116 H (75-100) mg/dL Calcium 8.7 (8.4-10.2) mg/dL
--- NOTE | 2017-10-24 15:05 | Progress Note ---
Assessment and Plan Sepsis IVVD RUPERT VTE (DVT) PVD (Status post aortobifemoral bypass surgery on 09/02/17) Diabetes type II controlled with insulin Hyperlipidemia Anemia Abdominal Wound Infection - supplemental oxygen to keep sats > 90% - mobility protocol for pressure ulcer prophylaxis -stop laxatives -Encouraged oral fluid hydration -Monitor hemodynamics and for hypokalemia - continue anti-infectives and de-escalate per ID recs - flu & pneumovax per protocol -Continues to make progress, will sign off. Please call with any questions or concerns. Subjective Date of service: 10/24/17 Principal diagnosis: Sepsis Syndrome with hypotension; RUPERT; IVVD; Diabetes II Interval history: Seen and examined. Vitals, labs, medications, chart reviewed. Denies any fevers or chills, no abdominal pain. No nausea or vomiting. Developed diarrhea today, denies any cramps. Does not feel unwell Stable blood pressure. Objective - Exam Narrative Exam: GEN APPEARANCE : Not in acute distress, lying in bed, HEENT: Normocephalic, Atraumatic NECK : supple, no JVD LUNGS: Clear to auscultation bilaterally, no rales, no wheeze HEART: S1 and S2 regular, no murmurs, rubs or gallop ABD: Soft, non tender, abdominal binder over abdomen, bowel sounds normal EXT: No edema, no clubbing, no cyanosis, no cyanosis NEURO: Awake,alert, oriented x 3, Bilateral foot drop Vital Signs - 12hr 10/24/17 10/24/17 06:49 08:01 Temperature 98.4 F 98.3 F Pulse Rate 92 H 89 Respiratory 19 20 Rate Blood Pressure 129/81 Blood Pressure 113/69 [Left] O2 Sat by Pulse 95 93 Oximetry Constitutional: no acute distress, alert Eyes: non-icteric ENT: oropharynx moist Neck: supple, no lymphadenopathy, no JVD, other (No thyromegaly) Effort: normal Ascultation: Bilateral: rhonchi (bases) Percussion: Bilateral: not dull Cardiovascular: regular rate and rhythm, other (No rubs/murmurs) Gastrointestinal: normoactive bowel sounds, soft, non-tender, non-distended, other (No HSM) Integumentary: normal Extremities: no cyanosis, no edema, pink and warm, no ischemia or petechiae, other (weak pedal pulses) Neurologic: normal mental status, non-focal exam, pupils equal and round, motor strength normal and Psychiatric: mood appropriate, affect normal CBC and BMP: 10/24/17 15:06 10/24/17 05:24 ABG, PT/INR, D-dimer: PT/INR, D-dimer PT 32.5 Sec. (12.2-14.9) H 10/24/17 05:24 INR 2.94 (0.87-1.13) H 10/24/17 05:24 D-Dimer 3277.01 ng/mlDDU (0-234) H 10/14/17 19:47 Abnormal lab findings: Abnormal Labs 10/14/17 10/14/17 10/14/17 19:47 19:47 19:47 RBC 2.63 L Hgb 8.1 L Hct 23.8 L RDW 15.8 H Plt Count [place] % (Auto) 9.4 H PT INR D-Dimer Heparin Anti-Xa Level Sodium 127 L Potassium Chloride 88.6 L Carbon Dioxide 21 L BUN 43 H Creatinine 4.2 H Glucose 106 H POC Glucose Hemoglobin A1c Calcium 7.2 L Alkaline Phosphatase 135 H CK-MB (CK-2) Rel Index Troponin T 0.108 H* C-Reactive Protein Albumin 2.6 L Triglycerides 186 H HDL Cholesterol 26 L Urine WBC (Auto) 10/14/17 10/14/17 10/14/17 19:47 20:19 20:30 RBC Hgb Hct RDW Plt Count [place] % (Auto) PT INR D-Dimer 3277.01 H Heparin Anti-Xa Level Sodium Potassium Chloride Carbon Dioxide BUN Creatinine Glucose POC Glucose 116 H Hemoglobin A1c Calcium Alkaline Phosphatase CK-MB (CK-2) Rel Index Troponin T C-Reactive Protein Albumin Triglycerides HDL Cholesterol Urine WBC (Auto) 7.0 H 10/15/17 10/15/17 10/15/17 03:12 03:12 08:42 RBC 2.90 L Hgb 8.6 L Hct 25.8 L RDW 16.0 H Plt Count 483 H [place] % (Auto) 9.3 H PT INR D-Dimer Heparin Anti-Xa Level Sodium 133 L Potassium Chloride 94.5 L Carbon Dioxide 21 L BUN 41 H Creatinine 3.3 H Glucose 112 H POC Glucose 152 H Hemoglobin A1c Calcium 7.9 L Alkaline Phosphatase 140 H CK-MB (CK-2) Rel Index Troponin T C-Reactive Protein Albumin 2.7 L Triglycerides HDL Cholesterol Urine WBC (Auto) 10/15/17 10/15/17 10/15/17 13:16 16:57 16:57 RBC Hgb Hct RDW Plt Count [place] % (Auto) PT INR D-Dimer Heparin Anti-Xa Level Sodium Potassium Chloride Carbon Dioxide BUN Creatinine Glucose POC Glucose 182 H Hemoglobin A1c Calcium Alkaline Phosphatase CK-MB (CK-2) Rel Index Troponin T 0.067 H D C-Reactive Protein 11.10 H Albumin Triglycerides HDL Cholesterol Urine WBC (Auto) 10/15/17 10/15/17 10/16/17 17:41 23:00 04:01 RBC 2.93 L Hgb 8.9 L Hct 26.2 L RDW 16.1 H Plt Count 524 H [place] % (Auto) 10.4 H PT INR D-Dimer Heparin Anti-Xa Level Sodium Potassium Chloride Carbon Dioxide BUN Creatinine Glucose POC Glucose 159 H 136 H Hemoglobin A1c Calcium Alkaline Phosphatase CK-MB (CK-2) Rel Index Troponin T C-Reactive Protein Albumin Triglycerides HDL Cholesterol Urine WBC (Auto) 10/16/17 10/16/17 10/16/17 04:01 09:16 12:40 RBC Hgb Hct RDW Plt Count [place] % (Auto) PT INR D-Dimer Heparin Anti-Xa Level Sodium Potassium 3.5 L Chloride Carbon Dioxide BUN Creatinine Glucose 159 H POC Glucose 165 H 142 H Hemoglobin A1c Calcium 8.2 L Alkaline Phosphatase CK-MB (CK-2) Rel Index 4.4 H Troponin T 0.083 H D C-Reactive Protein Albumin 2.7 L Triglycerides HDL Cholesterol Urine WBC (Auto) 10/16/17 10/16/17 10/16/17 16:05 16:29 22:31 RBC Hgb 8.9 L Hct 26.2 L RDW Plt Count 493 H [place] % (Auto) PT INR D-Dimer Heparin Anti-Xa Level Sodium Potassium Chloride Carbon Dioxide BUN Creatinine Glucose POC Glucose 164 H 188 H Hemoglobin A1c Calcium Alkaline Phosphatase CK-MB (CK-2) Rel Index Troponin T C-Reactive Protein Albumin Triglycerides HDL Cholesterol Urine WBC (Auto) 10/16/17 10/17/17 10/17/17 22:37 07:26 15:12 RBC Hgb Hct RDW Plt Count [place] % (Auto) PT INR D-Dimer Heparin Anti-Xa Level < 0.10 L 0.14 L < 0.10 L Sodium Potassium Chloride Carbon Dioxide BUN Creatinine Glucose POC Glucose Hemoglobin A1c Calcium Alkaline Phosphatase CK-MB (CK-2) Rel Index Troponin T C-Reactive Protein Albumin Triglycerides HDL Cholesterol Urine WBC (Auto) 10/17/17 10/17/17 10/18/17 22:56 22:58 05:44 RBC Hgb 9.2 L Hct 27.8 L RDW Plt Count 492 H [place] % (Auto) PT INR D-Dimer Heparin Anti-Xa Level 0.15 L Sodium Potassium Chloride Carbon Dioxide BUN Creatinine Glucose POC Glucose 107 H Hemoglobin A1c Calcium Alkaline Phosphatase CK-MB (CK-2) Rel Index Troponin T C-Reactive Protein Albumin Triglycerides HDL Cholesterol Urine WBC (Auto) 10/18/17 10/18/17 10/18/17 05:44 05:44 11:52 RBC Hgb Hct RDW Plt Count [place] % (Auto) PT 15.0 H INR D-Dimer Heparin Anti-Xa Level < 0.10 L Sodium Potassium Chloride Carbon Dioxide BUN 8 L Creatinine 0.7 L Glucose 111 H POC Glucose 124 H Hemoglobin A1c Calcium 8.3 L Alkaline Phosphatase CK-MB (CK-2) Rel Index Troponin T C-Reactive Protein Albumin Triglycerides HDL Cholesterol Urine WBC (Auto) 10/18/17 10/18/17 10/18/17 15:53 16:35 22:06 RBC Hgb Hct RDW Plt Count [place] % (Auto) PT INR D-Dimer Heparin Anti-Xa Level 0.15 L Sodium Potassium Chloride Carbon Dioxide BUN Creatinine Glucose POC Glucose 134 H 114 H Hemoglobin A1c Calcium Alkaline Phosphatase CK-MB (CK-2) Rel Index Troponin T C-Reactive Protein Albumin Triglycerides HDL Cholesterol Urine WBC (Auto) 10/19/17 10/19/17 10/19/17 01:09 05:33 07:14 RBC Hgb Hct RDW Plt Count [place] % (Auto) PT INR D-Dimer Heparin Anti-Xa Level 0.29 L Sodium Potassium Chloride Carbon Dioxide BUN 7 L Creatinine 0.7 L Glucose 111 H POC Glucose 109 H Hemoglobin A1c Calcium 8.1 L Alkaline Phosphatase CK-MB (CK-2) Rel Index Troponin T C-Reactive Protein Albumin Triglycerides HDL Cholesterol Urine WBC (Auto) 10/19/17 10/19/17 10/19/17 07:14 10:49 11:35 RBC Hgb Hct RDW Plt Count [place] % (Auto) PT 15.2 H INR 1.14 H D-Dimer Heparin Anti-Xa Level 0.28 L Sodium Potassium Chloride Carbon Dioxide BUN Creatinine Glucose POC Glucose 121 H Hemoglobin A1c Calcium Alkaline Phosphatase CK-MB (CK-2) Rel Index Troponin T C-Reactive Protein Albumin Triglycerides HDL Cholesterol Urine WBC (Auto) 10/19/17 10/19/17 10/19/17 16:18 17:41 20:11 RBC Hgb Hct RDW Plt Count [place] % (Auto) PT INR D-Dimer Heparin Anti-Xa Level 1.43 H 0.26 L Sodium Potassium Chloride Carbon Dioxide BUN Creatinine Glucose POC Glucose 107 H Hemoglobin A1c Calcium Alkaline Phosphatase CK-MB (CK-2) Rel Index Troponin T C-Reactive Protein Albumin Triglycerides HDL Cholesterol Urine WBC (Auto) 10/20/17 10/20/17 10/20/17 03:25 03:25 03:25 RBC Hgb 9.5 L Hct 28.3 L RDW Plt Count 504 H [place] % (Auto) PT 20.2 H INR 1.62 H D-Dimer Heparin Anti-Xa Level 0.24 L Sodium Potassium Chloride Carbon Dioxide BUN 6 L Creatinine 0.7 L Glucose 101 H POC Glucose Hemoglobin A1c Calcium 8.1 L Alkaline Phosphatase CK-MB (CK-2) Rel Index Troponin T C-Reactive Protein Albumin Triglycerides HDL Cholesterol Urine WBC (Auto) 10/20/17 10/20/17 10/20/17 08:41 13:21 16:13 RBC Hgb Hct RDW Plt Count [place] % (Auto) PT INR D-Dimer Heparin Anti-Xa Level 0.25 L Sodium Potassium Chloride Carbon Dioxide BUN Creatinine Glucose POC Glucose 111 H 113 H Hemoglobin A1c Calcium Alkaline Phosphatase CK-MB (CK-2) Rel Index Troponin T C-Reactive Protein Albumin Triglycerides HDL Cholesterol Urine WBC (Auto) 10/20/17 10/21/17 10/21/17 17:52 04:52 04:52 RBC Hgb Hct RDW Plt Count [place] % (Auto) PT 26.1 H INR 2.24 H D-Dimer Heparin Anti-Xa Level Sodium Potassium 3.3 L Chloride Carbon Dioxide BUN 5 L Creatinine 0.7 L Glucose 102 H POC Glucose 149 H Hemoglobin A1c Calcium 8.2 L Alkaline Phosphatase CK-MB (CK-2) Rel Index Troponin T C-Reactive Protein Albumin Triglycerides HDL Cholesterol Urine WBC (Auto) 10/21/17 10/21/17 10/22/17 11:45 21:11 00:07 RBC Hgb Hct RDW Plt Count [place] % (Auto) PT INR D-Dimer Heparin Anti-Xa Level < 0.10 L Sodium Potassium Chloride Carbon Dioxide BUN Creatinine Glucose POC Glucose 106 H 129 H Hemoglobin A1c Calcium Alkaline Phosphatase CK-MB (CK-2) Rel Index Troponin T C-Reactive Protein Albumin Triglycerides HDL Cholesterol Urine WBC (Auto) 10/22/17 10/22/17 10/22/17 06:05 06:05 07:57 RBC Hgb 10.0 L Hct 30.7 L RDW Plt Count 500 H [place] % (Auto) PT 27.8 H INR 2.42 H D-Dimer Heparin Anti-Xa Level Sodium Potassium Chloride Carbon Dioxide BUN 7 L Creatinine 0.7 L Glucose 108 H POC Glucose Hemoglobin A1c Calcium Alkaline Phosphatase CK-MB (CK-2) Rel Index Troponin T C-Reactive Protein Albumin Triglycerides HDL Cholesterol Urine WBC (Auto) 10/22/17 10/23/17 10/23/17 21:52 04:45 04:45 RBC Hgb Hct RDW Plt Count [place] % (Auto) PT 29.4 H INR 2.60 H D-Dimer Heparin Anti-Xa Level Sodium Potassium 3.3 L Chloride Carbon Dioxide BUN Creatinine 0.7 L Glucose 114 H POC Glucose 153 H Hemoglobin A1c Calcium 8.3 L Alkaline Phosphatase CK-MB (CK-2) Rel Index Troponin T C-Reactive Protein Albumin Triglycerides HDL Cholesterol Urine WBC (Auto) 10/23/17 10/23/17 10/23/17 05:31 16:42 21:58 RBC Hgb Hct RDW Plt Count [place] % (Auto) PT INR D-Dimer Heparin Anti-Xa Level Sodium Potassium Chloride Carbon Dioxide BUN Creatinine Glucose POC Glucose 115 H 153 H 124 H Hemoglobin A1c Calcium Alkaline Phosphatase CK-MB (CK-2) Rel Index Troponin T C-Reactive Protein Albumin Triglycerides HDL Cholesterol Urine WBC (Auto) 10/24/17 10/24/17 10/24/17 05:24 05:24 05:24 RBC Hgb 10.3 L Hct 30.0 L RDW Plt Count [place] % (Auto) PT 32.5 H INR 2.94 H D-Dimer Heparin Anti-Xa Level Sodium Potassium Chloride Carbon Dioxide BUN Creatinine 0.7 L Glucose 116 H POC Glucose Hemoglobin A1c Calcium Alkaline Phosphatase CK-MB (CK-2) Rel Index Troponin T C-Reactive Protein Albumin Triglycerides HDL Cholesterol Urine WBC (Auto) 10/24/17 10/24/17 10/24/17 05:24 06:15 12:22 RBC Hgb Hct RDW Plt Count [place] % (Auto) PT INR D-Dimer Heparin Anti-Xa Level Sodium Potassium Chloride Carbon Dioxide BUN Creatinine Glucose POC Glucose 109 H 138 H Hemoglobin A1c 6.3 H Calcium Alkaline Phosphatase CK-MB (CK-2) Rel Index Troponin T C-Reactive Protein Albumin Triglycerides HDL Cholesterol Urine WBC (Auto) Allied health notes reviewed: nursing
[2017-10-24 15:31] LABS: Hematocrit 31.8 % (35.5-45.6); Hemoglobin 10.6 gm/dl (11.8-15.2); Mean Corpuscular HGB Conc 33 % (32-34); Mean Corpuscular Hemoglobin 30 pg (28-32); Mean Corpuscular Volume 91 fl (84-94); Platelet Count 441 K/mm3 (140-440); Red Cell Distribution Width 16.4 % (13.2-15.2)
--- NOTE | 2017-10-24 15:57 | Progress Note ---
Assessment and Plan Assessment and plan: Hypovolemic shock. Resolved. Etiology appears to be secondary to volume depletion. ID following. Follow-up culture results. Blood cultures negative. V/Q scan negative for PE. Sepsis. Blood cultures negative. Completing Levaquin and Ceftriaxone today. Diarrhea. Discussed with Dr. Deleon. Give empiric Flagyl. Acute kidney injury secondary to prerenal azotemia due to hypotension vs ATN. Creatinine back to baseline. PVD status post open aortobifemoral bypass 09/02/17, complicated with wound dehiscence / evisceration s/p closure of fascial dehiscence 09/07/17 with mesh. Superficial wound infection. Culture growing MSSA and Pseudomonas. Bilateral peroneal DVTs. INR therapeutic Diabetes mellitus type 2. Continue Accu-Cheks and sliding scale insulin. Bilateral foot drop. He was evaluated by Neurologist. For MRI lumbar spine today. Hyperlipidemia. Anemia. Elevated Troponin. Etiology likely secondary to renal insufficiency. Conservative treatment. Cardiology following. Disposition. To ne home when diarrhea resolved. Was to go home today but then complained of diarrhea. History Interval history: Complained of diarrhea 6 watery stools since last night No abdominal pain currently no fever, Bilateral foot drop Hospitalist Physical - Physical exam Narrative exam: GEN APPEARANCE : Not in acute distress, lying in bed, HEENT: Normocephalic, Atraumatic NECK : supple, no JVD LUNGS: Clear to auscultation bilaterally, no rales, no wheeze HEART: S1 and S2 regular, no murmurs, rubs or gallop ABD: Soft, non tender, abdominal binder over abdomen, bowel sounds normal EXT: No edema, no clubbing, no cyanosis, no cyanosis NEURO: Awake,alert, oriented x 3, Bilateral foot drop - Constitutional Vitals: Temp Pulse Resp BP Pulse Ox 98.3 F 89 20 129/81 93 10/24/17 08:01 10/24/17 08:01 10/24/17 08:01 10/24/17 08:01 10/24/17 08:01 General appearance: Present: no acute distress Results - Labs CBC & Chem 7: 10/24/17 15:06 10/24/17 05:24 Labs: Laboratory Last Values WBC 7.5 K/mm3 (4.5-11.0) 10/24/17 15:06 RBC 3.50 M/mm3 (3.65-5.03) L 10/24/17 15:06 Hgb 10.6 gm/dl (11.8-15.2) L 10/24/17 15:06 Hct 31.8 % (35.5-45.6) L 10/24/17 15:06 MCV 91 fl (84-94) 10/24/17 15:06 MCH 30 pg (28-32) 10/24/17 15:06 MCHC 33 % (32-34) 10/24/17 15:06 RDW 16.4 % (13.2-15.2) H 10/24/17 15:06 Plt Count 441 K/mm3 (140-440) H 10/24/17 15:06 Lymph % (Auto) 21.8 % (13.4-35.0) 10/16/17 04:01 [place] % (Auto) 10.4 % (0.0-7.3) H 10/16/17 04:01 Eos % (Auto) 3.7 % (0.0-4.3) 10/16/17 04:01 Baso % (Auto) 0.4 % (0.0-1.8) 10/16/17 04:01 Lymph # 1.5 K/mm3 (1.2-5.4) 10/16/17 04:01 [place] # 0.7 K/mm3 (0.0-0.8) 10/16/17 04:01 Eos # 0.3 K/mm3 (0.0-0.4) 10/16/17 04:01 Baso # 0.0 K/mm3 (0.0-0.1) 10/16/17 04:01 Seg Neutrophils % 63.7 % (40.0-70.0) 10/16/17 04:01 Seg Neutrophils # 4.4 K/mm3 (1.8-7.7) 10/16/17 04:01 PT 32.5 Sec. (12.2-14.9) H 10/24/17 05:24 INR 2.94 (0.87-1.13) H 10/24/17 05:24 APTT 35.9 Sec. (24.2-36.6) 10/16/17 16:29 D-Dimer 3277.01 ng/mlDDU (0-234) H 10/14/17 19:47 Heparin Anti-Xa Level < 0.10 U.I./ml (0.3-0.7) L 10/22/17 00:07 Sodium 141 mmol/L (137-145) 10/24/17 05:24 Potassium 4.0 mmol/L (3.6-5.0) D 10/24/17 05:24 Chloride 100.9 mmol/L (98-107) 10/24/17 05:24 Carbon Dioxide 26 mmol/L (22-30) 10/24/17 05:24 Anion Gap 18 mmol/L 10/24/17 05:24 BUN 13 mg/dL (9-20) 10/24/17 05:24 Creatinine 0.7 mg/dL (0.8-1.5) L 10/24/17 05:24 Estimated GFR > 60 ml/min 10/24/17 05:24 BUN/Creatinine Ratio 19 % 10/24/17 05:24 Glucose 116 mg/dL (75-100) H 10/24/17 05:24 POC Glucose 138 (70-105) H 10/24/17 12:22 Hemoglobin A1c 6.3 % (4-6) H 10/24/17 05:24 Lactic Acid 0.70 mmol/L (0.7-2.0) 10/15/17 03:12 Calcium 8.7 mg/dL (8.4-10.2) 10/24/17 05:24 Phosphorus 2.50 mg/dL (2.5-4.5) 10/16/17 04:01 Magnesium 1.70 mg/dL (1.7-2.3) 10/16/17 04:01 Total Bilirubin 0.30 mg/dL (0.1-1.2) 10/16/17 04:01 AST 13 units/L (5-40) 10/16/17 04:01 ALT 8 units/L (7-56) 10/16/17 04:01 Alkaline Phosphatase 124 units/L (35-129) 10/16/17 04:01 Total Creatine Kinase 68 units/L (55-170) 10/16/17 04:01 CK-MB (CK-2) 3.0 ng/mL (0.0-4.0) 10/16/17 04:01 CK-MB (CK-2) Rel Index 4.4 (0-4) H 10/16/17 04:01 Troponin T 0.083 ng/mL (0.00-0.029) H D 10/16/17 04:01 C-Reactive Protein 11.10 mg/dL (0.00-1.30) H 10/15/17 16:57 Total Protein 7.6 g/dL (6.3-8.2) 10/16/17 04:01 Albumin 2.7 g/dL (3.9-5) L 10/16/17 04:01 Albumin/Globulin Ratio 0.6 % 10/16/17 04:01 Triglycerides 186 mg/dL (2-149) H 10/14/17 19:47 Cholesterol 121 mg/dL (50-199) 10/14/17 19:47 LDL Cholesterol Direct 58 mg/dL (50-130) 10/14/17 19:47 HDL Cholesterol 26 mg/dL (40-59) L 10/14/17 19:47 Cholesterol/HDL Ratio 4.65 % 10/14/17 19:47 Urine Color Yellow (Yellow) 10/14/17 20:30 Urine Turbidity Slightly-cloudy (Clear) 10/14/17 20:30 Urine pH 5.0 (5.0-7.0) 10/14/17 20:30 Ur Specific [place] 1.014 (1.003-1.030) 10/14/17 20:30 Urine Protein <15 mg/dl mg/dL (Negative) 10/14/17 20:30 Urine Glucose (UA) Neg mg/dL (Negative) 10/14/17 20:30 Urine Ketones Neg mg/dL (Negative) 10/14/17 20:30 Urine Blood Sm (Negative) 10/14/17 20:30 Urine Nitrite Neg (Negative) 10/14/17 20:30 Urine Bilirubin Neg (Negative) 10/14/17 20:30 Urine Urobilinogen < 2.0 mg/dL (<2.0) 10/14/17 20:30 Ur Leukocyte Esterase Tr (Negative) 10/14/17 20:30 Urine WBC (Auto) 7.0 /HPF (0.0-6.0) H 10/14/17 20:30 Urine RBC (Auto) 5.0 /HPF (0.0-6.0) 10/14/17 20:30 U Epithel Cells (Auto) < 1.0 /HPF (0-13.0) 10/14/17 20:30 Urine Bacteria (Auto) 2+ /HPF (Negative) 10/14/17 20:30 Amorphous Crystals Few 10/14/17 20:30 Urine Mucus Few /HPF 10/14/17 20:30 Vancomycin Trough 13.4 ug/mL (5.0-20.0) 10/17/17 15:12 Blood Type A POSITIVE 10/15/17 03:13 Antibody Screen Negative 10/15/17 03:13
[2017-10-24] MEDS: COUMADIN PO SCH (16:34)
[2017-10-24] MEDS: FLAGYL PO SCH (16:34)
[2017-10-24] MEDS: PERCOCET 5/325 PO PRN (20:25)
[2017-10-25] MEDS: FLAGYL PO SCH ×2 (01:11→10:40)
[2017-10-25 07:28] LABS: INR 2.66 (0.87-1.13)
[2017-10-25] MEDS: PERCOCET 5/325 PO PRN (08:42)
[2017-10-25] MEDS: NOVOLOG SUB-Q SCH ×3 (10:29→18:07)
[2017-10-25] MEDS: ASPIRIN PO SCH (10:35)
[2017-10-25] MEDS: THERAGRAN-M Tab PO SCH (10:35)
[2017-10-25] MEDS: LACTINEX PO SCH (10:35)
[2017-10-25] MEDS: PROTONIX PO SCH (10:35)
[2017-10-25] MEDS: NEURONTIN PO SCH (10:35)
[2017-10-25] MEDS: SENOKOT PO SCH (10:35)
--- NOTE | 2017-10-25 15:31 | Progress Note ---
Subjective Date of service: 10/25/17 Principal diagnosis: Sepsis Syndrome with hypotension; RUPERT; IVVD; Diabetes II Objective Vital Signs - 12hr 10/25/17 08:20 Temperature 97.9 F Pulse Rate 89 Respiratory 20 Rate Blood Pressure 102/69 O2 Sat by Pulse 95 Oximetry Constitutional: no acute distress, alert Eyes: non-icteric ENT: oropharynx moist Neck: supple, no lymphadenopathy, no JVD, other (No thyromegaly) Effort: normal Ascultation: Bilateral: rhonchi (bases) Percussion: Bilateral: not dull Cardiovascular: regular rate and rhythm, other (No rubs/murmurs) Gastrointestinal: normoactive bowel sounds, soft, non-tender, non-distended, other (No HSM) Integumentary: normal Extremities: no cyanosis, no edema, pink and warm, no ischemia or petechiae, other (weak pedal pulses) Neurologic: normal mental status, non-focal exam, pupils equal and round, motor strength normal and Psychiatric: mood appropriate, affect normal CBC and BMP: 10/24/17 15:06 10/24/17 05:24 ABG, PT/INR, D-dimer: PT/INR, D-dimer PT 30.0 Sec. (12.2-14.9) H 10/25/17 06:06 INR 2.66 (0.87-1.13) H 10/25/17 06:06 D-Dimer 3277.01 ng/mlDDU (0-234) H 10/14/17 19:47 Abnormal lab findings: Abnormal Labs 10/14/17 10/14/17 10/14/17 19:47 19:47 19:47 RBC 2.63 L Hgb 8.1 L Hct 23.8 L RDW 15.8 H Plt Count [place] % (Auto) 9.4 H PT INR D-Dimer Heparin Anti-Xa Level Sodium 127 L Potassium Chloride 88.6 L Carbon Dioxide 21 L BUN 43 H Creatinine 4.2 H Glucose 106 H POC Glucose Hemoglobin A1c Calcium 7.2 L Alkaline Phosphatase 135 H CK-MB (CK-2) Rel Index Troponin T 0.108 H* C-Reactive Protein Albumin 2.6 L Triglycerides 186 H HDL Cholesterol 26 L Urine WBC (Auto) 10/14/17 10/14/17 10/14/17 19:47 20:19 20:30 RBC Hgb Hct RDW Plt Count [place] % (Auto) PT INR D-Dimer 3277.01 H Heparin Anti-Xa Level Sodium Potassium Chloride Carbon Dioxide BUN Creatinine Glucose POC Glucose 116 H Hemoglobin A1c Calcium Alkaline Phosphatase CK-MB (CK-2) Rel Index Troponin T C-Reactive Protein Albumin Triglycerides HDL Cholesterol Urine WBC (Auto) 7.0 H 10/15/17 10/15/17 10/15/17 03:12 03:12 08:42 RBC 2.90 L Hgb 8.6 L Hct 25.8 L RDW 16.0 H Plt Count 483 H [place] % (Auto) 9.3 H PT INR D-Dimer Heparin Anti-Xa Level Sodium 133 L Potassium Chloride 94.5 L Carbon Dioxide 21 L BUN 41 H Creatinine 3.3 H Glucose 112 H POC Glucose 152 H Hemoglobin A1c Calcium 7.9 L Alkaline Phosphatase 140 H CK-MB (CK-2) Rel Index Troponin T C-Reactive Protein Albumin 2.7 L Triglycerides HDL Cholesterol Urine WBC (Auto) 10/15/17 10/15/17 10/15/17 13:16 16:57 16:57 RBC Hgb Hct RDW Plt Count [place] % (Auto) PT INR D-Dimer Heparin Anti-Xa Level Sodium Potassium Chloride Carbon Dioxide BUN Creatinine Glucose POC Glucose 182 H Hemoglobin A1c Calcium Alkaline Phosphatase CK-MB (CK-2) Rel Index Troponin T 0.067 H D C-Reactive Protein 11.10 H Albumin Triglycerides HDL Cholesterol Urine WBC (Auto) 10/15/17 10/15/17 10/16/17 17:41 23:00 04:01 RBC 2.93 L Hgb 8.9 L Hct 26.2 L RDW 16.1 H Plt Count 524 H [place] % (Auto) 10.4 H PT INR D-Dimer Heparin Anti-Xa Level Sodium Potassium Chloride Carbon Dioxide BUN Creatinine Glucose POC Glucose 159 H 136 H Hemoglobin A1c Calcium Alkaline Phosphatase CK-MB (CK-2) Rel Index Troponin T C-Reactive Protein Albumin Triglycerides HDL Cholesterol Urine WBC (Auto) 10/16/17 10/16/17 10/16/17 04:01 09:16 12:40 RBC Hgb Hct RDW Plt Count [place] % (Auto) PT INR D-Dimer Heparin Anti-Xa Level Sodium Potassium 3.5 L Chloride Carbon Dioxide BUN Creatinine Glucose 159 H POC Glucose 165 H 142 H Hemoglobin A1c Calcium 8.2 L Alkaline Phosphatase CK-MB (CK-2) Rel Index 4.4 H Troponin T 0.083 H D C-Reactive Protein Albumin 2.7 L Triglycerides HDL Cholesterol Urine WBC (Auto) 10/16/17 10/16/17 10/16/17 16:05 16:29 22:31 RBC Hgb 8.9 L Hct 26.2 L RDW Plt Count 493 H [place] % (Auto) PT INR D-Dimer Heparin Anti-Xa Level Sodium Potassium Chloride Carbon Dioxide BUN Creatinine Glucose POC Glucose 164 H 188 H Hemoglobin A1c Calcium Alkaline Phosphatase CK-MB (CK-2) Rel Index Troponin T C-Reactive Protein Albumin Triglycerides HDL Cholesterol Urine WBC (Auto) 10/16/17 10/17/17 10/17/17 22:37 07:26 15:12 RBC Hgb Hct RDW Plt Count [place] % (Auto) PT INR D-Dimer Heparin Anti-Xa Level < 0.10 L 0.14 L < 0.10 L Sodium Potassium Chloride Carbon Dioxide BUN Creatinine Glucose POC Glucose Hemoglobin A1c Calcium Alkaline Phosphatase CK-MB (CK-2) Rel Index Troponin T C-Reactive Protein Albumin Triglycerides HDL Cholesterol Urine WBC (Auto) 10/17/17 10/17/17 10/18/17 22:56 22:58 05:44 RBC Hgb 9.2 L Hct 27.8 L RDW Plt Count 492 H [place] % (Auto) PT INR D-Dimer Heparin Anti-Xa Level 0.15 L Sodium Potassium Chloride Carbon Dioxide BUN Creatinine Glucose POC Glucose 107 H Hemoglobin A1c Calcium Alkaline Phosphatase CK-MB (CK-2) Rel Index Troponin T C-Reactive Protein Albumin Triglycerides HDL Cholesterol Urine WBC (Auto) 10/18/17 10/18/17 10/18/17 05:44 05:44 11:52 RBC Hgb Hct RDW Plt Count [place] % (Auto) PT 15.0 H INR D-Dimer Heparin Anti-Xa Level < 0.10 L Sodium Potassium Chloride Carbon Dioxide BUN 8 L Creatinine 0.7 L Glucose 111 H POC Glucose 124 H Hemoglobin A1c Calcium 8.3 L Alkaline Phosphatase CK-MB (CK-2) Rel Index Troponin T C-Reactive Protein Albumin Triglycerides HDL Cholesterol Urine WBC (Auto) 10/18/17 10/18/17 10/18/17 15:53 16:35 22:06 RBC Hgb Hct RDW Plt Count [place] % (Auto) PT INR D-Dimer Heparin Anti-Xa Level 0.15 L Sodium Potassium Chloride Carbon Dioxide BUN Creatinine Glucose POC Glucose 134 H 114 H Hemoglobin A1c Calcium Alkaline Phosphatase CK-MB (CK-2) Rel Index Troponin T C-Reactive Protein Albumin Triglycerides HDL Cholesterol Urine WBC (Auto) 10/19/17 10/19/17 10/19/17 01:09 05:33 07:14 RBC Hgb Hct RDW Plt Count [place] % (Auto) PT INR D-Dimer Heparin Anti-Xa Level 0.29 L Sodium Potassium Chloride Carbon Dioxide BUN 7 L Creatinine 0.7 L Glucose 111 H POC Glucose 109 H Hemoglobin A1c Calcium 8.1 L Alkaline Phosphatase CK-MB (CK-2) Rel Index Troponin T C-Reactive Protein Albumin Triglycerides HDL Cholesterol Urine WBC (Auto) 10/19/17 10/19/17 10/19/17 07:14 10:49 11:35 RBC Hgb Hct RDW Plt Count [place] % (Auto) PT 15.2 H INR 1.14 H D-Dimer Heparin Anti-Xa Level 0.28 L Sodium Potassium Chloride Carbon Dioxide BUN Creatinine Glucose POC Glucose 121 H Hemoglobin A1c Calcium Alkaline Phosphatase CK-MB (CK-2) Rel Index Troponin T C-Reactive Protein Albumin Triglycerides HDL Cholesterol Urine WBC (Auto) 10/19/17 10/19/17 10/19/17 16:18 17:41 20:11 RBC Hgb Hct RDW Plt Count [place] % (Auto) PT INR D-Dimer Heparin Anti-Xa Level 1.43 H 0.26 L Sodium Potassium Chloride Carbon Dioxide BUN Creatinine Glucose POC Glucose 107 H Hemoglobin A1c Calcium Alkaline Phosphatase CK-MB (CK-2) Rel Index Troponin T C-Reactive Protein Albumin Triglycerides HDL Cholesterol Urine WBC (Auto) 10/20/17 10/20/17 10/20/17 03:25 03:25 03:25 RBC Hgb 9.5 L Hct 28.3 L RDW Plt Count 504 H [place] % (Auto) PT 20.2 H INR 1.62 H D-Dimer Heparin Anti-Xa Level 0.24 L Sodium Potassium Chloride Carbon Dioxide BUN 6 L Creatinine 0.7 L Glucose 101 H POC Glucose Hemoglobin A1c Calcium 8.1 L Alkaline Phosphatase CK-MB (CK-2) Rel Index Troponin T C-Reactive Protein Albumin Triglycerides HDL Cholesterol Urine WBC (Auto) 10/20/17 10/20/17 10/20/17 08:41 13:21 16:13 RBC Hgb Hct RDW Plt Count [place] % (Auto) PT INR D-Dimer Heparin Anti-Xa Level 0.25 L Sodium Potassium Chloride Carbon Dioxide BUN Creatinine Glucose POC Glucose 111 H 113 H Hemoglobin A1c Calcium Alkaline Phosphatase CK-MB (CK-2) Rel Index Troponin T C-Reactive Protein Albumin Triglycerides HDL Cholesterol Urine WBC (Auto) 10/20/17 10/21/17 10/21/17 17:52 04:52 04:52 RBC Hgb Hct RDW Plt Count [place] % (Auto) PT 26.1 H INR 2.24 H D-Dimer Heparin Anti-Xa Level Sodium Potassium 3.3 L Chloride Carbon Dioxide BUN 5 L Creatinine 0.7 L Glucose 102 H POC Glucose 149 H Hemoglobin A1c Calcium 8.2 L Alkaline Phosphatase CK-MB (CK-2) Rel Index Troponin T C-Reactive Protein Albumin Triglycerides HDL Cholesterol Urine WBC (Auto) 10/21/17 10/21/17 10/22/17 11:45 21:11 00:07 RBC Hgb Hct RDW Plt Count [place] % (Auto) PT INR D-Dimer Heparin Anti-Xa Level < 0.10 L Sodium Potassium Chloride Carbon Dioxide BUN Creatinine Glucose POC Glucose 106 H 129 H Hemoglobin A1c Calcium Alkaline Phosphatase CK-MB (CK-2) Rel Index Troponin T C-Reactive Protein Albumin Triglycerides HDL Cholesterol Urine WBC (Auto) 10/22/17 10/22/17 10/22/17 06:05 06:05 07:57 RBC Hgb 10.0 L Hct 30.7 L RDW Plt Count 500 H [place] % (Auto) PT 27.8 H INR 2.42 H D-Dimer Heparin Anti-Xa Level Sodium Potassium Chloride Carbon Dioxide BUN 7 L Creatinine 0.7 L Glucose 108 H POC Glucose Hemoglobin A1c Calcium Alkaline Phosphatase CK-MB (CK-2) Rel Index Troponin T C-Reactive Protein Albumin Triglycerides HDL Cholesterol Urine WBC (Auto) 10/22/17 10/23/17 10/23/17 21:52 04:45 04:45 RBC Hgb Hct RDW Plt Count [place] % (Auto) PT 29.4 H INR 2.60 H D-Dimer Heparin Anti-Xa Level Sodium Potassium 3.3 L Chloride Carbon Dioxide BUN Creatinine 0.7 L Glucose 114 H POC Glucose 153 H Hemoglobin A1c Calcium 8.3 L Alkaline Phosphatase CK-MB (CK-2) Rel Index Troponin T C-Reactive Protein Albumin Triglycerides HDL Cholesterol Urine WBC (Auto) 10/23/17 10/23/17 10/23/17 05:31 16:42 21:58 RBC Hgb Hct RDW Plt Count [place] % (Auto) PT INR D-Dimer Heparin Anti-Xa Level Sodium Potassium Chloride Carbon Dioxide BUN Creatinine Glucose POC Glucose 115 H 153 H 124 H Hemoglobin A1c Calcium Alkaline Phosphatase CK-MB (CK-2) Rel Index Troponin T C-Reactive Protein Albumin Triglycerides HDL Cholesterol Urine WBC (Auto) 10/24/17 10/24/17 10/24/17 05:24 05:24 05:24 RBC Hgb 10.3 L Hct 30.0 L RDW Plt Count [place] % (Auto) PT 32.5 H INR 2.94 H D-Dimer Heparin Anti-Xa Level Sodium Potassium Chloride Carbon Dioxide BUN Creatinine 0.7 L Glucose 116 H POC Glucose Hemoglobin A1c Calcium Alkaline Phosphatase CK-MB (CK-2) Rel Index Troponin T C-Reactive Protein Albumin Triglycerides HDL Cholesterol Urine WBC (Auto) 10/24/17 10/24/17 10/24/17 05:24 06:15 12:22 RBC Hgb Hct RDW Plt Count [place] % (Auto) PT INR D-Dimer Heparin Anti-Xa Level Sodium Potassium Chloride Carbon Dioxide BUN Creatinine Glucose POC Glucose 109 H 138 H Hemoglobin A1c 6.3 H Calcium Alkaline Phosphatase CK-MB (CK-2) Rel Index Troponin T C-Reactive Protein Albumin Triglycerides HDL Cholesterol Urine WBC (Auto) 10/24/17 10/24/17 10/25/17 15:06 23:42 06:06 RBC 3.50 L Hgb 10.6 L Hct 31.8 L RDW 16.4 H Plt Count 441 H [place] % (Auto) PT 30.0 H INR 2.66 H D-Dimer Heparin Anti-Xa Level Sodium Potassium Chloride Carbon Dioxide BUN Creatinine Glucose POC Glucose 114 H Hemoglobin A1c Calcium Alkaline Phosphatase CK-MB (CK-2) Rel Index Troponin T C-Reactive Protein Albumin Triglycerides HDL Cholesterol Urine WBC (Auto) 10/25/17 11:21 RBC Hgb Hct RDW Plt Count [place] % (Auto) PT INR D-Dimer Heparin Anti-Xa Level Sodium Potassium Chloride Carbon Dioxide BUN Creatinine Glucose POC Glucose 152 H Hemoglobin A1c Calcium Alkaline Phosphatase CK-MB (CK-2) Rel Index Troponin T C-Reactive Protein Albumin Triglycerides HDL Cholesterol Urine WBC (Auto) Allied health notes reviewed: nursing
--- NOTE | 2017-10-25 15:56 | Event Note ---
Date: 10/25/17 Patient discharged today
[2017-10-25] MEDS: COUMADIN PO SCH (18:13)
[2017-10-25 18:45] VITALS: BP 129/80
[2017-10-25] MEDS ORDERED: BROVANA NEBU IH SCH (20:00)
== END 2017-10-25 16:25 | disposition home health service (06) | DRG 919 ==
LOC: ED 18:48 → CC1 10-15 00:48 → 3A 10-16 18:33
PROVIDERS: ADMIT Internal Medicine Geriatric Medicine; ATTEND Internal Medicine
PROC: 05HN33Z Insertion of Infusion Device into Left Internal Jugular Vein, Percutaneous Approach (ICD-10-PCS; principal; 2017-10-15)
PROC: B544ZZA Ultrasonography of Left Jugular Veins, Guidance (ICD-10-PCS; 2017-10-15)
DX: T81.32XA Disruption of internal operation (surgical) wound, not elsewhere classified, initial encounter (principal); A41.9 Sepsis, unspecified organism; I63.9 Cerebral infarction, unspecified; R57.1 Hypovolemic shock; J96.00 Acute respiratory failure, unspecified whether with hypoxia or hypercapnia; E87.1 Hypo-osmolality and hyponatremia; I82.492 Acute embolism and thrombosis of other specified deep vein of left lower extremity; E46 Unspecified protein-calorie malnutrition; G82.20 Paraplegia, unspecified; N17.9 Acute kidney failure, unspecified; I71.4 Abdominal aortic aneurysm, without rupture; E78.5 Hyperlipidemia, unspecified; M19.90 Unspecified osteoarthritis, unspecified site; E11.51 Type 2 diabetes mellitus with diabetic peripheral angiopathy without gangrene; D64.9 Anemia, unspecified; E11.22 Type 2 diabetes mellitus with diabetic chronic kidney disease; I12.9 Hypertensive chronic kidney disease with stage 1 through stage 4 chronic kidney disease, or unspecified chronic kidney disease; E66.01 Morbid (severe) obesity due to excess calories; M21.372 Foot drop, left foot; M21.371 Foot drop, right foot; Z79.82 Long term (current) use of aspirin; Z79.899 Other long term (current) drug therapy; Z79.4 Long term (current) use of insulin; Z68.22 Body mass index [BMI] 22.0-22.9, adult
CPT/HCPCS: 36415; 71010; 71046; 72148; 74176; 78582; 80048; 80053; 80061; 80202; 81001; 82140; 82550; 82553; 82962; 83036; 83735; 84100; 84484; 85014; 85018; 85025; 85027; 85049; 85379; 85520; 85610; 85730; 86140; 86850; 86900; 86901; 87040; 87076; 87086; 87116; 87186; 93005; 93010; 93970; 94640; 94644; 99285; A9270-GY; A9540; A9558; J1644; J1650; J1815; J2543; J3370; J7030; J7040

== ENCOUNTER 2018-02-23 06:34 | Day surgery (SDC) | payer BC ==
[2018-02-23] MEDS ORDERED: ECOTRIN PO ONE ×2 (06:57→06:59)
[2018-02-23] MEDS ORDERED: NACL 0.9% 500 ML 500 ML IV SCH (07:00)
[2018-02-23 07:13] LABS: Basophils # (Auto) 0.1 K/mm3 (0.0-0.1); Eosinophils # (Auto) 0.2 K/mm3 (0.0-0.4); Eosinophils % (Auto) 2.7 % (0.0-4.3); Hematocrit 42.7 % (35.5-45.6); Hemoglobin 14.1 gm/dl (11.8-15.2); Lymphocytes # (Auto) 3.3 K/mm3 (1.2-5.4); Lymphocytes % (Auto) 38.8 % (13.4-35.0); Mean Corpuscular HGB Conc 33 % (32-34); Mean Corpuscular Hemoglobin 28 pg (28-32); Mean Corpuscular Volume 85 fl (84-94); Monocytes # (Auto) 0.9 K/mm3 (0.0-0.8); Monocytes % (Auto) 10.7 % (0.0-7.3); Platelet Count 287 K/mm3 (140-440); Red Blood Count 5.04 M/mm3 (3.65-5.03); Red Cell Distribution Width 14.3 % (13.2-15.2)
[2018-02-23 07:25] LABS: BUN/Creatinine Ratio 19; Blood Urea Nitrogen 13 mg/dL (9-20); Calcium 9.2 mg/dL (8.4-10.2); Hemolysis Index 27
[2018-02-23 07:28] LABS: INR 0.87 (0.87-1.13)
[2018-02-23] MEDS ORDERED: XYLOCAINE 2% INFILTRATI ONE (08:25)
[2018-02-23] MEDS ORDERED: CALAN ONE ×2 (08:25→08:40)
[2018-02-23] MEDS ORDERED: HEPARIN/NS 5000 UNIT/500ML(CATH LAB) 1,000 ML IR ONE (08:25)
[2018-02-23] MEDS ORDERED: HEPARIN 10,000 UNITS/10 ML ONE (08:25)
[2018-02-23] MEDS ORDERED: NITROGLYCERIN SYRINGE 0 ML ONE (08:26)
[2018-02-23] MEDS ORDERED: SUBLIMAZE ONE (08:26)
[2018-02-23] MEDS ORDERED: VERSED ONE (08:26)
--- NOTE | 2018-02-23 10:50 | Cardiac Catherization Report ---
INDICATION FOR PROCEDURE: The patient is a 57-year-old white gentleman with history of known severe peripheral vascular disease status post aortofemoral surgery and one occluded carotid artery. He is scheduled for cardiac catheterization because of extensive peripheral vascular disease. The patient denies any chest pain. The patient is aware of the procedure, potential complications and alternatives of therapy available. DESCRIPTION OF PROCEDURE: The patient was brought to the catheterization laboratory in a fasting condition. The right wrist area and forearm thoroughly cleansed with Betadine solution. Sterile drapes were applied. Local anesthesia was achieved using 2% Xylocaine. A right radial artery puncture was made using 21-gauge arterial punch needle. Subsequently, 5-American sheath was introduced. A 5-American multipurpose catheter was used to obtain the angiograms of the left coronary artery, right coronary artery, left ventriculogram done in [place] projection using hand injection. At the end of the procedure, catheter and sheath were removed. Good hemostasis was achieved with pressure bandage. Following findings were noted. HEMODYNAMICS: 1. Opening aortic pressure 138/73, left ventricular pressure 135/10. No gradient across the aortic valve. Estimated ejection fraction 50-55%. 2. Left ventriculogram done in [place] projection showed normal sized left ventricle with normal contractility. End-diastolic and systolic volumes are normal. Mitral regurgitation could not be evaluated because of limited amount of dye injected. Ejection fraction is 50-55%. 3. Left coronary artery arises normally from left coronary cusp, appears to be heavily calcified in the left main LAD area. Left main without significant disease. Proximal LAD shows a 70-80% lesion. Subsequently, there is a fairly large proximal diagonal branch shows ostial 80% eccentric lesion. After the diagonal branch, LAD is subtotally occluded with a very narrow caliber LAD seen in leads and the filling retrograde on RCA injection. However, LAD is visualized proximal to distal area. This is small caliber vessel. The circumflex artery gives rise to a medium sized anterolateral branch, which shows mild diffuse disease after which the circumflex artery is completely occluded with retrograde filling of the posterolateral branch on RCA injection. 4. Right coronary artery is a dominant vessel, arises normally and shows mild smooth irregularities. FINAL IMPRESSION: Normal sized left ventricle with normal contractility with a chronically totally occluded proximal to high mid left anterior descending and is tight ostial lesion of the large diagonal branch and also occluded posterolateral branch, which is filling retrograde. The patient has chronically occluded lesions. At this time, the patient has normal LV function with the above anatomy. Would continue medical therapy and consider revascularization probably surgically. Explained the findings to the patient and . Also will discuss with Dr. Henry who is his nuclear station operator. The patient was evaluated prior to procedure for moderate sedation and the patient was sedated with IV Versed and fentanyl. The patient was monitored throughout the moderate sedation with EKG and hemodynamic monitoring. The patient's IV sedation started 8:56 a.m. and completed at 9:07 a.m. The procedure was uncomplicated. No untoward complications noted. The patient was transferred to the outpatient area in stable condition and pressure bandage was applied to the right radial artery with good hemostasis. Findings were explained to the patient and . JOB# [id number] PINO/JEFFRY
[2018-02-23 12:54] VITALS: BP 108/78
--- NOTE | 2018-02-23 16:10 | Short Stay Summary ---
Short Stay Documentation Date of service: 02/23/18 - History H&P: obtained from office - Allergies and Medications Current Medications: Allergies No Known Allergies Allergy (Unverified 10/14/17 19:17) Home Medications Medication Instructions Recorded Confirmed Last Taken Type ALPRAZolam [Xanax TAB] 0.25 mg PO PRN PRN 08/31/17 02/23/18 3 Weeks Ago History ~02/02/18 Aspirin [Aspirin TAB] 325 mg PO DAILY 08/31/17 02/23/18 02/23/18 History AtorvaSTATin [Lipitor] 40 mg PO DAILY 08/31/17 02/23/18 02/22/18 History Cilostazol [Pletal] 50 mg PO BID 08/31/17 02/23/18 02/22/18 History Gabapentin [Neurontin] 100 mg PO QAM 08/31/17 02/23/18 02/22/18 History Gabapentin [Neurontin] 300 mg PO QHS 08/31/17 02/23/18 02/22/18 History Pantoprazole [Protonix TAB] 40 mg PO QDAY #30 tablet 10/24/17 02/23/18 02/22/18 Rx Cyclobenzaprine [Flexeril 10 MG 10 mg PO QHS PRN 02/23/18 02/23/18 02/22/18 History TAB] Metformin HCl [Glucophage] 500 mg PO BID PRN 02/23/18 02/23/18 02/21/18 History Active Medications Sodium Chloride (Nacl 0.9% 500 Ml) 500 mls @ 50 mls/hr IV DIRECT DRU Stop: 02/23/18 16:59 Last Admin: 02/23/18 07:38 Dose: 50 mls/hr - Brief post op/procedure progress note Date of procedure: 02/23/18 Pre-op diagnosis: CAD Post-op diagnosis: same Procedure: [facility] - see dictated cath report Anesthesia: local Estimated blood loss: none Condition: stable - Disposition Condition at discharge: Stable Disposition: [id number] TO HOME OR SELFCARE - Discharge Diagnoses (1) CAD (coronary artery disease) Status: Chronic (2) PVD (peripheral vascular disease) Status: Chronic (3) Status post aortobifemoral bypass surgery Status: Chronic (4) HLD (hyperlipidemia) Status: Chronic Qualifiers: (5) HTN (hypertension) Status: Chronic Qualifiers: (6) Diabetes Status: Chronic Short Stay Discharge Plan Activity: advance as tolerated Diet: low fat, low cholesterol, low salt Wound: open to air, keep clean and dry, per your surgeon's advice Additional Instructions: Please bring CD with you to Surgeon. Follow up with: CASSY STOUT MD [Primary Care Provider] - 7 Days Forms: [facility]Cat PCI D/C Instructions
== END 2018-02-23 12:05 | disposition home or self-care (01) ==
LOC: CATHLABREC 06:34
PROVIDERS: ATTEND Internal Medicine
DX: I25.10 Atherosclerotic heart disease of native coronary artery without angina pectoris (principal); I10 Essential (primary) hypertension; E11.51 Type 2 diabetes mellitus with diabetic peripheral angiopathy without gangrene; E78.5 Hyperlipidemia, unspecified; Z98.61 Coronary angioplasty status; Z79.01 Long term (current) use of anticoagulants; Z79.899 Other long term (current) drug therapy; Z86.718 Personal history of other venous thrombosis and embolism
CPT/HCPCS: 36415; 80048; 82962; 85025; 85610; 85730; 93005; 93010; 93458; 99156; 99157; C1894; J1644; J2250; J3010; J7040; Q9967